=== PATIENT | male | born 1945 | race Caucasian/White ===

== ENCOUNTER 2020-01-28 22:23 | Emergency (ER) | payer OTHER, MEDICARE, SELFPAY ==
[2020-01-28 22:35] VITALS: BP 153/103; PULSE 59; RESP 18; TEMP 36.5; O2SAT 98; BMI 28.2
--- NOTE | 2020-01-28 22:49 | W.ED.GENADLT ---
HPI - General Adult General: Chief complaint: Ear Stated complaint: earache Time Seen by Provider: 01/28/20 22:45 History of Present Illness: HPI narrative: Patient complains about sinus drainage and left ear pressure times last few days. Said he had drainage come down back throat any brought some that up in a prescription ball for me to look at which has a lot of spit in it . Has history of high blood pressure which she is on medications for MD complaint: Ear pain and sinus drainage Onset (ago): day(s) Location: head Radiation: non-radiation Severity: mild Relieving factors: none Exacerbating factors: none Associated symptoms: Reports no associated symptoms; Deny chest pain, dyspnea, headache(s), nausea, rash or vomiting Review of Systems Const: Denies: fever, chills or body aches Eyes: Denies: change in vision or blurry vision ENMT: Reports: throat pain, nasal congestion and facial/sinus pain Card: Denies: chest pain or shortness of breath on exertion Resp: Denies: shortness of breath, productive cough or non-productive cough GI: Denies: abdominal pain, nausea or vomiting : Denies: difficulty urinating Musc: Denies: extremity pain Skin/Breast: Denies: rash Neuro: Denies: headache Psych: Denies: anxiety or depression Phuc/Lymph: Denies: easy bruising PFSH ED PFSH: Social History Smoking and tobacco status: never smoked Physical Exam Const: COMMON NORMALS: no apparent distress, average body habitus and oriented x3 HENMT: COMMON NORMALS: normocephalic and TM's normal bilaterally HEAD & SCALP: normal to inspection and normocephalic FACE & SINUS: sinus tenderness (Left maxillary) NOSE: nasal discharge TYMPANIC MEMBRANE: TM's normal bilaterally Eye: COMMON NORMALS: conjunctivae normal GENERAL EYE: normal appearance of both eyes CONJUNCTIVA: Yes conjunctivae normal Neck/C-Spine: COMMON NORMALS: no JVD Chest: COMMONS NORMALS: inspection of chest normal Resp: COMMON NORMALS: normal respiratory effort and clear to auscultation bilaterally AUSCULTATION: clear to auscultation bilaterally Cardio: COMMON NORMALS: no JVD, regular rate and regular rhythm RATE: regular rate RHYTHM: regular rhythm GI: COMMON NORMALS: normal to inspection, nondistended, normoactive bowel sounds Extremity: COMMON NORMALS: normal to inspection and full ROM Neuro: COMMON NORMALS: oriented x3 Course Vital Signs: Vital signs: Vital Signs Temperature 97.7 F 01/28/20 22:35 Pulse Rate 59 L 01/28/20 22:35 Respiratory Rate 18 01/28/20 22:35 Blood Pressure 153/103 01/28/20 22:35 Pulse Oximetry 98 01/28/20 22:35 Coding 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
[2020-01-28] MEDS: sulfamethoxazole-trimeth DS 160-800 mg Tablet 1 TAB PO (23:02)
== END 2020-01-28 23:05 | disposition home or self-care (01) ==
LOC: ER 23:13
PROVIDERS: Emergency Provider Nurse Practitioner Family; PCP Family Medicine
DX: H92.02 Otalgia, left ear (principal); J02.9 Acute pharyngitis, unspecified; R09.81 Nasal congestion
CPT/HCPCS: 12345; 99281; 99282

== ENCOUNTER 2020-04-12 08:11 | Outpatient (CLI) | payer OTHER, SELFPAY ==
--- NOTE | 2020-04-12 08:23 | CT_ITS ---
WS: [id number] CT NECK TECHNIQUE: Contrast-enhanced CT of the neck with coronal and sagittal reformatted images. CLINICAL INFORMATION: CERVICALGIA, ATYPICAL FACIAL PAIN COMPARISON: None. DLP: 2913.[address] scans at [facility] use at least one of these dose optimization techniques: automat ed exposure control; mA and/or kV adjustment per patient size (includes targeted exams where dose is matched to clinical indication); or iterative reconstruction. FINDINGS: Small amount of subcutaneous edema and skin thickening involving the left frontal and temporal soft t issues. Recommend correlation for cellulitis. Small amount of edema in the underlying scalp. No evide nce of drainable abscess or fluid collection. Mild edema extending along the supraorbital soft tissue s. Parotid glands are normal in appearance. Normal intraparotid lymph nodes. Normal submandibular glands . No salivary gland calculi. Tongue base is normal in appearance. Normal parapharyngeal fat. Posterior nasopharynx is normal. Tongue base is normal in appearance. No evidence of supraglottic or glottic mass. Glottis is normal i n appearance. Normal piriform sinuses. Normal subglottic airway. [place] tonsils appear normal. No c ervical lymphadenopathy. 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 Moderate spondylitic changes cervical spine. Calcification along the nuchal ligament. CT/CT neck w con* [id number] IMPRESSION: 1. No evidence of supraglottic or glottic mass. No cervical lymphadenopathy. 2. Small amount of edema and induration in the left frontal and temporal soft tissues. Recommend correlation for cellulitis. No drainable abscess or fluid co llection. 3. Salivary glands are normal in appearance. 4. Paranasal sinuses and mastoid air cells are well aerated.
[2020-04-12 09:33] LABS: Blood Urea Nitrogen 10 mg/dL (8-23)
[2020-04-12] MEDS: iohexol 300 mg/mL 100 mL Btl IV (09:47)
== END 2020-04-12 08:12 | disposition home or self-care (01) ==
LOC: RADWPI 08:15
PROVIDERS: PCP Family Medicine; Visit Provider Specialist
DX: M54.2 Cervicalgia (principal); G50.1 Atypical facial pain; R60.9 Edema, unspecified
CPT/HCPCS: 70491; 82565; 84520; Q9967

== ENCOUNTER 2020-06-24 15:54 | Emergency (ER) | payer OTHER, MEDICARE, SELFPAY ==
[2020-06-24 15:57] VITALS: BP 150/88; PULSE 65; RESP 20; TEMP 37; O2SAT 97; BMI 30.5
[2020-06-24 16:13] VITALS: BP 141/87; PULSE 76; RESP 20; O2SAT 98
--- NOTE | 2020-06-24 16:20 | XRR_ITS ---
PROCEDURE INFORMATION: Exam: XR Chest, 1 View Exam date and time: 06/24/2020 4:22 PM Age: 75 years old Clinical indication: Cough; Additional info: Cough with sputum TECHNIQUE: Imaging protocol: XR of the chest Views: 1 view. COMPARISON: CR Chest 1 [place] [id number] 05/29/2018 1:15 AM FINDINGS: Lungs: There are pulmonary parenchymal calcifications consistent with remote granulomatous organism exposure. There is nonspecific opacity at the left lung base. Pleural space: Unremarkable. No pleural effusion. No pneumothorax. Heart/Mediastinum: Unremarkable. No cardiomegaly. Bones/joints: Unremarkable. XR/XR chest 1V portable [id number] IMPRESSION: Nonspecific opacity at the left lung base. Differential includes pneumonia. Underlying neoplasm cannot be excluded.
--- NOTE | 2020-06-24 16:20 | W.ED.GENADLT ---
HPI - General Adult General: Chief complaint: Ear Stated complaint: cough/sob Time Seen by Provider: 06/24/20 16:04 History of Present Illness: HPI narrative: Patient is a 75-year-old male who comes to the ED with cough, nasal drainage and sinus pain. Patient has a past medical history of GERD, hypertension. patient says the symptoms have been going on for the past 3 months. Patient says he has a lot of sinus drainage that he coughs up constantly. Patient actually collected some sputum in a bottle for us to test. He is having some left-sided facial tenderness. He describes that he feels like the left sinus area is constantly draining to the back of his throat. Denies any fever, nausea/vomiting, abdominal pain, bladder or bowel symptoms. Associated symptoms: Deny chest pain, dyspnea, headache(s), nausea, rash, palpitations or vomiting Review of Systems Const: Denies: fever(s), chills or fatigue Eyes: Denies: change in vision or eye discomfort ENMT: Reports: nasal discharge and sinus pain (maxillary sinuse pain); Denies: throat pain, odynophagia or nasal congestion Card: Denies: chest pain, palpitations, edema, swelling of feet/ankles, dyspnea on exertion or orthopnea Resp: Reports: productive cough (Productive cough caused by sinus drainage.); Denies: dyspnea or non-productive cough GI: Denies: abdominal pain, nausea, vomiting, diarrhea, constipation or hematochezia : Denies: flank pain, difficulty urinating, dysuria or hematuria Musc: Denies: neck pain, back pain or extremity swelling Skin/Breast: Denies: rash or new lesions Neuro: Denies: headache(s), numbness in extremities or weakness in extremities PFS ED PFSH: Social History Smoking and tobacco status: never smoked Physical Exam Const: COMMON NORMALS: no acute distress, patient oriented x3 and alert GENERAL APPEARANCE: cooperative and comfortable HENMT: COMMON NORMALS: normocephalic and Normal external nose present HEAD & SCALP: normocephalic FACE & SINUS: sinus tenderness maxillary (left side) NOSE: Normal external nose present TYMPANIC MEMBRANE: TM normal on the right and TM abnormal TM laterality: left Details: fluid behind TM MOUTH: Normal oral and palatal mucosa present THROAT: posterior oropharynx normal and uvula midline Eye: COMMON NORMALS: Equal, round and reactive pupils present PUPIL: Yes Equal, round and reactive pupils present Neck/C-Spine: COMMON NORMALS: supple GENERAL: Yes normal visual inspection Resp: COMMON NORMALS: normal respiratory effort, No retractions, No use of accessory muscles and clear to auscultation bilaterally AUSCULTATION: clear to auscultation bilaterally Cardio: COMMON NORMALS: regular rate, regular rhythm, S1 normal heart sound present, S2 normal heart sound present, No gallops present (Cardio), No clicks present (Cardio), No murmurs present (Cardio) and Peripheral pulses 2+ throughout RATE: regular rate RHYTHM: regular rhythm HEART SOUNDS: S1 normal heart sound present and S2 normal heart sound present PERIPHERAL PULSES: Peripheral pulses 2+ throughout GI: COMMON NORMALS: Normal to inspection, nondistended, normoactive bowel sounds present, Soft to palpation, non-tender and no masses PALPATION: Yes Soft to palpation : COMMON NORMALS: Yes no CVA tenderness BLADDER/KIDNEY EXAM: Yes no CVA tenderness Back/Pelvis: COMMON NORMALS: no CVA tenderness Extremity: COMMON NORMALS: normal to inspection Neuro: COMMON NORMALS: patient oriented x3 and moves all extremities SENSORIUM/ORIENTATION: Yes alert Skin: GENERAL SKIN EXAM: dry skin Course Vital Signs: Vital signs: Vital Signs Temperature 98.6 F 06/24/20 17:24 Pulse Rate 71 06/24/20 17:24 Respiratory Rate 18 06/24/20 17:24 Blood Pressure 173/99 06/24/20 17:24 Pulse Oximetry 96 06/24/20 17:24 MDM - General Adult MDM Narrative: Medical decision making narrative: Patient is a 75-year-old male who comes to the ED with left maxillary sinus drainage and tenderness. Exam showed patient in no acute respiratory distress. Lungs are clear to auscultation bilaterally. Temp 98.6, pulse 71, O2 saturation 96% on room air. CBC and CMP were unremarkable. Chest x-ray showed no acute findings. Left lung base has possible infiltrate but when comparing the chest x-ray to previous cxr in May 2018, left lung base is unchanged. Patient was diagnosed with sinusitis and sent home with a prescription for Augmentin and Medrol Dosepak. Follow-up with PCP in 7 to 10 days. Return to ED precautions given. Patient understood and agreed with plan. Lab Data: Attestation: I reviewed the patient's lab results. Labs: Lab Results 06/24/20 06/24/20 Range/Units 16:37 16:37 WBC 5.7 (4.0-10.0) 10^3/ uL RBC 4.82 (4.1-5.3) 10^6/u L Hgb 15.0 (11.7-16.6) g/dL Hct 46.1 (42.0-52.0) % MCV 95.6 H (80-94) fL MCH 31.1 (28.0-34.0) pg MCHC 32.5 (30.0-36.0) g/dL RDW 13.6 (12.1-15.1) % Plt Count 195 (130-400) 10^3/c mm MPV 11.0 H (7.4-10.4) fL Neut % (Auto) 55.6 % Lymph % (Auto) 25.0 % [place] % (Auto) 16.6 % Eos % (Auto) 0.9 % Baso % (Auto) 1.4 % Neut # (Auto) 3.14 (1.8-7.7) 10^3/u L Lymph # (Auto) 1.4 (0.8-4.8) 10^3/u L [place] # (Auto) 0.9 (0.2-0.9) 10^3/u L Eos # (Auto) 0.1 (0.0-0.8) 10^3/u L Baso # (Auto) 0.1 (0.0-0.1) 10^3/u L Nucleated RBC % (a uto) 0 % Nucleated RBCs # 0.0 /100WBC Sodium 134 L (136-145) mmol/L Potassium 4.2 (3.5-5.1) mmol/L Chloride 98 (98-107) mmol/L Carbon Dioxide 28 (22-29) mmol/L Anion Gap 12.2 (5-19) BUN 17 (8-23) mg/dL Creatinine 1.1 (0.7-1.2) mg/dL GFR Calculation Not Reportable Glucose 111 (65-115) mg/dL Calculated Osmolal ity 275 L (285-295) mOsm/k g Calcium 8.9 (8.5-10.5) mg/dL Total Bilirubin 0.2 (0.15-1.2) mg/dL AST 42 H (0-40) U/L ALT 64 H (0-41) U/L Alkaline Phosphata se 71 (40-130) IU/L Total Protein 7.2 (6.6-8.7) g/dL Albumin 4.2 (3.5-5.2) g/dL Globulin 3.0 (1.3-4.6) g/dL Imaging Data^: CXR: Attestation: I personally reviewed and interpreted this imaging study as follows: My impression: No acute findings. Radiologist's impression: [address] [address] XRay Report Signed Patient: William Braun Unit #: [id number] : [id number] Age/Sex: 75 / M ADM Date: 06/24/20 Loc: ER Room/Bed: Attending Dr: Ordering Provider/Ordering MD: Alexandre Franco Date of Service: 06/24/20 Procedure(s): XR chest 1V portable [id number] Accession Number(s): [id number] Report Number: [id number] PROCEDURE INFORMATION: Exam: XR Chest, 1 View Exam date and time: 06/24/2020 4:22 PM Age: 75 years old Clinical indication: Cough; Additional info: Cough with sputum TECHNIQUE: Imaging protocol: XR of the chest Views: 1 view. COMPARISON: CR Chest 1 [place] [id number] 05/29/2018 1:15 AM FINDINGS: Lungs: There are pulmonary parenchymal calcifications consistent with remote granulomatous organism exposure. There is nonspecific opacity at the left lung base. Pleural space: Unremarkable. No pleural effusion. No pneumothorax. Heart/Mediastinum: Unremarkable. No cardiomegaly. Bones/joints: Unremarkable. XR/XR chest 1V portable [id number] IMPRESSION: Nonspecific opacity at the left lung base. Differential includes pneumonia. Underlying neoplasm cannot be excluded. Dictated By: Pearl Pryor MD Signed By: Pearl Pryor MD Signed Date/Time: 06/24/201647 DD/ 1648 Discharge Plan Discharge Patient Disposition: Home Clinical Impression: Sinusitis, maxillary, chronic Condition: Stable Prescriptions: New amoxicillin-pot clavulanate 500-125 mg tablet 1 tab PO TID 10 Days Qty: 30 RF: 0 methylprednisolone 4 mg tablets,dose pack See Rx Instructions .ROUTE .COMPLEX Qty: 21 RF: 0 No Action aspirin 81 mg Tablet,Delayed Release (Dr/Ec) 81 mg PO DAILY RF: 0 tamsulosin 0.4 mg Capsule 0.4 mg PO DAILY RF: 0 hydrochlorothiazide 25 mg Tablet 25 mg PO DAILY RF: 0 ipratropium bromide 42 mcg (0.06 %) [place],Non-Aerosol 2 spray INTRANASAL TID RF: 0 finasteride 5 mg Tablet 5 mg PO DAILY RF: 0 loratadine 10 mg Tablet 10 mg PO DAILY RF: 0 omeprazole 20 mg Tablet,Delayed Release (Dr/Ec) 20 mg PO DAILY RF: 0 fluticasone prp-sod.chl,bicarb 50 mcg- 0.9 % Kit,[place] Suspension And [place] 2 spray INTRANASAL DAILY RF: 0 methylprednisolone 4 mg Tablets,Dose Pack 0 mg PO PER PKG DIR RF: 0 valacyclovir 500 mg Tablet 500 mg PO TID RF: 0 ibuprofen 200 mg Tablet 200 mg PO Q6H PRN (Reason: Pain) RF: 0 [place]-3 Fish Oil 300-1,000 mg Capsule 1 cap PO DAILY RF: 0 Discharge Orders: Discharge Order (Routine); Ordered 06/24/20 Ordered By: Alexandre Franco Referrals: [facility] [Primary Care Provider] - Discharge Diet: Regular Discharge Activity: Resume usual activity Patient Instructions: Sinusitis - Acute, Sinusitis - Chronic Activity Restrictions/Additional Instructions: Follow-up with medical provider as directed in 5-7 days. Take medications as prescribed. Continue taking all home medications. Also continue using nasal spray and other previously prescribed allergy medication. Return to the ER or your medical provider if condition worsens. Please read and understand discharge instructions. If any questions, please ask. 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
[2020-06-24] MEDS: amoxicillin-clav 500-125 mg Tablet 1 TAB PO (16:46)
[2020-06-24] MEDS: predniSONE 20 mg Tablet 60 MG PO (16:46)
[2020-06-24 16:47] LABS: Basophils # 0.1 10^3/uL (0.0-0.1); Basophils % 1.4 %; Eosinophils # 0.1 10^3/uL (0.0-0.8); Eosinophils % 0.9 %; Hematocrit 46.1 % (42.0-52.0); Lymphocytes # 1.4 10^3/uL (0.8-4.8); Mean Corpuscular HGB Conc 32.5 g/dL (30.0-36.0); Mean Corpuscular Hemoglobin 31.1 pg (28.0-34.0); Mean Corpuscular Volume 95.6 fL (80-94); Monocytes # 0.9 10^3/uL (0.2-0.9); Monocytes % 16.6 %; Neutrophils # 3.14 10^3/uL (1.8-7.7); Neutrophils % 55.6 %; Nucleated Red Blood Cells % 0 %; Platelet Count 195 10^3/cmm (130-400); Red Blood Count 4.82 10^6/uL (4.1-5.3); Red Cell Distribution Width 13.6 % (12.1-15.1); White Blood Count 5.7 10^3/uL (4.0-10.0)
[2020-06-24 17:15] LABS: Alanine Aminotransferase 64 U/L (0-41); Albumin Level 4.2 g/dL (3.5-5.2); Alkaline Phosphatase 71 IU/L (40-130); Anion Gap 12.2 (5-19); Aspartate Amino Transferase 42 U/L (0-40); Blood Urea Nitrogen 17 mg/dL (8-23); Calcium 8.9 mg/dL (8.5-10.5); Carbon Dioxide 28 mmol/L (22-29); Chloride 98 mmol/L (98-107); Glucose 111 mg/dL (65-115); Osmolality Calculated 275 mOsm/kg (285-295); Potassium 4.2 mmol/L (3.5-5.1); Sodium 134 mmol/L (136-145); Total Bilirubin 0.2 mg/dL (0.15-1.2); Total Protein 7.2 g/dL (6.6-8.7)
[2020-06-24 17:24] VITALS: BP 173/99; PULSE 71; RESP 18; TEMP 37; O2SAT 96
== END 2020-06-24 17:27 | disposition home or self-care (01) ==
PROVIDERS: Emergency Provider Physician Assistant
DX: J32.0 Chronic maxillary sinusitis (principal); Z79.82 Long term (current) use of aspirin
CPT/HCPCS: 12345; 36415; 71045; 80053; 85025; 87070; 87205; 99281; 99282; 99283; J7512

== ENCOUNTER 2020-06-28 14:46 | Emergency (ER) | payer OTHER, MEDICARE, SELFPAY ==
[2020-06-28 14:52] VITALS: BP 138/72; PULSE 103; RESP 14; TEMP 37.6; O2SAT 97; BMI 30.5
--- NOTE | 2020-06-28 15:09 | XRR_ITS ---
PROCEDURE INFORMATION: Exam: XR Chest, 2 Views Exam date and time: 06/28/2020 3:25 PM Age: 75 years old Clinical indication: Cough; Patient HX: Tight in upper chest, HX of melanoma; Additional info: Cough, difficulty breathing TECHNIQUE: Imaging protocol: XR of the chest Views: Frontal and lateral upright views. COMPARISON: CR (CHEST, ) 06/24/2020 4:23 PM FINDINGS: Lungs: Right mid lung zone calcified pulmonary parenchymal granuloma. The lungs are otherwise clear bilaterally. The pulmonary vasculature is normal. Pleural space: No pleural effusion. No pneumothorax. Heart/Mediastinum: The heart is normal in size and contour. Mediastinum: Stable. Vasculature: Mild tortuosity of the descending thoracic aorta. Bones/joints: Degenerative disk disease is present at mid-thoracic spine disk levels. Organs: The gallbladder is likely surgically absent, with metallic clips overlying the gallbladder fossa. XR/XR chest 2V* [id number] IMPRESSION: 1. No acute cardiopulmonary abnormality identified. 2. Prior cholecystectomy.
--- NOTE | 2020-06-28 15:25 | ED_ITS ---
HPI - General Adult General: Chief complaint: General Medical Stated complaint: COUGH, HEADACHE, BACK PAIN Time Seen by Provider: 06/28/20 14:58 Source: patient Mode of arrival: ambulatory Limitations: no limitations History of Present Illness: HPI narrative: 75-year-old male who presents to the emergency department with complaints of cough for the last 5 to 6 weeks. He has seen his primary care a few times and has been given amoxicillin and prednisone with no improvement in his symptoms he is also been to the urgent care and they have not been able to address it. He says the cough is productive of mucoid sputum. He stopped smoking about 20 years ago. He was sent to the emergency department to get tested for COVID-19. Onset (ago): week(s) (6) Severity: moderate Pain Consistency: intermittent Relieving factors: none Exacerbating factors: none Associated symptoms: Reports cough and headache(s) (from coughing so much); Deny chest pain, confusion, diaphoresis, decreased appetite, dyspnea, fevers/chills, rash, palpitations, seizures, short of breath, syncope, vomiting or weakness Treatments prior to arrival: other (amoxicillin and medrol dospak) Review of Systems General: Reports: 10 or more systems reviewed and unremarkable except in HPI and below Const: Denies: diaphoresis Eyes: Denies: change in vision or blurry vision ENMT: Denies: throat pain, enlarged tonsils, odynophagia, hoarseness, mouth pain or swelling of lips/tongue Card: Denies: chest pain, palpitations or syncope Resp: Denies: dyspnea GI: Denies: vomiting : Denies: flank pain, dysuria, urinary frequency, urinary urgency or urinary hesitancy Musc: Denies: neck pain, back pain or extremity swelling Skin/Breast: Denies: rash, pruritus or erythema Neuro: Reports: headache(s) (from coughing so much); Denies: confusion Endo: Denies: polyuria, polydipsia or tired all the time [facility] ED PFSH: Social History (Reviewed 06/28/20 @ 15:29 by Eulogio Liu [place] [facility] [place] Smoking and tobacco status: never smoked Physical Exam Const: COMMON NORMALS: no acute distress, average body habitus, patient oriented x3, no limitations, healthy appearing, alert and well nourished HENMT: COMMON NORMALS: normocephalic, atraumatic and moist oral mucous membranes HEAD & SCALP: normocephalic and atraumatic Neck/C-Spine: COMMON NORMALS: no meningeal signs and no JVD Resp: COMMON NORMALS: normal respiratory effort, No retractions, No use of accessory muscles, clear to auscultation bilaterally and percussion normal AUSCULTATION: clear to auscultation bilaterally PERCUSSION: percussion normal Cardio: COMMON NORMALS: no JVD, regular rate, regular rhythm, S1 normal heart sound present, S2 normal heart sound present, No gallops present (Cardio), No clicks present (Cardio), No murmurs present (Cardio), No rub (Cardio) and Peripheral pulses 2+ throughout RATE: regular rate RHYTHM: regular rhythm HEART SOUNDS: S1 normal heart sound present and S2 normal heart sound present PERIPHERAL PULSES: Peripheral pulses 2+ throughout GI: COMMON NORMALS: Normal to inspection, nondistended, normoactive bowel sounds present, Soft to palpation, non-tender, No hepatosplenomegaly present, no masses and no bruits PALPATION: Yes Soft to palpation and Yes No hepatosplen omegaly present : COMMON NORMALS: Yes no CVA tenderness BLADDER/KIDNEY EXAM: Yes no CVA tenderness Back/Pelvis: COMMON NORMALS: no CVA tenderness Extremity: COMMON NORMALS: normal to inspection, full ROM, capillary refill normal, no calf tenderness and no pedal edema Neuro: COMMON NORMALS: patient oriented x3 SENSORIUM/ORIENTATION: Yes alert MENINGEAL SIGNS: Yes no meningeal signs Course ED course: 75-year-old gentleman who has had a cough for about 5 weeks. He has been given antibiotics and steroids but not much improvement. He is currently on amoxicillin and prednisone. He has persistent cough and that is what is bothering him the most. Evaluation in the emergency department was unremarkable and he is discharged home with a prescription for Tessalon Perles. He also had an outpatient COVID test done but result is pending. Procalcitonin negative so unlikely to have a pneumonia. Vital Signs: Vital signs: Vital Signs Temperature 99.6 F 06/28/20 14:52 Pulse Rate 78 06/28/20 17:02 Respiratory Rate 17 06/28/20 17:02 Blood Pressure 153/72 06/28/20 17:02 Pulse Oximetry 97 06/28/20 17:02 MDM - General Adult MDM Narrative: Medical decision making narrative: 75-year-old male with features consistent with bronchitis. He has had a persistent cough for about 5 weeks. He has no fever, vital signs were okay, examination unremarkable, labs unremarkable including pro calcitonin. He was discharged home with a prescription for Tessalon Perles. Medical Records: Attestation: I reviewed the patient's medical records. Lab Data: Attestation: I reviewed the patient's lab results. Labs: Lab Results 06/28/20 06/28/20 Range/Units 15:40 15:40 WBC 6.9 (4.0-10.0) 10^3/ uL RBC 4.95 (4.1-5.3) 10^6/u L Hgb 15.4 (11.7-16.6) g/dL Hct 46.7 (42.0-52.0) % MCV 94.3 H (80-94) fL MCH 31.1 (28.0-34.0) pg MCHC 33.0 (30.0-36.0) g/dL RDW 13.2 (12.1-15.1) % Plt Count 173 (130-400) 10^3/c mm MPV 10.7 H (7.4-10.4) fL Neut % (Auto) 67.9 % Lymph % (Auto) 18.3 % [facility] % (Auto) 12.8 % Eos % (Auto) 0.1 % Baso % (Auto) 0.3 % Neut # (Auto) 4.71 (1.8-7.7) 10^3/u L Lymph # (Auto) 1.3 (0.8-4.8) 10^3/u L [facility] # (Auto) 0.9 (0.2-0.9) 10^3/u L Eos # (Auto) 0.0 (0.0-0.8) 10^3/u L Baso # (Auto) 0.0 (0.0-0.1) 10^3/u L Nucleated RBC % (a uto) 0 % Nucleated RBCs # 0.0 /100WBC Sodium 127 L (136-145) mmol/L Potassium 3.8 (3.5-5.1) mmol/L Chloride 90 L (98-107) mmol/L Carbon Dioxide 26 (22-29) mmol/L Anion Gap 14.8 (5-19) BUN 22 (8-23) mg/dL Creatinine 1.1 (0.7-1.2) mg/dL GFR Calculation Not Reportable Glucose 101 (65-115) mg/dL Calculated Osmolal ity 261 L (285-295) mOsm/k g Calcium 8.8 (8.5-10.5) mg/dL Total Bilirubin 0.3 (0.15-1.2) mg/dL AST 59 H (0-40) U/L ALT 57 H (0-41) U/L Alkaline Phosphata se 64 (40-130) IU/L C-Reactive Protein 18.9 H (0.0-4.9) mg/L NT-Pro-B Natriuret Pep 75 (0-125) pg/mL Total Protein 6.8 (6.6-8.7) g/dL Albumin 4.1 (3.5-5.2) g/dL Globulin 2.7 (1.3-4.6) g/dL Procalcitonin 0.07 (0-0.5) ng/mL Imaging Data^: CXR: Radiologist's impression: [place] [id number] XRay Report Signed Patient: William Braun #: [id number] : 7Acct#:[id number] Age/Sex: 75 / MADM Date: 06/28/20 Loc: [facility]/Bed: Attending Dr: Ordering Provider/Ordering MD: Eulogio Liu [place] [facility] [place] Date of Service: 06/28/20 Procedure(s): XR chest 2V* [id number] Accession Number(s): [id number] Report Number: [id number] PROCEDURE INFORMATION: Exam: XR Chest, 2 Views Exam date and time: 06/28/2020 3:25 PM Age: 75 years old Clinical indication: Cough; Patient HX: Tight in upper chest, HX of melanoma; Additional info: Cough, difficulty breathing TECHNIQUE: Imaging protocol: XR of the chest Views: Frontal and lateral upright views. COMPARISON: CR (CHEST, ) 06/24/2020 4:23 PM FINDINGS: Lungs: Right mid lung zone calcified pulmonary parenchymal granuloma. The lungs are otherwise clear bilaterally. The pulmonary vasculature is normal. Pleural space: No pleural effusion. No pneumothorax. Heart/Mediastinum: The heart is normal in size and contour. Mediastinum: Stable. Vasculature: Mild tortuosity of the descending thoracic aorta. Bones/joints: Degenerative disk disease is present at mid-thoracic spine disk levels. Organs: The gallbladder is likely surgically absent, with metallic clips overlying the gallbladder fossa. XR/XR chest 2V* [id number] IMPRESSION: 1. No acute cardiopulmonary abnormality identified. 2. Prior cholecystectomy. Dictated By:Chris Kirk MD Signed By:Chris Kirkigned Date/Time:06/28/201627 DD/ 25 Discharge Plan Discharge Patient Disposition: Home Clinical Impression: Bronchitis Condition: Stable Prescriptions: New Tessalon Perles 100 mg capsule 100 mg PO Q6H PRN (Reason: cough) Qty: 20 RF: 0 Continued aspirin 81 mg Tablet,Delayed Release (Dr/Ec) 81 mg PO DAILY RF: 0 tamsulosin 0.4 mg Capsule 0.4 mg PO DAILY RF: 0 hydrochlorothiazide 25 mg Tablet 25 mg PO DAILY RF: 0 ipratropium bromide 42 mcg (0.06 %) [place],Non-Aerosol 2 spray INTRANASAL TID RF: 0 finasteride 5 mg Tablet 5 mg PO DAILY RF: 0 loratadine 10 mg Tablet 10 mg PO DAILY RF: 0 omeprazole 20 mg Tablet,Delayed Release (Dr/Ec) 20 mg PO DAILY RF: 0 fluticasone prp-sod.chl,bicarb 50 mcg- 0.9 % Kit,[place] Suspension And [place] 2 spray INTRANASAL DAILY RF: 0 valacyclovir 500 mg Tablet 500 mg PO TID RF: 0 ibuprofen 200 mg Tablet 200 mg PO Q6H PRN (Reason: Pain) RF: 0 [place]-3 Fish Oil 300-1,000 mg Capsule 1 cap PO DAILY RF: 0 methylprednisolone 4 mg tablets,dose pack See Rx Instructions .ROUTE .COMPLEX Qty: 21 RF: 0 amoxicillin-pot clavulanate 875-125 mg Tablet 1 tab PO BID RF: 0 Discharge Orders: Discharge Order (Routine); Ordered 06/28/20 Ordered By: Eulogio Liu Referrals: [facility] [Primary Care Provider] - 4-7 days Discharge Diet: Usual diet Discharge Activity: Increase activity as tolerated Patient Instructions: Acute Bronchitis (ED) Activity Restrictions/Additional Instructions: Return for any new or worsening symptoms. Follow-up with your primary care provider within 1 week. Continue your medications prescribed by your primary care provider. Take the medication prescribed here as needed for cough. Discharge Date/Time: 06/28/20 18:17 Coding Level of Care Code ED Quiller Tender for Chg Fwd Exam Comprehensive
[2020-06-28 15:48] LABS: Basophils % 0.3 %; Eosinophils % 0.1 %; Hematocrit 46.7 % (42.0-52.0); Hemoglobin 15.4 g/dL (11.7-16.6); Lymphocytes # 1.3 10^3/uL (0.8-4.8); Lymphocytes % 18.3 %; Mean Corpuscular Hemoglobin 31.1 pg (28.0-34.0); Mean Corpuscular Volume 94.3 fL (80-94); Mean Platelet Volume 10.7 fL (7.4-10.4); Monocytes # 0.9 10^3/uL (0.2-0.9); Monocytes % 12.8 %; Neutrophils # 4.71 10^3/uL (1.8-7.7); Neutrophils % 67.9 %; Nucleated Red Blood Cells % 0 %; Platelet Count 173 10^3/cmm (130-400); Red Blood Count 4.95 10^6/uL (4.1-5.3); Red Cell Distribution Width 13.2 % (12.1-15.1); White Blood Count 6.9 10^3/uL (4.0-10.0)
[2020-06-28 16:19] LABS: Alanine Aminotransferase 57 U/L (0-41); Albumin Level 4.1 g/dL (3.5-5.2); Alkaline Phosphatase 64 IU/L (40-130); Anion Gap 14.8 (5-19); Aspartate Amino Transferase 59 U/L (0-40); Blood Urea Nitrogen 22 mg/dL (8-23); Calcium 8.8 mg/dL (8.5-10.5); Carbon Dioxide 26 mmol/L (22-29); Chloride 90 mmol/L (98-107); Globulin 2.7 g/dL (1.3-4.6); Glucose 101 mg/dL (65-115); NT Pro B Type Natriuretic Pept 75 pg/mL (0-125); Osmolality Calculated 261 mOsm/kg (285-295); Potassium 3.8 mmol/L (3.5-5.1); Sodium 127 mmol/L (136-145); Total Bilirubin 0.3 mg/dL (0.15-1.2); Total Protein 6.8 g/dL (6.6-8.7)
[2020-06-28] MEDS: sodium chloride 0.9% 1,000 ML 999 ML IV (16:56)
[2020-06-28] MEDS: benzonatate 100 mg Capsule 200 MG PO (16:57)
[2020-06-28 17:02] VITALS: BP 153/72; PULSE 78; RESP 17; O2SAT 97
[2020-06-28 18:15] LABS: Procalcitonin 0.07 ng/mL (0-0.5)
[2020-06-28 18:26] LABS: C Reactive Protein 18.9 mg/L (0.0-4.9)
[2020-06-30 19:10] LABS: Quest SARS-CoV-2 RNA DETECTED (NOT DETECTED)
--- NOTE | 2020-07-01 19:27 | PC.NURSE ---
patient called to give positive covid lab result; recommended self quarantine and to come in if worsening symptoms; patient stated at this time he feels ok, no fever or shortness of breath just a persistent cough. advised patient to call PCP in morning for additional follow up care or to come in for any concerns.
== END 2020-06-28 18:17 | disposition home or self-care (01) ==
PROVIDERS: Emergency Provider Family Medicine
DX: J40 Bronchitis, not specified as acute or chronic (principal); Z79.82 Long term (current) use of aspirin; U07.1 COVID-19
CPT/HCPCS: 12345; 36415; 71046; 80053; 83880; 84145; 85025; 86140; 87635; 96360; 99282; 99283; J7030

== ENCOUNTER → 2020-11-06 14:05 | Outpatient (BNVA) | payer OTHER, MEDICARE, SELFPAY | PROVIDERS: Visit Provider Emergency Medicine | DX: M70.20 Olecranon bursitis, unspecified elbow (principal) | CPT/HCPCS: 87070; 87205 ==

== ENCOUNTER 2021-01-18 14:54 | Emergency (ER) | payer OTHER, MEDICARE, SELFPAY ==
[2021-01-18 15:57] VITALS: BP 119/72; PULSE 80; RESP 15; TEMP 36.7; O2SAT 97; BMI 23.4
[2021-01-18 16:49] VITALS: BP 119/72; PULSE 80; RESP 16; O2SAT 97
--- NOTE | 2021-01-18 17:19 | ED_ITS ---
HPI - General Adult General: Chief complaint: General Medical Stated complaint: chills, arm pain, post COVID vaccine Time Seen by Provider: 01/18/21 17:18 Source: patient Mode of arrival: ambulatory Limitations: no limitations History of Present Illness: HPI narrative: 75-year-old male patient comes in today for concerns of a reaction to his Moderna vaccine. Patient reports some mild redness to the injection site on the left arm, and chills. Patient reports feeling better today. Patient reports most of his discomfort was last night. Review of Systems General: Reports: 10 or more systems reviewed and unremarkable except in HPI and below Const: Reports: chills Skin/Breast: Reports: other (Redness at injection site) PFSH ED PFSH: Social History (Updated 11/06/20 @ 13:30 by Delvis Carroll LPN) Smoking and tobacco status: former smoker Alcohol intake: current Alcohol intake frequency: holidays/special occasions only Physical Exam Const: COMMON NORMALS: no acute distress and patient oriented x3 GENERAL APPEARANCE: cooperative HENMT: COMMON NORMALS: normocephalic, TM's normal bilaterally and Normal external nose present HEAD & SCALP: normal to inspection and normocephalic NOSE: Normal external nose present TYMPANIC MEMBRANE: TM's normal bilaterally MOUTH: Normal oral and palatal mucosa present THROAT: posterior oropharynx normal Eye: GENERAL EYE: appearance normal, both eyes and all related structures Neck/C-Spine: COMMON NORMALS: full ROM Lymph: LYMPHATIC: no lymphadenopathy noted Chest: COMMONS NORMALS: normal inspection of the chest Resp: COMMON NORMALS: normal respiratory effort EFFORT & INSPECTION: Yes able to speak in complete sentences Cardio: COMMON NORMALS: regular rate and regular rhythm RATE: regular rate RHYTHM: regular rhythm GI: COMMON NORMALS: non-tender : COMMON NORMALS: Yes no CVA tenderness BLADDER/KIDNEY EXAM: Yes no CVA tenderness Back/Pelvis: COMMON NORMALS: no CVA tenderness and thoracic and lumbar spine normal to inspection Extremity: COMMON NORMALS: normal to inspection Neuro: COMMON NORMALS: patient oriented x3 and moves all extremities Psych: COMMON NORMALS: mental status grossly normal and cooperative Skin: COMMON NORMALS: no rashes or lesions noted GENERAL SKIN EXAM: no rashes or lesions noted Course Vital Signs: Vital signs: Vital Signs Temperature 98.0 F 01/18/21 15:57 Pulse Rate 80 01/18/21 16:49 Respiratory Rate 16 01/18/21 16:49 Blood Pressure 119/72 01/18/21 16:49 Pulse Oximetry 97 01/18/21 16:49 MDM - General Adult MDM Narrative: Medical decision making narrative: Patient presents for concerns of reaction to COVID-19 vaccine. On exam patient appears well. Lungs are clear to auscultation. Skin is warm and dry. Vital signs are normal. Patient does have a small 3 cm area of redness to the injection site. Differential diagnosis includes vaccine reaction, immune response to vaccine, worried well. I discussed with patient that this is a normal reaction to a vaccine administration. I encourage patient to continue with the vaccine regimen. Patient was hesitant about taking the second shot but I think he will consider it although I do not know if he will complete it. I recommended acetaminophen or ibuprofen for discomfort. Patient reported understanding and agreed to plan. Discharge Plan Discharge Patient Disposition: Home Clinical Impression: Vaccine counseling, Myalgia Condition: Stable Prescriptions: No Action doxycycline hyclate 100 mg tablet 100 mg PO BID 10 Days Qty: 20 RF: 0 aspirin 81 mg Tablet,Delayed Release (Dr/Ec) 81 mg PO DAILY RF: 0 tamsulosin 0.4 mg Capsule 0.4 mg PO DAILY RF: 0 hydrochlorothiazide 25 mg Tablet 25 mg PO DAILY RF: 0 ipratropium bromide 42 mcg (0.06 %) [place],Non-Aerosol 2 spray INTRANASAL TID RF: 0 finasteride 5 mg Tablet 5 mg PO DAILY RF: 0 loratadine 10 mg Tablet 10 mg PO DAILY RF: 0 omeprazole 20 mg Tablet,Delayed Release (Dr/Ec) 20 mg PO DAILY RF: 0 fluticasone prp-sod.chl,bicarb 50 mcg- 0.9 % Kit,[place] Suspension And [place] 2 spray INTRANASAL DAILY RF: 0 valacyclovir 500 mg Tablet 500 mg PO TID RF: 0 ibuprofen 200 mg Tablet 200 mg PO Q6H PRN (Reason: Pain) RF: 0 [place]-3 Fish Oil 300-1,000 mg Capsule 1 cap PO DAILY RF: 0 methylprednisolone 4 mg tablets,dose pack See Rx Instructions .ROUTE .COMPLEX Qty: 21 RF: 0 amoxicillin-pot clavulanate 875-125 mg Tablet 1 tab PO BID RF: 0 Tessalon Perles 100 mg capsule 100 mg PO Q6H PRN (Reason: cough) Qty: 20 RF: 0 Discharge Orders: Discharge ED (Routine); Ordered 01/18/21 Ordered By: Chris Villaseñor Referrals: [facility] [Primary Care Provider] - Discharge Diet: Usual diet Discharge Activity: Increase activity as tolerated Patient Instructions: Opioid Safety Activity Restrictions/Additional Instructions: Activity as tolerated. Use acetaminophen or ibuprofen as needed for pain and discomfort. Drink plenty of water with medication. Follow-up with primary care for further treatment. The reaction you had is very common with many vaccines. The Covid vaccine has a good immune response. The immune response causes some myalgia, fever, and chills. It is often recommended to use acetaminophen to combat the symptoms. X-ray drinking plenty of water. Follow-up with primary care for further instruction. Coding Level of Care Code ED System Consultant for [facility] Fwvolodymyr Exam Comprehensive
== END 2021-01-18 17:41 | disposition home or self-care (01) ==
PROVIDERS: Emergency Provider Nurse Practitioner Family
DX: M79.10 Myalgia, unspecified site (principal); Z79.82 Long term (current) use of aspirin; Z87.891 Personal history of nicotine dependence
CPT/HCPCS: 99281

== ENCOUNTER 2021-03-24 04:23 | Emergency (ER) | payer OTHER, MEDICARE, SELFPAY ==
[2021-03-24 04:25] VITALS: BP 151/81; PULSE 57; RESP 15; TEMP 36.7; O2SAT 99; BMI 28.8
[2021-03-24] MEDS: silver nitrate applicator 1 EACH TOPICAL (04:43)
--- NOTE | 2021-03-24 04:47 | ED_ITS ---
HPI - Wound/Laceration General: Chief Complaint: Wound/Laceration Stated Complaint: right leg lac Time Seen by Provider: 03/24/21 04:30 History of Present Illness: HPI narrative: 75-year-old male who scratched over a varicosity on his lateral right lower leg, and opened it up. He experienced significant oozing of the varicosity from at least 45 minutes before deciding to come in. He wrapped it with paper towels and tape to get here. He says that he got a bit dizzy, but that is resolved. Onset (ago): hour(s) (1-2) Extremity Location: Right: lower leg Place: home Context: accidental Associated symptoms: Reports no associated symptoms; Denies chills or fever(s) Review of Systems Const: Denies: fever(s) or chills Card: Denies: chest pain Resp: Denies: dyspnea Neuro: Reports: dizziness (Resolved) [facility] ED PFSH: Social History (Updated 11/06/20 @ 13:30 by Delvis Carroll LPN) Smoking and tobacco status: former smoker Alcohol intake: current Alcohol intake frequency: holidays/special occasions only Physical Exam Const: COMMON NORMALS: no acute distress, patient oriented x3 and alert Chest: COMMONS NORMALS: normal inspection of the chest Resp: COMMON NORMALS: normal respiratory effort and No use of accessory muscles Cardio: COMMON NORMALS: regular rhythm and Peripheral pulses 2+ throughout RATE: bradycardic RHYTHM: regular rhythm PERIPHERAL PULSES: Peripheral pulses 2+ throughout Extremity: NARRATIVE EXTREMITY EXAM: Puncture wound to the right lateral lower leg with oozing venous blood. Widespread varicosities otherwise with some chronic stasis dermatitis skin changes bilaterally. GENERAL: Yes normal exam except as noted Neuro: COMMON NORMALS: patient oriented x3 SENSORIUM/ORIENTATION: Yes alert Skin: NARRATIVE SKIN EXAM: See extremity exam Procedures Laceration Laceration 1: Site: lower extremity Side (If applicable): right Size (cm): 0.5 Description: other (Puncture wound) Depth: simple, single layer Skin layer closed with: other (Dermabond) Course 2 Vital Signs: Vital signs: Vital Signs Temperature 98.1 F 03/24/21 04:25 Pulse Rate 57 L 03/24/21 04:25 Respiratory Rate 15 03/24/21 04:25 Blood Pressure 151/81 03/24/21 04:25 Pulse Oximetry 99 03/24/21 04:25 MDM - Wound/Laceration MDM Narrative: Medical decision making narrative: 75-year-old male with a scratched varicosity with continued oozing. The leg was elevated significantly on a pillow, at which point the bleeding abated. Silver nitrate placed on the wound followed by Dermabond. Discharge Plan Discharge Patient Disposition: Home Clinical Impression: Ruptured varicose vein Condition: Stable Prescriptions: No Action doxycycline hyclate 100 mg tablet 100 mg PO BID 10 Days Qty: 20 RF: 0 aspirin 81 mg Tablet,Delayed Release (Dr/Ec) 81 mg PO DAILY RF: 0 tamsulosin 0.4 mg Capsule 0.4 mg PO DAILY RF: 0 hydrochlorothiazide 25 mg Tablet 25 mg PO DAILY RF: 0 ipratropium bromide 42 mcg (0.06 %) [place],Non-Aerosol 2 spray INTRANASAL TID RF: 0 finasteride 5 mg Tablet 5 mg PO DAILY RF: 0 loratadine 10 mg Tablet 10 mg PO DAILY RF: 0 omeprazole 20 mg Tablet,Delayed Release (Dr/Ec) 20 mg PO DAILY RF: 0 fluticasone prp-sod.chl,bicarb 50 mcg- 0.9 % Kit,[place] Suspension And [place] 2 spray INTRANASAL DAILY RF: 0 valacyclovir 500 mg Tablet 500 mg PO TID RF: 0 ibuprofen 200 mg Tablet 200 mg PO Q6H PRN (Reason: Pain) RF: 0 [place]-3 Fish Oil 300-1,000 mg Capsule 1 cap PO DAILY RF: 0 methylprednisolone 4 mg tablets,dose pack See Rx Instructions .ROUTE .COMPLEX Qty: 21 RF: 0 amoxicillin-pot clavulanate 875-125 mg Tablet 1 tab PO BID RF: 0 Tessalon Perles 100 mg capsule 100 mg PO Q6H PRN (Reason: cough) Qty: 20 RF: 0 Discharge Orders: Discharge ED (Routine); Ordered 03/24/21 Ordered By: Dick Briseno Referrals: [facility] [Primary Care Provider] - 4-7 days (for wound check) Discharge Diet: Usual diet Discharge Activity: Limit activity as instructed Patient Instructions: Varicose Veins (ED) Activity Restrictions/Additional Instructions: Keep wound clean and dry for 24 hours, then may wash with soap and running water. Do not soak. Return for spreading redness, worsening pain, streaking, continued bleeding, any other concerning symptoms. Coding Level of Care Code ED Silk Trimmer for Chg Fwd Exam Detailed
[2021-03-24 05:28] VITALS: BP 128/74; PULSE 59; RESP 15; TEMP 36.7; O2SAT 97
--- NOTE | 2021-03-24 05:28 | PC.NURSE ---
Telfa non-stick dressing applied to wound and wrapped in coban.
== END 2021-03-24 05:28 | disposition home or self-care (01) ==
PROVIDERS: Emergency Provider Emergency Medicine
DX: I83.891 Varicose veins of right lower extremity with other complications (principal); Z79.82 Long term (current) use of aspirin; Z87.891 Personal history of nicotine dependence
CPT/HCPCS: 99282

== ENCOUNTER 2021-04-11 20:29 | Emergency (ER) | payer OTHER, MEDICARE, SELFPAY ==
[2021-04-11 20:44] VITALS: BP 147/75; PULSE 55; RESP 18; TEMP 37.3; O2SAT 97; BMI 23.4
[2021-04-11 20:52] VITALS: BP 147/75; PULSE 61; RESP 18; O2SAT 97
--- NOTE | 2021-04-11 21:08 | ED_ITS ---
HPI - Skin/Abscess/Foreign Bdy General: Chief complaint: Skin/Abscess/Foreign Body Stated complaint: rash on legs Time Seen by Provider: 04/11/21 20:50 History of Present Illness: HPI narrative: Itching rash to lower extremities x3 days. Patient says he is out working on his camper and that something like a bite or come in contact some on his left leg and now the rash is spread and is keeping him up at night he would like some medication for. complaint: other (Rash lower extremities) Onset (ago): day(s) Tetanus up to date: yes Location: LLE and RLE Severity: mild Severity scale (1-10): 1 Quality: pruritic Relieving factors: rest (Using alcohol, hemorrhoid cream, and peroxide) Associated symptoms: Reports itching; Deny chills, fever(s), nausea or vomiting Review of Systems Const: Denies: fever(s), chills or body aches Eyes: Denies: change in vision or blurry vision ENMT: Denies: throat pain or nasal congestion Card: Denies: chest pain or dyspnea on exertion Resp: Denies: dyspnea, productive cough or non-productive cough GI: Denies: abdominal pain, nausea or vomiting : Denies: difficulty urinating Musc: Denies: extremity pain Skin/Breast: Reports: rash and pruritus (Bilateral lower extremities x3 days) Neuro: Denies: headache(s) Psych: Denies: anxiety or depression Phuc/Lymph: Denies: easy bruising PFSH ED PFSH: Social History (Updated 11/06/20 @ 13:30 by Delvis Carroll LPN) Smoking and tobacco status: former smoker Alcohol intake: current Alcohol intake frequency: holidays/special occasions only Physical Exam Const: COMMON NORMALS: no acute distress Psych: COMMON NORMALS: mental status grossly normal Skin: OTHER: Has fine, red, papular type rash scattered below the sock line on both extremities. Pattern seem to be the same on each lower extremity where when he lays in bed they touch. Course Vital Signs: Vital signs: Vital Signs Temperature 99.2 F 04/11/21 20:44 Pulse Rate 61 04/11/21 20:52 Respiratory Rate 18 04/11/21 20:52 Blood Pressure 147/75 04/11/21 20:52 Pulse Oximetry 97 04/11/21 20:52 Discharge Plan Discharge Patient Disposition: Home Clinical Impression: Contact dermatitis Qualifiers: Contact dermatitis type: irritant Contact dermatitis trigger: unspecified trigger Qualified Code(s): L24.9 - Irritant contact dermatitis, unspecified ca use Condition: Stable Prescriptions: New hydroxyzine HCl 25 mg tablet 25 mg PO TID PRN (Reason: itching) Qty: 14 RF: 0 Anti-Itch (HC) 1 % cream 1 applic topical TID PRN (Reason: itching) Qty: 28.35 RF: 0 No Action doxycycline hyclate 100 mg tablet 100 mg PO BID 10 Days Qty: 20 RF: 0 aspirin 81 mg Tablet,Delayed Release (Dr/Ec) 81 mg PO DAILY RF: 0 tamsulosin 0.4 mg Capsule 0.4 mg PO DAILY RF: 0 hydrochlorothiazide 25 mg Tablet 25 mg PO DAILY RF: 0 ipratropium bromide 42 mcg (0.06 %) [place],Non-Aerosol 2 spray INTRANASAL TID RF: 0 finasteride 5 mg Tablet 5 mg PO DAILY RF: 0 loratadine 10 mg Tablet 10 mg PO DAILY RF: 0 omeprazole 20 mg Tablet,Delayed Release (Dr/Ec) 20 mg PO DAILY RF: 0 fluticasone prp-sod.chl,bicarb 50 mcg- 0.9 % Kit,[place] Suspension And [place] 2 spray INTRANASAL DAILY RF: 0 valacyclovir 500 mg Tablet 500 mg PO TID RF: 0 ibuprofen 200 mg Tablet 200 mg PO Q6H PRN (Reason: Pain) RF: 0 [place]-3 Fish Oil 300-1,000 mg Capsule 1 cap PO DAILY RF: 0 methylprednisolone 4 mg tablets,dose pack See Rx Instructions .ROUTE .COMPLEX Qty: 21 RF: 0 amoxicillin-pot clavulanate 875-125 mg Tablet 1 tab PO BID RF: 0 Tessalon Perles 100 mg capsule 100 mg PO Q6H PRN (Reason: cough) Qty: 20 RF: 0 Discharge Orders: Discharge ED (Routine); Ordered 04/11/21 Ordered By: Vincenzo Burns Referrals: Alice Rangel MD [Primary Care Provider] - Discharge Diet: Usual diet Discharge Activity: Resume usual activity Patient Instructions: Contact Dermatitis (ED) Activity Restrictions/Additional Instructions: Follow-up with medical provider as directed. Take medications as prescribed. Return to the ER or your medical provider if condition worsens. Please read and understand discharge instructions. If any questions ask please. Coding Level of Care Code ED Head Of Stock for [place] Lerma
[2021-04-11] MEDS: hydrocortisone 1% cream 28 gm 1 APPLIC TOPICAL (21:24)
[2021-04-11] MEDS: hyDROXYzine 25 mg Capsule PO (21:24)
== END 2021-04-11 21:25 | disposition home or self-care (01) ==
PROVIDERS: Emergency Provider Nurse Practitioner Family; PCP Family Medicine
DX: L24.9 Irritant contact dermatitis, unspecified cause (principal); Z79.82 Long term (current) use of aspirin; Z79.1 Long term (current) use of non-steroidal anti-inflammatories (NSAID); Z79.891 Long term (current) use of opiate analgesic
CPT/HCPCS: 99283

== ENCOUNTER 2021-09-22 23:48 | Emergency (ER) | payer OTHER, MEDICARE, SELFPAY ==
[2021-09-23 00:01] VITALS: BP 136/79; PULSE 80; RESP 18; TEMP 36.6; O2SAT 98; BMI 28.8
[2021-09-23 00:17] VITALS: PULSE 59; RESP 18; O2SAT 99
--- NOTE | 2021-09-23 00:28 | W.ED.SKABFB ---
HPI - Skin/Abscess/Foreign Bdy General: Chief complaint: Wound/Laceration Stated complaint: sore on left side Time Seen by Provider: 09/22/21 23:50 Source: patient Mode of arrival: ambulatory Limitations: no limitations History of Present Illness: HPI narrative: Patient is a 76-year-old male who presents to ED today with complaint of a lesion to the left side of his abdomen that he noticed approximately 24 hours ago. Patient tells me he initially felt something scratchy under his shirt and states he scratched it with his nail and picked off something black that crumbled. He states since that time he has noticed burning to the area. He has not had any known injury or trauma. No drainage. No visualized insect/spider bite. No systemic symptoms. No tick bite. MD complaint: lesion Onset (ago): day(s) Tetanus up to date: yes Severity: mild Quality: burning Pain Consistency: constant Relieving factors: none Exacerbating factors: none Associated symptoms: Reports no associated symptoms; Deny chills, fever(s), nausea or vomiting Review of Systems Const: Denies: fever(s), chills, body aches or fatigue Card: Denies: chest pain Resp: Denies: dyspnea GI: Denies: abdominal pain, nausea, vomiting or diarrhea : Denies: flank pain or dysuria Musc: Denies: neck pain, back pain, extremity pain or joint pain Skin/Breast: Reports: new lesions Neuro: Denies: headache(s), numbness in extremities or sensory changes PFS ED PFSH: Social History (Updated 11/06/20 @ 13:30 by Delvis Carroll LPN) Smoking and tobacco status: former smoker Alcohol intake: current Alcohol intake frequency: holidays/special occasions only Physical Exam Const: COMMON NORMALS: no acute distress, patient oriented x3, no limitations and alert GENERAL APPEARANCE: cooperative Resp: COMMON NORMALS: normal respiratory effort and clear to auscultation bilaterally AUSCULTATION: clear to auscultation bilaterally Cardio: COMMON NORMALS: regular rate and regular rhythm RATE: regular rate RHYTHM: regular rhythm Neuro: COMMON NORMALS: patient oriented x3 SENSORIUM/ORIENTATION: Yes alert Skin: SKIN IMAGES (MALE): 1. pt has an erythematous oval shaped lesion to L lateral abdomen that is flat in appearance with a small 5mm area of central hemorrhage w/o skin breakdown; there is no underlying fluctuance or induration; no active necrosis Course Vital Signs: Vital signs: Vital Signs Temperature 97.9 F 09/23/21 00:01 Pulse Rate 59 L 09/23/21 00:17 Respiratory Rate 18 09/23/21 00:17 Blood Pressure 136/79 09/23/21 00:01 Pulse Oximetry 99 09/23/21 00:17 MDM - Skin/Abscess/Foreign Bdy MDM Narrative: Medical decision making narrative: Lesion suspicious for spider bite. Reassured patient that most spider bites do not require intervention. Recommend continuing to treat area conservatively with antibiotic ointment and hydrocortisone cream. Continue to monitor lesion closely for worsening symptoms. Discussed with patient how sometimes lesions can become secondarily infected. He has no risk factors for MRSA. Will write patient a prescription for Keflex that he can start only if lesion continues to worsen. Otherwise [facility]. Return to ED precautions given. Discharge Plan Discharge Patient Disposition: Home Clinical Impression: Spider bite Qualifiers: Encounter type: initial encounter Injury intent: accidental or unintentional Qualified Code(s): T63.301A - Toxic effect of unspecified spider venom, accidental (unintentional), initial encounter Condition: Stable Prescriptions: New cephalexin 500 mg capsule 500 mg PO Q6H 7 Days Qty: 28 RF: 0 No Action doxycycline hyclate 100 mg tablet 100 mg PO BID 10 Days Qty: 20 RF: 0 prednisone 20 mg tablet 20 mg PO BID 5 Days Qty: 10 RF: 0 hydroxyzine HCl 25 mg tablet 25 mg PO TID PRN (Reason: itching) Qty: 14 RF: 0 Anti-Itch (HC) 1 % cream 1 applic topical TID PRN (Reason: itching) Qty: 28.35 RF: 0 tamsulosin 0.4 mg Capsule 0.4 mg PO DAILY RF: 0 hydrochlorothiazide 25 mg Tablet 25 mg PO DAILY RF: 0 ipratropium bromide 42 mcg (0.06 %) [place],Non-Aerosol 2 spray INTRANASAL TID RF: 0 finasteride 5 mg Tablet 5 mg PO DAILY RF: 0 loratadine 10 mg Tablet 10 mg PO DAILY RF: 0 omeprazole 20 mg Tablet,Delayed Release (Dr/Ec) 20 mg PO DAILY RF: 0 fluticasone prp-sod.chl,bicarb 50 mcg- 0.9 % Kit,[place] Suspension And [place] 2 spray INTRANASAL DAILY RF: 0 valacyclovir 500 mg Tablet 500 mg PO TID RF: 0 ibuprofen 200 mg Tablet 200 mg PO Q6H PRN (Reason: Pain) RF: 0 [place]-3 Fish Oil 300-1,000 mg Capsule 1 cap PO DAILY RF: 0 Discharge Orders: Discharge ED (Routine); Ordered 09/23/21 Ordered By: Ching Wong Referrals: Alice Rangel MD [Primary Care Provider] - Patient Instructions: Insect Bite or Sting (ED), [place] Spider Bite (ED) Activity Restrictions/Additional Instructions: As we discussed I would treat lesion conservatively by continuing the antibiotic ointment and hydrocortisone cream twice daily. Monitor lesion closely for worsening/spreading redness or drainage. If lesion continues to worsen you may fill/start antibiotics. Please follow up with primary care if lesion does not begin to improve. Coding Level of Care Code ED Wrapper Hand for Margog Fwd Exam Expanded Problem Focused
== END 2021-09-23 00:44 | disposition home or self-care (01) ==
PROVIDERS: Emergency Provider Physician Assistant; PCP Family Medicine
DX: T63.301A Toxic effect of unspecified spider venom, accidental (unintentional), initial encounter (principal); Z87.891 Personal history of nicotine dependence
CPT/HCPCS: 99281

== ENCOUNTER 2021-12-06 16:04 | Emergency (ER) | payer OTHER, MEDICARE, SELFPAY ==
--- NOTE | 2021-12-06 16:15 | XRR_ITS ---
PROCEDURE INFORMATION: Exam: XR Chest Exam date and time: 12/06/2021 4:15 PM Age: 76 years old Clinical indication: Cough and shortness of breath; Additional info: Congestion, covid symptoms TECHNIQUE: Imaging protocol: XR of the chest. Views: 1 view. 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 No acute infiltrate. Incidental calcified granuloma in the right lower lobe. Pleural spaces: Unremarkable. No pleural effusion. No pneumothorax. Heart/Mediastinum: Unremarkable. No cardiomegaly. Bones/joints: Unremarkable. XR/XR chest 1V portable [id number] IMPRESSION: No acute findings In
[2021-12-06 16:19] VITALS: BP 131/79; PULSE 71; RESP 16; TEMP 36.8; O2SAT 97; BMI 28.8
[2021-12-06 20:02] VITALS: O2SAT 97
[2021-12-06 20:09] LABS: Add Urine Microscopic? NO; Charge for UA Resulting for Rev
--- NOTE | 2021-12-06 20:09 | PC.NURSE ---
pt threatening to hit staff in waiting room during covid swab
[2021-12-06 20:31] LABS: Bilirubin Urine 1+ (Negative); Blood Urine Neg (Negative); Glucose Urine UA Norm (Normal); Ketones Urine Negative (Negative); Leukocyte Esterase Urine Negative (Negative); Nitrate Urine Negative (Negative); Protein Urine Neg (Negative); Specific Gravity, Urine 1.025 (1.005-1.030); Urine Appearance Clear (CLEAR); Urine Color Yellow (Yellow); Urobilinogen Urine Norm (Negative); pH Urine 5 (5-7)
--- NOTE | 2021-12-06 21:54 | ED_ITS ---
HPI - COVID General: Chief Complaint: COVID symptoms Stated Complaint: Has alot of mucus drainage Time Seen by Provider: 12/06/21 19:58 Triage information: Has fever, cough or shortness of breath . No known COVID + exposure last 14 days History of Present Illness: HPI Narrative: 76-year-old male patient comes in today with complaints of sinus pain, congestion and drainage, and occasional cough. Patient reports that he had COVID-19 in June 2020, and has had his vaccinations. Patient reports being ill for about 4 to 5 days. Patient appears mildly unwell but not toxic. Patient appears in no pain. COVID 19 common symptoms: positive nasal congestion COVID Results: SARS-CoV-2 RNA (RT-PCR) Detected (NOT DETECTED) A 06/28/20 17:16 06/28/20 Review of Systems ENMT: Reports: nasal congestion and sinus pain [facility] ED PFSH: Social History (Updated 11/06/20 @ 13:30 by Delvis Carroll LPN) Smoking and tobacco status: former smoker Alcohol intake: current Alcohol intake frequency: holidays/special occasions only Physical Exam Const: COMMON NORMALS: no acute distress HENMT: COMMON NORMALS: atraumatic HEAD & SCALP: atraumatic Eye: COMMON NORMALS: Equal, round and reactive pupils present and EOMs intact bilaterally PUPIL: Yes Equal, round and reactive pupils present Resp: COMMON NORMALS: normal respiratory effort and clear to auscultation bilaterally AUSCULTATION: clear to auscultation bilaterally Cardio: COMMON NORMALS: regular rate and regular rhythm RATE: regular rate RHYTHM: regular rhythm Extremity: COMMON NORMALS: normal to inspection Skin: COMMON NORMALS: no rashes or lesions noted GENERAL SKIN EXAM: no rashes or lesions noted Course Vital Signs: Vital signs: Vital Signs Temperature 98.2 F 12/06/21 16:19 Pulse Rate 71 12/06/21 16:19 Respiratory Rate 16 12/06/21 16:19 Blood Pressure 131/79 12/06/21 16:19 Pulse Oximetry 97 12/06/21 20:02 MDM - COVID MDM Narrative: Medical decision making narrative: 76-year-old male comes in today for complaints of sinus symptoms. Patient has been ill for about 3 to 4 days. On exam patient has some nasal congestion and sinus maxillary pain on palpation. Lungs are clear to auscultation. Skin is warm and dry. Vital signs are normal. Differential diagnosis includes bacterial rhinosinusitis, COVID-19, other viral syndrome. COVID-19 test was sent to [facility] for further evaluation, chest x-ray was normal, urinalysis was clear. Patient will be treated with 1 g of ceftriaxone and 10 mg of dexamethasone IM. Prescription for Augmentin 1 tablet twice a day for 7 days was written. Patient reports understanding of care plan and need for follow-up or return. No signs of serious illness was noted. Lab Data: Labs: Lab Results 12/06/21 19:54 Urine Color Yellow (Yellow) Urine Appearance Clear (CLEAR) Urine pH 5 (5-7) Ur Specific Gravit y 1.025 (1.005-1.030) Urine Protein Neg (Negative) Urine Glucose (UA) Norm (Normal) Urine Ketones Negative (Negative) Urine Blood Neg (Negative) Urine Nitrate Negative (Negative) Urine Bilirubin 1+ H (Negative) Urine Urobilinogen Norm mg/dL mg/dL (Negative) Ur Leukocyte Makayla ase Negative (Negative) COVID Results: SARS-CoV-2 RNA (RT-PCR) Detected (NOT DETECTED) A 06/28/20 17:16 06/28/20 Discharge Plan Discharge Patient Disposition: Home Clinical Impression: Acute rhinosinusitis Condition: Stable Prescriptions: New Augmentin 875-125 mg tablet 1 tab PO BID Qty: 14 RF: 0 No Action doxycycline hyclate 100 mg tablet 100 mg PO BID 10 Days Qty: 20 RF: 0 prednisone 20 mg tablet 20 mg PO BID 5 Days Qty: 10 RF: 0 hydroxyzine HCl 25 mg tablet 25 mg PO TID PRN (Reason: itching) Qty: 14 RF: 0 Anti-Itch (HC) 1 % cream 1 applic topical TID PRN (Reason: itching) Qty: 28.35 RF: 0 tamsulosin 0.4 mg Capsule 0.4 mg PO DAILY RF: 0 hydrochlorothiazide 25 mg Tablet 25 mg PO DAILY RF: 0 ipratropium bromide 42 mcg (0.06 %) [place],Non-Aerosol 2 spray INTRANASAL TID RF: 0 finasteride 5 mg Tablet 5 mg PO DAILY RF: 0 loratadine 10 mg Tablet 10 mg PO DAILY RF: 0 omeprazole 20 mg Tablet,Delayed Release (Dr/Ec) 20 mg PO DAILY RF: 0 fluticasone prp-sod.chl,bicarb 50 mcg- 0.9 % Kit,[place] Suspension And [place] 2 spray INTRANASAL DAILY RF: 0 valacyclovir 500 mg Tablet 500 mg PO TID RF: 0 ibuprofen 200 mg Tablet 200 mg PO Q6H PRN (Reason: Pain) RF: 0 [place]-3 Fish Oil 300-1,000 mg Capsule 1 cap PO DAILY RF: 0 Discharge Orders: Discharge ED (Routine); Ordered 12/06/21 Ordered By: Chris Villaseñor Referrals: Alice Rangel MD [Primary Care Provider] - Discharge Diet: Usual diet Discharge Activity: Increase activity as tolerated Patient Instructions: Rhinosinusitis (ED), Opioid Safety Activity Restrictions/Additional Instructions: Home and rest. Drink plenty of fluids. Medications as directed. Follow-up with primary care for further instruction. Coding Level of Care Code ED Certified Histologic Technician for [facility] Lerma
[2021-12-06] MEDS: cefTRIAXone 1,000 MG in lidocaine 1% 2.1 ML 999 MG IM (22:31)
[2021-12-06] MEDS: dexamethasone 10 mg/mL INJ IM (22:32)
[2021-12-06 22:33] VITALS: PULSE 90; RESP 20; O2SAT 97
[2021-12-08 23:28] LABS: Quest SARS-CoV-2 RNA NOT DETECTED (NOT DETECTED)
--- NOTE | 2021-12-09 09:13 | PC.NURSE ---
Does not have Voice mail set up
== END 2021-12-06 22:34 | disposition home or self-care (01) ==
PROVIDERS: Physician Assistant; Emergency Provider Nurse Practitioner Family; PCP Family Medicine
DX: J01.90 Acute sinusitis, unspecified (principal); Z87.891 Personal history of nicotine dependence; Z20.822 Contact with and (suspected) exposure to COVID-19
CPT/HCPCS: 71045; 81003; 87635; 96372; 99283; J0696; J1100

== ENCOUNTER 2021-12-23 13:26 | Emergency (ER) | payer OTHER, MEDICARE, SELFPAY ==
[2021-12-23 13:31] VITALS: BP 119/84; PULSE 71; RESP 18; TEMP 36.7; O2SAT 97; BMI 29.2
[2021-12-23 13:51] VITALS: BP 118/91; PULSE 67; RESP 18; O2SAT 98
--- NOTE | 2021-12-23 13:53 | W.ED.GENADLT ---
HPI - General Adult General: Chief complaint: General Medical Stated complaint: rectal issues Time Seen by Provider: 12/23/21 13:53 History of Present Illness: Mr Braun is a 76-year-old gentleman with significant past medical history of hemorrhoids who presents emergency department due to anal pain and blood in stool. He reports onset of symptoms approximately 7 to 10 days ago were first noticed black jellylike consistency stool for a few days. He subsequently has developed red blood on the paper with a burning sensation when wiping. He has tried [id number] medications without significant relief. Intensity of symptoms is moderate. Course has persisted. He has not had symptoms this refractory to treatment before. He denies associated lightheadedness, dizziness, chest pain, shortness of breath. He does not have significant abdominal discomfort. He had a colonoscopy many years ago but nothing recently. No other significant changes in health, exacerbating, relieving factors identified. The patient does note a temporal relation between antibiotics for respiratory infection and the symptoms though does not have diarrhea or markedly foul-smelling stools. Onset (ago): week(s) Location: buttocks Severity: moderate Quality: burning Pain Consistency: intermittent Relieving factors: other Exacerbating factors: none Associated symptoms: Reports no associated symptoms Treatments prior to arrival: other Review of Systems General: Reports: 10 or more systems reviewed and unremarkable except in HPI and below PFSH ED PFSH: Medical History Hypertension Surgical History History of cholecystectomy Social History Smoking and tobacco status: former smoker Alcohol intake: current Alcohol intake frequency: holidays/special occasions only Physical Exam Const: COMMON NORMALS: alert GENERAL APPEARANCE: cooperative and well developed HENMT: COMMON NORMALS: normocephalic and atraumatic HEAD & SCALP: normocephalic and atraumatic Eye: COMMON NORMALS: conjunctivae normal CONJUNCTIVA: Yes conjunctivae normal SCLERA: sclerae normal Neck/C-Spine: COMMON NORMALS: supple GENERAL: Yes trachea midline Resp: COMMON NORMALS: normal respiratory effort and clear to auscultation bilaterally EFFORT & INSPECTION: Yes able to speak in complete sentences AUSCULTATION: clear to auscultation bilaterally Cardio: COMMON NORMALS: regular rate and regular rhythm RATE: regular rate RHYTHM: regular rhythm GI: COMMON NORMALS: Soft to palpation PALPATION: Yes Soft to palpation and No Tenderness to palpation present (GI) PERCUSSION: normal to percussion OTHER: Rectal exam performed with manager of internal audit present. No external hemorrhoids, other lesions, or abnormalities identified. Stool is guaiac negative. Extremity: GENERAL: Yes normal exam except as noted and No edema Neuro: COMMON NORMALS: moves all extremities SENSORIUM/ORIENTATION: Yes alert and No Orientation impaired Psych: COMMON NORMALS: mental status grossly normal and Normal thought process present THOUGHT PROCESS: Normal thought process present Course ED course: - Patient was seen and evaluated by me at bedside - Patient placed on cardiac monitors, IV access obtained - Initial evaluation notable for exam as above - Labs notable for normal hemoglobin. No significant electrolyte derangement. Negative urinalysis. - Imaging notable for no acute finding on CT scan to explain blood in stool/rectal symptoms - Upon serial reexamination after treatment the patient was similar to mildly improved - Based on patient history, evaluation, labs, and imaging as interpreted the most likely cause of the patient's condition is blood in stool and anal pain of unclear etiology not requiring inpatient evaluation at this time - The results of ED evaluation were discussed with the patient including prescriptions and/or symptomatic cares (if applicable) including appropriate and responsible use, followup plan, and return precautions. The patient verbalized understanding and felt safe for discharge. - Patient discharged in satisfactory condition. Note: Click bubbles or prepopulated silverio in note writing are used for assistance with data collection and billing and are inherently more limited than narrative and other text portions of this note. Please use narrative for additional clinical history and defer to narrative/free test for any case of contradictory information. If information appears in only free text or click bubble it should be considered present or absent as reported. Please contact note telegraphic typewriter operator for clarifications of clinical information or contradictory information. MDM is a brief summary, contradictory or erroneous seeming information should be clarified and full note should be reviewed. Vital Signs: Vital signs: Vital Signs Temperature 98.1 F 12/23/21 13:31 Pulse Rate 57 L 12/23/21 17:30 Respiratory Rate 20 H 12/23/21 17:30 Blood Pressure 144/80 12/23/21 17:30 Pulse Oximetry 96 12/23/21 17:30 MDM - General Adult Medical Decision Making 76-year-old gentleman presenting with greater than 1 week of anal pain and some blood in stool. Vital signs satisfactory. Hemoglobin normal. Guaiac negative. No obvious cause of patient's symptoms on exam or imaging. Satisfactory for outpatient follow-up and continued [id number] treatment which he has been trying with some relief. Medical Records I reviewed the patient's medical records. Lab Data I reviewed the patient's lab results. : 12/23/21 14:30 12/23/21 14:30 Radiology Impressions Abdomen/Pelvis CT 12/23/21 14:11 IMPRESSION: 1. No acute findings. 2. 1.5 cm left adrenal nodule. While this is incompletely characterized on current study, it is unchanged in size and appearance of 2016, and therefore likely relates to a benign etiology such as an adenoma. Laboratory Results WBC 7.3 10^3/uL (4.0-10.0) 12/23/21 14:30 RBC 4.98 10^6/uL (4.1-5.3) 12/23/21 14:30 Hgb 15.2 g/dL (11.7-16.6) 12/23/21 14:30 Hct 45.8 % (42.0-52.0) 12/23/21 14:30 MCV 92.0 fl (80-94) 12/23/21 14:30 MCH 30.5 pg (28.0-34.0) 12/23/21 14:30 MCHC 33.2 g/dL (30.0-36.0) 12/23/21 14:30 RDW 13.7 % (12.1-15.1) 12/23/21 14:30 Plt Count 226 10^3/cmm (130-400) 12/23/21 14:30 MPV 11.5 fL (7.4-10.4) H 12/23/21 14:30 Neut % (Auto) 54.9 % 12/23/21 14:30 Lymph % (Auto) 31.9 % 12/23/21 14:30 Bradley % (Auto) 8.8 % 12/23/21 14:30 Eos % (Auto) 2.5 % 12/23/21 14:30 Baso % (Auto) 1.4 % 12/23/21 14:30 Neut # (Auto) 4.02 10^3/uL (1.8-7.7) 12/23/21 14:30 Lymph # (Auto) 2.3 10^3/uL (0.8-4.8) 12/23/21 14:30 Bradley # (Auto) 0.6 10^3/uL (0.2-0.9) 12/23/21 14:30 Eos # (Auto) 0.2 10^3/uL (0.0-0.8) 12/23/21 14:30 Baso # (Auto) 0.1 10^3/uL (0.0-0.1) 12/23/21 14:30 Nucleated RBC % (auto) 0 % 12/23/21 14:30 Nucleated RBCs # 0.0 /100WBC 12/23/21 14:30 Sodium 137 mmol/L (136-145) 12/23/21 14:30 Potassium 4.2 mmol/L (3.5-5.1) 12/23/21 14:30 Chloride 100 mmol/L (98-107) 12/23/21 14:30 Carbon Dioxide 25 mmol/L (22-29) 12/23/21 14:30 Anion Gap 16.2 (5-19) 12/23/21 14:30 BUN 15 mg/dL (8-23) 12/23/21 14:30 Creatinine 0.9 mg/dL (0.7-1.2) 12/23/21 14:30 GFR Calculation Not Reportable 12/23/21 14:30 Glucose 103 mg/dL (65-115) 12/23/21 14:30 Calculated Osmolality 285 mOsm/kg (285-295) 12/23/21 14:30 Calcium 9.0 mg/dL (8.5-10.5) 12/23/21 14:30 Total Bilirubin 0.6 mg/dL (0.15-1.2) 12/23/21 14:30 AST 29 U/L (0-40) 12/23/21 14:30 ALT 31 U/L (0-41) 12/23/21 14:30 Alkaline Phosphatase 69 IU/L (40-130) 12/23/21 14:30 Total Protein 6.8 g/dL (6.6-8.7) 12/23/21 14:30 Albumin 4.5 g/dL (3.5-5.2) 12/23/21 14:30 Globulin 2.3 g/dL (1.3-4.6) 12/23/21 14:30 Urine Color Yellow (Yellow) 12/23/21 12:46 Urine Appearance Clear (CLEAR) 12/23/21 12:46 Urine pH 7 (5-7) 12/23/21 12:46 Ur Specific [place] 1.010 (1.005-1.030) 12/23/21 12:46 Urine Protein Neg (Negative) 12/23/21 12:46 Urine Glucose (UA) Norm (Normal) 12/23/21 12:46 Urine Ketones Negative (Negative) 12/23/21 12:46 Urine Blood Neg (Negative) 12/23/21 12:46 Urine Nitrate Negative (Negative) 12/23/21 12:46 Urine Bilirubin Neg (Negative) 12/23/21 12:46 Urine Urobilinogen Norm mg/dL (Negative) 12/23/21 12:46 Ur Leukocyte Esterase Negative (Negative) 12/23/21 12:46 Discharge Plan Discharge Patient Disposition: Home Clinical Impression: Anal pain, BRBPR (bright red blood per rectum) Condition: Stable Prescriptions: No Action doxycycline hyclate 100 mg tablet 100 mg PO BID 10 Days Qty: 20 0RF prednisone 20 mg tablet 20 mg PO BID 5 Days Qty: 10 0RF hydroxyzine HCl 25 mg tablet 25 mg PO TID PRN (Reason: itching) Qty: 14 0RF Anti-Itch (HC) 1 % cream 1 applic topical TID PRN (Reason: itching) Qty: 28.35 0RF tamsulosin 0.4 mg Capsule 0.4 mg PO DAILY 0RF Rx Instructions: take after same meal each day. hydrochlorothiazide 25 mg Tablet 25 mg PO DAILY 0RF ipratropium bromide 42 mcg (0.06 %) [place],Non-Aerosol 2 spray INTRANASAL TID 0RF finasteride 5 mg Tablet 5 mg PO DAILY 0RF loratadine 10 mg Tablet 10 mg PO DAILY 0RF omeprazole 20 mg Tablet,Delayed Release (Dr/Ec) 20 mg PO DAILY 0RF Rx Instructions: take daily in the am before the same meal. fluticasone prp-sod.chl,bicarb 50 mcg- 0.9 % Kit,[place] Suspension And [place] 2 spray INTRANASAL DAILY 0RF Rx Instructions: 2 sprays each nostril daily valacyclovir 500 mg Tablet 500 mg PO TID 0RF ibuprofen 200 mg Tablet 200 mg PO Q6H PRN (Reason: Pain) 0RF [place]-3 Fish Oil 300-1,000 mg Capsule 1 cap PO DAILY 0RF Augmentin 875-125 mg tablet 1 tab PO BID Qty: 14 0RF Discharge Orders: Discharge ED (Routine); Ordered 12/23/21 Ordered By: Hayden Nelson Referrals: Alice Rangel MD [Primary Care Provider] - Discharge Diet: Usual diet Discharge Activity: Resume usual activity Patient Instructions: Rectal Bleeding (ED) Activity Restrictions/Additional Instructions: Thank you for visiting the emergency department. You were seen and evaluated for anal pain and blood per rectum. The exact cause of your symptoms is unclear though likely secondary to local irritation. I recommend following up with your primary care provider and gastroenterology. Return to the emergency department for worsening symptoms, significant blood per rectum, lightheadedness, dizziness, chest pain, or anything else that you're concerned about and feel needs emergency department evaluation. Coding Level of Care Code ED Test Fixture Assembler for [facility] Fwd Exam Comprehensive
--- NOTE | 2021-12-23 14:11 | CTR_ITS ---
PROCEDURE INFORMATION: Exam: CT Abdomen And Pelvis With Contrast Exam date and time: 12/23/2021 2:11 PM Age: 76 years old Clinical indication: Prior surgery; Surgery date: 6+ months; Surgery type: Gb; Patient HX: C/O intermittent rectal bleeding x 1 week; Additional info: Gi bleed TECHNIQUE: Imaging protocol: Computed tomography of the abdomen and pelvis with contrast. Radiation optimization: All CT scans at this facility use at least one of these dose optimization techniques: automated exposure control; mA and/or kV adjustment per patient size (includes targeted exams where dose is matched to clinical indication); or iterative reconstruction. Contrast material: OMNI 300; Contrast volume: 95 ml; Contrast route: INTRAVENOUS (IV); COMPARISON: CT abdomen pelvis w con* [id number] 01/12/2016 12:22 AM RADIATION DOSE METRICS: Total DLP (mGy-cm): 1609.21 FINDINGS: Liver: Focal fat deposition adjacent to the falciform ligament. No mass. Gallbladder and bile ducts: Cholecystectomy. No ductal dilation. Pancreas: Normal. No ductal dilation. Spleen: Normal. No splenomegaly. Adrenal glands: 1.5 cm left adrenal nodule noted, similar in size and appearance from prior study series 602, image 31. Kidneys and ureters: No hydronephrosis. Prominent fluid-filled left ureter, with no wall thickening or obstructing stone, most likely incidental. Stomach and bowel: No obstruction. No mucosal thickening. Appendix: No evidence of appendicitis. Intraperitoneal space: No free air. No significant fluid collection. Vasculature: No abdominal aortic aneurysm. Lymph nodes: Unremarkable. No enlarged lymph nodes. Urinary bladder: Unremarkable as visualized. Reproductive: Unremarkable as visualized. Bones/joints: No acute fracture. Soft tissues: Moderate-sized bilateral inguinal hernias. CT/CT abdomen pelvis w con* [id number] IMPRESSION: 1. No acute findings. 2. 1.5 cm left adrenal nodule. While this is incompletely characterized on current study, it is unchanged in size and appearance of 2015, and therefore likely relates to a benign etiology such as an adenoma.
[2021-12-23 15:00] LABS: Add Urine Microscopic? NO; Charge for UA Resulting for Rev
[2021-12-23 15:01] LABS: Basophils # 0.1 10^3/uL (0.0-0.1); Basophils % 1.4 %; Eosinophils # 0.2 10^3/uL (0.0-0.8); Eosinophils % 2.5 %; Hematocrit 45.8 % (42.0-52.0); Hemoglobin 15.2 g/dL (11.7-16.6); Lymphocytes # 2.3 10^3/uL (0.8-4.8); Lymphocytes % 31.9 %; Mean Corpuscular HGB Conc 33.2 g/dL (30.0-36.0); Mean Corpuscular Hemoglobin 30.5 pg (28.0-34.0); Mean Platelet Volume 11.5 fL (7.4-10.4); Monocytes # 0.6 10^3/uL (0.2-0.9); Monocytes % 8.8 %; Neutrophils # 4.02 10^3/uL (1.8-7.7); Neutrophils % 54.9 %; Nucleated Red Blood Cells % 0 %; Platelet Count 226 10^3/cmm (130-400); Red Blood Count 4.98 10^6/uL (4.1-5.3); Red Cell Distribution Width 13.7 % (12.1-15.1); White Blood Count 7.3 10^3/uL (4.0-10.0)
[2021-12-23 15:08] LABS: Bilirubin Urine Neg (Negative); Blood Urine Neg (Negative); Glucose Urine UA Norm (Normal); Ketones Urine Negative (Negative); Leukocyte Esterase Urine Negative (Negative); Nitrate Urine Negative (Negative); Protein Urine Neg (Negative); Urine Appearance Clear (CLEAR); Urine Color Yellow (Yellow); Urobilinogen Urine Norm (Negative); pH Urine 7 (5-7)
[2021-12-23 15:10] LABS: Alanine Aminotransferase 31 U/L (0-41); Albumin Level 4.5 g/dL (3.5-5.2); Alkaline Phosphatase 69 IU/L (40-130); Anion Gap 16.2 (5-19); Aspartate Amino Transferase 29 U/L (0-40); Blood Urea Nitrogen 15 mg/dL (8-23); Carbon Dioxide 25 mmol/L (22-29); Chloride 100 mmol/L (98-107); Globulin 2.3 g/dL (1.3-4.6); Glucose 103 mg/dL (65-115); Osmolality Calculated 285 mOsm/kg (285-295); Potassium 4.2 mmol/L (3.5-5.1); Sodium 137 mmol/L (136-145); Total Bilirubin 0.6 mg/dL (0.15-1.2); Total Protein 6.8 g/dL (6.6-8.7)
[2021-12-23] MEDS: iohexol 300 mg/mL 100 mL Btl IV (16:01)
[2021-12-23 16:13] VITALS: BP 126/78; PULSE 52; RESP 16; O2SAT 96
[2021-12-23 17:30] VITALS: BP 144/80; PULSE 57; RESP 20; O2SAT 96
== END 2021-12-23 17:56 | disposition home or self-care (01) ==
PROVIDERS: Emergency Provider Emergency Medicine; PCP Family Medicine
DX: K62.89 Other specified diseases of anus and rectum (principal); K62.5 Hemorrhage of anus and rectum; I10 Essential (primary) hypertension; Z87.891 Personal history of nicotine dependence
CPT/HCPCS: 74177; 80053; 81003; 85025; 99283; Q9967

== ENCOUNTER 2022-02-26 12:04 | Outpatient (CLI) | payer OTHER, SELFPAY ==
--- NOTE | 2022-02-26 12:22 | CT_ITS ---
WS: [id number] CT ABDOMEN WITH CONTRAST HISTORY: Abdominal pain with rectal bleeding. Contiguous single phase 5 mm axial imaging performed to the abdomen. Oral contrast has been provided. Coronal and sagittal reformats are submitted. All CT scans at [facility] use at least one of these dose optimization techniques: automated exposure control; mA and/or kV adjustment per patient size (includes targeted exams where dose is matched to clinical indication); or iterative reconstruct ion. CONTRAST: Omnipaque 300; 95 mL IV. DLP: 809.22 mGy.cm COMPARISON: 12/23/2021 and 12/23/2015 Lower thorax: Unremarkable. Liver: The very superior aspect of the liver is not included on this examination. The superior liver was normal in 12/23/2021. Portal vein is patent. No thrombus. Focal fatty sparing adjacent to falciform ligament. Gallbladder: Prior cholecystectomy. No bile duct dilatation. Pancreas: Normal. Spleen: Normal. Adrenals: Normal RIGHT adrenal gland. Long-term stability of a 15 mm nodule in the LEFT adrenal gland . Right kidney: Normal. Left kidney: There is a very mildly dilated LEFT renal pelvis and early dilatation of the calyces. Si milar to 12/23/2021 but new since 01/12/2016. The ureter is also mildly prominent and dilated to 11 mm n ear the aortic bifurcation. Aorta: Scattered plaque. No aneurysm. Origin of celiac axis and SMA are normal. GI tract: Good fluid distention of the stomach. No small bowel obstruction. The appendix is normal. No adenopathy or free fluid. Abdominal wall: No hernia. Visualized osseous structures: Unremarkable. CT/CT abdomen w con* [id number] IMPRESSION: 1. The study was ordered as an abdomen CT only. The pelvis and portions of the colon and distal ureters are not included on this examination. 2. Mild LEFT hydronephrosis and hydroureter. The ureter is dilated to 11 mm ne ar the aortic bifurcation. Highly suspicious for distal obstructing ureteral pr ocess. The ureter was also dilated on the study from 12/23/2021. No stone was dorothy ntified in the distal ureter at that time. There may be a stricture or neoplasm causing the obstruction. This needs further evaluation. Recommend follow-up [facility]. Cystoscopy may be necessary. 3. Normal appendix. 4. Prior cholecystectomy. 5. Long-term stability LEFT adrenal nodule which is probably an adenoma.
[2022-02-26] MEDS: iohexol 300 mg/mL 50 mL Btl PO (13:13)
[2022-02-26] MEDS: iohexol 300 mg/mL 100 mL Btl IV (13:13)
== END 2022-02-26 12:05 | disposition home or self-care (01) ==
LOC: RAD 12:07
PROVIDERS: PCP Family Medicine; Visit Provider Family Medicine
DX: Z01.89 Encounter for other specified special examinations (principal); R10.9 Unspecified abdominal pain; N13.30 Unspecified hydronephrosis; N13.4 Hydroureter; Z90.49 Acquired absence of other specified parts of digestive tract; D49.7 Neoplasm of unspecified behavior of endocrine glands and other parts of nervous system
CPT/HCPCS: 74160

== ENCOUNTER 2022-04-08 05:27 | Day surgery (SDC) | payer OTHER, SELFPAY ==
[2022-04-04 15:10] VITALS: BMI 32.5
[2022-04-08 06:11] VITALS: BP 139/85; PULSE 64; RESP 18; TEMP 36.4; O2SAT 98
[2022-04-08] MEDS: sodium chloride 0.9% 1,000 ML 30 ML IV (06:16)
--- NOTE | 2022-04-08 06:40 | ANES.PREANE2 ---
Documented by User: Dary Morales CRNA 04/08/22 07:08 Pre-Anesthetic Assessment Height/Weight: Height 1.83 m Weight 108.862 kg Temp Pulse Resp BP Pulse Ox 97.5 F L 64 18 139/85 98 04/08/22 06:11 04/08/22 06:11 04/08/22 06:11 04/08/22 06:11 04/08/22 06:11 Preop Diagnosis: GERD, history of polyps. Operation Date: 04/08/22 07:00 Proposed Procedures p EGD [id number]/g0105/k62.89/r12/z86.010(Not Applicable) - Maximo Ly MD s Colonoscopy(Not Applicable) - Maximo Ly MD Familial anesthetic complications: none Was Beta Vesta taken within 24 hours: N/A Was Clonidine taken within 24 hours: N/A Last intake: Intake Last Liquid Date 04/07/22 Last Liquid Time 23:15 Last Solid Date 04/06/22 Last Solid Time 20:00 Social Alcohol and No tobacco Exam alert and oriented x 3 Airway Submandibular: within normal limits Cervical ROM: within normal limits Mallampati: Class II Dentition: false History/ROS No significant history except as noted Pulmonary Chronic Obstructive Pulmonary Disease CV/HEM Hypertension None reported GI Gastroesophageal Reflux Disease Metabolic Hyperlipidemia Musc/skel Lower Back Pain and Osteoarthritis/DJD Anesthetic Plan ASA status: 3 Anesthesia: Anesthesia Evaluation and MAC Risk of > 500 ml blood loss (7ml/kg in children): No Medications/Allergies Home Medications Medication Instructions Recorded Confirmed Last Taken Type finasteride 5 mg tablet 5 mg PO DAILY 06/24/20 04/08/22 04/07/22 History hydrochlorothiazide 25 mg tablet 25 mg PO DAILY 06/24/20 04/08/22 04/07/22 History ipratropium bromide 42 mcg (0.06 2 spray INTRANASAL TID 06/24/20 04/08/22 04/07/22 History %) nasal spray loratadine 10 mg tablet 10 mg PO DAILY 06/24/20 04/08/22 04/07/22 History omega-3s 300 nv-tpb-fse-other 1 cap PO DAILY 06/24/20 04/08/22 04/07/22 History [id number] oil 1,000 mg capsule ([place]-3 Fish Oil) tamsulosin 0.4 mg capsule 0.4 mg PO DAILY 06/24/20 04/08/22 04/07/22 History valacyclovir 500 mg tablet 500 mg PO TID 06/24/20 04/08/22 04/07/22 History cyclobenzaprine 10 mg tablet 10 mg PO TID 03/27/22 04/08/22 Unknown History pantoprazole 40 mg tablet,delayed 40 mg PO DAILY #90 tab 04/08/22 Unknown Rx release Allergies Allergy/AdvReac Type Severity Reaction Status Date / Time codeine Allergy Unknown Unknown Verified 04/08/22 06:05 pravastatin Allergy Unknown Unknown Verified 04/08/22 06:05 tiotropium Allergy Unknown Unknown Unverified 04/08/22 06:05 [From Spiriva with HandiHaler] Current Medications Generic Name Dose Route Start Last Admin Trade Name Freq PRN Reason Stop Dose Admin Sodium Chloride 1,000 mls @ 30 mls/hr 04/08/22 06:00 04/08/22 06:16 Sodium Chloride 0.9% IV 04/09/22 05:59 30 mls/hr .Q24H DONNIE Administration PFSH Anesthesia Medical History Hypertension Surgical History History of cholecystectomy Social History Smoking and tobacco status: former smoker Alcohol intake: current Alcohol intake frequency: holidays/special occasions only Data Anesthesia Cardiac Studies: No Data to Display
--- NOTE | 2022-04-08 07:12 | W.PM.OPSFHP ---
Same Day Surgery H&P Indication for Procedure/HPI DATE OF PROCEDURE: April 08, 2022 CHIEF COMPLAINT/INDICATIONFOR SURGICAL PROCEDURE: Proctodynia, hematochezia, heartburn PREOP DIAGNOSIS: GERD, history of polyps. PLANNED PROCEDURE: Operation Date: 04/08/22 07:00 Proposed Procedures p EGD [id number]/g0105/k62.89/r12/z86.010(Not Applicable) - Maximo Ly MD s Colonoscopy(Not Applicable) - Maximo Ly MD Medications/Allergies* Home Medications Medication Instructions Recorded Confirmed Type finasteride 5 mg tablet 5 mg PO DAILY 06/24/20 04/08/22 History hydrochlorothiazide 25 mg tablet 25 mg PO DAILY 06/24/20 04/08/22 History ibuprofen 200 mg tablet 200 mg PO Q6H PRN 06/24/20 04/08/22 History ipratropium bromide 42 mcg (0.06 2 spray INTRANASAL TID 06/24/20 04/08/22 History %) nasal spray loratadine 10 mg tablet 10 mg PO DAILY 06/24/20 04/08/22 History omega-3s 300 fp-wym-wsz-other 1 cap PO DAILY 06/24/20 04/08/22 History ghqms9c-yucx oil 1,000 mg capsule ([place]-3 Fish Oil) omeprazole 20 mg tablet,delayed 20 mg PO DAILY 06/24/20 04/08/22 History release tamsulosin 0.4 mg capsule 0.4 mg PO DAILY 06/24/20 04/08/22 History valacyclovir 500 mg tablet 500 mg PO TID 06/24/20 04/08/22 History cyclobenzaprine 10 mg tablet 10 mg PO TID 03/27/22 04/08/22 History Allergies/Adverse Reactions Allergy/AdvReac Type Severity Reaction Status Date / Time codeine Allergy Unknown Unknown Verified 04/08/22 06:05 pravastatin Allergy Unknown Unknown Verified 04/08/22 06:05 tiotropium Allergy Unknown Unknown Unverified 04/08/22 06:05 [From Spiriva with HandiHaler] Current Medications: Generic Name Dose Route Start Last Admin Trade Name Freq PRN Reason Stop Dose Admin Sodium Chloride 1,000 mls @ 30 mls/hr 04/08/22 06:00 04/08/22 06:16 Sodium Chloride 0.9% IV 04/09/22 05:59 30 mls/hr .Q24H DONNIE Administration Pertinent History/Comorbid Conditions* Medical History (Updated 03/27/22 @ 10:23 by Maximo Ly MD) Hypertension Surgical History (Updated 12/23/21 @ 14:22 by Hayden Nelson MD) History of cholecystectomy Social History Smoking and tobacco status: former smoker Alcohol intake: current Alcohol intake frequency: holidays/special occasions only Pertinent Exam Findings alert, oriented x 3, clear to auscultation bilaterally, regular rate & rhythm, operative site marked and procedure specific exam findings Recommendations Surgery/Procedure today Coding Level of Care Code Acute Banking Services Advisor for [facility] Lerma
[2022-04-08 07:30] VITALS: BP 108/69; PULSE 54; RESP 18; TEMP 36.1; O2SAT 95
--- NOTE | 2022-04-08 07:34 | ANE.PACU2 ---
Documented by User: Dary Morales CRNA 04/08/22 07:35 Inpatient post-anesthesia follow up: Airway intact: Yes Vital signs: Temperature 97.5 F Pulse Rate 64 Respiratory Rate 18 Blood Pressure 139/85 Pulse Oximetry 98 Oxygen Delivery Me thod Room Air Oxygen Flow Rate Fraction of Inspir ed Oxygen Hydration adequate: Yes Nausea and vomiting: No Pain level: 1 Mental status: Baseline
[2022-04-08 07:40] VITALS: BP 118/80; PULSE 65; RESP 18; TEMP 35.9; O2SAT 95
[2022-04-09 05:41] LABS: H. Pylori / CLO Test Negative
== END 2022-04-08 08:03 | disposition home or self-care (01) ==
PROVIDERS: Visit Provider Internal Medicine
PROC: 0DJ08ZZ Inspection of Upper Intestinal Tract, Via Natural or Artificial Opening Endoscopic (ICD-10-PCS; CPT 43235; principal; 2022-04-08 07:00)
PROC: 0DJD8ZZ Inspection of Lower Intestinal Tract, Via Natural or Artificial Opening Endoscopic (ICD-10-PCS; CPT 45378; 2022-04-08 07:00)
DX: K62.89 Other specified diseases of anus and rectum (principal); R12 Heartburn; Z86.010 Personal history of colon polyps; K29.70 Gastritis, unspecified, without bleeding; J44.9 Chronic obstructive pulmonary disease, unspecified; I10 Essential (primary) hypertension; K21.9 Gastro-esophageal reflux disease without esophagitis; E78.5 Hyperlipidemia, unspecified; Z87.891 Personal history of nicotine dependence
CPT/HCPCS: 43235; 45378; 87077; J2704; J7030

== ENCOUNTER 2022-04-26 17:11 | Emergency (ER) | payer OTHER, MEDICARE, SELFPAY ==
[2022-04-26 18:04] VITALS: BP 142/65; PULSE 83; RESP 18; TEMP 36.8; O2SAT 97; BMI 29.8
--- NOTE | 2022-04-26 18:14 | W.ED.GENADLT ---
HPI - General Adult General: Chief complaint: General Medical Stated complaint: Chest congestion Time Seen by Provider: 04/26/22 18:13 History of Present Illness: 77-year-old male patient comes in with sinus pressure and congestion. Patient has posterior pharynx drainage with persistent cough and congestion. Patient reports symptoms for about 1 week now. Patient appears mildly unwell but not toxic. Patient appears no acute distress. Patient very verbose and seems in very pleasant mood. Associated symptoms: Deny chest pain or rash Review of Systems General: Reports: 10 or more systems reviewed and unremarkable except in HPI and below ENMT: Reports: nasal congestion and sinus pain Card: Denies: chest pain Resp: Reports: non-productive cough Musc: Denies: neck pain Skin/Breast: Denies: rash PFSH ED PFSH: Medical History Hypertension Surgical History History of cholecystectomy Social History Smoking and tobacco status: former smoker Alcohol intake: current Alcohol intake frequency: holidays/special occasions only Physical Exam Const: COMMON NORMALS: alert HENMT: COMMON NORMALS: normocephalic HEAD & SCALP: normocephalic NOSE: Nasal discharge present Resp: COMMON NORMALS: normal respiratory effort and clear to auscultation bilaterally AUSCULTATION: clear to auscultation bilaterally Cardio: COMMON NORMALS: regular rate RATE: regular rate Extremity: COMMON NORMALS: normal to inspection Neuro: SENSORIUM/ORIENTATION: Yes alert Skin: COMMON NORMALS: no rashes or lesions noted GENERAL SKIN EXAM: no rashes or lesions noted Course Vital Signs: Vital signs: Vital Signs Temperature 98.2 F 04/26/22 18:04 Pulse Rate 83 04/26/22 18:04 Respiratory Rate 18 04/26/22 18:04 Blood Pressure 142/65 04/26/22 18:04 Pulse Oximetry 97 04/26/22 18:04 [facility] - General Adult Medical Decision Making 77-year-old male patient comes in today with complaints of sinus pressure and nasal congestion. Patient reports symptoms for about 1 week now. Patient has tried some kpos-ktk-haqhqnf Mucinex and Vicks VapoRub with some mild relief. Patient reports sinus pain with a headache at times. On exam lungs were decreased in the bases. Patient had nasal drainage. Posterior pharyngeal drainage was also noted. Differential diagnosis includes pneumonia, bronchitis, rhinosinusitis. Exam does not note any signs of pneumonia or significant bronchitis. Believe the patient probably has rhinosinusitis. Will give 1 dose of steroid and 1 dose of Rocephin for symptoms and treatment of the infection. Patient be continued on amoxicillin with recommendations for follow-up or return to the ER for worsening symptoms. Discharge Plan Discharge Patient Disposition: Home Clinical Impression: Acute rhinosinusitis Condition: Stable Prescriptions: New amoxicillin 500 mg capsule 1,000 mg PO BID 7 Days Qty: 28 0RF No Action cyclobenzaprine 10 mg tablet 10 mg PO TID 0RF tamsulosin 0.4 mg Capsule 0.4 mg PO DAILY 0RF Rx Instructions: take after same meal each day. hydrochlorothiazide 25 mg Tablet 25 mg PO DAILY 0RF ipratropium bromide 42 mcg (0.06 %) [place],Non-Aerosol 2 spray INTRANASAL TID 0RF finasteride 5 mg Tablet 5 mg PO DAILY 0RF loratadine 10 mg Tablet 10 mg PO DAILY 0RF valacyclovir 500 mg Tablet 500 mg PO TID 0RF [place]-3 Fish Oil 300-1,000 mg Capsule 1 cap PO DAILY 0RF pantoprazole 40 mg tablet,delayed release (DR/EC) 40 mg PO DAILY Qty: 90 8RF Discharge Orders: Discharge ED (Routine); Ordered 04/26/22 Ordered By: Chris Villaseñor Referrals: Criselda Ott [Primary Care Provider] - Discharge Diet: Usual diet Discharge Activity: Increase activity as tolerated Patient Instructions: Rhinosinusitis (ED) Activity Restrictions/Additional Instructions: Continue with Mucinex, steroid nasal spray, and antibiotic as directed. Drink plenty of water. Use acetaminophen or ibuprofen as needed for pain or fever. Follow-up with primary care in 3 days for recheck. Return to ER for worsening symptoms or new concerns. Coding Level of Care Code ED Nonprofit Fundraiser for [facility] Lerma
[2022-04-26] MEDS: cefTRIAXone 1,000 MG in lidocaine 1% 2.1 ML 1000 MG IM (18:42)
[2022-04-26] MEDS: dexamethasone 10 mg/mL INJ IM (18:42)
== END 2022-04-26 18:44 | disposition home or self-care (01) ==
PROVIDERS: Emergency Provider Nurse Practitioner Family
DX: J01.90 Acute sinusitis, unspecified (principal); I10 Essential (primary) hypertension
CPT/HCPCS: 96372; 99283; J0696; J1100

== ENCOUNTER 2022-05-11 14:04 | Emergency (ER) | payer OTHER, MEDICARE, SELFPAY ==
[2022-05-11 14:44] VITALS: BP 110/73; PULSE 59; RESP 18; TEMP 36.6; O2SAT 97; BMI 29.8
--- NOTE | 2022-05-11 15:06 | W.ED.WOUNDLC ---
HPI - Wound/Laceration General: Chief Complaint: Wound/Laceration Stated Complaint: rash Time Seen by Provider: 05/11/22 15:06 History of Present Illness: 77-year-old gentleman who is not diabetic presenting to the emergency room due to concern over skin infection. He reports noticing this approximately 4 days ago initially as a mild scratch. He has pain with palpation however no deeper pain in the abdomen. No reported signs of systemic illness. He has tried local wound care without significant improvement. Pain is mild to moderate in intensity. Course has persisted. No other specific changes in health, exacerbating, or alleviating factors identified. Onset (ago): day(s) Location: abdomen Associated symptoms: Reports pain Treatments prior to arrival: bandage and other (topical otc) Review of Systems General: Reports: 10 or more systems reviewed and unremarkable except in HPI and below PFSH ED PFSH: Medical History Hypertension Surgical History History of cholecystectomy Social History Smoking and tobacco status: former smoker Alcohol intake: current Alcohol intake frequency: holidays/special occasions only Physical Exam Const: COMMON NORMALS: alert GENERAL APPEARANCE: cooperative and well developed HENMT: COMMON NORMALS: normocephalic and atraumatic HEAD & SCALP: normocephalic and atraumatic Eye: COMMON NORMALS: conjunctivae normal CONJUNCTIVA: Yes conjunctivae normal SCLERA: sclerae normal Neck/C-Spine: COMMON NORMALS: supple GENERAL: Yes trachea midline Resp: COMMON NORMALS: normal respiratory effort EFFORT & INSPECTION: Yes able to speak in complete sentences Cardio: COMMON NORMALS: regular rate and regular rhythm RATE: regular rate RHYTHM: regular rhythm GI: COMMON NORMALS: Soft to palpation PALPATION: Yes Soft to palpation, Yes Tenderness to palpation present (GI) (localized to area of cellulitis, no other abd ttp ), No Guarding due to palpation present (GI) and No Rigid due to palpation PERCUSSION: normal to percussion Extremity: GENERAL: Yes normal exam except as noted and No edema Neuro: COMMON NORMALS: moves all extremities SENSORIUM/ORIENTATION: Yes alert and No Orientation impaired Psych: COMMON NORMALS: mental status grossly normal and Normal thought process present THOUGHT PROCESS: Normal thought process present Skin: NARRATIVE SKIN EXAM: Erythematous region superior to umbilicus which is approximately 4 cm in diameter with scattered areas around the region which patient reports are secondary to reaction to tape. There is a 1 cm area of induration that is mildly raised towards the center of the erythematous region. Hujwi-ty-rzon ultrasound performed without drainable fluid collection. No vesicular lesions or other rash type lesions. Course Vital Signs: Vital signs: Vital Signs Temperature 97.9 F 05/11/22 14:44 Pulse Rate 59 L 05/11/22 16:35 Respiratory Rate 18 05/11/22 16:35 Blood Pressure 135/78 05/11/22 16:35 Pulse Oximetry 95 05/11/22 16:35 MDM - Wound/Laceration Medical Decision Making 77-year-old gentleman with abdominal wall cellulitis. No vesicles or rash component. Started as a simple scratch. No abscess identified on [id number] ultrasound. No deeper abdominal pain or other evidence of systemic infection requiring additional work-up. Patient is nontoxic. He expressed concerns regarding ability to pay for prescription and I referred him to our pharmacy for possible payment plan. Satisfactory for outpatient management with antibiotic. First dose of antibiotic given here. Medical Records I reviewed the patient's medical records. Lab Data I reviewed the patient's lab results. Discharge Plan Discharge Patient Disposition: Home Clinical Impression: Cellulitis Condition: Stable Prescriptions: No Action cyclobenzaprine 10 mg tablet 10 mg PO TID 0RF tamsulosin 0.4 mg Capsule 0.4 mg PO DAILY 0RF Rx Instructions: take after same meal each day. hydrochlorothiazide 25 mg Tablet 25 mg PO DAILY 0RF ipratropium bromide 42 mcg (0.06 %) [place],Non-Aerosol 2 spray INTRANASAL TID 0RF finasteride 5 mg Tablet 5 mg PO DAILY 0RF loratadine 10 mg Tablet 10 mg PO DAILY 0RF valacyclovir 500 mg Tablet 500 mg PO TID 0RF [place]-3 Fish Oil 300-1,000 mg Capsule 1 cap PO DAILY 0RF pantoprazole 40 mg tablet,delayed release (DR/EC) 40 mg PO DAILY Qty: 90 8RF Discharge Orders: Discharge ED (Routine); Ordered 05/11/22 Ordered By: Hayden Nelson Referrals: Criselda Ott [Primary Care Provider] - Discharge Diet: Usual diet Discharge Activity: Increase activity as tolerated Patient Instructions: Cellulitis (ED) Activity Restrictions/Additional Instructions: Thank you for visiting the emergency department. You were seen and evaluated for concern over skin lesion. This appears to be localized skin infection. This will be treated with antibiotics. Please follow-up with your primary care provider. Please return to the emergency department for worsening symptoms despite treatment, any new skin lesions that involve mucous membranes such as inside the mouth or on the genitals, significant spread, significant blistering or peeling, or anything else that you are concerned about and feel needs emergency department evaluation. If you are unable to fill the prescription you can bring it to the [facility] at [id number] ([facility]) [place], [place] and ask about charging this to your hospital account or setting up a payment plan. Coding Level of Care Code ED Litigation Specialist for [facility] Fwd Exam Comprehensive
[2022-05-11] MEDS: cefTRIAXone 1,000 MG in lidocaine 1% 2.1 ML 1 MG IM (16:16)
[2022-05-11 16:35] VITALS: BP 135/78; PULSE 59; RESP 18; O2SAT 95
== END 2022-05-11 16:33 | disposition home or self-care (01) ==
PROVIDERS: Emergency Provider Emergency Medicine
DX: L03.311 Cellulitis of abdominal wall (principal)
CPT/HCPCS: 96372; 99284; J0696

== ENCOUNTER 2022-05-31 12:17 | Emergency (ER) | payer OTHER, MEDICARE, SELFPAY ==
[2022-05-31 12:42] VITALS: BP 123/84; PULSE 79; RESP 16; TEMP 36.6; O2SAT 98
--- NOTE | 2022-05-31 14:45 | CT_ITS ---
WS: [id number] CT HEAD NONCONTRAST HISTORY: vision loss of left eye for the last 11 days TECHNIQUE: Contiguous axial imaging performed through the brain in 2.5 mm imaging. Bone and soft tiss ue windows. Sagittal and coronal reformats reviewed. All CT scans at [facility] use at least one of these dose optimization techniques: automated exposure control; mA and/or kV adjustment per pa tient size (includes targeted exams where dose is matched to clinical indication); or iterative recon struction. DLP: 1016.48 mGy.cm COMPARISON: 05/29/2018 Mild symmetric atrophy. No acute hemorrhage or mass effect or midline shift. No prior infarct. Ventricles: Normal size with no hydrocephalus. No inferior displacement of the cerebellar tonsils. No hemorrhage within the globes or mass effect. Paranasal sinuses: As visualized are clear. Mastoid air cells: Well pneumatized. Calvarium and scalp: Skull is intact with no soft tissue edema or swelling. CT/CT head wo con* [id number] IMPRESSION: 1. No acute intracranial hemorrhage or mass effect. 2. No orbital or globe abnormality is identified on this CT. 3. Mild atrophy and mild small vessel ischemic disease.
--- NOTE | 2022-05-31 14:47 | ED_ITS ---
HPI - Eye Problem General: Chief complaint: Eye Problems Stated complaint: wants referral to eye doctor, left eye issue Time Seen by Provider: 05/31/22 14:45 History of Present Illness: Patient is a 77-year-old male who comes to the ED with left eye vision loss. Patient says he has been having decreased vision loss in the left eye since May 20. Patient says back on May 20 he got something in his left eye that caused irritation. He still feels like there is something in his eye if it is causing little bit of irritation and redness. He describes his vision has been a little blurry and he sees some black spots as well. Says his right eye is completely normal and vision is normal. [facility] and told him he needs to get a referral to the eye doctor Dr. Blanton. Patient is up-to-date on his tetanus. Associated symptoms: Denies fever(s), headache(s), nausea, neck pain or vomiting Review of Systems Const: Denies: fever(s), chills or fatigue Eyes: Reports: change in vision (Left eye-blurry vision with some black spots), blurry vision (Left eye), eye discomfort (Left eye) and eye redness (Left eye) ENMT: Denies: throat pain, odynophagia, nasal discharge or nasal congestion Card: Denies: chest pain, palpitations, edema, swelling of feet/ankles, dyspnea on exertion or orthopnea Resp: Denies: dyspnea, productive cough or non-productive cough GI: Denies: abdominal pain, nausea, vomiting, diarrhea, constipation or hematochezia : Denies: flank pain, difficulty urinating, dysuria or hematuria Musc: Denies: neck pain, back pain or extremity swelling Skin/Breast: Denies: rash or new lesions Neuro: Denies: headache(s), numbness in extremities or weakness in extremities PFSH ED PFSH: Medical History Hypertension Surgical History History of cholecystectomy Social History Smoking and tobacco status: former smoker Alcohol intake: current Alcohol intake frequency: holidays/special occasions only Physical Exam Const: COMMON NORMALS: no acute distress, patient oriented x3 and alert GENERAL APPEARANCE: cooperative HENMT: COMMON NORMALS: normocephalic HEAD & SCALP: normocephalic MOUTH: Normal oral and palatal mucosa present THROAT: posterior oropharynx normal and uvula midline Eye: COMMON NORMALS: Equal, round and reactive pupils present and EOMs intact bilaterally VISUAL ACUITY: Yes visual acuity right eye Visual acuity (R) = 20/: 30 and Yes visual acuity left eye Visual acuity (L) = 20/: 70 PERIORBITAL: periorbital findings normal CONJUNCTIVA: Yes conjunctival abnormal positive left conjunctival injection diffuse PUPIL: Yes Equal, round and reactive pupils present SLIT LAMP EXAM: Yes slit lamp exam performed with fluorescein OTHER: Fluorescein dye and lamp exam performed and showed a small corneal abrasion. Neck/C-Spine: COMMON NORMALS: supple GENERAL: Yes normal visual inspection Resp: COMMON NORMALS: normal respiratory effort, No retractions, No use of accessory muscles and clear to auscultation bilaterally AUSCULTATION: clear to auscultation bilaterally Cardio: COMMON NORMALS: regular rate, regular rhythm, S1 normal heart sound present, S2 normal heart sound present, No gallops present (Cardio), No clicks present (Cardio), No murmurs present (Cardio) and Peripheral pulses 2+ throughout RATE: regular rate RHYTHM: regular rhythm HEART SOUNDS: S1 normal heart sound present and S2 normal heart sound present PERIPHERAL PULSES: Peripheral pulses 2+ throughout GI: COMMON NORMALS: Normal to inspection, nondistended, normoactive bowel sounds present, Soft to palpation, non-tender and no masses PALPATION: Yes Soft to palpation : COMMON NORMALS: Yes no CVA tenderness BLADDER/KIDNEY EXAM: Yes no CVA tenderness Back/Pelvis: COMMON NORMALS: no CVA tenderness Extremity: COMMON NORMALS: normal to inspection Neuro: COMMON NORMALS: patient oriented x3 and moves all extremities SENSORIUM/ORIENTATION: Yes alert Skin: GENERAL SKIN EXAM: dry skin Course Vital Signs: Vital signs: Vital Signs Temperature 97.8 F 05/31/22 12:42 Pulse Rate 79 05/31/22 12:42 Respiratory Rate 16 05/31/22 12:42 Blood Pressure 123/84 05/31/22 12:42 Pulse Oximetry 98 05/31/22 12:42 MDM - Eye Problem Medical Decision Making Patient is a 77-year-old male comes to the ED with left eye complaint. He sta micheal that back on May 20 he was outside and something blew into his left eye which started symptoms. Endorses having left eye blurry vision and discomfort. Vital stable. Exam of patient shows diffuse conjunctival injection left eye and fluorescein dye exam with lamp showed a corneal abrasion. Patient was given a dose of Maxitrol eye ointment here in the ED. I placed order with case management for patient be referred to Dr. Blanton. Patient is a past patient of Dr. Blanton, but says that for his [facility] insurance to pay for I doctor he needs a referral to Dr. Blanton. Patient was stable for discharge home and sent with a prescription for Maxitrol optic ointment. He was told to contact Dr. Blanton [facility] on Friday morning to set up an appoint with them. He was given strict return to ED precautions. Patient understood and agreed with plan. Lab Data Radiology Impressions Head CT 05/31/22 14:45 IMPRESSION: 1. No acute intracranial hemorrhage or mass effect. 2. No orbital or globe abnormality is identified on this CT. 3. Mild atrophy and mild small vessel ischemic disease. Discharge Plan Discharge Patient Disposition: Home Clinical Impression: Corneal abrasion Qualifiers: Encounter type: initial encounter Laterality: left Qualified Code(s): S05.02XA - Injury of conjunctiva and corneal abrasion without foreign body, left eye, initial encounter Condition: Stable Prescriptions: New Maxitrol 3.5 mg/g-10,000 unit/g-0.1 % ointment 1 applic ophthalmic (eye) TID 5 Days Qty: 3.5 0RF Rx Instructions: space evenly during waking hours No Action cyclobenzaprine 10 mg tablet 10 mg PO TID 0RF tamsulosin 0.4 mg Capsule 0.4 mg PO DAILY 0RF Rx Instructions: take after same meal each day. hydrochlorothiazide 25 mg Tablet 25 mg PO DAILY 0RF ipratropium bromide 42 mcg (0.06 %) [place],Non-Aerosol 2 spray INTRANASAL TID 0RF finasteride 5 mg Tablet 5 mg PO DAILY 0RF loratadine 10 mg Tablet 10 mg PO DAILY 0RF valacyclovir 500 mg Tablet 500 mg PO TID 0RF [place]-3 Fish Oil 300-1,000 mg Capsule 1 cap PO DAILY 0RF pantoprazole 40 mg tablet,delayed release (DR/EC) 40 mg PO DAILY Qty: 90 8RF Discharge Orders: Discharge ED (Routine); Ordered 05/31/22 Ordered By: Alexandre Franco Referrals: Criselda Ott [Primary Care Provider] - Discharge Diet: Regular Discharge Activity: Increase activity as tolerated Patient Instructions: Corneal Abrasion (ED) Activity Restrictions/Additional Instructions: Follow-up with medical provider as directed. Case management should be contacting here in the next several days to set up an appointment with Dr. Blanton or you can call Dr. Blanton eye clinic on Friday morning phone number is [phone]. Address is [facility] [address] Aleksander Plunkett. take medications as prescribed. Return to the ER or your medical provider if condition worsens. Please read and understand discharge instructions. If any questions, please ask. Coding Level of Care Code ED Nutrient Management Specialist for Chg Fwd Exam Comprehensive
[2022-05-31] MEDS: eye irrigation 30 mL Btl EYE-LEFT (16:00)
[2022-05-31] MEDS: fluorescein 1 mg Strip EYE-LEFT (16:00)
[2022-05-31] MEDS: neomycin-poly-dex Op oint 3.5 gm 1 APPLIC EYE-LEFT (17:15)
--- NOTE | 2022-06-03 09:20 | DCPLANNER ---
Addendum entered by Alexandrea Gleason 06/11/22 15:15: Patient was seen at Dr. Blanton. Original Note: manager marketing had message to schedule a follow up appointment for patient with Dr. Blanton. manager marketing faxed patients information to the office of Dr. Blanton. Clinic will call patient with appointment information. Patient has [facility] insurance, director of casework sent patients information to Jillian with [facility] for the authorization process to be started.
== END 2022-05-31 17:19 | disposition home or self-care (01) ==
PROVIDERS: Emergency Provider Physician Assistant
DX: S05.02XA Injury of conjunctiva and corneal abrasion without foreign body, left eye, initial encounter (principal); I10 Essential (primary) hypertension; Z87.891 Personal history of nicotine dependence; X58.XXXA Exposure to other specified factors, initial encounter
CPT/HCPCS: 70450; 99285

== ENCOUNTER 2022-07-16 13:47 | Emergency (ER) | payer OTHER, MEDICARE, SELFPAY ==
[2022-07-16 13:49] VITALS: BP 144/88; PULSE 77; RESP 18; TEMP 36.7; O2SAT 96; BMI 29.1
[2022-07-16 15:20] LABS: Basophils # 0.1 10^3/uL (0.0-0.1); Basophils % 1.2 %; Eosinophils # 0.3 10^3/uL (0.0-0.8); Eosinophils % 3.2 %; Hematocrit 45.5 % (42.0-52.0); Hemoglobin 14.7 g/dL (11.7-16.6); Lymphocytes # 2.7 10^3/uL (0.8-4.8); Lymphocytes % 32.7 %; Mean Corpuscular HGB Conc 32.3 g/dL (30.0-36.0); Mean Corpuscular Hemoglobin 30.6 pg (28.0-34.0); Mean Corpuscular Volume 94.6 fl (80-94); Mean Platelet Volume 11.1 fL (7.4-10.4); Monocytes # 0.7 10^3/uL (0.2-0.9); Monocytes % 8.8 %; Neutrophils # 4.37 10^3/uL (1.8-7.7); Neutrophils % 53.9 %; Nucleated Red Blood Cells % 0 %; Platelet Count 215 10^3/cmm (130-400); Red Blood Count 4.81 10^6/uL (4.1-5.3); Red Cell Distribution Width 13.6 % (12.1-15.1); White Blood Count 8.1 10^3/uL (4.0-10.0)
[2022-07-16 15:39] LABS: Lactic Sepsis W/Reflex 0.9 mmol/L (0.5-2.2)
[2022-07-16 15:40] LABS: Alanine Aminotransferase 23 U/L (0-41); Albumin Level 4.2 g/dL (3.5-5.2); Alkaline Phosphatase 80 U/L (40-130); Anion Gap 14.6 (5-19); Aspartate Amino Transferase 20 U/L (0-40); Blood Urea Nitrogen 19 mg/dL (8-23); Calcium 9.6 mg/dL (8.5-10.5); Carbon Dioxide 26 mmol/L (22-29); Chloride 100 mmol/L (98-107); Globulin 2.8 g/dL (1.3-4.6); Glucose 105 mg/dL (65-115); Lipase 49 U/L (13-60); Osmolality Calculated 287 mOsm/kg (285-295); Potassium 3.6 mmol/L (3.5-5.1); Sodium 137 mmol/L (136-145); Total Bilirubin 0.3 mg/dL (0.15-1.2)
[2022-07-16 15:43] LABS: Add Urine Microscopic? NO; Charge for UA Resulting for Rev
[2022-07-16 15:52] LABS: Bilirubin Urine Neg (Negative); Blood Urine Neg (Negative); Glucose Urine UA Norm (Normal); Ketones Urine Negative (Negative); Leukocyte Esterase Urine Negative (Negative); Nitrate Urine Negative (Negative); Protein Urine Neg (Negative); Specific Gravity, Urine 1.015 (1.005-1.030); Urine Appearance Clear (CLEAR); Urine Color Yellow (Yellow); Urobilinogen Urine Norm (Negative); pH Urine 5 (5-7)
--- NOTE | 2022-07-16 16:07 | ED_ITS ---
HPI - General Adult General: Chief complaint: Abdominal Pain Stated complaint: Sent by [facility] Stomach pain Time Seen by Provider: 07/16/22 16:07 History of Present Illness: Patient is a 77-year-old male w/ hx of cholecystectomy and prior umbilical hernia repair who presents to the emergency room for concerns of hernia complication. Patient tells me that he was seen earlier today at the [facility]. There, patient was noted to have a periumbilical bulge and was told to come to the emergency room for evaluation of possible incarceration. Patient tells me that he has been pooping okay. Most recently 2 days ago, patient has noted dark stool. Patient uses aspirin but denies any anticoagulation. Patient reports passing stool without any issues. In addition, patient also reports 2 spots of erythema around the umbilical bulge. Patient also reports a site of erythema around the left thigh on the lateral aspect. She denies any other rash, any recent tick bites returning to the [facility]. Patient denies any any gross hematochezia, or urinary complaints. Patient denies any fever/chill, cough, runny nose, sore throat or chest pain. Onset: 1 day ago Duration:1day ago Location:home Severity:moderate Associated symptoms: Deny chest pain, dyspnea, nausea, palpitations or vomiting Review of Systems Const: Denies: fever(s) or chills Eyes: Denies: change in vision ENMT: Denies: mouth pain Card: Denies: chest pain or palpitations Resp: Denies: dyspnea or non-productive cough GI: Reports: abdominal pain; Denies: nausea, vomiting or diarrhea : Denies: dysuria Musc: Denies: extremity pain Skin/Breast: Reports: new lesions (+periumbilical lesions x 2) Neuro: Denies: weakness in extremities Psych: Reports: other (Normal mood) Phuc/Lymph: Denies: easy bruising PFSH ED PFSH: Medical History Hypertension Surgical History H/O umbilical hernia repair History of cholecystectomy Social History Smoking and tobacco status: former smoker Alcohol intake: current Alcohol intake frequency: holidays/special occasions only Substance/Drug Use: never Physical Exam Const: COMMON NORMALS: alert HENMT: COMMON NORMALS: atraumatic HEAD & SCALP: atraumatic MOUTH: moist mucous membranes not abnormal Eye: COMMON NORMALS: EOMs intact bilaterally and conjunctivae normal CONJUNCTIVA: Yes conjunctivae normal Neck/C-Spine: COMMON NORMALS: full ROM and supple Resp: COMMON NORMALS: normal respiratory effort and clear to auscultation bilaterally AUSCULTATION: clear to auscultation bilaterally Cardio: COMMON NORMALS: regular rate RATE: regular rate GI: COMMON NORMALS: Soft to palpation PALPATION: Yes Soft to palpation OTHER: +mild periumbilical TTP. NO guarding rebound, guarding, rigidity. No CVA tenderness to percussion. Neg Chung/Neg McBurney's point tenderness, no suprabupic tenderness to palpation. Extremity: COMMON NORMALS: full ROM Neuro: SENSORIUM/ORIENTATION: Yes alert MOTOR EXAM: No Abnormal motor strength present and Other motor observations present (no focal motor deficits) Psych: COMMON NORMALS: speech normal SPEECH: Yes normal speech MOOD & AFFECT: Yes euthymic mood Course Vital Signs: Vital signs: Vital Signs Temperature 98.1 F 07/16/22 13:49 Pulse Rate 77 07/16/22 13:49 Respiratory Rate 18 07/16/22 13:49 Blood Pressure 144/88 07/16/22 13:49 Pulse Oximetry 96 07/16/22 13:49 Oxygen Delivery Me thod 07/16/22 13:49 MDM - General Adult Medical Decision Making Patient is a 77-year-old male w/ hx of cholecystectomy and prior umbilical hernia repair who presents to the emergency room for concerns of hernia complication. On physical exam, patient is hemodynamically stable. Patient has 2 spots of erythema around the umbilical area. Patient has mild periumbilical tenderness palpation. No guarding or rebound tenderness. Patient is afebrile without any guarding or rebound tenderness. Patient has white count 8.1 today. Rest of lab within normal limit. CT ab pelvis showed enteritis with periumbilical edema consistent with possible cellulitis. In ER, patient has been to tolerate p.o. without any difficulty. No suspicion for other acute intra-abdominal pathology including SBO, biliary pathology, appendicitis, diverticulitis, or other emergent condition requiring surgery. Rx Maalox/pepcid PRN dyspepsia, and zofran PRN nausea/vomiting, cephalexin for cellulitis Disposition: Discharge. Patient counseled regarding diagnostic impression, treatment plan. Patient given ED strict return precautions to return for continuation, worsening, or development of new symptoms. Instructed to f/u w/ PCP regarding symptoms today. Patient verbalized understanding. Lab Data : 07/16/22 15:10 07/16/22 15:10 Radiology Impressions Abdomen/Pelvis CT 07/16/22 16:07 IMPRESSION: 1. Negative for acute inflammatory process in the abdomen or pelvis. 2. Bibasilar atelectasis versus minimal infiltrate. 3. Cholecystectomy. 4. Constipation. 5. Prominent fluid throughout the small bowel without dilation suggestive of an enteritis. 6. Small to moderate bilateral inguinal hernias containing bowel without inflammation. 7. Minimal periumbilical subcutaneous edema perhaps reflecting a mild cellulitis without focal fluid collection. Laboratory Results WBC 8.1 10^3/uL (4.0-10.0) 07/16/22 15:10 RBC 4.81 10^6/uL (4.1-5.3) 07/16/22 15:10 Hgb 14.7 g/dL (11.7-16.6) 07/16/22 15:10 Hct 45.5 % (42.0-52.0) 07/16/22 15:10 MCV 94.6 fl (80-94) H 07/16/22 15:10 MCH 30.6 pg (28.0-34.0) 07/16/22 15:10 MCHC 32.3 g/dL (30.0-36.0) 07/16/22 15:10 RDW 13.6 % (12.1-15.1) 07/16/22 15:10 Plt Count 215 10^3/cmm (130-400) 07/16/22 15:10 MPV 11.1 fL (7.4-10.4) H 07/16/22 15:10 Neut % (Auto) 53.9 % 07/16/22 15:10 Lymph % (Auto) 32.7 % 07/16/22 15:10 [place] % (Auto) 8.8 % 07/16/22 15:10 Eos % (Auto) 3.2 % 07/16/22 15:10 Baso % (Auto) 1.2 % 07/16/22 15:10 Neut # (Auto) 4.37 10^3/uL (1.8-7.7) 07/16/22 15:10 Lymph # (Auto) 2.7 10^3/uL (0.8-4.8) 07/16/22 15:10 [place] # (Auto) 0.7 10^3/uL (0.2-0.9) 07/16/22 15:10 Eos # (Auto) 0.3 10^3/uL (0.0-0.8) 07/16/22 15:10 Baso # (Auto) 0.1 10^3/uL (0.0-0.1) 07/16/22 15:10 Nucleated RBC % (auto) 0 % 07/16/22 15:10 Nucleated RBCs # 0.0 /100WBC 07/16/22 15:10 Sodium 137 mmol/L (136-145) 07/16/22 15:10 Potassium 3.6 mmol/L (3.5-5.1) 07/16/22 15:10 Chloride 100 mmol/L (98-107) 07/16/22 15:10 Carbon Dioxide 26 mmol/L (22-29) 07/16/22 15:10 Anion Gap 14.6 (5-19) 07/16/22 15:10 BUN 19 mg/dL (8-23) 07/16/22 15:10 Creatinine 1.1 mg/dL (0.7-1.2) 07/16/22 15:10 GFR Calculation Not Reportable 07/16/22 15:10 Glucose 105 mg/dL (65-115) 07/16/22 15:10 Calculated Osmolality 287 mOsm/kg (285-295) 07/16/22 15:10 Lactic Acid 0.9 mmol/L (0.5-2.2) 07/16/22 15:10 Calcium 9.6 mg/dL (8.5-10.5) 07/16/22 15:10 Total Bilirubin 0.3 mg/dL (0.15-1.2) 07/16/22 15:10 AST 20 U/L (0-40) 07/16/22 15:10 ALT 23 U/L (0-41) 07/16/22 15:10 Alkaline Phosphatase 80 U/L (40-130) 07/16/22 15:10 Total Protein 7.0 g/dL (6.6-8.7) 07/16/22 15:10 Albumin 4.2 g/dL (3.5-5.2) 07/16/22 15:10 Globulin 2.8 g/dL (1.3-4.6) 07/16/22 15:10 Lipase 49 U/L (13-60) 07/16/22 15:10 Urine Color Yellow (Yellow) 07/16/22 15:30 Urine Appearance Clear (CLEAR) 07/16/22 15:30 Urine pH 5 (5-7) 07/16/22 15:30 Ur Specific [place] 1.015 (1.005-1.030) 07/16/22 15:30 Urine Protein Neg (Negative) 07/16/22 15:30 Urine Glucose (UA) Norm (Normal) 07/16/22 15:30 Urine Ketones Negative (Negative) 07/16/22 15:30 Urine Blood Neg (Negative) 07/16/22 15:30 Urine Nitrate Negative (Negative) 07/16/22 15:30 Urine Bilirubin Neg (Negative) 07/16/22 15:30 Urine Urobilinogen Norm mg/dL (Negative) 07/16/22 15:30 Ur Leukocyte Esterase Negative (Negative) 07/16/22 15:30 Imaging Data Other Imaging: Radiologist's impression: [address] [address] [address] Scan Report Signed Patient: William Braun Unit #: [id number] : 1945 Age/Sex: 77 / M ADM Date: 07/16/22 Loc: ER Room/Bed: Attending Dr: Ordering Provider/Ordering MD: Chaz Cruz MD Date of Service: 07/16/22 Procedure(s): CT abdomen pelvis w con* [id number] Accession Number(s): [id number] Report Number: [id number] PROCEDURE INFORMATION: Exam: CT Abdomen And Pelvis With Contrast Exam date and time: 07/16/2022 5:15 PM Age: 77 years old Clinical indication: Abdominal pain; Periumbilical; Prior surgery; Surgery type: Chlolecystectomy, ; additional info: Abd pain around navel with small skin sore on the surface TECHNIQUE: Imaging protocol: Computed tomography of the abdomen and pelvis with contrast. Radiation optimization: All CT scans at this facility use at least one of these dose optimization techniques: automated exposure control; mA and/or kV adjustment per patient size (includes targeted exams where dose is matched to clinical indication); or iterative reconstruction. Contrast material: OMNIPAQUE 350; Contrast volume: 80 ml; Contrast route: INTRAVENOUS (IV);? COMPARISON: CT abdomen w con* [id number] 02/26/2022 12:58 PM RADIATION DOSE METRICS: Total DLP (mGy-cm): 889.27 FINDINGS: Lungs: Bibasilar atelectasis versus minimal infiltrate. Liver: Normal. No mass. Gallbladder and bile ducts: Cholecystectomy. Pancreas: Normal. No ductal dilation. Spleen: Normal. No splenomegaly. Adrenal glands: Normal. No mass. Kidneys and ureters: Normal. No hydronephrosis. Stomach and bowel: Constipation. Prominent fluid throughout the small bowel without dilation suggestive of an enteritis. Appendix: No evidence of appendicitis. Intraperitoneal space: Unremarkable. No free air. No significant fluid collection. Vasculature: Unremarkable. No abdominal aortic aneurysm. Lymph nodes: Unremarkable. No enlarged lymph nodes. Urinary bladder: Unremarkable as visualized. Reproductive: Unremarkable as visualized. Bones/joints: Unremarkable. No acute fracture. Soft tissues: Small to moderate bilateral inguinal hernias containing bowel without inflammation. Minimal periumbilical subcutaneous edema perhaps reflecting a mild cellulitis without focal fluid collection. CT/CT abdomen pelvis w con* [id number] IMPRESSION: 1. Negative for acute inflammatory process in the abdomen or pelvis. 2. Bibasilar atelectasis versus minimal infiltrate. 3. Cholecystectomy. 4. Constipation. 5. Prominent fluid throughout the small bowel without dilation suggestive of an enteritis. 6. Small to moderate bilateral inguinal hernias containing bowel without inflammation. 7. Minimal periumbilical subcutaneous edema perhaps reflecting a mild cellulitis without focal fluid collection. ? Dictated By: Parminder Bagley MD Signed By: Parminder Bagley MD Signed Date/Time: 07/16/221741 DD/ 14 Discharge Plan Discharge Patient Disposition: Home Clinical Impression: Cellulitis, Enteritis Condition: Stable Prescriptions: New cephalexin 500 mg capsule 500 mg PO BID 10 Days Qty: 20 0RF Pepcid 20 mg tablet 20 mg PO BID PRN (Reason: abdominal pain) 10 Days Qty: 20 0RF ondansetron 4 mg tablet,disintegrating 4 mg PO TID PRN (Reason: nausea and vomiting) 4 Days Qty: 12 0RF Maalox Advanced 1,000-60 mg tablet,chewable 1 tab PO TID PRN (Reason: abdominal pain) 7 Days Qty: 21 0RF No Action tamsulosin 0.4 mg Capsule 0.4 mg PO QAM Rx Instructions: take after same meal each day. hydrochlorothiazide 25 mg Tablet 25 mg PO DAILY finasteride 5 mg Tablet 5 mg PO QAM loratadine 10 mg Tablet 10 mg PO QAM valacyclovir 500 mg Tablet 500 mg PO QAM Fish Oil Concentrate 1,000 mg Capsule 2,000 mg PO QAM miconazole nitrate 2 % Aerosol Powder 1 ea TOPICAL TID PRN (Reason: Rash) sildenafil 100 mg Tablet 50 - 100 mg PO DAILY PRN (Reason: Erectile Dysfunction) Lee's Extra Strength 580 (467) mg Tablet 580 mg PO DAILY PRN (Reason: Pain) Robaxin 750 mg Tablet 750 mg PO QID PRN (Reason: Muscle Spasm) mupirocin 2 % Ointment 1 applic TOPICAL BID ProAir HFA 90 mcg/actuation Hfa Aerosol Inhaler 2 puff INHALATION Q4H PRN (Reason: Shortness Of Breath) pantoprazole 40 mg tablet,delayed release (DR/EC) 40 mg PO QAM Discharge Orders: Discharge ED (Routine); Ordered 07/16/22 Ordered By: Chaz Cruz Referrals: Criselda Ott [Primary Care Provider] - Discharge Diet: Advance as tolerated Discharge Activity: Increase activity as tolerated Patient Instructions: Cellulitis (ED), Enteritis (ED) Activity Restrictions/Additional Instructions: Please come back if you have any worsening abdominal pain, fever or chills, na usea or vomiting, diarrhea, blood in the stool, inability hold down liquid or solids, or any new concerning complaints. Please take your antibiotics as instructed. Watch out for signs of skin changes /redness, mouth redeness or swelling, nausea/vomiting, diarrhea, blood in the urine or any new or concering complaints. Coding Level of Care Code ED Dispatcher Maintenance Service for [facility] Fwd Exam Comprehensive
[2022-07-16] MEDS: sodium chloride 0.9% 1,000 ML 999 ML IV (17:27)
[2022-07-16] MEDS: acetaminophen 500 mg Tablet PO (17:28)
[2022-07-16] MEDS: iohexol 350 mg/mL 100 mL Btl IV (17:33)
--- NOTE | 2022-07-16 17:52 | PC.NURSE ---
Pt passes PO challenge
[2022-07-16] MEDS: alum-mag-hydroxide-sime 30 mL UDC PO (18:09)
[2022-07-16] MEDS: famotidine 20 mg Tablet PO (18:09)
[2022-07-16 18:16] VITALS: BP 121/66; PULSE 55; O2SAT 96
== END 2022-07-16 18:21 | disposition home or self-care (01) ==
PROVIDERS: Physician Assistant; Emergency Provider Emergency Medicine
DX: K52.9 Noninfective gastroenteritis and colitis, unspecified (principal); L03.316 Cellulitis of umbilicus; I10 Essential (primary) hypertension; Z87.891 Personal history of nicotine dependence
CPT/HCPCS: 36415; 74177; 80053; 81003; 83605; 83690; 85025; 96360; 99285; J7030; Q9967

== ENCOUNTER 2022-11-21 12:19 | Emergency (ER) | payer OTHER, SELFPAY ==
[2022-11-21 12:44] VITALS: BP 140/82; PULSE 61; RESP 16; TEMP 36.8; O2SAT 98
--- NOTE | 2022-11-21 13:22 | ED_ITS ---
HPI - GI Bleed General: Chief complaint: GI Bleed Stated complaint: RECTAL BLEEDING Time Seen by Provider: 11/21/22 13:13 Source: patient Mode of arrival: EMS History of Present Illness: 77-year-old male presents to the ER from home with complaint of occasional rectal bleeding. States he gets small streaks of blood occasionally usually associated states it was a burning sensation when he takes atorvastatin or potassium orally. No large bloody stools. He has a rectus diastasis which he tells me he is scheduled to see his surgeon to have it cleared painless. MD complaint: blood streaked stool Onset (ago): month(s) Pain Consistency: intermittent Severity: mild Relieving factors: none Exacerbating factors: medication (Potassium, atorvastatin) Associated symptoms: Denies abdominal pain, chills, easy bruising, epistaxis, fe leydi(s), headache(s), malaise, nausea, other bleeding, poor appetite, rash, syncope, vomiting or weakness Review of Systems Const: Denies: fever(s), chills or malaise ENMT: Denies: epistaxis Card: Denies: chest pain, palpitations or syncope Resp: Denies: dyspnea, productive cough or non-productive cough GI: Denies: abdominal pain, nausea or vomiting : Denies: flank pain, dysuria, urinary frequency or urinary urgency Skin/Breast: Denies: rash Neuro: Denies: headache(s) Phuc/Lymph: Denies: easy bruising PFS ED PFSH: Medical History Hypertension Surgical History H/O umbilical hernia repair History of cholecystectomy Social History Smoking and tobacco status: former smoker Alcohol intake: current Alcohol intake frequency: holidays/special occasions only Physical Exam Const: GENERAL APPEARANCE: cooperative and comfortable ORIENTATION/CONSCI OUSNESS: Yes awake, Yes oriented to person, Yes oriented to place and Yes oriented to time HENMT: COMMON NORMALS: normocephalic, atraumatic and hearing grossly normal bilaterally HEAD & SCALP: normocephalic and atraumatic Resp: COMMON NORMALS: normal respiratory effort, No retractions, No use of accessory muscles and clear to auscultation bilaterally AUSCULTATION: clear to auscultation bilaterally Cardio: COMMON NORMALS: regular rate, regular rhythm and No murmurs present (Cardio) RATE: regular rate RHYTHM: regular rhythm GI: COMMON NORMALS: Soft to palpation and No hepatosplenomegaly present AUSCULTATION: Yes normoactive bowel sounds PALPATION: Yes Soft to palpation, No Tenderness to palpation present (GI), No Guarding due to palpation present (GI) and Yes No hepatosplenomegaly present RECTAL EXAM: Yes visual inspection normal (No active bleeding) Extremity: COMMON NORMALS: normal to inspection, capillary refill normal, no clubbing, cyanosis or edema, no calf tenderness and no pedal edema Neuro: SENSORIUM/ORIENTATION: Yes oriented to person, Yes oriented to place and Yes oriented to time Skin: COMMON NORMALS: no rashes or lesions noted GENERAL SKIN EXAM: no rashes or lesions noted Course Vital Signs: Vital signs: Vital Signs Temperature 98.3 F 11/21/22 12:44 Pulse Rate 61 11/21/22 12:44 Respiratory Rate 16 11/21/22 12:44 Blood Pressure 140/82 11/21/22 12:44 Pulse Oximetry 98 11/21/22 12:44 Oxygen Delivery Me thod 11/21/22 12:44 MDM - GI Bleed Medical Decision Making Visual exam of the rectum is no active bleeding. Bleeding he describes a small specks of bleeding no active bleeding his hemoglobin is stable. Patient declined rectal exam due to anticipated discomfort. Anusol HC suppositories given follow-up with his primary care doctor. He reports recently having a colonoscopy. He has other multiple minor complaints many of which she has addressed before with PCP return to follow-up with those with PCP as well no acute or emergent conditions at this time. Medical Records I reviewed the patient's medical records. Lab Data I reviewed the patient's lab results. 11/21/22 14:07 11/21/22 14:07 Laboratory Results WBC 7.5 10^3/uL (4.0-10.0) 11/21/22 14:07 RBC 4.64 10^6/uL (4.1-5.3) 11/21/22 14:07 Hgb 14.3 g/dL (11.7-16.6) 11/21/22 14:07 Hct 43.2 % (42.0-52.0) 11/21/22 14:07 MCV 93.1 fl (80-94) 11/21/22 14:07 MCH 30.8 pg (28.0-34.0) 11/21/22 14:07 MCHC 33.1 g/dL (30.0-36.0) 11/21/22 14:07 RDW 13.7 % (12.1-15.1) 11/21/22 14:07 Plt Count 207 10^3/cmm (130-400) 11/21/22 14:07 MPV 10.7 fL (7.4-10.4) H 11/21/22 14:07 Neut % (Auto) 59.5 % 11/21/22 14:07 Lymph % (Auto) 30.0 % 11/21/22 14:07 [place] % (Auto) 6.9 % 11/21/22 14:07 Eos % (Auto) 2.1 % 11/21/22 14:07 Baso % (Auto) 1.1 % 11/21/22 14:07 Neut # (Auto) 4.46 10^3/uL (1.8-7.7) 11/21/22 14:07 Lymph # (Auto) 2.3 10^3/uL (0.8-4.8) 11/21/22 14:07 [place] # (Auto) 0.5 10^3/uL (0.2-0.9) 11/21/22 14:07 Eos # (Auto) 0.2 10^3/uL (0.0-0.8) 11/21/22 14:07 Baso # (Auto) 0.1 10^3/uL (0.0-0.1) 11/21/22 14:07 Nucleated RBC % (auto) 0 % 11/21/22 14:07 Nucleated RBCs # 0.0 /100WBC 11/21/22 14:07 Sodium 133 mmol/L (136-145) L 11/21/22 14:07 Potassium 3.8 mmol/L (3.5-5.1) 11/21/22 14:07 Chloride 96 mmol/L (98-107) L 11/21/22 14:07 Carbon Dioxide 25 mmol/L (22-29) 11/21/22 14:07 Anion Gap 15.8 (5-19) 11/21/22 14:07 BUN 15 mg/dL (8-23) 11/21/22 14:07 Creatinine 0.8 mg/dL (0.7-1.2) 11/21/22 14:07 GFR Calculation Not Reportable 11/21/22 14:07 Glucose 90 mg/dL (65-115) 11/21/22 14:07 Calculated Osmolality 276 mOsm/kg (285-295) L 11/21/22 14:07 Calcium 9.2 mg/dL (8.5-10.5) 11/21/22 14:07 Total Bilirubin 0.4 mg/dL (0.15-1.2) 11/21/22 14:07 AST 22 U/L (0-40) 11/21/22 14:07 ALT 20 U/L (0-41) 11/21/22 14:07 Alkaline Phosphatase 59 U/L (40-130) 11/21/22 14:07 Total Protein 7.2 g/dL (6.6-8.7) 11/21/22 14:07 Albumin 4.5 g/dL (3.5-5.2) 11/21/22 14:07 Globulin 2.7 g/dL (1.3-4.6) 11/21/22 14:07 Discharge Plan Discharge Patient Disposition: Home Clinical Impression: Chronic abdominal pain, Lower GI bleed, Rectus diastasis Condition: Stable Prescriptions: New Anusol-HC 25 mg suppository 25 mg SD TID 14 Days Qty: 100 0RF No Action tamsulosin 0.4 mg Capsule 0.4 mg PO QAM Rx Instructions: take after same meal each day. hydrochlorothiazide 25 mg Tablet 25 mg PO DAILY finasteride 5 mg Tablet 5 mg PO QAM loratadine 10 mg Tablet 10 mg PO QAM valacyclovir 500 mg Tablet 500 mg PO QAM omega-3 fatty acids [Fish Oil Concentrate] 1,000 mg Capsule 2,000 mg PO QAM miconazole nitrate 2 % Aerosol Powder 1 ea TOPICAL TID PRN (Reason: Rash) sildenafil 100 mg Tablet 50 - 100 mg PO DAILY PRN (Reason: Erectile Dysfunction) Lee's Extra Strength 580 (467) mg Tablet 580 mg PO DAILY PRN (Reason: Pain) methocarbamol [Robaxin] 750 mg Tablet 750 mg PO QID PRN (Reason: Muscle Spasm) mupirocin 2 % Ointment 1 applic TOPICAL BID albuterol sulfate [ProAir HFA] 90 mcg/actuation Hfa Aerosol Inhaler 2 puff INHALATION Q4H PRN (Reason: Shortness Of Breath) omeprazole 40 mg Capsule,Delayed Release(Dr/Ec) 40 mg PO DAILY gabapentin 100 mg Capsule 100 mg PO TID Crestor 5 mg Tablet 5 mg PO BEDTIME potassium chloride 20 mEq Tablet Extended Release 10 meq PO DAILY Discharge Orders: Discharge ED (Routine); Ordered 11/21/22 Ordered By: Javier Miguel Referrals: Criselda Ott [Primary Care Provider] - Discharge Diet: Usual diet Discharge Activity: Resume usual activity Patient Instructions: Abdominal Pain (ED), Opioid Safety, Pain Management Activity Restrictions/Additional Instructions: You were seen for occasional rectal bleeding. Your hemoglobin is stable. You reported you previously had a colonoscopy recommend you follow-up with surgery. You can use the Anusol HC suppositories as needed. Coding Level of Care Code ED Extracorporeal Technician for Chg Fwd Exam Detailed
[2022-11-21 14:15] LABS: Basophils # 0.1 10^3/uL (0.0-0.1); Basophils % 1.1 %; Eosinophils # 0.2 10^3/uL (0.0-0.8); Eosinophils % 2.1 %; Hematocrit 43.2 % (42.0-52.0); Hemoglobin 14.3 g/dL (11.7-16.6); Lymphocytes # 2.3 10^3/uL (0.8-4.8); Mean Corpuscular HGB Conc 33.1 g/dL (30.0-36.0); Mean Corpuscular Hemoglobin 30.8 pg (28.0-34.0); Mean Corpuscular Volume 93.1 fl (80-94); Mean Platelet Volume 10.7 fL (7.4-10.4); Monocytes # 0.5 10^3/uL (0.2-0.9); Monocytes % 6.9 %; Neutrophils # 4.46 10^3/uL (1.8-7.7); Neutrophils % 59.5 %; Nucleated Red Blood Cells % 0 %; Platelet Count 207 10^3/cmm (130-400); Red Blood Count 4.64 10^6/uL (4.1-5.3); Red Cell Distribution Width 13.7 % (12.1-15.1); White Blood Count 7.5 10^3/uL (4.0-10.0)
[2022-11-21 14:35] LABS: Alanine Aminotransferase 20 U/L (0-41); Albumin Level 4.5 g/dL (3.5-5.2); Alkaline Phosphatase 59 U/L (40-130); Anion Gap 15.8 (5-19); Aspartate Amino Transferase 22 U/L (0-40); Blood Urea Nitrogen 15 mg/dL (8-23); Calcium 9.2 mg/dL (8.5-10.5); Carbon Dioxide 25 mmol/L (22-29); Chloride 96 mmol/L (98-107); Creatinine Clr Calc Pharmacy 96.9719; Globulin 2.7 g/dL (1.3-4.6); Glucose 90 mg/dL (65-115); Osmolality Calculated 276 mOsm/kg (285-295); Potassium 3.8 mmol/L (3.5-5.1); Sodium 133 mmol/L (136-145); Total Bilirubin 0.4 mg/dL (0.15-1.2); Total Protein 7.2 g/dL (6.6-8.7)
== END 2022-11-21 15:10 | disposition home or self-care (01) ==
PROVIDERS: Emergency Provider Family Medicine
DX: G89.29 Other chronic pain (principal); R10.9 Unspecified abdominal pain; K92.2 Gastrointestinal hemorrhage, unspecified; M62.08 Separation of muscle (nontraumatic), other site; I10 Essential (primary) hypertension; Z87.891 Personal history of nicotine dependence
CPT/HCPCS: 36415; 80053; 85025; 99283

== ENCOUNTER 2022-12-05 12:37 | Outpatient (CLI) | payer OTHER, SELFPAY ==
--- NOTE | 2022-12-05 12:46 | US_ITS ---
WS: [id number] RIGHT UPPER QUADRANT ULTRASOUND HISTORY: ELEVATED LIVER ENZYMES COMPARISON: 12/23/2015, CT 07/16/2022 Liver: 13.0 cm in length. Normal size liver. Coarse echotexture throughout the liver from hepatic todd atosis. No mass or bile duct dilatation. Portal Vein: Normal hepatopetal flow with monophasic waveform. Gallbladder: Prior cholecystectomy. CBD: 0.5 cm Pancreas: Completely obscured by bowel gas. Right kidney: 9.9 cm in length. Normal size and echogenicity. No hydronephrosis or mass. Aorta and IVC: Unremarkable abdominal aorta and IVC. No ascites. US/US abdomen limited [id number] IMPRESSION: 1. Prior cholecystectomy. 2. Normal size liver with mild hepatic steatosis. No mass or bile duct dilatat ion.
== END 2022-12-05 12:38 | disposition home or self-care (01) ==
LOC: RAD 12:40
PROVIDERS: PCP Family Medicine; Visit Provider Family Medicine
DX: R74.8 Abnormal levels of other serum enzymes (principal); K76.0 Fatty (change of) liver, not elsewhere classified; Z90.49 Acquired absence of other specified parts of digestive tract
CPT/HCPCS: 76705

== ENCOUNTER 2023-01-20 09:42 | Emergency (ER) | payer OTHER, SELFPAY ==
[2023-01-20 09:50] VITALS: BP 142/82; PULSE 59; RESP 16; TEMP 36.5; O2SAT 96
--- NOTE | 2023-01-20 10:17 | W.ED.GIBLEED ---
HPI - GI Bleed General: Chief complaint: General Medical Stated complaint: abd pains Time Seen by Provider: 01/20/23 09:48 Source: patient Mode of arrival: ambulatory Limitations: no limitations History of Present Illness: Patient is a 77-year-old male who states he is here secondary to hemorrhoids. Patient states he has a history of hemorrhoids although I cannot see where this is ever been documented. He states he has been having anal/rectal pain over the past several months. He was seen by care in November and prescribed suppositories which she has been using. He has also been using a topical hydrocortisone cream. Patient states he has pain with bowel movements and especially with wiping stating that the area mclean. He states occasionally he will notice bright red blood on his toilet paper. He has never noticed blood in his stool or blood in the toilet. No dark/black/tarry stools. Patient states he had an appointment with Dr. Mares last week scheduled but could not make it due to transportation. Patient seems rather fixed on these hemorrhoids-he states he is constantly touching his rectum and poking it before and after bowel movements trying to find where pain is coming from, he takes rags and constantly wipes the area, he inserts suppositories/creams and his fingers to the rectum. He is passing stool/gas normally. No abdominal pain. No fevers. MD complaint: other (rectal pain; bright red blood with wiping ) Onset (ago): month(s) Pain Consistency: constant Severity: moderate Relieving factors: none Exacerbating factors: bowel movement Context: hemorrhoids Associated symptoms: Reports no associated symptoms; Denies abdominal pain, chills, fever(s), malaise, nausea or vomiting Treatments Prior to Arrival: suppositories Review of Systems Const: Denies: fever(s), chills, body aches, fatigue or malaise GI: Reports: pain on defecation and rectal pain; Denies: abdominal pain, nausea, vomiting, change in bowel habits, rectal swelling, rectal itching, change in stool character, hematochezia, melena, mucus in stool, white/light colored stool or steatorrhea PFSH ED PFSH: Medical History Hypertension Surgical History H/O umbilical hernia repair History of cholecystectomy Social History Smoking and tobacco status: former smoker Alcohol intake: current Alcohol intake frequency: holidays/special occasions only Physical Exam Const: COMMON NORMALS: no acute distress, patient oriented x3, no limitations, alert and well nourished GI: COMMON NORMALS: Normal to inspection, nondistended, normoactive bowel sounds present, Soft to palpation, non-tender, No hepatosplenomegaly present and no masses PALPATION: Yes Soft to palpation and Yes No hepatosplenomegaly present RECTAL EXAM: Yes visual inspection normal, Yes normal sphincter tone, No hemorrhoids, No Rectal prolapse and No Anal fissure(s) present OTHER: pt has clearly demarcated erythematous moist appearing rash to gluteal folds that appears significantly raw/irritated-I believe a lot of patient's pain/burning is stemming from this; no external hemorrhoids noted, I cannot palpate any internal hemorrhoids; no reducible hemorrhoids noted when patient bears down/strains Neuro: COMMON NORMALS: patient oriented x3 SENSORIUM/ORIENTATION: Yes alert Course Vital Signs: Vital signs: Vital Signs Temperature 97.7 F 01/20/23 09:50 Pulse Rate 59 L 01/20/23 09:50 Respiratory Rate 16 01/20/23 09:50 Blood Pressure 142/82 01/20/23 09:50 Pulse Oximetry 96 01/20/23 09:50 MDM - GI Bleed Medical Decision Making Will have him follow up with general surgery-either here with Dr. Barrientos or try and reschedule with Dr. Mares for other evaluation of his anal/rectal pain. I think treating the rash at this time is appropriate and should help some of the burning discomfort that patient is experiencing. We spoke about barrier creams and drying powders. Return to ED precautions given. Discharge Plan Discharge Patient Disposition: Home Clinical Impression: Anal or rectal pain, Irritation of skin of perianal region Condition: Stable Prescriptions: New nystatin 100,000 unit/gram powder 1 applic topical BID Qty: 30 0RF No Action tamsulosin 0.4 mg Capsule 0.4 mg PO QAM Rx Instructions: take after same meal each day. hydrochlorothiazide 25 mg Tablet 25 mg PO DAILY finasteride 5 mg Tablet 5 mg PO QAM loratadine 10 mg Tablet 10 mg PO QAM valacyclovir 500 mg Tablet 500 mg PO QAM omega-3 fatty acids [Fish Oil Concentrate] 1,000 mg Capsule 2,000 mg PO QAM miconazole nitrate 2 % Aerosol Powder 1 ea TOPICAL TID PRN (Reason: Rash) sildenafil 100 mg Tablet 50 - 100 mg PO DAILY PRN (Reason: Erectile Dysfunction) Lee's Extra Strength 580 (467) mg Tablet 580 mg PO DAILY PRN (Reason: Pain) methocarbamol [Robaxin] 750 mg Tablet 750 mg PO QID PRN (Reason: Muscle Spasm) mupirocin 2 % Ointment 1 applic TOPICAL BID albuterol sulfate [ProAir HFA] 90 mcg/actuation Hfa Aerosol Inhaler 2 puff INHALATION Q4H PRN (Reason: Shortness Of Breath) omeprazole 40 mg Capsule,Delayed Release(Dr/Ec) 40 mg PO DAILY gabapentin 100 mg Capsule 100 mg PO TID Crestor 5 mg Tablet 5 mg PO BEDTIME potassium chloride 20 mEq Tablet Extended Release 10 meq PO DAILY Discharge Orders: Discharge ED (Routine); Ordered 01/20/23 Ordered By: Ching Wong Referrals: Alice Rangel MD [Primary Care Provider] - Activity Restrictions/Additional Instructions: As we discussed you need to keep skin around your rectum/anus as dry as possible to help with burning and further irritation. You may use the powder prescribed to you twice daily in addition to a barrier cream such as zinc oxide (this is available over the counter). As we discussed we will place referral to general surgery for further evaluation of your rectal/anal pain. Coding Level of Care Code ED Technical Training Coordinator for Lourdes Lerma
[2023-01-20 10:53] VITALS: BP 142/82; PULSE 59; RESP 16; TEMP 36.5; O2SAT 96
--- NOTE | 2023-01-20 11:13 | DCPLANNER ---
Addendum entered by Alexandrea Gleason 01/22/23 08:42: Patient called back and stated that he was going to follow up with Dr. Mares. Addendum entered by Alexandrea Gleason 01/21/23 13:24: Patient called social work case manager back stating that he would like to be referred to [facility]. operations manager/coordinator sent patients information to [facility], patients information will be reviewed, clinic will call patient with appointment information. Addendum entered by Alexandrea Gleason 01/21/23 11:35: operations manager/coordinator received the following message from general surgery regarding follow up appointment: [facility]rient[facility] is still currently not [facility]. patient will need to be referred elsewhere operations manager/coordinator called phone number [phone] to inform patient of this and to confirm who patient wanted to be referred to. operations manager/coordinator unable to speak with patient at this time, a voicemail was left for patient to return lining caser phone call. operations manager/coordinator called phone number [phone] - this number is not accepting calls at this time. Original Note: operations manager/coordinator had message to schedule a follow up appointment for patient with general surgery. operations manager/coordinator sent patients information to the front office staff at general surgery. Patients information will be printed and reviewed. Clinic will call patient with appointment information.
== END 2023-01-20 10:54 | disposition home or self-care (01) ==
PROVIDERS: Emergency Provider Physician Assistant; PCP Family Medicine
DX: K62.89 Other specified diseases of anus and rectum (principal); L98.8 Other specified disorders of the skin and subcutaneous tissue; I10 Essential (primary) hypertension; Z87.891 Personal history of nicotine dependence
CPT/HCPCS: 99283

== ENCOUNTER 2023-01-26 16:08 | Emergency (ER) | payer OTHER, SELFPAY ==
--- NOTE | 2023-01-26 16:11 | XRR_ITS ---
PROCEDURE INFORMATION: Exam: XR Chest Exam date and time: 01/26/2023 4:31 PM Age: 77 years old Clinical indication: Other: Congestion; Additional info: Cough, congestion TECHNIQUE: Imaging protocol: Radiologic exam of the chest. Views: 2 views. COMPARISON: CR XR chest 1V portable [id number] 12/06/2021 4:28 PM FINDINGS: Lungs: Stable calcified granuloma in the the right upper lobe. No focal consolidation. No pulmonary edema. Pleural spaces: No pleural effusion. No pneumothorax. Heart/Mediastinum: Stable mild enlargement of the cardiac silhouette. Mediastinal contours are unremarkable. Vasculature: Stable vascular calcifications in the aorta. Bones/joints: Unremarkable for age. XR/XR chest 2V* [id number] IMPRESSION: 1. No acute cardiopulmonary process. 2. Incidental/nonacute findings are listed in the report.
[2023-01-26 16:15] VITALS: BP 150/71; PULSE 64; RESP 16; TEMP 36.6; O2SAT 99
[2023-01-26 16:20] VITALS: PULSE 43; O2SAT 98
[2023-01-26 17:12] LABS: Basophils # 0.1 10^3/uL (0.0-0.1); Basophils % 1.3 %; Eosinophils # 0.2 10^3/uL (0.0-0.8); Eosinophils % 2.5 %; Hematocrit 42.8 % (42.0-52.0); Hemoglobin 14.5 g/dL (11.7-16.6); Lymphocytes # 2.6 10^3/uL (0.8-4.8); Mean Corpuscular HGB Conc 33.9 g/dL (30.0-36.0); Mean Corpuscular Hemoglobin 31.9 pg (28.0-34.0); Mean Corpuscular Volume 94.3 fl (80-94); Mean Platelet Volume 10.3 fL (7.4-10.4); Monocytes # 0.7 10^3/uL (0.2-0.9); Monocytes % 8.1 %; Neutrophils # 4.86 10^3/uL (1.8-7.7); Neutrophils % 56.9 %; Nucleated Red Blood Cells % 0 %; Platelet Count 226 10^3/cmm (130-400); Red Blood Count 4.54 10^6/uL (4.1-5.3); Red Cell Distribution Width 13.5 % (12.1-15.1); White Blood Count 8.5 10^3/uL (4.0-10.0)
--- NOTE | 2023-01-26 17:24 | PC.NURSE ---
pt refused covid swab
[2023-01-26 17:35] LABS: Albumin Level 3.7 g/dL (3.5-5.2); Alkaline Phosphatase 81 U/L (40-130); Blood Urea Nitrogen 14 mg/dL (8-23); Carbon Dioxide 25 mmol/L (22-29); Chloride 95 mmol/L (98-107); Globulin 2.8 g/dL (1.3-4.6); Glucose 113 mg/dL (65-115); Osmolality Calculated 273 mOsm/kg (285-295); Sodium 131 mmol/L (136-145); Total Bilirubin 0.2 mg/dL (0.15-1.2)
[2023-01-26 18:09] LABS: Anion Gap 14.6 (5-19); Potassium 3.6 mmol/L (3.5-5.1)
[2023-01-26 18:10] LABS: Alanine Aminotransferase 23 U/L (0-41); Aspartate Amino Transferase 22 U/L (0-40)
[2023-01-26 18:11] LABS: Total Protein 6.5 g/dL (6.6-8.7)
[2023-01-26 18:20] VITALS: BP 138/71; PULSE 46; O2SAT 96
--- NOTE | 2023-01-26 18:59 | ED_ITS ---
HPI - URI/Sore Throat General: Chief Complaint: Upper Respiratory Infection Stated Complaint: cough,congestion Time Seen by Provider: 01/26/23 16:35 Source: patient Mode of arrival: ambulatory Limitations: no limitations History of Present Illness: This 77-year-old male presents to the ER with cough that started about 2 weeks ago. On 01/20/2023, he was seen by his primary care physician who started him on amoxicillin and Tessalon Perles. Patient has been taking the medications and notes that his symptoms are not getting better. Cough was initially productive of yellowish sputum but that has turned to whitish sputum. There is no documented fever, nausea or vomiting. Patient has no acute respiratory distress. Oxygen saturation is normal on room air. Associated symptoms: Reports nasal congestion and sinus pain Review of Systems General: Reports: 10 or more systems reviewed and unremarkable except in HPI and below ENMT: Reports: nasal congestion and sinus pain Resp: Reports: productive cough (Whitish sputum) [facility] ED PFSH: Medical History Hypertension Surgical History H/O umbilical hernia repair History of cholecystectomy Social History Smoking and tobacco status: former smoker Alcohol intake: current Alcohol intake frequency: holidays/special occasions only Physical Exam Const: COMMON NORMALS: no acute distress and no limitations HENMT: COMMON NORMALS: normocephalic HEAD & SCALP: normocephalic Chest: COMMONS NORMALS: normal inspection of the chest Resp: COMMON NORMALS: normal respiratory effort, No retractions, No use of accessory muscles and clear to auscultation bilaterally AUSCULTATION: clear to auscultation bilaterally Cardio: COMMON NORMALS: regular rate, regular rhythm and No murmurs present (Cardio) RATE: regular rate RHYTHM: regular rhythm GI: COMMON NORMALS: Normal to inspection, nondistended, normoactive bowel sounds present and non-tender Back/Pelvis: COMMON NORMALS: no thoracic nor lumbar tenderness Extremity: GENERAL: Yes normal exam except as noted Psych: COMMON NORMALS: mental status grossly normal and cooperative Course Vital Signs: Vital signs: Vital Signs Temperature 97.8 F 01/26/23 16:15 Pulse Rate 46 L 01/26/23 18:20 Respiratory Rate 16 01/26/23 16:15 Blood Pressure 138/71 01/26/23 18:20 Pulse Oximetry 96 01/26/23 18:20 Oxygen Delivery Me thod 01/26/23 16:20 MDM - URI/Sore Throat Medical Decision Making Medical decision making: History as above. Patient refused COVID-19 screening test, noting that he had one few weeks ago and it was negative. Chest x-ray is negative for any acute intrathoracic findings. Completed blood tests are unremarkable. Patient's presentation is most consistent with acute bronchitis. He will be treated with azithromycin and mometasone nasal spray for his congested sinuses. He was advised to follow-up with his primary care physician. Reasons to return were discussed. Lab Data 01/26/23 16:51 01/26/23 16:51 Radiology Impressions Chest X-Ray 01/26/23 16:11 IMPRESSION: 1. No acute cardiopulmonary process. 2. Incidental/nonacute findings are listed in the report. Laboratory Results WBC 8.5 10^3/uL (4.0-10.0) 01/26/23 16:51 RBC 4.54 10^6/uL (4.1-5.3) 01/26/23 16:51 Hgb 14.5 g/dL (11.7-16.6) 01/26/23 16:51 Hct 42.8 % (42.0-52.0) 01/26/23 16:51 MCV 94.3 fl (80-94) H 01/26/23 16:51 MCH 31.9 pg (28.0-34.0) 01/26/23 16:51 MCHC 33.9 g/dL (30.0-36.0) 01/26/23 16:51 RDW 13.5 % (12.1-15.1) 01/26/23 16:51 Plt Count 226 10^3/cmm (130-400) 01/26/23 16:51 MPV 10.3 fL (7.4-10.4) 01/26/23 16:51 Neut % (Auto) 56.9 % 01/26/23 16:51 Lymph % (Auto) 30.0 % 01/26/23 16:51 [place] % (Auto) 8.1 % 01/26/23 16:51 Eos % (Auto) 2.5 % 01/26/23 16:51 Baso % (Auto) 1.3 % 01/26/23 16:51 Neut # (Auto) 4.86 10^3/uL (1.8-7.7) 01/26/23 16:51 Lymph # (Auto) 2.6 10^3/uL (0.8-4.8) 01/26/23 16:51 [place] # (Auto) 0.7 10^3/uL (0.2-0.9) 01/26/23 16:51 Eos # (Auto) 0.2 10^3/uL (0.0-0.8) 01/26/23 16:51 Baso # (Auto) 0.1 10^3/uL (0.0-0.1) 01/26/23 16:51 Nucleated RBC % (auto) 0 % 01/26/23 16:51 Nucleated RBCs # 0.0 /100WBC 01/26/23 16:51 Sodium 131 mmol/L (136-145) L 01/26/23 16:51 Potassium 3.6 mmol/L (3.5-5.1) 01/26/23 16:51 Chloride 95 mmol/L (98-107) L 01/26/23 16:51 Carbon Dioxide 25 mmol/L (22-29) 01/26/23 16:51 Anion Gap 14.6 (5-19) 01/26/23 16:51 BUN 14 mg/dL (8-23) 01/26/23 16:51 Creatinine 0.9 mg/dL (0.7-1.2) 01/26/23 16:51 GFR Calculation Not Reportable 01/26/23 16:51 Glucose 113 mg/dL (65-115) 01/26/23 16:51 Calculated Osmolality 273 mOsm/kg (285-295) L 01/26/23 16:51 Calcium 9.0 mg/dL (8.5-10.5) 01/26/23 16:51 Total Bilirubin 0.2 mg/dL (0.15-1.2) 01/26/23 16:51 AST 22 U/L (0-40) 01/26/23 16:51 ALT 23 U/L (0-41) 01/26/23 16:51 Alkaline Phosphatase 81 U/L (40-130) 01/26/23 16:51 Total Protein 6.5 g/dL (6.6-8.7) L 01/26/23 16:51 Albumin 3.7 g/dL (3.5-5.2) 01/26/23 16:51 Globulin 2.8 g/dL (1.3-4.6) 01/26/23 16:51 Discharge Plan Discharge Patient Disposition: Home Clinical Impression: Acute bronchitis Condition: Stable Prescriptions: New mometasone 50 mcg/actuation spray,non-aerosol 2 spray intranasal DAILY Qty: 17 0RF Rx Instructions: administer into each nostril azithromycin 250 mg tablet See Rx Instructions .ROUTE .COMPLEX Qty: 6 0RF Rx Instructions: For 250 mg dose pack: take 500 mg today (day 1), then 250 mg for 4 days (days 2-5) No Action tamsulosin 0.4 mg Capsule 0.4 mg PO QAM Rx Instructions: take after same meal each day. hydrochlorothiazide 25 mg Tablet 25 mg PO DAILY finasteride 5 mg Tablet 5 mg PO QAM loratadine 10 mg Tablet 10 mg PO QAM valacyclovir 500 mg Tablet 500 mg PO QAM omega-3 fatty acids [Fish Oil Concentrate] 1,000 mg Capsule 2,000 mg PO QAM miconazole nitrate 2 % Aerosol Powder 1 ea TOPICAL TID PRN (Reason: Rash) sildenafil 100 mg Tablet 50 - 100 mg PO DAILY PRN (Reason: Erectile Dysfunction) Lee's Extra Strength 580 (467) mg Tablet 580 mg PO DAILY PRN (Reason: Pain) methocarbamol [Robaxin] 750 mg Tablet 750 mg PO QID PRN (Reason: Muscle Spasm) mupirocin 2 % Ointment 1 applic TOPICAL BID albuterol sulfate [ProAir HFA] 90 mcg/actuation Hfa Aerosol Inhaler 2 puff INHALATION Q4H PRN (Reason: Shortness Of Breath) omeprazole 40 mg Capsule,Delayed Release(Dr/Ec) 40 mg PO DAILY gabapentin 100 mg Capsule 100 mg PO TID Crestor 5 mg Tablet 5 mg PO BEDTIME potassium chloride 20 mEq Tablet Extended Release 10 meq PO DAILY nystatin 100,000 unit/gram powder 1 applic topical BID Qty: 30 0RF Discharge Orders: Discharge ED (Routine); Ordered 01/26/23 Ordered By: Edgar Roman Referrals: Rena Boucher, BUILDING RENTAL SUPERINTENDENT [Primary Care Provider] - Discharge Diet: Usual diet Discharge Activity: Resume usual activity Patient Instructions: Opioid Safety, Pain Management Activity Restrictions/Additional Instructions: Take azithromycin as prescribed. Use mometasone nasal spray as directed. Follow-up with your primary care physician in 5 to 7 days for reevaluation. Return with new or worsening symptoms. Coding Level of Care Code ED Negative Turner for Lourdes Lerma
[2023-01-26 19:03] VITALS: PULSE 56; O2SAT 98
[2023-01-26] MEDS: azithromycin 250 mg Tablet 500 MG PO (19:03)
== END 2023-01-26 19:04 | disposition home or self-care (01) ==
PROVIDERS: Physician Assistant; Emergency Provider Family Medicine; PCP Nurse Practitioner
DX: J20.9 Acute bronchitis, unspecified (principal); I10 Essential (primary) hypertension; Z87.891 Personal history of nicotine dependence
CPT/HCPCS: 36415; 71046; 80053; 85025; 99284; Q0144

== ENCOUNTER 2023-05-09 08:40 | Emergency (ER) | payer OTHER, SELFPAY ==
[2023-05-09 08:44] VITALS: BP 151/86; PULSE 59; RESP 14; TEMP 36.3; O2SAT 96; BMI 29.4
--- NOTE | 2023-05-09 08:49 | ED_ITS ---
HPI - Back Pain/Injury General: Chief Complaint: Back Pain/Injury Stated Complaint: back pain Time Seen by Provider: 05/09/23 08:42 Source: patient Mode of arrival: ambulatory History of Present Illness: 78-year-old male presents to the emergency room with complaints of back pain. Last evening he got up from a chair had sharp back pain and then he fell. Has had problems with his back in the past he states several decades ago he had an injury. He has not had any previous back surgeries. Is complaining of pain in his legs but states he has chronic pain in his legs due to a previous frostbite injury related to service. No urinary retention no fecal incontinence. No chest pain no shortness of breath. He states his symptoms began after he done some heavy lifting at home and twisting he was pushing a lawnmower and then lifted a trap with a large animal and it which seemed to set off the back pain. MD elicited complaint: back pain Pertinent past history: prior back pain Severity: mild Quality: aching Location: lumbar spine Associated symptoms: Deny abdominal pain, chills, dysuria, fatigue, fever(s), nausea, urinary urgency or vomiting Review of Systems Const: Denies: fever(s), chills, body aches, change in appetite, fatigue or malaise ENMT: Denies: throat pain, ear or mastoid pain, nasal discharge or nasal congestion Card: Denies: chest pain, edema, dyspnea on exertion or orthopnea Resp: Denies: dyspnea, productive cough or non-productive cough GI: Denies: abdominal pain, nausea, vomiting, hematemesis, coffee ground emesis, diarrhea, constipation, bloating, hematochezia or melena : Denies: flank pain, dysuria, urinary frequency or urinary urgency Skin/Breast: Denies: rash or pruritus PFSH ED PFSH: Medical History Hypertension Surgical History H/O umbilical hernia repair History of cholecystectomy Social History Smoking and tobacco status: former smoker Alcohol intake: current Alcohol intake frequency: holidays/special occasions only Substance/Drug Use: never Physical Exam Const: COMMON NORMALS: no acute distress GENERAL APPEARANCE: cooperative and comfortable ORIENTATION/CONSCIOUSNESS: Yes awake, Yes oriented to person, Yes oriented to place and Yes oriented to time HENMT: COMMON NORMALS: normocephalic, atraumatic and hearing grossly normal bilaterally HEAD & SCALP: normocephalic and atraumatic Resp: COMMON NORMALS: normal respiratory effort, No retractions, No use of accessory muscles and clear to auscultation bilaterally AUSCULTATION: clear to auscultation bilaterally Cardio: COMMON NORMALS: regular rate, regular rhythm and No murmurs present (Cardio) RATE: regular rate RHYTHM: regular rhythm GI: COMMON NORMALS: Soft to palpation and No hepatosplenomegaly present AUSCULTATION: Yes normoactive bowel sounds PALPATION: Yes Soft to palpation, No Tenderness to palpation present (GI), No Guarding due to palpation present (GI) and Yes No hepatosplenomegaly present Back/Pelvis: OTHER: Dorsum plantarflexion strength 5 of 5 EHL normal bilaterally sensation lower EXTR equal neurovascularly intact equivocal straight leg raising Extremity: COMMON NORMALS: normal to inspection, capillary refill normal, no clubbing, cyanosis or edema, no calf tenderness and no pedal edema Neuro: SENSORIUM/ORIENTATION: Yes oriented to person, Yes oriented to place and Yes oriented to time Skin: COMMON NORMALS: no rashes or lesions noted GENERAL SKIN EXAM: no rashes or lesions noted Course Vital Signs: Vital signs: Vital Signs Temperature 97.3 F L 05/09/23 08:44 Pulse Rate 59 L 05/09/23 10:38 Respiratory Rate 16 05/09/23 10:38 Blood Pressure 151/86 05/09/23 10:38 Pulse Oximetry 98 05/09/23 10:38 Oxygen Delivery Me thod Room Air 05/09/23 09:44 MDM - Back Pain/Injury Medical Decision Making Initial EKG there was a lot of artifact the computer and read it is acute ST elevation and appears to be more related to the artifact. Repeat EKG did not show any abnormality also discussed with Dr. Ruiz and had him review he recommended serial enzymes serial enzymes are negative repeat EKG with less artifact did not show any acute changes. Patient's pain is all in the low back particularly on the right side across the SI joint and the right paraspinal muscles will discharge home with muscle relaxers steroid taper anti-inflammator ies and follow-up with primary care if not improving. Medical Records I reviewed the patient's medical records. Labs I reviewed the patient's lab results. 05/09/23 08:53 05/09/23 08:53 Radiology Impressions Lumbar Spine X-Ray 05/09/23 08:56 IMPRESSION: No acute findings. Laboratory Results WBC 6.1 10^3/uL (4.0-10.0) 05/09/23 08:53 RBC 5.06 10^6/uL (4.1-5.3) 05/09/23 08:53 Hgb 15.5 g/dL (11.7-16.6) 05/09/23 08:53 Hct 46.8 % (42.0-52.0) 05/09/23 08:53 MCV 92.5 fl (80-94) 05/09/23 08:53 MCH 30.6 pg (28.0-34.0) 05/09/23 08:53 MCHC 33.1 g/dL (30.0-36.0) 05/09/23 08:53 RDW 13.4 % (12.1-15.1) 05/09/23 08:53 Plt Count 206 10^3/cmm (130-400) 05/09/23 08:53 MPV 10.2 fL (7.4-10.4) 05/09/23 08:53 Neut % (Auto) 51.7 % 05/09/23 08:53 Lymph % (Auto) 34.0 % 05/09/23 08:53 [place] % (Auto) 10.2 % 05/09/23 08:53 Eos % (Auto) 2.5 % 05/09/23 08:53 Baso % (Auto) 1.3 % 05/09/23 08:53 Neut # (Auto) 3.12 10^3/uL (1.8-7.7) 05/09/23 08:53 Lymph # (Auto) 2.1 10^3/uL (0.8-4.8) 05/09/23 08:53 [place] # (Auto) 0.6 10^3/uL (0.2-0.9) 05/09/23 08:53 Eos # (Auto) 0.2 10^3/uL (0.0-0.8) 05/09/23 08:53 Baso # (Auto) 0.1 10^3/uL (0.0-0.1) 05/09/23 08:53 Nucleated RBC % (auto) 0 % 05/09/23 08:53 Nucleated RBCs # 0.0 /100WBC 05/09/23 08:53 Sodium 133 mmol/L (136-145) L 05/09/23 08:53 Potassium 3.6 mmol/L (3.5-5.1) 05/09/23 08:53 Chloride 95 mmol/L (98-107) L 05/09/23 08:53 Carbon Dioxide 28 mmol/L (22-29) 05/09/23 08:53 Anion Gap 13.6 (5-19) 05/09/23 08:53 BUN 13 mg/dL (8-23) 05/09/23 08:53 Creatinine 1.1 mg/dL (0.7-1.2) 05/09/23 08:53 GFR Calculation Not Reportable 05/09/23 08:53 Glucose 100 mg/dL (65-115) 05/09/23 08:53 Calculated Osmolality 276 mOsm/kg (285-295) L 05/09/23 08:53 Calcium 9.0 mg/dL (8.5-10.5) 05/09/23 08:53 Discharge Plan Discharge Patient Disposition: Home Clinical Impression: Strain of lumbar region Condition: Stable Prescriptions: New tizanidine 4 mg tablet 4 mg PO Q6H PRN (Reason: muscle spasticity) Qty: 20 0RF Rx Instructions: do not exceed 3 doses per 24 hrs prednisone 20 mg tablet 20 mg PO TID Qty: 15 0RF Rx Instructions: 1 p.o. 3 times daily x3 days, 1 p.o. twice daily x2 days, 1 p.o. daily x2 days diclofenac sodium 75 mg tablet,delayed release (DR/EC) 75 mg PO Q12H PRN (Reason: pain) Qty: 20 0RF No Action tamsulosin 0.4 mg Capsule 0.4 mg PO QAM Rx Instructions: take after same meal each day. hydrochlorothiazide 25 mg Tablet 25 mg PO DAILY finasteride 5 mg Tablet 5 mg PO QAM loratadine 10 mg Tablet 10 mg PO QAM valacyclovir 500 mg Tablet 500 mg PO QAM omega-3 fatty acids [Fish Oil Concentrate] 1,000 mg Capsule 2,000 mg PO QAM miconazole nitrate 2 % Aerosol Powder 1 ea TOPICAL TID PRN (Reason: Rash) sildenafil 100 mg Tablet 50 - 100 mg PO DAILY PRN (Reason: Erectile Dysfunction) Lee's Extra Strength 580 (467) mg Tablet 580 mg PO DAILY PRN (Reason: Pain) methocarbamol [Robaxin] 750 mg Tablet 750 mg PO QID PRN (Reason: Muscle Spasm) mupirocin 2 % Ointment 1 applic TOPICAL BID albuterol sulfate [ProAir HFA] 90 mcg/actuation Hfa Aerosol Inhaler 2 puff INHALATION Q4H PRN (Reason: Shortness Of Breath) mometasone 50 mcg/actuation spray,non-aerosol 2 spray intranasal DAILY Qty: 17 0RF Rx Instructions: administer into each nostril azithromycin 250 mg tablet See Rx Instructions .ROUTE .COMPLEX Qty: 6 0RF Rx Instructions: For 250 mg dose pack: take 500 mg today (day 1), then 250 mg for 4 days (days 2-5) omeprazole 40 mg Capsule,Delayed Release(Dr/Ec) 40 mg PO DAILY gabapentin 100 mg Capsule 100 mg PO TID Crestor 5 mg Tablet 5 mg PO BEDTIME potassium chloride 20 mEq Tablet Extended Release 10 meq PO DAILY nystatin 100,000 unit/gram powder 1 applic topical BID Qty: 30 0RF Discharge Orders: Discharge ED (Routine); Ordered 05/09/23 Ordered By: Javier Miguel Referrals: Rena Boucher FNP [Primary Care Provider] - Discharge Activity: Increase activity as tolerated Patient Instructions: Opioid Safety, Pain Management Activity Restrictions/Additional Instructions: Case management will help make arrangement for you to follow-up with orthopedic spine surgery in the orthopedic clinic. Start oral steroid taper tomorrow. Coding Level of Care Code ED Assistant Manager Airside Operations for [facility] Lerma
--- NOTE | 2023-05-09 08:56 | XRR_ITS ---
PROCEDURE INFORMATION: Exam: XR Lumbosacral Spine Exam date and time: 05/09/2023 9:22 AM Age: 78 years old Clinical indication: Low back pain; Patient HX: Lower back pain l-5 region TECHNIQUE: Imaging protocol: Radiologic exam of the lumbosacral spine. Views: 2 or 3 views. COMPARISON: MR lumbar spine wo con* [id number] 12/12/2016 10:31 AM FINDINGS: Bones/joints: There is evidence of osteoarthritis. No acute fracture. Normal alignment. Soft tissues: Unremarkable. XR/XR lumbar spine 2-3V* [id number] IMPRESSION: No acute findings.
[2023-05-09 09:00] LABS: Basophils # 0.1 10^3/uL (0.0-0.1); Basophils % 1.3 %; Eosinophils # 0.2 10^3/uL (0.0-0.8); Eosinophils % 2.5 %; Hematocrit 46.8 % (42.0-52.0); Hemoglobin 15.5 g/dL (11.7-16.6); Lymphocytes # 2.1 10^3/uL (0.8-4.8); Mean Corpuscular HGB Conc 33.1 g/dL (30.0-36.0); Mean Corpuscular Hemoglobin 30.6 pg (28.0-34.0); Mean Corpuscular Volume 92.5 fl (80-94); Mean Platelet Volume 10.2 fL (7.4-10.4); Monocytes # 0.6 10^3/uL (0.2-0.9); Monocytes % 10.2 %; Neutrophils # 3.12 10^3/uL (1.8-7.7); Neutrophils % 51.7 %; Nucleated Red Blood Cells % 0 %; Platelet Count 206 10^3/cmm (130-400); Red Blood Count 5.06 10^6/uL (4.1-5.3); Red Cell Distribution Width 13.4 % (12.1-15.1); White Blood Count 6.1 10^3/uL (4.0-10.0)
[2023-05-09 09:16] LABS: Anion Gap 13.6 (5-19); Blood Urea Nitrogen 13 mg/dL (8-23); Carbon Dioxide 28 mmol/L (22-29); Chloride 95 mmol/L (98-107); Glucose 100 mg/dL (65-115); Osmolality Calculated 276 mOsm/kg (285-295); Potassium 3.6 mmol/L (3.5-5.1); Sodium 133 mmol/L (136-145)
[2023-05-09] MEDS: ketorolac 30 mg/mL INJ IVP (09:37)
[2023-05-09] MEDS: morphine 4 mg/mL SDV 1 mL IVP (09:37)
[2023-05-09] MEDS: tizanidine 4 mg Tablet PO (09:37)
[2023-05-09] MEDS: dexamethasone 10 mg/mL INJ IVP (09:37)
[2023-05-09 09:44] VITALS: BP 151/86; PULSE 59; RESP 16; O2SAT 98
[2023-05-09 10:38] VITALS: BP 151/86; PULSE 59; RESP 16; O2SAT 98
== END 2023-05-09 10:41 | disposition home or self-care (01) ==
PROVIDERS: Emergency Provider Family Medicine; PCP Nurse Practitioner
DX: S39.012A Strain of muscle, fascia and tendon of lower back, initial encounter (principal); X58.XXXA Exposure to other specified factors, initial encounter
CPT/HCPCS: 36415; 72100; 80048; 85025; 96374; 96375; 99285; J1100; J1885; J2270

== ENCOUNTER 2023-11-22 20:22 | Emergency (ER) | payer OTHER, SELFPAY ==
[2023-11-22 20:25] VITALS: BP 162/63; PULSE 54; RESP 18; TEMP 36.6; O2SAT 96
--- NOTE | 2023-11-22 20:54 | XRR_ITS ---
PROCEDURE INFORMATION: Exam: XR Chest Exam date and time: 11/22/2023 8:57 PM Age: 78 years old Clinical indication: Patient HX: Cough; SOB; Chest pain; Small ulcerative area to anterior chest; Additional info: Cough, sputum TECHNIQUE: Imaging protocol: Radiologic exam of the chest. Views: 1 view. COMPARISON: CR XR chest 2V* [id number] 01/26/2023 4:31 PM FINDINGS: Lungs: Unremarkable. No consolidation. Pleural spaces: Unremarkable. No pleural effusion. No pneumothorax. Heart/Mediastinum: Unremarkable. No cardiomegaly. Bones/joints: Unremarkable. XR/XR chest 1V portable [id number] IMPRESSION: No acute findings.
[2023-11-22 20:56] LABS: Basophils # 0.1 10^3/uL (0.0-0.1); Basophils % 1.2 %; Eosinophils # 0.2 10^3/uL (0.0-0.8); Eosinophils % 3.5 %; Hematocrit 40.8 % (37-53); Lymphocytes # 2.8 10^3/uL (0.8-4.8); Mean Corpuscular HGB Conc 34.1 g/dL (30-55); Mean Corpuscular Hemoglobin 30.5 pg (27-33); Mean Corpuscular Volume 89.7 fl (82-101); Mean Platelet Volume 10.6 fL (7.4-10.4); Monocytes # 0.6 10^3/uL (0.2-0.9); Monocytes % 8.9 %; Neutrophils # 3.11 10^3/uL (1.8-7.7); Neutrophils % 45.3 %; Nucleated Red Blood Cells % 0 %; Platelet Count 199 10^3/cmm (157-399); Red Blood Count 4.55 10^6/uL (3.85-5.65); Red Cell Distribution Width 13.3 % (12.1-15.1); White Blood Count 6.87 10^3/uL (3.29-11.43)
[2023-11-22 21:11] LABS: Potassium 3.9 mmol/L (3.5-5.1)
--- NOTE | 2023-11-22 21:12 | W.ED.URI ---
HPI - URI/Sore Throat General: Chief Complaint: Shortness of Breath/Dyspnea Stated Complaint: upper abd pain. gummy mucus Time Seen by Provider: 11/22/23 20:32 Source: patient Mode of arrival: ambulatory Limitations: no limitations History of Present Illness: Patient is a 78-year-old male presents to ED today with a complaint of postnasal drainage COVID productive cough, and difficulty clearing phlegm from his throat. Symptoms have been present over the past few days. He feels like drainage is worse when he lies flat. He states mucus has been clear and yellow in color. He does not overly feel short of breath. He reports chronic sinusitis. He is not having any chest pain. Triage report initially had mentions some upper abdominal pain however patient completely denies this to me. He states his main complaint is the drainage and phlegm in the back of his throat. MD elicited complaint: cough, nasal congestion and other (phlegm/mucus) Pertinent past history: COPD Onset (ago): day(s) Severity: mild Description of mucous: clear and yellow Able to tolerate fluids by mouth: Yes Exacerbating factors: supine positioning Relieving factors: nothing Associated symptoms: Deny abdominal pain, chills, chest pain, diarrhea, fever(s), headache(s), nausea or vomiting Treatments prior to arrival: none Review of Systems Const: Denies: fever(s), chills, body aches, fatigue or malaise Card: Denies: chest pain, palpitations, irregular heart rhythm, edema, swelling of feet/ankles, lightheadedness, syncope, pre-syncope, dyspnea on exertion, orthopnea, leg pain with exertion or acrocyanosis Resp: Reports: productive cough, change in phlegm color and chest congestion; Denies: dyspnea, wheezing, stridor, pain on inspiration or hemoptysis GI: Denies: abdominal pain, nausea, vomiting or diarrhea Musc: Denies: neck pain, back pain, extremity pain or joint pain Skin/Breast: Denies: rash Neuro: Denies: headache(s) or dizziness PFS ED PFSH: Medical History Hypertension Surgical History H/O umbilical hernia repair History of cholecystectomy Social History Smoking and tobacco/nicotine status: former use of tobacco/nicotine Alcohol intake: current Alcohol intake frequency: holidays/special occasions only Substance/Drug Use: never Physical Exam Const: COMMON NORMALS: no acute distress, average body habitus, patient oriented x3, no limitations, healthy appearing, alert and well nourished HENMT: MOUTH: Normal oral and palatal mucosa present, lip normal, tongue normal and Normal salivary glands and ducts present THROAT: posterior oropharynx normal and tonsils normal Neck/C-Spine: COMMON NORMALS: full ROM, no lymphadenopathy and no meningeal signs Chest: COMMONS NORMALS: normal inspection of the chest and normal palpation of entire chest wall Resp: COMMON NORMALS: normal respiratory effort and clear to auscultation bilaterally AUSCULTATION: clear to auscultation bilaterally Cardio: COMMON NORMALS: regular rate and regular rhythm RATE: regular rate RHYTHM: regular rhythm Extremity: COMMON NORMALS: no clubbing, cyanosis or edema and no calf tenderness Neuro: COMMON NORMALS: patient oriented x3 SENSORIUM/ORIENTATION: Yes alert MENINGEAL SIGNS: Yes no meningeal signs Course Vital Signs: Vital signs: Vital Signs Temperature 97.9 F 11/22/23 20:25 Pulse Rate 54 L 11/22/23 20:25 Respiratory Rate 18 11/22/23 20:25 Blood Pressure 162/63 11/22/23 20:25 Pulse Oximetry 96 11/22/23 20:25 Oxygen Delivery Me thod Room Air 11/22/23 20:25 MDM - URI/Sore Throat Medical Decision Making Patient appears in no acute distress. His vital signs are stable. Blood work ordered in triage is unremarkable. His CXR showing no acute findings.'s consistent with probable viral bronchitis. There is no indication for antibiotic therapy at this time. Patient will be placed on prednisone. He has albuterol inhaler he can continue at home. Discussed [id number] cough and cold medications and expectorants to help with mucus and phlegm. [facility] if symptoms do not seem to be improving. Return ED precautions given. Lab Data 11/22/23 20:45 11/22/23 20:45 Radiology Impressions Chest X-Ray 11/22/23 20:54 IMPRESSION: No acute findings. Laboratory Results WBC 6.87 10^3/uL (3.29-11.43) 11/22/23 20:45 RBC 4.55 10^6/uL (3.85-5.65) 11/22/23 20:45 Hgb 13.90 g/dL (11.27-16.99) 11/22/23 20:45 Hct 40.8 % (37-53) 11/22/23 20:45 MCV 89.7 fl (82-101) 11/22/23 20:45 MCH 30.5 pg (27-33) 11/22/23 20:45 MCHC 34.1 g/dL (30-55) 11/22/23 20:45 RDW 13.3 % (12.1-15.1) 11/22/23 20:45 Plt Count 199 10^3/cmm (157-399) 11/22/23 20:45 MPV 10.6 fL (7.4-10.4) H 11/22/23 20:45 Neut % (Auto) 45.3 % 11/22/23 20:45 Lymph % (Auto) 41.0 % 11/22/23 20:45 [place] % (Auto) 8.9 % 11/22/23 20:45 Eos % (Auto) 3.5 % 11/22/23 20:45 Baso % (Auto) 1.2 % 11/22/23 20:45 Neut # (Auto) 3.11 10^3/uL (1.8-7.7) 11/22/23 20:45 Lymph # (Auto) 2.8 10^3/uL (0.8-4.8) 11/22/23 20:45 [facility] # (Auto) 0.6 10^3/uL (0.2-0.9) 11/22/23 20:45 Eos # (Auto) 0.2 10^3/uL (0.0-0.8) 11/22/23 20:45 Baso # (Auto) 0.1 10^3/uL (0.0-0.1) 11/22/23 20:45 Nucleated RBC % (auto) 0 % 11/22/23 20:45 Nucleated RBCs # 0.0 /100WBC 11/22/23 20:45 Sodium 138 mmol/L (136-145) 11/22/23 20:45 Potassium 3.9 mmol/L (3.5-5.1) 11/22/23 20:45 Chloride 101 mmol/L (98-107) 11/22/23 20:45 Carbon Dioxide 25 mmol/L (22-29) 11/22/23 20:45 Anion Gap 15.9 (5-19) 11/22/23 20:45 BUN 21 mg/dL (8-23) 11/22/23 20:45 Creatinine 1.1 mg/dL (0.7-1.2) 11/22/23 20:45 GFR Calculation Not Reportable 11/22/23 20:45 Glucose 106 mg/dL (65-115) 11/22/23 20:45 Calculated Osmolality 289 mOsm/kg (285-295) 11/22/23 20:45 Calcium 9.6 mg/dL (8.5-10.5) 11/22/23 20:45 Total Bilirubin 0.2 mg/dL (0.15-1.2) 11/22/23 20:45 AST 27 U/L (0-40) 11/22/23 20:45 ALT 29 U/L (0-41) 11/22/23 20:45 Alkaline Phosphatase 70 U/L (40-130) 11/22/23 20:45 Total Protein 6.5 g/dL (6.6-8.7) L 11/22/23 20:45 Albumin 3.6 g/dL (3.5-5.2) 11/22/23 20:45 Globulin 2.9 g/dL (1.3-4.6) 11/22/23 20:45 Lipase 60 U/L (13-60) 11/22/23 20:45 All radiology interpretation(s) finalized by discharge Discharge Plan Discharge Patient Disposition: Home Clinical Impression: Bronchitis Condition: Stable Prescriptions: Continued albuterol sulfate [ProAir HFA] 90 mcg/actuation Hfa Aerosol Inhaler 2 puff INHALATION Q4H PRN (Reason: Shortness Of Breath) mometasone 50 mcg/actuation spray,non-aerosol 2 spray intranasal DAILY Qty: 17 0RF Rx Instructions: administer into each nostril prednisone 20 mg tablet 20 mg PO TID Qty: 15 0RF Rx Instructions: 1 p.o. 3 times daily x3 days, 1 p.o. twice daily x2 days, 1 p.o. daily x2 days No Action tamsulosin 0.4 mg Capsule 0.4 mg PO QAM Rx Instructions: take after same meal each day. hydrochlorothiazide 25 mg Tablet 25 mg PO DAILY finasteride 5 mg Tablet 5 mg PO QAM loratadine 10 mg Tablet 10 mg PO QAM valacyclovir 500 mg Tablet 500 mg PO QAM omega-3 fatty acids [Fish Oil Concentrate] 1,000 mg Capsule 2,000 mg PO QAM miconazole nitrate 2 % Aerosol Powder 1 ea TOPICAL TID PRN (Reason: Rash) sildenafil 100 mg Tablet 50 - 100 mg PO DAILY PRN (Reason: Erectile Dysfunction) Lee's Extra Strength 580 (467) mg Tablet 580 mg PO DAILY PRN (Reason: Pain) methocarbamol [Robaxin] 750 mg Tablet 750 mg PO QID PRN (Reason: Muscle Spasm) mupirocin 2 % Ointment 1 applic TOPICAL BID azithromycin 250 mg tablet See Rx Instructions .ROUTE .COMPLEX Qty: 6 0RF Rx Instructions: For 250 mg dose pack: take 500 mg today (day 1), then 250 mg for 4 days (days 2-5) tizanidine 4 mg tablet 4 mg PO Q6H PRN (Reason: muscle spasticity) Qty: 20 0RF Rx Instructions: do not exceed 3 doses per 24 hrs diclofenac sodium 75 mg tablet,delayed release (DR/EC) 75 mg PO Q12H PRN (Reason: pain) Qty: 20 0RF omeprazole 40 mg Capsule,Delayed Release(Dr/Ec) 40 mg PO DAILY gabapentin 100 mg Capsule 100 mg PO TID Crestor 5 mg Tablet 5 mg PO BEDTIME potassium chloride 20 mEq Tablet Extended Release 10 meq PO DAILY nystatin 100,000 unit/gram powder 1 applic topical BID Qty: 30 0RF Discharge Orders: Discharge ED (Routine); Ordered 11/22/23 Ordered By: Ching Wong Referrals: Rena Boucher FNP [Primary Care Provider] - Patient Instructions: Acute Bronchitis (ED) Activity Restrictions/Additional Instructions: As we discussed symptoms most likely are secondary to bronchitis. These most likely are viral infections and do not require antibiotics. Will place you on steroids over the next few days. You may continue your albuterol inhaler as prescribed. You may also use [id number] cough and cold medications such as Mucinex to help with drainage. [facility] if you do not feel like symptoms are improving. Coding Level of Care Code ED Director Critical Care for [facility] Lerma
[2023-11-22 21:47] LABS: Alanine Aminotransferase 29 U/L (0-41); Albumin Level 3.6 g/dL (3.5-5.2); Alkaline Phosphatase 70 U/L (40-130); Anion Gap 15.9 (5-19); Aspartate Amino Transferase 27 U/L (0-40); Blood Urea Nitrogen 21 mg/dL (8-23); Calcium 9.6 mg/dL (8.5-10.5); Carbon Dioxide 25 mmol/L (22-29); Chloride 101 mmol/L (98-107); Globulin 2.9 g/dL (1.3-4.6); Glucose 106 mg/dL (65-115); Lipase 60 U/L (13-60); Osmolality Calculated 289 mOsm/kg (285-295); Sodium 138 mmol/L (136-145); Total Bilirubin 0.2 mg/dL (0.15-1.2); Total Protein 6.5 g/dL (6.6-8.7)
[2023-11-22 22:37] VITALS: BP 142/76; PULSE 58; RESP 18; O2SAT 94
== END 2023-11-22 22:10 | disposition home or self-care (01) ==
PROVIDERS: Emergency Medicine; Emergency Provider Physician Assistant; PCP Nurse Practitioner
DX: J40 Bronchitis, not specified as acute or chronic (principal); I10 Essential (primary) hypertension; Z87.891 Personal history of nicotine dependence
CPT/HCPCS: 36415; 71045; 80053; 83690; 85025; 99283

== ENCOUNTER 2023-11-26 10:51 | Outpatient (CLI) | payer OTHER, SELFPAY ==
--- NOTE | 2023-11-26 10:57 | MR_ITS ---
WS: [id number] MRI LUMBAR SPINE NONCONTRAST HISTORY: LOW BACK PAIN COMPARISON: 12/12/2016 TECHNIQUE: Sagittal and axial multisequence imaging is submitted. Straightening of the normal cervical lordosis. Thoracic curvature and increased kyphosis. Posterior lumbar alignment is normal. Disc spaces and vertebral body heights are well-preserved. Conus terminates normally at L1. L1-L2: Normal. L2-L3: Mild annular disc bulging, ligamentum flavum and facet arthritis. No high-grade stenosis. L3-L4: Mild annular disc bulging, mild ligamentum flavum and facet arthritis. Mild bilateral foramina l stenosis, LEFT greater than RIGHT. L4-L5: Mild annular disc bulging with osteophytic ridging, ligamentum flavum and facet arthritis. The re is disc and osteophyte encroachment upon the subarticular recesses and traversing L5 nerve roots. Slightly greater contact on the RIGHT L5 nerve root. Mild central, bilateral subarticular recess and LEFT foraminal stenosis. L5-S1: Mild annular disc bulging. Very shallow RIGHT foraminal disc protrusion. Very minimal disc enc roachment upon the exiting RIGHT L5 nerve root. No high-grade stenosis. Paravertebral soft tissues are normal. IMPRESSION: 1. 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 2. L3-4: Mild bilateral foraminal stenosis, LEFT greater than RIGHT. 3. L4-5: Disc and osteophyte encroachment upon the subarticular recesses and traversing L5 nerve root s. Slightly greater contact on the RIGHT L5 nerve root. Mild central, bilateral subarticular recess a nd LEFT foraminal stenosis. 4. L5-S1: Minimal disc encroachment upon the exiting RIGHT L5 nerve root.
== END 2023-11-26 10:52 | disposition home or self-care (01) ==
LOC: RAD 10:51
PROVIDERS: PCP Nurse Practitioner; Visit Provider Nurse Practitioner
DX: M51.36 Other intervertebral disc degeneration, lumbar region (principal); M47.816 Spondylosis without myelopathy or radiculopathy, lumbar region; M48.061 Spinal stenosis, lumbar region without neurogenic claudication; M25.78 Osteophyte, vertebrae
CPT/HCPCS: 72148

== ENCOUNTER 2023-12-14 00:54 | Emergency (ER) | payer OTHER, SELFPAY ==
[2023-12-14] VITALS (8 sets, daily range): BP systolic 107–142; BP diastolic 67–97; PULSE 50–120; RESP 15–20; TEMP 36.7; O2SAT 91–96
--- NOTE | 2023-12-14 06:01 | XRR_ITS ---
PROCEDURE INFORMATION: Exam: XR Chest Exam date and time: 12/14/2023 6:14 AM Age: 78 years old Clinical indication: Pain; Cough and shortness of breath; Chest pressure; Prior surgery; Surgery date: 6+ months; Surgery type: Gb; Patient HX: C/O chest discomfort with SOB; Additional info: Cough/rib pain TECHNIQUE: Imaging protocol: Radiologic exam of the chest. Views: 2 views. COMPARISON: CR (CHEST, ) 11/22/2023 8:57 PM FINDINGS: Lungs: Calcified granuloma in the right lower lobe. Mild chronic interstitial prominence. Pleural spaces: Unremarkable. No pleural effusion. No pneumothorax. Heart/Mediastinum: Unremarkable. No cardiomegaly. Bones/joints: Unremarkable. XR/XR chest 2V* [id number] IMPRESSION: No cardiopulmonary disease.
--- NOTE | 2023-12-14 06:24 | ECG_ITS ---
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 Measurements Intervals [place] Rate: 56 P: 0 WA: 0 QRS: 79 QRSD: 97 T: 74 QT: 428 QTc: 413 Interpretive Statements Sinus bradycardia with frequent PVCs in the form of bigeminy NONSPECIFIC T-WAVE ABNORMALITY ABNORMAL RHYTHM ECG Compared to ECG 12/23/2015 05:57:30 T-wave abnormality now present Sinus bradycardia no longer present Electronically Signed On 12-14-2023 21:30:22 CLINICAL PROGRAM COORDINATOR by Cabrera Knight M.D. [id number]
[2023-12-14 06:31] LABS: Basophils # 0.1 10^3/uL (0.0-0.1); Basophils % 1.4 %; Eosinophils # 0.2 10^3/uL (0.0-0.8); Eosinophils % 2.2 %; Lymphocytes # 2.4 10^3/uL (0.8-4.8); Lymphocytes % 32.2 %; Mean Corpuscular HGB Conc 33.1 g/dL (30-55); Mean Corpuscular Volume 90.5 fl (82-101); Mean Platelet Volume 10.2 fL (7.4-10.4); Monocytes # 0.9 10^3/uL (0.2-0.9); Monocytes % 11.8 %; Neutrophils # 3.83 10^3/uL (1.8-7.7); Neutrophils % 52.1 %; Nucleated Red Blood Cells % 0 %; Platelet Count 206 10^3/cmm (157-399); Red Blood Count 4.97 10^6/uL (3.85-5.65); Red Cell Distribution Width 13.6 % (12.1-15.1); White Blood Count 7.35 10^3/uL (3.29-11.43)
[2023-12-14 07:03] LABS: Troponin(5th) Baseline 12 ng/L (0-15)
[2023-12-14 07:10] LABS: Alanine Aminotransferase 28 U/L (0-41); Albumin Level 4.2 g/dL (3.5-5.2); Alkaline Phosphatase 103 U/L (40-130); Anion Gap 12.9 (5-19); Aspartate Amino Transferase 29 U/L (0-40); Blood Urea Nitrogen 17 mg/dL (8-23); Calcium 9.6 mg/dL (8.5-10.5); Carbon Dioxide 26 mmol/L (22-29); Chloride 96 mmol/L (98-107); Globulin 2.6 g/dL (1.3-4.6); Glucose 101 mg/dL (65-115); NT Pro B Type Natriuretic Pept 50 pg/mL (0-450); Osmolality Calculated 274 mOsm/kg (285-295); Potassium 3.9 mmol/L (3.5-5.1); Sodium 131 mmol/L (136-145); Total Bilirubin 0.4 mg/dL (0.15-1.2); Total Protein 6.8 g/dL (6.6-8.7)
--- NOTE | 2023-12-14 07:52 | ECG_ITS ---
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 Measurements Intervals [place] Rate: 49 P: -8 NV: 182 QRS: 79 QRSD: 104 T: 71 QT: 453 QTc: 411 Interpretive Statements SINUS BRADYCARDIA Compared to ECG 12/14/2023 06:24:04 T-wave abnormality no longer present Electronically Signed On 12-14-2023 21:39:40 HUMAN RESOURCES RECEPTIONIST by Cabrera Knight M.D. [email or web address] [id number]
--- NOTE | 2023-12-14 08:07 | W.ED.SOB ---
HPI - SOB/Dyspnea General: Chief Complaint: Shortness of Breath/Dyspnea Stated Complaint: congestion Time Seen by Provider: 12/14/23 06:00 History of Present Illness: HPI Narrative: 78-year-old male presents to the emergency department with complaints of feeling like he has pressure and a bruise underneath his left armpit area. He states he has seen several physicians for his concerns of nonproductive cough and is here today because he feels like he is coughing more. He states he does intermittently cough up some white mucus which prompted him to come to the emergency department. He states he has had a history of pneumonia and bronchitis and is a former smoker. He denies chest pain at present. He denies fevers chills or night sweats. He states he has become nauseated after having a coughing episode and then coughing up the thickened white mucus. Review of Systems General: Reports: 10 or more systems reviewed and unremarkable except in HPI and below Resp: Reports: dyspnea and productive cough [facility] ED PFSH: Medical History Hypertension Surgical History H/O umbilical hernia repair History of cholecystectomy Social History Smoking and tobacco/nicotine status: former use of tobacco/nicotine Alcohol intake: current Alcohol intake frequency: holidays/special occasions only Substance/Drug Use: never Physical Exam Narrative: EXAM NARRATIVE: Constitutional: the patient appears well nourished and of normal development. Vital signs as documented. No acute distress at present. Alert and oriented-to person, place, time and situation. Head, eyes, ears, nose, mouth, throat: Normocephalic, atraumatic. Pupils-equal, round, reactive to light. No scleral icterus. Normal-appearing external ears. Normal appearing nasal turbinates, no drainage. No obvious oral lesions, posterior oropharynx without erythema or exudates. Neck: Supple, trachea is midline, no lymphadenopathy, no jugular venous distension, thyromegaly, or carotid bruits. Carotid upstrokes are brisk bilaterally. Lungs: clear to auscultation to all lung silverio. Symmetrical rise and fall of chest, no obvious signs of increased work of breathing at present. Cardiac: Regular rate and rhythm, positive S1, S2. No murmurs, rubs or gallops that I can appreciate Abdomen: Soft, non-tender to palpation, normal active bowel sounds to all quadrants. No palpable masses, no organomegaly and abdominal bruits. Extremities: 2+ pulses in the upper extremities that are equal bilaterally, 2+ pulses in the lower extremities that are equal bilaterally. Non-edematous. Moves all extremities well, sensation to all extremities are noted. Skin: Warm, dry, intact. In Course Vital Signs: Vital signs: Vital Signs Temperature 98.0 F 12/14/23 01:11 Pulse Rate 56 L 12/14/23 07:00 Respiratory Rate 16 12/14/23 07:00 Blood Pressure 134/79 12/14/23 07:00 Pulse Oximetry 96 12/14/23 07:00 Oxygen Delivery Me thod Room Air 12/14/23 06:38 Oxygen Flow Rate 2 12/14/23 06:28 MDM - SOB/Dyspnea Medical Decision Making Physical exam completed document I will obtain CBC CMP chest x-ray EKG. Medical Records I reviewed the patient's medical records. Lab Data I reviewed the patient's lab results. 12/14/23 06:23 12/14/23 06:23 Labs/Radiology: Radiology Impressions Chest X-Ray 12/14/23 06:01 IMPRESSION: No cardiopulmonary disease. Laboratory Results WBC 7.35 10^3/uL (3.29-11.43) 12/14/23 06:23 RBC 4.97 10^6/uL (3.85-5.65) 12/14/23 06:23 Hgb 14.90 g/dL (11.27-16.99) 12/14/23 06:23 Hct 45.0 % (37-53) 12/14/23 06:23 MCV 90.5 fl (82-101) 12/14/23 06:23 MCH 30.0 pg (27-33) 12/14/23 06:23 MCHC 33.1 g/dL (30-55) 12/14/23 06:23 RDW 13.6 % (12.1-15.1) 12/14/23 06:23 Plt Count 206 10^3/cmm (157-399) 12/14/23 06:23 MPV 10.2 fL (7.4-10.4) 12/14/23 06:23 Neut % (Auto) 52.1 % 12/14/23 06:23 Lymph % (Auto) 32.2 % 12/14/23 06:23 [place] % (Auto) 11.8 % 12/14/23 06:23 Eos % (Auto) 2.2 % 12/14/23 06:23 Baso % (Auto) 1.4 % 12/14/23 06:23 Neut # (Auto) 3.83 10^3/uL (1.8-7.7) 12/14/23 06:23 Lymph # (Auto) 2.4 10^3/uL (0.8-4.8) 12/14/23 06:23 [place] # (Auto) 0.9 10^3/uL (0.2-0.9) 12/14/23 06:23 Eos # (Auto) 0.2 10^3/uL (0.0-0.8) 12/14/23 06:23 Baso # (Auto) 0.1 10^3/uL (0.0-0.1) 12/14/23 06:23 Nucleated RBC % (auto) 0 % 12/14/23 06:23 Nucleated RBCs # 0.0 /100WBC 12/14/23 06:23 Sodium 131 mmol/L (136-145) L 12/14/23 06:23 Potassium 3.9 mmol/L (3.5-5.1) 12/14/23 06:23 Chloride 96 mmol/L (98-107) L 12/14/23 06:23 Carbon Dioxide 26 mmol/L (22-29) 12/14/23 06:23 Anion Gap 12.9 (5-19) 12/14/23 06:23 BUN 17 mg/dL (8-23) 12/14/23 06:23 Creatinine 0.9 mg/dL (0.7-1.2) 12/14/23 06:23 GFR Calculation Not Reportable 12/14/23 06:23 Glucose 101 mg/dL (65-115) 12/14/23 06:23 Calculated Osmolality 274 mOsm/kg (285-295) L 12/14/23 06:23 Calcium 9.6 mg/dL (8.5-10.5) 12/14/23 06:23 Total Bilirubin 0.4 mg/dL (0.15-1.2) 12/14/23 06:23 AST 29 U/L (0-40) 12/14/23 06:23 ALT 28 U/L (0-41) 12/14/23 06:23 Alkaline Phosphatase 103 U/L (40-130) 12/14/23 06:23 Troponin T Baseline 12 ng/L (0-15) 12/14/23 06:23 Troponin T 120 Minute 11.91 ng/L (0-15) 12/14/23 07:50 Delta Troponin T -0.09 ABS# (0-10) L 12/14/23 07:50 NT-Pro-B Natriuret Pep 50 pg/mL (0-450) 12/14/23 06:23 Total Protein 6.8 g/dL (6.6-8.7) 12/14/23 06:23 Albumin 4.2 g/dL (3.5-5.2) 12/14/23 06:23 Globulin 2.6 g/dL (1.3-4.6) 12/14/23 06:23 All radiology interpretation(s) finalized by discharge Discharge Plan Discharge Patient Disposition: Home Clinical Impression: Viral upper respiratory illness, Congestion of respiratory tract, Cough Condition: Stable Prescriptions: New benzonatate 200 mg capsule 200 mg PO TID Qty: 30 0RF guaifenesin 1,200 mg tablet extended release 12hr 1,200 mg PO BID Qty: 14 0RF No Action tamsulosin 0.4 mg Capsule 0.4 mg PO QAM Rx Instructions: take after same meal each day. hydrochlorothiazide 25 mg Tablet 25 mg PO DAILY finasteride 5 mg Tablet 5 mg PO QAM loratadine 10 mg Tablet 10 mg PO QAM valacyclovir 500 mg Tablet 500 mg PO QAM omega-3 fatty acids [Fish Oil Concentrate] 1,000 mg Capsule 2,000 mg PO QAM miconazole nitrate 2 % Aerosol Powder 1 ea TOPICAL TID PRN (Reason: Rash) sildenafil 100 mg Tablet 50 - 100 mg PO DAILY PRN (Reason: Erectile Dysfunction) Lee's Extra Strength 580 (467) mg Tablet 580 mg PO DAILY PRN (Reason: Pain) methocarbamol [Robaxin] 750 mg Tablet 750 mg PO QID PRN (Reason: Muscle Spasm) mupirocin 2 % Ointment 1 applic TOPICAL BID albuterol sulfate [ProAir HFA] 90 mcg/actuation Hfa Aerosol Inhaler 2 puff INHALATION Q4H PRN (Reason: Shortness Of Breath) mometasone 50 mcg/actuation spray,non-aerosol 2 spray intranasal DAILY Qty: 17 0RF Rx Instructions: administer into each nostril azithromycin 250 mg tablet See Rx Instructions .ROUTE .COMPLEX Qty: 6 0RF Rx Instructions: For 250 mg dose pack: take 500 mg today (day 1), then 250 mg for 4 days (days 2-5) tizanidine 4 mg tablet 4 mg PO Q6H PRN (Reason: muscle spasticity) Qty: 20 0RF Rx Instructions: do not exceed 3 doses per 24 hrs diclofenac sodium 75 mg tablet,delayed release (DR/EC) 75 mg PO Q12H PRN (Reason: pain) Qty: 20 0RF prednisone 20 mg tablet 20 mg PO TID Qty: 15 0RF Rx Instructions: 1 p.o. 3 times daily x3 days, 1 p.o. twice daily x2 days, 1 p.o. daily x2 days omeprazole 40 mg Capsule,Delayed Release(Dr/Ec) 40 mg PO DAILY gabapentin 100 mg Capsule 100 mg PO TID Crestor 5 mg Tablet 5 mg PO BEDTIME potassium chloride 20 mEq Tablet Extended Release 10 meq PO DAILY nystatin 100,000 unit/gram powder 1 applic topical BID Qty: 30 0RF Discharge Orders: Discharge ED (Routine); Ordered 12/14/23 Ordered By: Taran Da Silva Referrals: Rena Boucher FNP [Primary Care Provider] - Discharge Diet: Advance as tolerated Discharge Activity: Resume usual activity Patient Instructions: Opioid Safety, Pain Management Activity Restrictions/Additional Instructions: Follow-up with your primary care provider Coding Level of Care Code ED Carton Machine Operator for Lourdes Lerma
[2023-12-14 08:27] LABS: Troponin 5 2HR 11.91 ng/L (0-15)
[2023-12-14 08:28] LABS: Troponin 5 2HR Delta -0.09 ABS# (0-10)
== END 2023-12-14 08:27 | disposition home or self-care (01) ==
PROVIDERS: Emergency Provider Internal Medicine; PCP Nurse Practitioner
DX: J06.9 Acute upper respiratory infection, unspecified (principal); I10 Essential (primary) hypertension; Z87.891 Personal history of nicotine dependence
CPT/HCPCS: 36415; 71046; 80053; 83880; 84484; 85025; 93005; 99285

== ENCOUNTER 2023-12-31 01:45 | Emergency (ER) | payer OTHER, SELFPAY ==
[2023-12-31 01:52] VITALS: BP 156/63; PULSE 59; RESP 18; TEMP 36.4; O2SAT 96; BMI 29.4
--- NOTE | 2023-12-31 02:05 | XRR_ITS ---
PROCEDURE INFORMATION: Exam: XR Chest Exam date and time: 12/31/2023 2:13 AM Age: 78 years old Clinical indication: Dyspnea; Additional info: Dyspnea/wheezing TECHNIQUE: Imaging protocol: Radiologic exam of the chest. Views: 2 views. COMPARISON: CR (CHEST, ) 12/14/2023 6:14 AM FINDINGS: Lungs: Unchanged bilateral apical scarring and emphysematous change. Unchanged right lower lobe calcified granuloma. Suggestion of possible wedge like infiltrate of the right middle lobe. There is flattening of the right hemidiaphragm and blunting of the right costophrenic angle. Pleural spaces: See Lungs finding. Heart/Mediastinum: Unremarkable. No cardiomegaly. Bones/joints: Unremarkable. XR/XR chest 2V* [id number] IMPRESSION: 1. Findings suggestive of possible partial right middle lobe atelectasis/collapse, superimposed infection is not ruled out. 2. Small right pleural effusion is noted. 3. Unchanged parenchymal scarring and granulomatous disease detailed above.
--- NOTE | 2023-12-31 02:08 | ECG_ITS ---
[facility] Test Date: 2023-12-31 Pat Name: William Braun Department: Room: Gender: Male Choker Setter: : 1945 Requested By: Taran Da Silva Order Number: [id number] Angelina MD: Mikal Ruiz M.D. Measurements Intervals [place] Rate: 52 P: -4 [place]: 199 QRS: 69 QRSD: 94 T: 70 QT: 437 QTc: 409 Interpretive Statements SINUS BRADYCARDIA WITH SINUS ARRHYTHMIA Compared to ECG 12/14/2023 07:52:33 No significant changes Electronically Signed On 12-31-2023 15:45:51 SUPERVISOR [employer] by Mikal Ruiz M.D. [id number] f
[2023-12-31 02:13] LABS: Basophils # 0.1 10^3/uL (0.0-0.1); Eosinophils # 0.2 10^3/uL (0.0-0.8); Eosinophils % 2.8 %; Hematocrit 40.1 % (37-53); Lymphocytes # 1.9 10^3/uL (0.8-4.8); Lymphocytes % 26.3 %; Mean Corpuscular HGB Conc 33.9 g/dL (30-55); Mean Corpuscular Hemoglobin 30.2 pg (27-33); Mean Corpuscular Volume 88.9 fl (82-101); Mean Platelet Volume 10.1 fL (7.4-10.4); Monocytes # 0.8 10^3/uL (0.2-0.9); Monocytes % 10.9 %; Neutrophils # 4.26 10^3/uL (1.8-7.7); Neutrophils % 58.7 %; Nucleated Red Blood Cells % 0 %; Platelet Count 215 10^3/cmm (157-399); Red Blood Count 4.51 10^6/uL (3.85-5.65); Red Cell Distribution Width 13.4 % (12.1-15.1); White Blood Count 7.25 10^3/uL (3.29-11.43)
[2023-12-31 02:25] LABS: D Dimer 0.62 ug/mLFEU (0-0.59)
[2023-12-31 02:34] VITALS: BP 147/64; PULSE 55; RESP 18; O2SAT 97
[2023-12-31 02:34] LABS: Alanine Aminotransferase 18 U/L (0-41); Albumin Level 3.8 g/dL (3.5-5.2); Alkaline Phosphatase 72 U/L (40-130); Anion Gap 12.7 (5-19); Aspartate Amino Transferase 22 U/L (0-40); Blood Urea Nitrogen 10 mg/dL (8-23); Calcium 8.8 mg/dL (8.5-10.5); Carbon Dioxide 29 mmol/L (22-29); Chloride 94 mmol/L (98-107); Glucose 100 mg/dL (65-115); NT Pro B Type Natriuretic Pept 214 pg/mL (0-450); Osmolality Calculated 273 mOsm/kg (285-295); Potassium 3.7 mmol/L (3.5-5.1); Sodium 132 mmol/L (136-145); Total Bilirubin 0.4 mg/dL (0.15-1.2); Total Protein 6.8 g/dL (6.6-8.7)
[2023-12-31 02:50] LABS: Troponin(5th) Baseline 15 ng/L (0-15)
--- NOTE | 2023-12-31 03:25 | CTR_ITS ---
PROCEDURE INFORMATION: Exam: CTA Chest With Contrast Exam date and time: 12/31/2023 3:40 AM Age: 78 years old Clinical indication: Abnormal findings; Other: Becca dimer; Dyspnea TECHNIQUE: Imaging protocol: Computed tomographic angiography of the chest with contrast. Exam focused on the arteries. 3D rendering (Not supervised by radiologist): MIP and/or 3D reconstructed images were created by the technologist. Radiation optimization: All CT scans at this facility use at least one of these dose optimization techniques: automated exposure control; mA and/or kV adjustment per patient size (includes targeted exams where dose is matched to clinical indication); or iterative reconstruction. Contrast material: OMNI 350; Contrast volume: 80 ml; Contrast route: INTRAVENOUS (IV); COMPARISON: CR (CHEST, ) 12/31/2023 2:13 AM RADIATION DOSE METRICS: Total DLP (mGy-cm): 587 FINDINGS: Pulmonary arteries: Contrast bolus timing is appropriate for characterization of the pulmonary arterial tree. No luminal filling defect to suggest saddle pulmonary embolus, segmental pulmonary embolus, subsegmental pulmonary embolus. Aorta: Mild calcified atherosclerotic disease of the visualized aorta . Lungs: Apically predominant centrilobular and paraseptal emphysematous change. Large right middle lobe granuloma is appreciated superiorly (series 6, image 269). There are scattered basilar predominant bronchial wall thickening and mild bronchiectasis, [id number]-[id number]-right. Pleural spaces: Unremarkable. No pneumothorax. No pleural effusion. Heart: Unremarkable. No cardiomegaly. No pericardial effusion. Lymph nodes: There is an anterior right minor fissure lymph node, (series 6, image 290). There is slight distal patulous appearance of the esophagus with circumferential wall thickening, and a large paraesophageal lymph node which reaches up to 1.0 cm in short axis dimension (series 6, image 345). Gallbladder and bile ducts: Status post cholecystectomy. Bones/joints: [id number] degenerative changes of the visualized osseous structures. Soft tissues: Unremarkable. CT/CT angio chest [id number] IMPRESSION: 1. No luminal filling defect to suggest pulmonary embolus. 2. Moderate centrilobular and paraseptal emphysematous change, architectural distortion, bronchial wall thickening and bronchiectasis. No focal consolidation. 3. Somewhat patulous distal esophagus with circumferential wall thickening and a large paraesophageal lymph node, nonspecific, however underlying neoplasm is not ruled out, recommend gastrointestinal consultation. COMMENTS: The presence of pulmonary emphysema on CT is an independent risk factor for lung cancer. In the absence of a history or active diagnosis of lung cancer, it is recommended that this patient with emphysema be evaluated for enrollment in a low dose CT lung cancer screening program.
[2023-12-31] MEDS: iohexol 350 mg/mL 500 mL Btl (per mL) IV (03:52)
--- NOTE | 2023-12-31 04:08 | ECG_ITS ---
[facility] Test Date: 2023-12-31 Pat Name: William Braun Department: Room: Gender: Male Creative Specialist: : 1945 Requested By: Taran Da Silva Order Number: [id number] Angelina MD: Mikal Ruiz M.D. Measurements Intervals [place] Rate: 50 P: -19 [place]: 185 QRS: 72 QRSD: 109 T: 60 QT: 443 QTc: 406 Interpretive Statements SINUS BRADYCARDIA Compared to ECG 12/31/2023 01:56:04 Sinus arrhythmia no longer present Electronically Signed On 12-31-2023 15:47:38 APARTMENT LEASING CONSULTANT by Mikal Ruiz M.D. [id number]
[2023-12-31] MEDS: acetaminophen 500 mg Tablet 1000 MG PO (04:10)
[2023-12-31 04:15] LABS: Troponin 5 2HR 13.31 ng/L (0-15)
[2023-12-31 04:17] LABS: Troponin 5 2HR Delta -1.69 ABS# (0-10)
[2023-12-31 04:51] VITALS: BP 121/64; PULSE 48; RESP 17; O2SAT 93
--- NOTE | 2023-12-31 04:55 | ED_ITS ---
HPI - URI/Sore Throat 2 General: Chief Complaint: Upper Respiratory Infection Stated Complaint: cough, wheezing, cant lay down Time Seen by Provider: 12/31/23 02:03 History of Present Illness: 78-year-old male presents to the emergen cy department with complaints of a productive cough and intermittent shortness of breath for several weeks. He has been seen here in this emergency department previously on December 14, 2023 and diagnosed with upper respiratory tract infection. He states he initially started feeling a little better after being seen here in the emergency department but then had worsening cough and shortness of breath and states that he is now coughing up a greenish sputum. He states that he contacted his primary care provider yesterday and was told that he most likely had pneumonia and made an appointment with his PCP to be seen today. He states he continued to have several coughing episodes which made him feel more short of breath and prompted him to come to the emergency department. He does complain of a headache that is a generalized headache that he describes as a 4 out of 10 throbbing type pain. He states he does have a history of COPD. Review of Systems 2 General: Reports: 10 or more systems reviewed and unremarkable except in HPI and below Resp: Reports: dyspnea and productive cough PFSH ED 2 PFSH: Medical History Hypertension Surgical History H/O umbilical hernia repair History of cholecystectomy Social History Smoking and tobacco/nicotine status: former use of tobacco/nicotine Alcohol intake: current Alcohol intake frequency: holidays/special occasions only Substance/Drug Use: never Physical Exam 2 Narrative: EXAM NARRATIVE: Constitutional: the patient appears well nourished and of normal development. Vital signs as documented. No acute distress at present. Alert and oriented-to person, place, time and situation. Head, eyes, ears, nose, mouth, throat: Normocephalic, atraumatic. Pupils-equal, round, reactive to light. No scleral icterus. Normal-appearing external ears. Normal appearing nasal turbinates, no drainage. No obvious oral lesions, posterior oropharynx without erythema or exudates. Neck: Supple, trachea is midline, no lymphadenopathy, no jugular venous distension, thyromegaly, or carotid bruits. Carotid upstrokes are brisk bilaterally. Lungs: clear to auscultation to all lung silverio. Symmetrical rise and fall of chest, no obvious signs of increased work of breathing at present. Cardiac: Regular rate and rhythm, positive S1, S2. No murmurs, rubs or gallops that I can appreciate Abdomen: Soft, non-tender to palpation, normal active bowel sounds to all quadrants. No palpable masses, no organomegaly and abdominal bruits. Extremities: 2+ pulses in the upper extremities that are equal bilaterally, 2+ pulses in the lower extremities that are equal bilaterally. Non-edematous. Moves all extremities well, sensation to all extremities are noted. Skin: Warm, dry, intact. Course 2 Vital Signs: Vital signs: Vital Signs Temperature 97.5 F L 12/31/23 01:52 Pulse Rate 48 L 12/31/23 04:51 Respiratory Rate 17 12/31/23 04:51 Blood Pressure 121/64 12/31/23 04:51 Pulse Oximetry 93 12/31/23 04:51 Oxygen Delivery Me thod Room Air 12/31/23 04:51 MDM - URI/Sore Throat Medical Decision Making Physical exam completed and documented, I will obtain a CBC, CMP, twelve-lead EKG cardiac enzymes and D-dimer as well as a chest x-ray. After reviewing the chest x-ray and the elevated D-dimer I will obtain a CTA chest to evaluate a right middle lobe abnormality. Medical Records I reviewed the patient's medical records. Lab Data I reviewed the patient's lab results. 12/31/23 02:08 12/31/23 02:08 Radiology Impressions Chest X-Ray 12/31/23 02:05 IMPRESSION: 1. Findings suggestive of possible partial right middle lobe atelectasis/collapse, superimposed infection is not ruled out. 2. Small right pleural effusion is noted. 3. Unchanged parenchymal scarring and granulomatous disease detailed above. Chest CTA 12/31/23 03:25 IMPRESSION: 1. No luminal filling defect to suggest pulmonary embolus. 2. Moderate centrilobular and paraseptal emphysematous change, architectural distortion, bronchial wall thickening and bronchiectasis. No focal consolidation. 3. Somewhat patulous distal esophagus with circumferential wall thickening and a large paraesophageal lymph node, nonspecific, however underlying neoplasm is not ruled out, recommend gastrointestinal consultation. COMMENTS: The presence of pulmonary emphysema on CT is an independent risk factor for lung cancer. In the absence of a history or active diagnosis of lung cancer, it is recommended that this patient with emphysema be evaluated for enrollment in a low dose CT lung cancer screening program. Laboratory Results WBC 7.25 10^3/uL (3.29-11.43) 12/31/23 02:08 RBC 4.51 10^6/uL (3.85-5.65) 12/31/23 02:08 Hgb 13.60 g/dL (11.27-16.99) 12/31/23 02:08 Hct 40.1 % (37-53) 12/31/23 02:08 MCV 88.9 fl (82-101) 12/31/23 02:08 MCH 30.2 pg (27-33) 12/31/23 02:08 MCHC 33.9 g/dL (30-55) 12/31/23 02:08 RDW 13.4 % (12.1-15.1) 12/31/23 02:08 Plt Count 215 10^3/cmm (157-399) 12/31/23 02:08 MPV 10.1 fL (7.4-10.4) 12/31/23 02:08 Neut % (Auto) 58.7 % 12/31/23 02:08 Lymph % (Auto) 26.3 % 12/31/23 02:08 [place] % (Auto) 10.9 % 12/31/23 02:08 Eos % (Auto) 2.8 % 12/31/23 02:08 Baso % (Auto) 1.0 % 12/31/23 02:08 Neut # (Auto) 4.26 10^3/uL (1.8-7.7) 12/31/23 02:08 Lymph # (Auto) 1.9 10^3/uL (0.8-4.8) 12/31/23 02:08 [place] # (Auto) 0.8 10^3/uL (0.2-0.9) 12/31/23 02:08 Eos # (Auto) 0.2 10^3/uL (0.0-0.8) 12/31/23 02:08 Baso # (Auto) 0.1 10^3/uL (0.0-0.1) 12/31/23 02:08 Nucleated RBC % (auto) 0 % 12/31/23 02:08 Nucleated RBCs # 0.0 /100WBC 12/31/23 02:08 D-Dimer 0.62 ug/mLFEU (0-0.59) H 12/31/23 02:08 Sodium 132 mmol/L (136-145) L 12/31/23 02:08 Potassium 3.7 mmol/L (3.5-5.1) 12/31/23 02:08 Chloride 94 mmol/L (98-107) L 12/31/23 02:08 Carbon Dioxide 29 mmol/L (22-29) 12/31/23 02:08 Anion Gap 12.7 (5-19) 12/31/23 02:08 BUN 10 mg/dL (8-23) 12/31/23 02:08 Creatinine 1.0 mg/dL (0.7-1.2) 12/31/23 02:08 GFR Calculation Not Reportable 12/31/23 02:08 Glucose 100 mg/dL (65-115) 12/31/23 02:08 Calculated Osmolality 273 mOsm/kg (285-295) L 12/31/23 02:08 Calcium 8.8 mg/dL (8.5-10.5) 12/31/23 02:08 Total Bilirubin 0.4 mg/dL (0.15-1.2) 12/31/23 02:08 AST 22 U/L (0-40) 12/31/23 02:08 ALT 18 U/L (0-41) 12/31/23 02:08 Alkaline Phosphatase 72 U/L (40-130) 12/31/23 02:08 Troponin T Baseline 15 ng/L (0-15) 12/31/23 02:08 Troponin T 120 Minute 13.31 ng/L (0-15) 12/31/23 03:52 Delta Troponin T -1.69 ABS# (0-10) L 12/31/23 03:52 NT-Pro-B Natriuret Pep 214 pg/mL (0-450) 12/31/23 02:08 Total Protein 6.8 g/dL (6.6-8.7) 12/31/23 02:08 Albumin 3.8 g/dL (3.5-5.2) 12/31/23 02:08 Globulin 3.0 g/dL (1.3-4.6) 12/31/23 02:08 All radiology interpretation(s) finalized by discharge EKG Data EKG 1: Interpretation: Twelve-lead EKG obtained at 156 and reviewed at 157 demonstrates sinus bradycardia with a ventricular rate of 52 bpm, [place] interval 199, QRS duration 94, QT 437, QTc 418. At present there is no ST elevation or depression to demonstrate acute ischemia or infarction. Discharge Plan Discharge Patient Disposition: Home Clinical Impression: Upper respiratory infection, COPD (chronic obstructive pulmonary disease), Cough Condition: Stable Prescriptions: New doxycycline hyclate 100 mg capsule 100 mg PO BID 7 Days Qty: 14 0RF prednisone 20 mg tablet 40 mg PO DAILY 5 Days Qty: 10 0RF No Action tamsulosin 0.4 mg Capsule 0.4 mg PO QAM Rx Instructions: take after same meal each day. hydrochlorothiazide 25 mg Tablet 25 mg PO DAILY finasteride 5 mg Tablet 5 mg PO QAM loratadine 10 mg Tablet 10 mg PO QAM valacyclovir 500 mg Tablet 500 mg PO QAM omega-3 fatty acids [Fish Oil Concentrate] 1,000 mg Capsule 2,000 mg PO QAM miconazole nitrate 2 % Aerosol Powder 1 ea TOPICAL TID PRN (Reason: Rash) sildenafil 100 mg Tablet 50 - 100 mg PO DAILY PRN (Reason: Erectile Dysfunction) Lee's Extra Strength 580 (467) mg Tablet 580 mg PO DAILY PRN (Reason: Pain) methocarbamol [Robaxin] 750 mg Tablet 750 mg PO QID PRN (Reason: Muscle Spasm) mupirocin 2 % Ointment 1 applic TOPICAL BID albuterol sulfate [ProAir HFA] 90 mcg/actuation Hfa Aerosol Inhaler 2 puff INHALATION Q4H PRN (Reason: Shortness Of Breath) mometasone 50 mcg/actuation spray,non-aerosol 2 spray intranasal DAILY Qty: 17 0RF Rx Instructions: administer into each nostril azithromycin 250 mg tablet See Rx Instructions .ROUTE .COMPLEX Qty: 6 0RF Rx Instructions: For 250 mg dose pack: take 500 mg today (day 1), then 250 mg for 4 days (days 2-5) tizanidine 4 mg tablet 4 mg PO Q6H PRN (Reason: muscle spasticity) Qty: 20 0RF Rx Instructions: do not exceed 3 doses per 24 hrs diclofenac sodium 75 mg tablet,delayed release (DR/EC) 75 mg PO Q12H PRN (Reason: pain) Qty: 20 0RF prednisone 20 mg tablet 20 mg PO TID Qty: 15 0RF Rx Instructions: 1 p.o. 3 times daily x3 days, 1 p.o. twice daily x2 days, 1 p.o. daily x2 days benzonatate 200 mg capsule 200 mg PO TID Qty: 30 0RF guaifenesin 1,200 mg tablet extended release 12hr 1,200 mg PO BID Qty: 14 0RF omeprazole 40 mg Capsule,Delayed Release(Dr/Ec) 40 mg PO DAILY gabapentin 100 mg Capsule 100 mg PO TID Crestor 5 mg Tablet 5 mg PO BEDTIME potassium chloride 20 mEq Tablet Extended Release 10 meq PO DAILY nystatin 100,000 unit/gram powder 1 applic topical BID Qty: 30 0RF Discharge Orders: Discharge ED (Routine); Ordered 12/31/23 Ordered By: Taran Da Silva Referrals: Rena Boucher FNP [Primary Care Provider] - Discharge Diet: Usual diet Discharge Activity: Resume usual activity Patient Instructions: Opioid Safety, Pain Management Activity Restrictions/Additional Instructions: Activity Restrictions/Additional Instructions: Thank you for choosing [facility] for your healthcare needs today. Please realize that you were seen in the Emergency Department and that we are providing you with an emergency medical screening exam and this may not be a complete and all inclusive of all the testing and or medical work-up that you may need to determine your ailment or severity of your illness. It is very important that you follow-up as instructed with your Primary care provider or Specialist for additional evaluation and to discuss your medical treatment plan. You may return to the Emergency Department should you have concerns or if your condition changes or worsens in any way. Coding Level of Care Code ED Technology Education Instructor for Lourdes Lerma
[2023-12-31] MEDS: methylPREDNISolone sod succ 125 mg/2 mL INJ IVP (05:29)
[2023-12-31 05:34] VITALS: PULSE 58; RESP 18; O2SAT 94
== END 2023-12-31 05:35 | disposition home or self-care (01) ==
PROVIDERS: Emergency Provider Internal Medicine; PCP Nurse Practitioner
DX: J44.9 Chronic obstructive pulmonary disease, unspecified (principal); J06.9 Acute upper respiratory infection, unspecified; I10 Essential (primary) hypertension; Z87.891 Personal history of nicotine dependence
CPT/HCPCS: 71046; 71275; 80053; 83880; 84484; 85025; 85378; 93005; 96374; 99285; J2930; Q9967

== ENCOUNTER 2024-01-05 14:08 | Emergency (ER) | payer OTHER, SELFPAY ==
[2024-01-05 14:20] VITALS: BP 127/78; PULSE 61; RESP 14; TEMP 36.4; O2SAT 94; BMI 29.4
[2024-01-05 15:13] VITALS: BP 134/69; PULSE 55; RESP 16; O2SAT 97
--- NOTE | 2024-01-05 15:57 | ED_ITS ---
HPI - URI/Sore Throat General: Chief Complaint: Upper Respiratory Infection Stated Complaint: cough, vomiting Time Seen by Provider: 01/05/24 15:03 Source: patient Mode of arrival: ambulatory Limitations: no limitations History of Present Illness: Patient is a 78-year-old male who presents to the ED today with a main complaint of chronic cough/chest drainage. Patient has been seen here in our emergency department many many times for almost identical complaints. Patient states he has been on countless rounds of antibiotics, steroids, medications for his breathing/bronchitis diagnoses, cough suppressants, guaifenesin, mucinex, etc all without relief of his sympotms. He seems very much bothered by the symptoms. Patient states he does a lot of throat clearing. Patient states the other day he was eating roast and cornbread and after taking a few bites he immediately noticed burning in his chest and acid reflux and had to stop eating. He reported similar symptoms recently when he tried to drink orange juice. Patient was recently seen here in our emergency department less than a week ago. He had CT imaging of his chest performed which showed: CT/CT angio chest 53467 IMPRESSION: 1. No luminal filling defect to sugges t pulmonary embolus. 2. Moderate centrilobular and parasept al emphysematous change, architectural distortion, bronchial wall thickening and bronchiectasis. No focal consolidation. 3. Somewhat patulous distal esophagus with circumferential wall thickening and a large paraesophageal lymph node, nonspecific, however underlying neoplasm is not ruled out, recommend gastrointestinal consultation. MD elicited complaint: cough, nasal congestion and other (throat phlegm) Onset (ago): month(s) Consistency: constant Severity: moderate Description of mucous: clear Able to tolerate fluids by mouth: Yes Exacerbating factors: other (sometimes eating) Relieving factors: nothing Associated symptoms: Reports chest pain (sometimes has some burning after eating); Deny abdominal pain, chills, diarrhea, ear or mastoid pain, fever(s), headache(s), nausea, sinus pain or vomiting Review of Systems Const: Denies: fever(s), chills, body aches, fatigue or malaise Eyes: Denies: change in vision, blurry vision, photophobia, floaters or seeing flashes ENMT: Denies: throat pain, uvular edema, enlarged tonsils, odynophagia, hoarseness, dental pain, dry mouth, halitosis, ear or mastoid pain or sinus pain Card: Reports: chest pain (sometimes has some burning after eating); Denies: palpitations, irregular heart rhythm, edema, swelling of feet/ankles, lightheadedness, syncope, pre-syncope, dyspnea on exertion, orthopnea, leg pain with exertion or acrocyanosis Resp: Reports: productive cough (chronic throat clearing); Denies: dyspnea, wheezing, stridor, pain on inspiration or hemoptysis GI: Denies: abdominal pain, nausea, vomiting or diarrhea Neuro: Denies: headache(s) PFSH ED PFSH: Medical History Hypertension Surgical History H/O umbilical hernia repair History of cholecystectomy Social History Smoking and tobacco/nicotine status: former use of tobacco/nicotine Alcohol intake: current Alcohol intake frequency: holidays/special occasions only Substance/Drug Use: never Physical Exam Const: COMMON NORMALS: no acute distress, patient oriented x3, no limitations, alert and well nourished GENERAL APPEARANCE: cooperative ORIENTATION/CONSCIOUSNESS: Yes awake, Yes oriented to person, Yes oriented to place and Yes oriented to time HENMT: COMMON NORMALS: Normal external nose present, Normal nasal mucous membranes and turbinates present, moist oral mucous membranes and oropharynx normal HEAD & SCALP: normal to inspection FACE & SINUS: normal facial exam and sinuses nontender NOSE: Normal external nose present and Normal nasal mucous membranes and turbinates present MOUTH: Normal oral and palatal mucosa present and lip normal THROAT: posterior oropharynx normal and tonsils normal; no uvular edema OTHER: clears throat many times during my initial history/examination Eye: GENERAL EYE: appearance normal, both eyes and all related structures Neck/C-Spine: COMMON NORMALS: full ROM, no lymphadenopathy and no meningeal signs Chest: COMMONS NORMALS: normal inspection of the chest Resp: COMMON NORMALS: normal respiratory effort and clear to auscultation bilaterally AUSCULTATION: clear to auscultation bilaterally Cardio: COMMON NORMALS: regular rate and regular rhythm RATE: regular rate RHYTHM: regular rhythm Extremity: GENERAL: Yes normal exam except as noted Neuro: EDWARD COMA SCALE: document GCS findings Philippi coma scale eye opening: Spontaneous Philippi coma scale verbal response: Orientated Edward coma scale motor response: Obey commands Philippi coma scale total score: 15 COMMON NORMALS: patient oriented x3 SENSORIUM/ORIENTATION: Yes alert, Yes oriented to person, Yes oriented to place and Yes oriented to time MENINGEAL SIGNS: Yes no meningeal signs Course Vital Signs: Vital signs: Vital Signs Temperature 97.5 F L 01/05/24 14:20 Pulse Rate 52 L 01/05/24 16:18 Respiratory Rate 16 01/05/24 15:13 Blood Pressure 115/52 01/05/24 16:18 Pulse Oximetry 94 01/05/24 16:18 Oxygen Delivery Me thod Room Air 01/05/24 15:13 MDM - URI/Sore Throat Medical Decision Making Previous documentation patient has had multiple diagnoses of allergic sinusitis, rhinosinusitis, bronchitis, upper viral infections, etc. As discussed in the HPI he has been on multiple rounds of antibiotics, expectorants, decongestants, cough suppressants, steroids and he does not feel like these medications are working. Based on his history today I suspect that some of his chronic cough and throat clearing are secondary to GERD. He did have a CT scan less than a week ago which showed: CT/CT angio chest [id number] IMPRESSION: 1. No luminal filling defect to suggest pulmonary embolus. 2. Moderate centrilobular and paraseptal emphysematous change, architectural distortion, bronchial wall thickening and bronchiectasis. No focal consolidation. 3. Somewhat patulous distal esophagus with circumferential wall thickening and a large paraesophageal lymph node, nonspecific, however underlying neoplasm is not ruled out, recommend gastrointestinal consultation. Certainly there could be an emphysematous component to his symptoms. With the abnormal findings related to his distal esophagus I will recommend he undergo GI consultation. We will trial him on Protonix and Pepcid to see if this helps with any of his symptoms. Recommend [facility] No radiology studies performed this visit Discharge Plan Discharge Patient Disposition: Home Clinical Impression: Chronic cough GERD with esophagitis Qualifiers: Esophagitis bleeding: without hemorrhage Qualified Code(s): K21.00 - Gastro- esophageal reflux disease with esophagitis, without bleeding Condition: Stable Prescriptions: New Protonix 40 mg tablet,delayed release (DR/EC) 40 mg PO DAILY 28 Days Qty: 28 0RF Pepcid 40 mg tablet 40 mg PO DAILY Qty: 30 0RF No Action tamsulosin 0.4 mg Capsule 0.4 mg PO QAM Rx Instructions: take after same meal each day. hydrochlorothiazide 25 mg Tablet 25 mg PO DAILY finasteride 5 mg Tablet 5 mg PO QAM loratadine 10 mg Tablet 10 mg PO QAM valacyclovir 500 mg Tablet 500 mg PO QAM omega-3 fatty acids [Fish Oil Concentrate] 1,000 mg Capsule 2,000 mg PO QAM miconazole nitrate 2 % Aerosol Powder 1 ea TOPICAL TID PRN (Reason: Rash) sildenafil 100 mg Tablet 50 - 100 mg PO DAILY PRN (Reason: Erectile Dysfunction) Lee's Extra Strength 580 (467) mg Tablet 580 mg PO DAILY PRN (Reason: Pain) methocarbamol [Robaxin] 750 mg Tablet 750 mg PO QID PRN (Reason: Muscle Spasm) mupirocin 2 % Ointment 1 applic TOPICAL BID albuterol sulfate [ProAir HFA] 90 mcg/actuation Hfa Aerosol Inhaler 2 puff INHALATION Q4H PRN (Reason: Shortness Of Breath) mometasone 50 mcg/actuation spray,non-aerosol 2 spray intranasal DAILY Qty: 17 0RF Rx Instructions: administer into each nostril azithromycin 250 mg tablet See Rx Instructions .ROUTE .COMPLEX Qty: 6 0RF Rx Instructions: For 250 mg dose pack: take 500 mg today (day 1), then 250 mg for 4 days (days 2-5) tizanidine 4 mg tablet 4 mg PO Q6H PRN (Reason: muscle spasticity) Qty: 20 0RF Rx Instructions: do not exceed 3 doses per 24 hrs diclofenac sodium 75 mg tablet,delayed release (DR/EC) 75 mg PO Q12H PRN (Reason: pain) Qty: 20 0RF prednisone 20 mg tablet 20 mg PO TID Qty: 15 0RF Rx Instructions: 1 p.o. 3 times daily x3 days, 1 p.o. twice daily x2 days, 1 p.o. daily x2 days benzonatate 200 mg capsule 200 mg PO TID Qty: 30 0RF guaifenesin 1,200 mg tablet extended release 12hr 1,200 mg PO BID Qty: 14 0RF doxycycline hyclate 100 mg capsule 100 mg PO BID 7 Days Qty: 14 0RF omeprazole 40 mg Capsule,Delayed Release(Dr/Ec) 40 mg PO DAILY gabapentin 100 mg Capsule 100 mg PO TID Crestor 5 mg Tablet 5 mg PO BEDTIME potassium chloride 20 mEq Tablet Extended Release 10 meq PO DAILY nystatin 100,000 unit/gram powder 1 applic topical BID Qty: 30 0RF Discharge Orders: Discharge ED (Routine); Ordered 01/05/24 Ordered By: Ching Wong Referrals: Rena Boucher FNP [Primary Care Provider] - Activity Restrictions/Additional Instructions: As we discussed I feel like some of your symptoms could be related more so from acid reflux/GERD/esophagitis. There was some abnormalities noted to your distal esophagus on recent CT imaging with GI follow-up recommended. I will place a case management referral to get you set up for this. You may possibly need endoscopy imaging for further evaluation. In the meantime we will trial you on two medications to see if this helps with your cough. Coding Level of Care Code ED Admission Nurse Coordinator for Lourdes Lerma
[2024-01-05 16:18] VITALS: BP 115/52; PULSE 52; O2SAT 94
--- NOTE | 2024-01-05 17:04 | DCPLANNER ---
Message was sent to GI on 01/05/24 at 1704 for follow up with GI for abnormal CT scan; chronic cough/GERD.Clinic to contact patient
== END 2024-01-05 16:20 | disposition home or self-care (01) ==
PROVIDERS: Emergency Provider Physician Assistant; PCP Nurse Practitioner
DX: R05.3 Chronic cough (principal); K21.00 Gastro-esophageal reflux disease with esophagitis, without bleeding; I10 Essential (primary) hypertension; Z87.891 Personal history of nicotine dependence
CPT/HCPCS: 99283

== ENCOUNTER → 2024-01-21 10:57 | Outpatient (BNVA) | payer OTHER, SELFPAY | PROVIDERS: PCP Nurse Practitioner; Referring Provider Nurse Practitioner; Visit Provider Surgery | DX: K21.9 Gastro-esophageal reflux disease without esophagitis (principal); K22.89 Other specified disease of esophagus | CPT/HCPCS: 99204 ==

== ENCOUNTER 2024-02-02 23:13 | Emergency (ER) | payer OTHER, SELFPAY ==
[2024-02-02 23:14] VITALS: BP 120/79; PULSE 100; RESP 24; TEMP 36.6; O2SAT 91; BMI 30.1
--- NOTE | 2024-02-02 23:16 | ECG_ITS ---
[facility] Test Date: 2024-02-02 Pat Name: William Braun Department: Room: Gender: Male Bufferer: : 1945 Requested By: Taran Da Silva Order Number: [id number] Angelina MD: Mikal Ruiz M.D. Measurements Intervals [place] Rate: 95 P: 51 ME: 193 QRS: 85 QRSD: 106 T: 54 QT: 329 QTc: 414 Interpretive Statements SINUS RHYTHM NONSPECIFIC T-WAVE ABNORMALITY Compared to ECG 12/31/2023 03:50:02 T-wave abnormality now present Sinus bradycardia no longer present Electronically Signed On 02-03-2024 21:36:45 CDT by Mikal Ruiz M.D. [id number]
--- NOTE | 2024-02-02 23:16 | XRR_ITS ---
PROCEDURE INFORMATION: Exam: XR Chest Exam date and time: 02/02/2024 11:24 PM Age: 78 years old Clinical indication: Dyspnea TECHNIQUE: Imaging protocol: Radiologic exam of the chest. Views: 1 view. COMPARISON: CT angio chest [id number] 12/31/2023 3:40 AM FINDINGS: Lungs: Right mid lung calcified granuloma. No consolidation. Pleural spaces: Unremarkable. No pleural effusion. No pneumothorax. Heart/Mediastinum: Unremarkable. No cardiomegaly. Bones/joints: Unremarkable. XR/XR chest 1V portable [id number] IMPRESSION: No acute findings.
--- NOTE | 2024-02-02 23:19 | W.ED.SOB ---
HPI - SOB/Dyspnea General: Chief Complaint: Shortness of Breath/Dyspnea Stated Complaint: respiratory distress Time Seen by Provider: 02/02/24 23:15 History of Present Illness: HPI Narrative: 78-year-old male presents to the emergency department complaints of intermittent shortness of breath. He states that he has had an intermittently productive cough and worsening shortness of breath since November of this year. He states that he has had a more productive cough worsening over the previous 3 days. He states he was seen by the [facility] clinic today and received some shots for his cough and his excessively thick sputum. He states he started having a coughing episode and felt like he became more short of breath he did call EMS and they provided him a breathing treatment as well as 125 mg of Solu-Medrol. He denies fevers chills or night sweats. Review of Systems General: Reports: 10 or more systems reviewed and unremarkable except in HPI and below Resp: Reports: dyspnea, productive cough and wheezing [facility] ED PFSH: Medical History (Updated 02/03/24 @ 00:42 by Taran Da Silva MD) Hypertension Surgical History (Updated 01/21/24 @ 11:36 by CIRILO Fry) H/O umbilical hernia repair History of cholecystectomy Social History Smoking and tobacco/nicotine status: former use of tobacco/nicotine Alcohol intake: current Alcohol intake frequency: holidays/special occasions only Substance/Drug Use: never Physical Exam Narrative: EXAM NARRATIVE: Constitutional: the patient appears well nourished and of normal development. Vital signs as documented. No acute distress at present. Alert and oriented-to person, place, time and situation. Head, eyes, ears, nose, mouth, throat: Normocephalic, atraumatic. Pupils-equal, round, reactive to light. No scleral icterus. Normal-appearing external ears. Normal appearing nasal turbinates, no drainage. No obvious oral lesions, posterior oropharynx without erythema or exudates. Neck: Supple, trachea is midline, no lymphadenopathy, no jugular venous distension, thyromegaly, or carotid bruits. Carotid upstrokes are brisk bilaterally. Lungs: Intermittent expiratory wheezes noted. Symmetrical rise and fall of chest, no obvious signs of increased work of breathing at present. Patient is not having any difficulty with conversation. Cardiac: Regular rate and rhythm, positive S1, S2. No murmurs, rubs or gallops that I can appreciate Abdomen: Soft, non-tender to palpation, normal active bowel sounds to all quadrants. No abdominal bruits. Extremities: 2+ pulses in the upper extremities that are equal bilaterally, 2+ pulses in the lower extremities that are equal bilaterally. Non-edematous. Moves all extremities well, sensation to all extremities are noted. Skin: Warm, dry, intact. Course Vital Signs: Vital signs: Vital Signs Temperature 97.8 F 02/02/24 23:14 Pulse Rate 65 02/03/24 01:03 Respiratory Rate 18 02/03/24 01:03 Blood Pressure 117/56 02/03/24 01:03 Pulse Oximetry 92 02/03/24 01:03 Oxygen Delivery Me thod Nasal Cannula 02/03/24 00:47 Oxygen Flow Rate 2 02/03/24 00:47 MDM - SOB/Dyspnea Medical Decision Making Physical exam completed document I will obtain a CBC and a CMP to evaluate for infection and electrolyte status. I will obtain chest x-ray as well as a procalcitonin and lactic acid as well as twelve-lead EKG and cardiac enzymes. Differential diagnosis includes pneumonia, COPD exacerbation, Medical Records I reviewed the patient's medical records. Lab Data I reviewed the patient's lab results. 02/02/24 23:10 02/02/24 23:10 Labs/Radiology: Radiology Impressions Chest X-Ray 02/02/24 23:16 IMPRESSION: No acute findings. Laboratory Results WBC 12.55 10^3/uL (3.29-11.43) H 02/02/24 23:10 RBC 4.65 10^6/uL (3.85-5.65) 02/02/24 23:10 Hgb 14.20 g/dL (11.27-16.99) 02/02/24 23:10 Hct 43.6 % (37-53) 02/02/24 23:10 MCV 93.8 fl (82-101) 02/02/24 23:10 MCH 30.5 pg (27-33) 02/02/24 23:10 MCHC 32.6 g/dL (30-55) 02/02/24 23:10 RDW 15.1 % (12.1-15.1) 02/02/24 23:10 Plt Count 278 10^3/cmm (157-399) 02/02/24 23:10 MPV 10.2 fL (7.4-10.4) 02/02/24 23:10 Neut % (Auto) 70.7 % 02/02/24 23:10 Lymph % (Auto) 17.2 % 02/02/24 23:10 Frontier % (Auto) 7.9 % 02/02/24 23:10 Eos % (Auto) 3.4 % 02/02/24 23:10 Baso % (Auto) 0.5 % 02/02/24 23:10 Neut # (Auto) 8.87 10^3/uL (1.8-7.7) H 02/02/24 23:10 Lymph # (Auto) 2.2 10^3/uL (0.8-4.8) 02/02/24 23:10 Frontier # (Auto) 1.0 10^3/uL (0.2-0.9) H 02/02/24 23:10 Eos # (Auto) 0.4 10^3/uL (0.0-0.8) 02/02/24 23:10 Baso # (Auto) 0.1 10^3/uL (0.0-0.1) 02/02/24 23:10 Nucleated RBC % (auto) 0 % 02/02/24 23:10 Nucleated RBCs # 0.0 /100WBC 02/02/24 23:10 PT 12.20 SECONDS (12.1-14.9) 02/02/24 23:10 INR 0.88 (0.8-1.2) 02/02/24 23:10 Sodium 139 mmol/L (136-145) 02/02/24 23:10 Potassium 4.0 mmol/L (3.5-5.1) 02/02/24 23:10 Chloride 99 mmol/L (98-107) 02/02/24 23:10 Carbon Dioxide 29 mmol/L (22-29) 02/02/24 23:10 Anion Gap 15.0 (5-19) 02/02/24 23:10 BUN 23 mg/dL (8-23) 02/02/24 23:10 Creatinine 1.1 mg/dL (0.7-1.2) 02/02/24 23:10 GFR Calculation Not Reportable 02/02/24 23:10 Glucose 108 mg/dL (65-115) 02/02/24 23:10 Calculated Osmolality 292 mOsm/kg (285-295) 02/02/24 23:10 Lactic Acid 1.4 mmol/L (0.5-2.2) 02/02/24 23:10 Calcium 9.8 mg/dL (8.5-10.5) 02/02/24 23:10 Total Bilirubin 0.2 mg/dL (0.15-1.2) 02/02/24 23:10 AST 25 U/L (0-40) 02/02/24 23:10 ALT 34 U/L (0-41) 02/02/24 23:10 Alkaline Phosphatase 84 U/L (40-130) 02/02/24 23:10 Troponin T Baseline 17 ng/L (0-15) H 02/02/24 23:10 NT-Pro-B Natriuret Pep 166 pg/mL (0-450) 02/02/24 23:10 Total Protein 6.7 g/dL (6.6-8.7) 02/02/24 23:10 Albumin 4.4 g/dL (3.5-5.2) 02/02/24 23:10 Globulin 2.3 g/dL (1.3-4.6) 02/02/24 23:10 Procalcitonin 0.08 ng/mL (0-0.5) 02/02/24 23:10 Influenza Type A Ag negative (Negative) 02/02/24 23:43 Influenza Type B Ag negative (Negative) 02/02/24 23:43 SARS-CoV-2 Ag (Rapid) negative (Negative) 02/02/24 23:43 All radiology interpretation(s) finalized by discharge EKG Data EKG 1: Interpretation: Twelve-lead EKG obtained at 2319 reviewed at 2323 demonstrates sinus rhythm ventricular rate 95 bpm, NM interval 193 QRS duration 106 QT 329 QTc [address] elevation or depression to demonstrate acute ischemia or infarction at present Discharge Plan Discharge Patient Disposition: Home Clinical Impression: COPD exacerbation, Acute dyspnea Cough Qualifiers: Cough type: acute Qualified Code(s): R05.1 - Acute cough Condition: Stable Prescriptions: New Zithromax TRI-ALEXANDRE 500 mg tablet See Rx Instructions .ROUTE .COMPLEX Qty: 3 0RF Rx Instructions: For 250 mg dose pack: take 500 mg today (day 1), then 250 mg for 4 days (days 2-5) guaifenesin 1,200 mg tablet extended release 12hr 1,200 mg PO BID Qty: 14 0RF benzonatate 200 mg capsule 200 mg PO TID Qty: 30 0RF No Action tamsulosin 0.4 mg Capsule 0.4 mg PO QAM Rx Instructions: take after same meal each day. hydrochlorothiazide 25 mg Tablet 25 mg PO DAILY finasteride 5 mg Tablet 5 mg PO QAM loratadine 10 mg Tablet 10 mg PO QAM valacyclovir 500 mg Tablet 500 mg PO QAM omega-3 fatty acids [Fish Oil Concentrate] 1,000 mg Capsule 2,000 mg PO QAM miconazole nitrate 2 % Aerosol Powder 1 ea TOPICAL TID PRN (Reason: Rash) sildenafil 100 mg Tablet 50 - 100 mg PO DAILY PRN (Reason: Erectile Dysfunction) Lee's Extra Strength 580 (467) mg Tablet 580 mg PO DAILY PRN (Reason: Pain) methocarbamol [Robaxin] 750 mg Tablet 750 mg PO QID PRN (Reason: Muscle Spasm) mupirocin 2 % Ointment 1 applic TOPICAL BID albuterol sulfate [ProAir HFA] 90 mcg/actuation Hfa Aerosol Inhaler 2 puff INHALATION Q4H PRN (Reason: Shortness Of Breath) mometasone 50 mcg/actuation spray,non-aerosol 2 spray intranasal DAILY Qty: 17 0RF Rx Instructions: administer into each nostril tizanidine 4 mg tablet 4 mg PO Q6H PRN (Reason: muscle spasticity) Qty: 20 0RF Rx Instructions: do not exceed 3 doses per 24 hrs diclofenac sodium 75 mg tablet,delayed release (DR/EC) 75 mg PO Q12H PRN (Reason: pain) Qty: 20 0RF prednisone 20 mg tablet 20 mg PO TID Qty: 15 0RF Rx Instructions: 1 p.o. 3 times daily x3 days, 1 p.o. twice daily x2 days, 1 p.o. daily x2 days guaifenesin 1,200 mg tablet extended release 12hr 1,200 mg PO BID Qty: 14 0RF Pepcid 40 mg tablet 40 mg PO DAILY Qty: 30 0RF omeprazole 40 mg Capsule,Delayed Release(Dr/Ec) 40 mg PO DAILY gabapentin 100 mg Capsule 100 mg PO TID Crestor 5 mg Tablet 5 mg PO BEDTIME potassium chloride 20 mEq Tablet Extended Release 10 meq PO DAILY nystatin 100,000 unit/gram powder 1 applic topical BID Qty: 30 0RF Discharge Orders: Discharge ED (Routine); Ordered 02/03/24 Ordered By: Taran Da Silva Referrals: Rena Boucher, CANCELING AND CUTTING CONTROL CLERK [Primary Care Provider] - Discharge Diet: Usual diet Discharge Activity: Resume usual activity Patient Instructions: Opioid Safety, Pain Management Activity Restrictions/Additional Instructions: Activity Restrictions/Additional Instructions: Thank you for choosing [facility] for your healthcare needs today. Please realize that you were seen in the Emergency Department and that we are providing you with an emergency medical screening exam and this may not be a complete and all inclusive of all the testing and or medical work-up that you may need to determine your ailment or severity of your illness. It is very important that you follow-up as instructed with your Primary care provider or Specialist for additional evaluation and to discuss your medical treatment plan. Coding Level of Care Code ED Movie Producer for Lourdes Lerma
[2024-02-02 23:30] LABS: Basophils # 0.1 10^3/uL (0.0-0.1); Basophils % 0.5 %; Eosinophils # 0.4 10^3/uL (0.0-0.8); Eosinophils % 3.4 %; Hematocrit 43.6 % (37-53); Lymphocytes # 2.2 10^3/uL (0.8-4.8); Lymphocytes % 17.2 %; Mean Corpuscular HGB Conc 32.6 g/dL (30-55); Mean Corpuscular Hemoglobin 30.5 pg (27-33); Mean Corpuscular Volume 93.8 fl (82-101); Mean Platelet Volume 10.2 fL (7.4-10.4); Monocytes % 7.9 %; Neutrophils # 8.87 10^3/uL (1.8-7.7); Neutrophils % 70.7 %; Nucleated Red Blood Cells % 0 %; Platelet Count 278 10^3/cmm (157-399); Red Blood Count 4.65 10^6/uL (3.85-5.65); Red Cell Distribution Width 15.1 % (12.1-15.1); White Blood Count 12.55 10^3/uL (3.29-11.43)
[2024-02-02 23:42] LABS: Lactic Sepsis W/Reflex 1.4 mmol/L (0.5-2.2)
[2024-02-02 23:47] VITALS: BP 120/75; PULSE 109; RESP 22; O2SAT 91
[2024-02-02 23:49] LABS: Troponin(5th) Baseline 17 ng/L (0-15)
[2024-02-02] MEDS: ipratropium-albuterol 3 mL Neb 9 ML INHALATION (23:50)
[2024-02-02 23:51] VITALS: PULSE 91; RESP 20; O2SAT 94
[2024-02-02 23:56] VITALS: PULSE 92; RESP 20; O2SAT 95
[2024-02-02 23:59] LABS: INR 0.88 (0.8-1.2); NT Pro B Type Natriuretic Pept 166 pg/mL (0-450); Procalcitonin 0.08 ng/mL (0-0.5)
[2024-02-03 00:03] LABS: Influenza A by IFA negative (Negative); Influenza B by IFA negative (Negative); SARS Covid-2 Antigen negative (Negative)
[2024-02-03 00:10] LABS: Alanine Aminotransferase 34 U/L (0-41); Albumin Level 4.4 g/dL (3.5-5.2); Alkaline Phosphatase 84 U/L (40-130); Aspartate Amino Transferase 25 U/L (0-40); Blood Urea Nitrogen 23 mg/dL (8-23); Calcium 9.8 mg/dL (8.5-10.5); Carbon Dioxide 29 mmol/L (22-29); Chloride 99 mmol/L (98-107); Creatinine Clr Calc Pharmacy 70.1731; Globulin 2.3 g/dL (1.3-4.6); Glucose 108 mg/dL (65-115); Osmolality Calculated 292 mOsm/kg (285-295); Sodium 139 mmol/L (136-145); Total Bilirubin 0.2 mg/dL (0.15-1.2); Total Protein 6.7 g/dL (6.6-8.7)
[2024-02-03 00:47] VITALS: BP 108/57; PULSE 75; RESP 18; O2SAT 93
--- NOTE | 2024-02-03 00:47 | PC.NURSE ---
placed pt on 2L NC due to consistent oxygen saturation 88 on room air while sleeping
[2024-02-03 01:03] VITALS: BP 117/56; PULSE 65; RESP 18; O2SAT 92
== END 2024-02-03 01:20 | disposition home or self-care (01) ==
PROVIDERS: Emergency Provider Internal Medicine; PCP Nurse Practitioner
DX: J44.1 Chronic obstructive pulmonary disease with (acute) exacerbation (principal); R05.1 Acute cough; Z11.52 Encounter for screening for COVID-19; I10 Essential (primary) hypertension; Z87.891 Personal history of nicotine dependence
CPT/HCPCS: 71045; 80053; 83605; 83880; 84145; 84484; 85025; 85610; 87426; 87804; 93005; 94640; 99285

== ENCOUNTER 2024-02-13 09:13 | Outpatient (CLI) | payer OTHER, SELFPAY ==
--- NOTE | 2024-02-13 09:21 | CT_ITS ---
WS: [id number] CT chest wo con [id number] HISTORY: COUGH CONGESTION TECHNIQUE: Axial imaging performed through the thorax. Coronal and sagittal reformats are submitted. All CT scans at [facility] use at least one of these dose optimization techniques: automated exposure control; mA and/or kV adjustment per patient size (includes targeted exams where dose is mat ched to clinical indication); or iterative reconstruction. CONTRAST: Omnipaque 350; 100 mL IV. DLP: 591.27 mGy.cm COMPARISON: 12/31/2023 Lungs and central airway: Advanced centrilobular and paraseptal emphysema. Biapical pleural thickenin g and scarring. Improved aeration throughout both lungs since 12/31/2013. Probably representing improv ed pulmonary edema. 4 mm nodule in the LEFT upper lobe was also noted on CT from 04/12/2020. Benign ca lcified nodule in the RIGHT middle lobe. Pleura: Normal. No pleural effusion. Heart and pericardium: Normal size heart with no pericardial effusion. Mediastinum and gil: No mediastinum or hilar adenopathy. No paraesophageal lymph nodes identified on today's exam. Vessels: Mild atherosclerosis aorta. No aneurysm. Normal size pulmonary artery. Chest wall and lower neck: No soft tissue masses. Upper abdomen: 10 mm LEFT adrenal adenoma. Osseous structures: No destructive process. IMPRESSION: 1. Paraseptal and centrilobular emphysema. No suspicious mass or nodule. 2. Previously described paraesophageal lymph nodes and the esophageal wall thickening is improved. N o residual adenopathy. 3. Stable LEFT adrenal adenoma. 4. Prior cholecystectomy.
== END 2024-02-13 09:14 | disposition home or self-care (01) ==
LOC: RAD 09:13
PROVIDERS: PCP Nurse Practitioner; Visit Provider Nurse Practitioner Family
DX: J43.2 Centrilobular emphysema (principal); D35.02 Benign neoplasm of left adrenal gland; R05.9 Cough, unspecified
CPT/HCPCS: 71250

== ENCOUNTER 2024-04-08 07:08 | Day surgery (SDC) | payer OTHER, SELFPAY ==
--- NOTE | 2024-04-08 05:58 | W.PM.OPSFHP ---
Same Day Surgery H&P Indication for Procedure/HPI DATE OF PROCEDURE: April 08, 2024 CHIEF COMPLAINT/INDICATIONFOR SURGICAL PROCEDURE: thickening of esophagus PREOP DIAGNOSIS: thickening of esophagus PLANNED PROCEDURE: Operation Date: 04/08/24 08:35 Proposed Procedures p [id number] egd K22.89(Not Applicable) - Chandler Winters MD Medications/Allergies* Home Medications Medication Instructions Recorded Confirmed Type finasteride 5 mg tablet 5 mg PO QAM 06/24/20 04/06/24 History hydrochlorothiazide 25 mg tablet 25 mg PO DAILY 06/24/20 04/06/24 History tamsulosin 0.4 mg capsule 0.4 mg PO QAM 06/24/20 04/06/24 History valacyclovir 500 mg tablet 500 mg PO QAM 06/24/20 04/06/24 History albuterol sulfate 90 mcg/actuation 2 puff inhalation Q4H PRN 07/16/22 04/06/24 History aerosol inhaler (ProAir HFA) Shortness Of Breath omega-3 fatty acids 1,000 mg 2,000 mg PO QAM 07/16/22 04/06/24 History capsule omeprazole 40 mg capsule,delayed 40 mg PO DAILY 11/21/22 04/06/24 History release cetirizine 10 mg tablet 10 mg PO DAILY 04/06/24 04/06/24 History montelukast 10 mg tablet 10 mg PO DAILY 04/06/24 04/06/24 History Allergies/Adverse Reactions Allergy/AdvReac Type Severity Reaction Status Date / Time codeine Allergy Unknown Unknown Verified 01/21/24 11:03 pravastatin Allergy Unknown Unknown Verified 01/21/24 11:03 tiotropium Allergy Unknown Unknown Verified 01/21/24 11:03 [From Spiriva with HandiHaler] Pertinent History/Comorbid Conditions* Medical History (Updated 02/11/24 @ 00:01 by SUHAS Aguiar) Hypertension Surgical History (Updated 07/16/22 @ 16:54 by Chaz Cruz MD) H/O umbilical hernia repair History of cholecystectomy Social History Smoking and tobacco/nicotine status: former use of tobacco/nicotine Alcohol intake: current Alcohol intake frequency: holidays/special occasions only Substance/Drug Use: never Pertinent Exam Findings alert, oriented x 3, clear to auscultation bilaterally and regular rate & rhythm Recommendations Surgery/Procedure today Coding Level of Care Code Acute Code for Chg Fwd
[2024-04-08 07:32] VITALS: PULSE 48; RESP 18; TEMP 36.2; O2SAT 98; BMI 29.4
[2024-04-08] MEDS: sodium chloride 0.9% 1,000 ML 30 ML IV (07:45)
--- NOTE | 2024-04-08 07:56 | P.ANESASSM_ITS ---
Pre-Anesthetic Assessment Height/Weight: Height 1.83 m Weight 98.43 kg Temp Pulse Resp Pulse Ox O2 Del Method 97.1 F L 48 L 18 98 Room Air 04/08/24 07:32 04/08/24 07:32 04/08/24 07:32 04/08/24 07:32 04/08/24 07:32 Preop Diagnosis: thickening of esophagus Operation Date: 04/08/24 08:35 Proposed Procedures p [id number] egd K22.89(Not Applicable) - Chandler Winters MD Familial anesthetic complications: None Was Beta Vesta taken within 24 hours: N/A Was Clonidine taken within 24 hours: N/A Last intake: Intake Last Liquid Date 04/07/24 Last Liquid Time 23:30 Last Solid Date 04/07/24 Last Solid Time 23:30 Social No alcohol and No tobacco (Quit at age 54, smoked for 40 years) Exam alert, oriented x 3, clear to auscultation bilaterally and regular rate & rhythm Airway Submandibular: within normal limits (Large tongue) Cervical ROM: Other (Decreased ROM) Mallampati: Class IV Dentition: false History/ROS No significant history except as noted and No significant complaints Pulmonary Chronic Obstructive Pulmonary Disease, Cough (Chronic cough since November), Exertional Dyspnea and Sleep Apnea CV/HEM Coronary Artery Disease, Hypertension, Myocardial Infarction (No intervention), Palpitations and Peripheral Vascular Disease None reported Hepatic None reported GI Gastroesophageal Reflux Disease (Controlled with meds) Thickening of esophagus Metabolic Diabetes Mellitus and Morbid Obesity Musc/skel Osteoarthritis/DJD Neuropsych Neuropathy Anesthetic Plan ASA status: 3 Anesthesia: Anesthesia Evaluation, General and MAC Risk of > 500 ml blood loss (7ml/kg in children): No Medications/Allergies Home Medications Medication Instructions Recorded Confirmed Last Taken Type finasteride 5 mg tablet 5 mg PO QAM 06/24/20 04/08/24 04/06/24 History hydrochlorothiazide 25 mg tablet 25 mg PO DAILY 06/24/20 04/08/24 04/06/24 Histo ry tamsulosin 0.4 mg capsule 0.4 mg PO QAM 06/24/20 04/08/24 04/06/24 History valacyclovir 500 mg tablet 500 mg PO QAM 06/24/20 04/08/24 04/06/24 History albuterol sulfate 90 mcg/actuation 2 puff inhalation Q4H PRN 07/16/22 04/08/24 04/06/24 History aerosol inhaler (ProAir HFA) Shortness Of Breath omega-3 fatty acids 1,000 mg 2,000 mg PO QAM 07/16/22 04/08/24 04/06/24 History capsule omeprazole 40 mg capsule,delayed 40 mg PO DAILY 11/21/22 04/08/24 11/21/22 History release tizanidine 4 mg tablet 4 mg PO Q6H PRN muscle spasticity 05/09/23 04/08/24 04/06/24 Rx #20 tabs benzonatate 200 mg capsule 200 mg PO TID Cough #30 caps 02/03/24 04/08/24 1 Month Ago Rx ~03/07/24 cetirizine 10 mg tablet 10 mg PO DAILY 04/06/24 04/08/24 04/06/24 History montelukast 10 mg tablet 10 mg PO DAILY 04/06/24 04/08/24 04/06/24 History gabapentin 100 mg tablet 100 mg PO TID 04/08/24 04/08/24 04/07/24 History pantoprazole 40 mg tablet,delayed 40 mg PO DAILY 04/08/24 04/08/24 04/07/24 History release tadalafil 10 mg tablet 10 mg PO DAILY PRN Erectile 04/08/24 04/08/24 Unknown History Dysfunction Allergies Allergy/AdvReac Type Severity Reaction Status Date / Time codeine Allergy Unknown Unknown Verified 01/21/24 11:03 pravastatin Allergy Unknown Unknown Verified 01/21/24 11:03 tiotropium Allergy Unknown Unknown Verified 01/21/24 11:03 [From Spiriva with HandiHaler] Current Medications Generic Name Dose Route Start Last Admin Trade Name Freq PRN Reason Stop Dose Admin Sodium Chloride 1,000 mls @ 30 mls/hr 04/08/24 07:15 04/08/24 07:45 Sodium Chloride 0.9% IV 30 mls/hr .Q24H DONNIE Administration PFSH Anesthesia Medical History (Updated 02/11/24 @ 00:01 by SUHAS Aguiar) Hypertension Surgical History (Updated 01/21/24 @ 11:36 by CIRILO Fry) H/O umbilical hernia repair History of cholecystectomy Social History Smoking and tobacco/nicotine status: former use of tobacco/nicotine Alcohol intake: current Alcohol intake frequency: holidays/special occasions only Substance/Drug Use: never Data Anesthesia Cardiac Studies: No Data to Display
[2024-04-08 09:15] VITALS: BP 96/64; PULSE 49; RESP 18; TEMP 36.3; O2SAT 93
[2024-04-08 09:30] VITALS: BP 108/67; PULSE 47; RESP 18; O2SAT 95
[2024-04-08 09:40] VITALS: BP 107/67; PULSE 44; RESP 18; O2SAT 96
--- NOTE | 2024-04-08 10:00 | ANE.PACU2 ---
Inpatient post-anesthesia follow up: Airway intact: Yes Vital signs: Temperature 97.4 F Pulse Rate 44 Respiratory Rate 18 Blood Pressure 107/67 Pulse Oximetry 96 Oxygen Delivery Me thod Room Air Oxygen Flow Rate Fraction of Inspir ed Oxygen Hydration adequate: Yes Nausea and vomiting: No Pain level: 1 Mental status: Baseline
== END 2024-04-08 10:00 | disposition home or self-care (01) ==
PROVIDERS: PCP Nurse Practitioner; Visit Provider Surgery
PROC: 0DJ08ZZ Inspection of Upper Intestinal Tract, Via Natural or Artificial Opening Endoscopic (ICD-10-PCS; CPT 43235; principal; 2024-04-08 08:35)
DX: K22.89 Other specified disease of esophagus (principal); Z87.891 Personal history of nicotine dependence; K44.9 Diaphragmatic hernia without obstruction or gangrene; K25.9 Gastric ulcer, unspecified as acute or chronic, without hemorrhage or perforation; K29.70 Gastritis, unspecified, without bleeding; D13.2 Benign neoplasm of duodenum; J44.9 Chronic obstructive pulmonary disease, unspecified; G47.30 Sleep apnea, unspecified; I25.10 Atherosclerotic heart disease of native coronary artery without angina pectoris; I10 Essential (primary) hypertension; I25.2 Old myocardial infarction; E66.01 Morbid (severe) obesity due to excess calories; Z68.29 Body mass index [BMI] 29.0-29.9, adult; E11.40 Type 2 diabetes mellitus with diabetic neuropathy, unspecified
CPT/HCPCS: 43239; 88305; 88342; J2704; J7030

== ENCOUNTER → 2024-04-21 09:16 | Outpatient (BNVA) | payer OTHER, SELFPAY | PROVIDERS: PCP Nurse Practitioner; Visit Provider Surgery | DX: Z09 Encounter for follow-up examination after completed treatment for conditions other than malignant neoplasm (principal) | CPT/HCPCS: 99213 ==

== ENCOUNTER → 2024-09-02 10:34 | Outpatient (BNVA) | payer OTHER, SELFPAY | PROVIDERS: PCP Nurse Practitioner; Visit Provider Internal Medicine Cardiovascular Disease | DX: I49.8 Other specified cardiac arrhythmias (principal); R94.31 Abnormal electrocardiogram [ECG] [EKG]; I10 Essential (primary) hypertension; R07.9 Chest pain, unspecified | CPT/HCPCS: 93005; 99204 ==

== ENCOUNTER 2024-09-28 11:05 | Outpatient (CLI) | payer OTHER, SELFPAY ==
--- NOTE | 2024-09-28 12:00 | USCV_ITS ---
William Calloway Age: 79 Gender: M : 1945 Exam Date: 09/28/2024 11:41 Ordering Phys: Cabrera Knight MD ([email or web address]) Technologist: CT Exam Location: [facility] Indication: SOB BP: / HR: Rhythm: Sinus Technical Quality: Adequate MEASUREMENTS (Male / Female) Normal Values FINDINGS Left Ventricle Normal LV size ejection fraction of 60%. (visual).No regional wall motion abnormalities. Grade I/IV diastolic dysfunction (abnormal relaxation filling pattern), normal to mildly elevated filling pressures. Right Ventricle The right ventricle is normal in size and function. Right Atrium The right atrium is normal in size. Left Atrium Mildly increased left atrial size. Mitral Valve No gross abnormalities noted Aortic Valve Thickened aortic valve. Trace aortic valve regurgitation. Tricuspid Valve No gross abnormalities noted.trace tricuspid valve regurgitation. Estimated pulmonary artery peak systolic pressure within normal limits Pulmonic Valve Pulmonic valve not well visualized. Pericardium Normal pericardium without effusion. Aorta Normal ascending aorta dimension. IVC The inferior vena cava appears normal. CONCLUSIONS Normal LV size ejection fraction of 60%. (visual).No regional wall motion abnormalities. Grade I/IV diastolic dysfunction (abnormal relaxation filling pattern), normal to mildly elevated filling pressures. Mildly increased left atrial size. Thickened aortic valve. Trace aortic valve regurgitation. Trace tricuspid valve regurgitation. Estimated pulmonary artery peak systolic pressure within normal limits. There is no pericardial effusion. There are no intracardiac masses. No similar previous studies are available for comparison Dr Cabrera Knight MD [facility] (Electronically Signed) Final Date: 08 October 2024 00:38 S
== END 2024-09-28 11:06 | disposition home or self-care (01) ==
LOC: RAD 11:06
PROVIDERS: PCP Nurse Practitioner; Visit Provider Internal Medicine Cardiovascular Disease
DX: I50.30 Unspecified diastolic (congestive) heart failure (principal); I35.0 Nonrheumatic aortic (valve) stenosis; R06.09 Other forms of dyspnea
CPT/HCPCS: 93306

== ENCOUNTER → 2024-10-13 10:30 | Outpatient (BNVA) | payer OTHER, SELFPAY | PROVIDERS: PCP Nurse Practitioner; Visit Provider Nurse Practitioner Family | DX: I10 Essential (primary) hypertension (principal); I73.9 Peripheral vascular disease, unspecified; J44.9 Chronic obstructive pulmonary disease, unspecified; L60.3 Nail dystrophy; L84 Corns and callosities; Z87.891 Personal history of nicotine dependence; K44.9 Diaphragmatic hernia without obstruction or gangrene; R60.9 Edema, unspecified; B35.3 Tinea pedis | CPT/HCPCS: 11056; 11721; 99203; 99214 ==

== ENCOUNTER 2024-12-03 07:15 | Outpatient (CLI) | payer OTHER, SELFPAY ==
--- NOTE | 2024-12-03 | FL_ITS ---
[place] barium swallow [id number] REASON FOR EXAM: R13.19 - Other dysphagia FLUOROSCOPY TIME: 2min [id number] # OF SPOT FILMS: Multiple TECHNIQUE: Patient was examined in the standing upright and lateral position, prone CAMARENA, and supine LPO positions. The swallowing of barium was monitored fluoroscopically and multiple rapid sequence spot films obtained. FINDINGS: The cervical esophagus demonstrated normal motility and anatomy. No diverticulum, cricopharyngeus hypertrophy, or aspiration identified. The thoracic esophagus demonstrated intermittent periods of persistent lower esophageal spasm with prolonged retention of the barium in the esophagus and development of tertiary contractions. Intermittent reflux from the midesophagus to the thoracic inlet. Small sliding hiatal hernia without significant Schatzki ring or reflux. No fixed narrowing of the distal esophagus. IMPRESSION: Esophageal dysmotility as above. (Type II achalasia) Small hiatal hernia without reflux. MTDD
== END 2024-12-03 07:16 | disposition home or self-care (01) ==
LOC: RAD 07:18
PROVIDERS: PCP Nurse Practitioner; Visit Provider Specialist
DX: R13.19 Other dysphagia (principal); K22.4 Dyskinesia of esophagus; K44.9 Diaphragmatic hernia without obstruction or gangrene; K21.9 Gastro-esophageal reflux disease without esophagitis; I10 Essential (primary) hypertension
CPT/HCPCS: 74220; 99213

== ENCOUNTER → 2024-12-15 12:58 | Outpatient (BNVA) | payer OTHER, SELFPAY | PROVIDERS: PCP Nurse Practitioner; Visit Provider Podiatrist Foot & Ankle Surgery | DX: L60.3 Nail dystrophy (principal); I73.9 Peripheral vascular disease, unspecified; R60.9 Edema, unspecified; B35.3 Tinea pedis; L84 Corns and callosities | CPT/HCPCS: 11056; 11721 ==

== ENCOUNTER 2024-12-26 12:36 | Emergency (ER) | payer OTHER, MEDICARE, SELFPAY ==
[2024-12-26 12:39] VITALS: BP 128/79; PULSE 67; RESP 17; TEMP 36.6; O2SAT 96; BMI 29.0
--- NOTE | 2024-12-26 14:51 | XRR_ITS ---
PROCEDURE INFORMATION: Exam: XR Chest Exam date and time: 12/26/2024 3:19 PM Age: 79 years old Clinical indication: Cough and dyspnea; Additional info: Dyspnea/cough TECHNIQUE: Imaging protocol: Radiologic exam of the chest. Views: 1 view. COMPARISON: CT chest con [id number] 02/13/2024 9:34 AM FINDINGS: Lungs: Calcified right lung granuloma. Nonspecific prominence of the pulmonary interstitium. No lobar consolidation. Pleural spaces: Unremarkable. No pleural effusion. No pneumothorax. Heart/Mediastinum: Unremarkable. No cardiomegaly. Bones/joints: Unremarkable. XR/XR chest 1V portable [id number] IMPRESSION: As above.
[2024-12-26 15:55] LABS: Basophils # 0.1 10^3/uL (0.0-0.1); Basophils % 0.8 %; Eosinophils # 0.3 10^3/uL (0.0-0.8); Eosinophils % 3.9 %; Hematocrit 44.2 % (37-53); Lymphocytes # 1.8 10^3/uL (0.8-4.8); Lymphocytes % 28.6 %; Mean Corpuscular HGB Conc 32.8 g/dL (30-55); Mean Corpuscular Hemoglobin 29.7 pg (27-33); Mean Corpuscular Volume 90.4 fl (82-101); Mean Platelet Volume 11.1 fL (7.4-10.4); Monocytes # 0.7 10^3/uL (0.2-0.9); Monocytes % 10.6 %; Neutrophils % 55.8 %; Nucleated Red Blood Cells % 0 %; Platelet Count 180 10^3/cmm (157-399); Red Blood Count 4.89 10^6/uL (3.85-5.65); Red Cell Distribution Width 13.3 % (12.1-15.1); White Blood Count 6.44 10^3/uL (3.29-11.43)
[2024-12-26 16:14] LABS: Alanine Aminotransferase 39 U/L (0-41); Alkaline Phosphatase 153 U/L (40-130); Anion Gap 15.9 (5-19); Aspartate Amino Transferase 36 U/L (0-40); Blood Urea Nitrogen 13 mg/dL (8-23); Calcium 9.1 mg/dL (8.5-10.5); Carbon Dioxide 28 mmol/L (22-29); Chloride 93 mmol/L (98-107); Creatinine Clr Calc Pharmacy 74.7142; Glucose 100 mg/dL (65-115); Osmolality Calculated 276 mOsm/kg (285-295); Potassium 3.9 mmol/L (3.5-5.1); Sodium 133 mmol/L (136-145); Total Bilirubin 0.3 mg/dL (0.15-1.2)
[2024-12-26 17:09] VITALS: BP 109/69; PULSE 66; RESP 16; TEMP 37.2; O2SAT 92
== END 2024-12-26 17:50 | disposition left against medical advice (07) ==
PROVIDERS: Emergency Provider Family Medicine; PCP Nurse Practitioner
DX: Z53.21 Procedure and treatment not carried out due to patient leaving prior to being seen by health care provider (principal)
CPT/HCPCS: 36415; 71045; 80053; 85025

== ENCOUNTER → 2025-02-16 13:20 | Outpatient (BNVA) | payer OTHER, SELFPAY | PROVIDERS: PCP Nurse Practitioner; Visit Provider Podiatrist Foot & Ankle Surgery | DX: I73.9 Peripheral vascular disease, unspecified (principal); L60.3 Nail dystrophy; L84 Corns and callosities; R60.9 Edema, unspecified; M77.41 Metatarsalgia, right foot; M77.42 Metatarsalgia, left foot | CPT/HCPCS: 11056; 11721; 99213 ==

== ENCOUNTER 2025-04-02 22:41 | Emergency (ER) | payer OTHER, SELFPAY ==
[2025-04-02 22:51] VITALS: BP 134/75; PULSE 65; RESP 16; TEMP 36.6; O2SAT 96; BMI 4178.9
--- NOTE | 2025-04-02 23:34 | W.ED.EXTPRO ---
HPI - Extremity Problem General: Chief complaint: Extremity Injury, Upper Stated complaint: R top of hand some kind of bite Time Seen by Provider: 04/02/25 23:14 Source: patient Mode of arrival: ambulatory Limitations: no limitations History of Present Illness: Patient is 80-year-old male that presents to the emergency department with some redness and swelling to the back of the right hand. He thinks he may have gotten bit by an insect of some sort. He reports it is very itchy. He also reports an itchy rash on both of his arms. He denies any fever or chills. He denies any nausea or vomiting. He presents to the emergency department for further evaluation and treatment. Associated symptoms: Reports rash (Bilateral arms); Deny chest pain or fever(s) Related Data Home Medications ?Medication ?Instructions ?Recorded ?Confirmed finasteride 5 mg tablet 5 mg PO QAM 06/24/20 02/16/25 hydrochlorothiazide 25 mg tablet 25 mg PO DAILY 06/24/20 02/16/25 tamsulosin 0.4 mg capsule 0.4 mg PO QAM 06/24/20 02/16/25 valacyclovir 500 mg tablet 500 mg PO QAM 06/24/20 02/16/25 albuterol sulfate 90 mcg/actuation 2 puff inhalation Q4H PRN 07/16/22 02/16/25 aerosol inhaler (ProAir HFA) Shortness Of Breath omega-3 fatty acids 1,000 mg 2,000 mg PO QAM 07/16/22 02/16/25 capsule cetirizine 10 mg tablet 10 mg PO DAILY 04/06/24 02/16/25 montelukast 10 mg tablet 10 mg PO DAILY 04/06/24 02/16/25 tadalafil 10 mg tablet 10 mg PO DAILY PRN Erectile 04/08/24 02/16/25 Dysfunction mometasone 220 mcg/actuation(120 1 inh inhalation DAILY 09/02/24 02/16/25 doses)breath activated powder inhaler tiotropium 2.5 mcg-olodaterol 2.5 2 puff inhalation DAILY 09/02/24 02/16/25 mcg/actuation mist for inhalation (Stiolto Respimat) fluticasone propionate 50 1 spray intranasal DAILY 10/13/24 02/16/25 mcg/actuation nasal spray,suspension (Allergy Relief (fluticasone)) omeprazole 40 mg capsule,delayed 40 mg PO DAILY 10/13/24 02/16/25 release rosuvastatin 10 mg tablet 5 mg PO DAILY 10/13/24 02/16/25 Previous Rx's ?Medication ?Instructions ?Recorded tizanidine 4 mg tablet 4 mg PO Q6H PRN muscle spasticity 05/09/23 #20 tabs orthopedic shoes #1 ea 02/22/25 doxycycline hyclate 100 mg capsule 100 mg PO BID 10 days #20 caps 04/02/25 triamcinolone acetonide 0.5 % 1 applic topical BID #15 grams 04/02/25 topical cream Allergies Allergy/AdvReac Type Severity Reaction Status Date / Time codeine Allergy Unknown Unknown Verified 02/16/25 13:23 pravastatin Allergy Unknown Unknown Verified 02/16/25 13:23 tiotropium (From Spiriva Allergy Unknown Unknown Verified 02/16/25 13:23 with HandiHaler) Review of Systems General: Reports: 10 or more systems reviewed and unremarkable except in HPI and below Const: Denies: fever(s) or chills Eyes: Denies: change in vision ENMT: Denies: throat pain or swelling of lips/tongue Card: Denies: chest pain Resp: Denies: dyspnea, productive cough, non-productive cough or wheezing GI: Denies: abdominal pain, nausea or vomiting : Denies: flank pain, difficulty urinating or dysuria Musc: Reports: extremity swelling (Back of right hand); Denies: neck pain, back pain or extremity pain Skin/Breast: Reports: rash (Bilateral arms) and pruritus (Bilateral arms) Neuro: Denies: headache(s) or numbness in extremities Psych: Denies: anxiety Endo: Denies: polyuria or polydipsia Phuc/Lymph: Denies: easy bruising, easy bleeding or petechiae All/Imm: Denies: urticaria, throat swelling or tongue swelling PFSH ED PFSH: Medical History Hypertension Surgical History H/O umbilical hernia repair History of cholecystectomy Social History Smoking and tobacco/nicotine status: former use of tobacco/nicotine Alcohol intake: current Alcohol intake frequency: holidays/special occasions only Substance/Drug Use: never Physical Exam Const: COMMON NORMALS: no acute distress and alert GENERAL APPEARANCE: cooperative HENMT: COMMON NORMALS: normocephalic, atraumatic, external ears normal and Normal external nose present HEAD & SCALP: normocephalic and atraumatic FACE & SINUS: normal facial exam NOSE: Normal external nose present EXTERNAL EAR: Yes external ears normal Eye: COMMON NORMALS: conjunctivae normal CONJUNCTIVA: Yes conjunctivae normal Neck/C-Spine: COMMON NORMALS: full ROM and supple Resp: COMMON NORMALS: normal respiratory effort and clear to auscultation bilaterally EFFORT & INSPECTION: Yes able to speak in complete sentences AUSCULTATION: clear to auscultation bilaterally, no crackles, no rales, no rhonchi and no wheezes Cardio: COMMON NORMALS: regular rate and regular rhythm RATE: regular rate RHYTHM: regular rhythm Back/Pelvis: COMMON NORMALS: no thoracic nor lumbar tenderness Extremity: COMMON NORMALS: full ROM, no calf tenderness and no pedal edema RIGHT UPPER EXTREMITY: Yes lower arm (Patient has a red itchy rash of bilateral forearms) and Yes hand & digits Right hand and digits: Yes other (Patient has some erythema and swelling to the back of the right hand) LEFT UPPER EXTREMITY: Yes lower arm (Patient has an itchy rash on bilateral forearms) and No hand & digits Neuro: SENSORIUM/ORIENTATION: Yes alert Psych: COMMON NORMALS: mental status grossly normal, cooperative and speech normal ATTITUDE: Yes calm SPEECH: Yes normal speech Skin: COMMON NORMALS: no petechiae GENERAL SKIN EXAM: dry skin and erythema (Bilateral forearms and dorsal right hand) RASHES: rashes noted (Bilateral forearms and dorsal right hand) Course Vital Signs: Vital signs: Vital Signs Temperature 97.9 F 04/02/25 22:51 Pulse Rate 65 04/02/25 22:51 Respiratory Rate 16 04/02/25 22:51 Blood Pressure 134/75 04/02/25 22:51 Pulse Oximetry 96 04/02/25 22:51 Oxygen Delivery Me thod Room Air 04/02/25 22:51 MDM - Extremity (Nontraumatic) Medical Decision Making Patient was advised of the exam findings. He has some sort of dermatitis on the bilateral forearms. On the back of the right hand he has some redness and swelling that appears consistent with acute cellulitis. Patient will be started on doxycycline to use as directed. For the rash on the forearms I did recommend some triamcinolone cream that he can use. I also recommended that he follow-up with his primary care provider in 1 week for recheck and return to the emergency department with any worsening symptoms. The patient expressed understanding. Differential Diagnosis Likely cellulitis (And dermatitis of the forearms) No radiology studies performed this visit Critical Care Time Critical Care Time: Critical Care Time: No Discharge Plan Discharge Patient Disposition: Home Clinical Impression: Cellulitis of hand, right, Dermatitis Condition: Stable Prescriptions: New doxycycline hyclate 100 mg capsule 100 mg PO BID 10 Days Qty: 20 0RF triamcinolone acetonide 0.5 % cream 1 applic topical BID Qty: 15 0RF Discontinued clotrimazole-betamethasone 1-0.05 % cream 1 applic topical BID 28 Days Qty: 45 0RF No Action Stiolto Respimat 2.5-2.5 mcg/actuation mist 2 puff inhalation DAILY mometasone 220 mcg/ actuation (120) aerosol powdr breath activated 1 inh inhalation DAILY rosuvastatin 10 mg tablet 5 mg PO DAILY omeprazole 40 mg capsule,delayed release(DR/EC) 40 mg PO DAILY fluticasone propionate [Allergy Relief (fluticasone)] 50 mcg/actuation spray,suspension 1 spray intranasal DAILY Rx Instructions: administer into each nostril (DME) orthopedic shoes See Rx Instructions .Route .MEDSUPPLY Qty: 1 0RF Rx Instructions: As directed by [employer] tamsulosin 0.4 mg Capsule 0.4 mg PO QAM Rx Instructions: take after same meal each day. hydrochlorothiazide 25 mg Tablet 25 mg PO DAILY finasteride 5 mg Tablet 5 mg PO QAM valacyclovir 500 mg Tablet 500 mg PO QAM omega-3 fatty acids 1,000 mg Capsule 2,000 mg PO QAM albuterol sulfate [ProAir HFA] 90 mcg/actuation Hfa Aerosol Inhaler 2 puff INHALATION Q4H PRN (Reason: Shortness Of Breath) tizanidine 4 mg tablet 4 mg PO Q6H PRN (Reason: muscle spasticity) Qty: 20 0RF Rx Instructions: do not exceed 3 doses per 24 hrs cetirizine 10 mg Tablet 10 mg PO DAILY montelukast 10 mg Tablet 10 mg PO DAILY tadalafil 10 mg Tablet 10 mg PO DAILY PRN (Reason: Erectile Dysfunction) Rx Instructions: administer approximately 30min before sexual activity; do not use more than 1 dose per 24hrs Discharge Orders: Discharge ED (Routine); Ordered 04/02/25 Ordered By: Agustín Obando Referrals: Rena Boucher FNP [Primary Care Provider, Nurse Practitioner] Discharge Diet: Usual diet Discharge Activity: Resume usual activity Patient Instructions: Cellulitis (ED), Dermatitis (ED), Opioid Safety, Pain Management Activity Restrictions/Additional Instructions: Use the medications as directed. Your prescriptions were sent electronically to the [facility] pharmacy. Cool compresses 15 minutes at a time, 5 times throughout the day as needed for itching or swelling. You may use the steroid cream on your arms for itching and swelling. Follow-up with your doctor in 1 week for recheck. Be careful when taking the doxycycline as your skin will be more sensitive to the sun. If you have to be outside make sure you are covering up. Return to the emergency department with any worsening symptoms such as fever, chills, vomiting or any other worsening symptoms. Print Language: Mauritanian Coding Level of Care Code ED Invoice Classification Clerk for [facility] Lerma
[2025-04-02] MEDS: doxycycline 100 mg Tablet PO (23:52)
[2025-04-03] MEDS: doxycycline 100 mg Tablet 200 MG PO (00:04)
== END 2025-04-03 00:05 | disposition home or self-care (01) ==
PROVIDERS: Emergency Provider Physician Assistant; PCP Nurse Practitioner
DX: L03.113 Cellulitis of right upper limb (principal); L30.9 Dermatitis, unspecified; Z87.891 Personal history of nicotine dependence; I10 Essential (primary) hypertension
CPT/HCPCS: 12345; 99283; J9999

== ENCOUNTER 2025-05-17 21:59 | Observation (INO) | payer OTHER, SELFPAY ==
--- OUTSIDE RECORDS SUMMARY | 2024-06-24 05:30 | XMS_ITS | Encounter Summary ---
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 This section includes the names of all active insurance providers for the patient. Insurance Provider Type of Coverage Plan Name Start of Policy Coverage End of Policy Coverage Group Number Member ID Insurance Provider's Telephone Number Policy Reardon's Name Patient's Relationship to Policy Reardon MEDICARE (WNR) MEDICARE (M) PART B May 17, 2003 PART B [id number] Latoya MCDANIELS ONALD PATIENT MEDICARE (WNR) MEDICARE (M) PART B May 17, 2003 PART B [id number] Latoya MCDANIELS ONALD PATIENT MEDICARE (WNR) MEDICARE (M) PART A Nov 17, 1997 PART A [id number] Latoya MCDANIELS ONALD PATIENT MEDICARE (WNR) MEDICARE (M) PART A Nov 17, 1997 PART A [id number] Latoya MCDANIELS ONERICKSON PATIENT Selected Encounter This section includes the information on record at [place] for the Encounter. Date/Time Encounter Type Encounter Description Reason Provider Source Jun 24, 2024 10:30 AM OFFICE O/P EST LOW 20 MIN PRIMARY CARE/MEDICINE ICD-10-CM J06.9 Acute upper respiratory infection, unspecified MAK REID [place] Encounter Template Text not used by VA Assessments - Encounter Diagnoses This section includes the primary and secondary diagnoses documented for the Encounter. Date/Time Primary/Secondary Diagnosis Diagnosis Name Provider Source Jun 24, 2024 11:09 AM PRIMARY Acute upper respiratory infection, unspecified JOE REID [facility] Jun 24, 2024 11:09 AM SECONDARY Allergic rhinitis, unspecified JOE REID [facility] Plan of Treatment: Future Appointments (+ 6 months) and Future Tests (+/- 45 days) The Plan of Treatment section includes future care activities for the patient from all [place] treatmentfacritical access hospitalities. This section includes future appointments and future orders which are active, pending or scheduled. Future Appointments This section includes appointments that were scheduled to occur 6 months from the date of the Encounter, up to a maximum of 20 appointments. The data comes from all [place] treatment facilities. Appointment Date/Time Appointment Type Appointme nt Facility Name Jul 05, 2024 09:15 AM AMBULATORY - MEDICINE [facility] Jul 05, 2024 11:30 AM AMBULATORY - MEDICINE [facility] Jul 30, 2024 10:30 AM AMBULATORY - MEDICINE [facility] Aug 20, 2024 10:30 AM AMBULATORY - MEDICINE [facility] Sep 02, 2024 11:00 AM AMBULATORY - MEDICINE [facility] Sep 17, 2024 10:00 AM AMBULATORY - MEDICINE [facility] Oct 13, 2024 01:00 PM AMBULATORY - MEDICINE [facility] Lab Results: +/- 30 days of the encounter This section includes the Chemistry and Hematology Lab Results on record with [place] for the patient. Radiology Reports and Pathology Reports are provided separately, in subsequent sections. Lab Results This section contains the Chemistry/Hematology Results that were resulted 30 days before or 30 daysafter the date of the Encounter. Date/Time Source Result Type Result - Unit Interpretation Reference Range Specimen Type Comment Jun 24, 2024 10:49 AM [facility] TESTOSTERONE, TOTAL (PB-MA) SERUM Specimen Ty pe: SERUM No comment entered. Ordering Provider: BERNIE REID Report Released Date/Time: Jun 24, 2024 10:46 AM Reporting Lab: [place] [facility] [address] [place] [address] Performing Lab: [place] [facility] [address] [place] [address] TESTOSTERONE, TOTAL (PB-MA) 335 ng/dL 22 1.0-871.0 Jun 24, 2024 09:17 AM [facility] VITAMIN D, 25-HYDROXY SERUM Specimen Type: SE RUM No comment entered. Ordering Provider: BERNIE REID Report Released Date/Time: Jun 24, 2024 09:17 AM Reporting Lab: [place] [facility] [address] [place] [address] Performing Lab: [place] [facility] [address] [place] [address] VITAMIN D, 25-HYDROXY 45.1 ng/mL 30-96 Jun 24, 2024 09:17 AM [facility] HGA1C BLOOD Specimen Type: BLOOD No comment entered. Ordering Provider: BERNIE REID Report Released Date/Time: Jun 24, 2024 09:17 AM Reporting Lab: [place] [facility] [address] [place] [address] Performing Lab: [place] [facility] [address] [place] [address] HGA1C 5.7 4.0-6.0 Jun 24, 2024 09:17 AM [facility] CHOLESTEROL PANEL (PB) PLASMA Specimen Type: P LASMA No comment entered. Ordering Provider: BERNIE REID Report Released Date/Time: Jun 24, 2024 09:17 AM Reporting Lab: [place] [facility] [address] [place] [address] Performing Lab: [place] [facility] [address] [place] [address] CHOLESTEROL 245 mg/dL H 0-200 TRIGLYCERIDE 126 mg/dL 0-150 CALCULATED LDL 154.1 mg/dL HDL(New) 65.7 mg/dL H >40 HDL % OF TOTAL CHOLESTEROL (PB) 26.8 >25 Jun 24, 2024 09:17 AM [facility] TSH (MA-PB) SERUM Specimen Typ e: SERUM No comment entered. Ordering Provider: BERNIE REID Report Released Date/Time: Jun 24, 2024 09:17 AM Reporting Lab: [place] [facility] [address] [place] [address] Performing Lab: [place] [facility] [address] [place] [address] TSH 2.455 u[IU]/mL 0.47-5 Jun 24, 2024 09:17 AM [facility] CBC BLOOD Specimen Type: BLOOD No comment entered. Ordering Provider: BERNIE REID Report Released Date/Time: Jun 24, 2024 09:17 AM Reporting Lab: [place] [facility] [address] [place] [address] Performing Lab: [place] [facility] [address] [place] [address] WBC 7.9 10*3/uL 3.6-11.2 RBC 5.11 10*6/uL 4.10-5.70 HGB 15.9 g/dL 13.1-16.8 HCT 48.2 38.2-48.4 MCV 94.3 fL 80.0-100.0 MCH 31.1 pg 27.0-34.0 MCHC 33.0 g/dL 33.0-36.0 PLT 234 10*3/uL 150-400 MPV 11.1 fL 7.5-11.2 RDW 13.8 11.8-15.1 LYMPHOCYTES, AUTO % 32.5 MONOCYTES, AUTO % 11.1 NEUTROPHILS, AUTO % 47.3 EOSINOPHILS, AUTO % 7.1 BASOPHILS, AUTO % 1.5 LYMPHOCYTES, ABSOLUTE 2.56 10*3/uL 0.77- 4.50 MONOCYTES, ABSOLUTE 0.87 10*3/uL H 0.19-0. 8 NEUTROPHILS, ABSOLUTE 3.72 10*3/uL 2.10- 8.00 EOSINOPHILS, ABSOLUTE 0.56 10*3/uL 0.00- 0.60 BASOPHILS, ABSOLUTE 0.12 10*3/uL 0.00-0. 20 IMMATURE GRANS, AUTO % 0.5 IMMATURE GRANS, AUTO ABS 0.04 10*3/uL 0. 00-0.05 Jun 24, 2024 09:17 AM [facility] COMPREHENSIVE METABOLIC PANEL PLASMA Specimen Type: PLASMA No comment entered. Ordering Provider: BERNIE REID Report Released Date/Time: Jun 24, 2024 09:17 AM Reporting Lab: [place] [facility] [address] [place] [address] Performing Lab: [place] [facility] [address] [facility] [place] [address] CREATININE 1.16 mg/dL 0.7-1.3 UREA NITROGEN 14 mg/dL 9-25 GLUCOSE 91 mg/dL 72-99 SODIUM 139 meq/L 136-145 POTASSIUM 4.0 meq/L 3.5-5 CHLORIDE 103 meq/L 98-107 CARBON DIOXIDE 27 meq/L 22-31 CALCIUM 9.5 mg/dL 8.4-10.4 PROTEIN 7.6 g/dL 6-8.6 ALBUMIN 4.4 g/dL 3.4-5 TOTAL BILIRUBIN 0.7 mg/dL 0.2-1.2 ALKALINE PHOSPHATASE 71 U/L 40-150 AST/SGOT 28 U/L 5-34 ALT/SGPT 31 U/L 8-40 EGFR (CKD-EPI 2020) 65 Jun 24, 2024 09:17 AM [facility] URINALYSIS (STL-PB) URINE Specimen Type: URIN E No comment entered. Ordering Provider: BERNIE REID Report Released Date/Time: Jun 24, 2024 09:17 AM Reporting Lab: [place] [facility] [address] [facility] [place] [facility] Performing Lab: [place] [address] [address] [facility] [place] [facility] URINE COLOR Light Yellow Yellow U.BILIRUBIN NEGATIVE mg/dL Negative U.PH 7.0 5.0-8.0 APPEARANCE CLEAR Clear U.NITRITE NEGATIVE mg/dL Negative URN.GLUCOSE NORMAL mg/dL Negative URN.PROTEIN NEGATIVE mg/dL Negative-20 URN.UROBILINOGEN NORMAL mg/dL Normal URN.BLOOD NEGATIVE mg/dL Negative-Trace URN.KETONES NEGATIVE mg/dL Negative-Trac e URN.LEUK.EST. NEGATIVE Negative-Trace URN.SPECIFIC GRAVITY 1.016 1.005-1.029 Vital Signs: All taken on the encounter date This section contains inpatient and outpatient Vital Signs collected on the date of the Encounter. Date/Time Temperature Pulse Blood Pressure Respiratory Rate SP02 Pain Height Weight Body Mass Index Source Jun 24, 2024 09:58 AM 98.2 57 124/81 20 98 3 72.0 214.0 29 [facility] Social History: Smoking Status (Most current) and Tobacco Use (All prior to encounter date) This section includes the most current, and the historical, smoking and tobacco- related health factors from the [place] facility where the Encounter took place. Current Smoking Status This section includes the most current smoking, or tobacco-related health factor, from the [place] facility where the Encounter took place. Date/Time Current Smoking Status Comment Facil ity Sep 30, 2023 01:30 PM VA-TOBACCO USER EVERY DAY [facility] Tobacco Use History This section includes a history of the smoking, or tobacco-related health factors, that were collected on or before the date of the Encounter. The data comes from the [place] facility where the Encounter took place. 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 [facility] Sep 30, 2023 01:30 PM VA-TOBACCO USE MED NO [facility] Sep 30, 2023 01:30 PM VA-TOBACCO USER EVERY DAY [facility] Oct 15, 2022 01:00 PM VA-TOBACCO FORMER USER [facility] Oct 15, 2022 01:00 PM VA-TOBACCO QUIT 15 YRS OR MORE [facility] Oct 04, 2021 10:30 AM VA-TOBACCO FORMER USER [facility] Oct 04, 2021 10:30 AM VA-TOBACCO QUIT 15 YRS OR MORE [place] Oct 11, 2019 03:08 PM VA-TOBACCO DOESNT USE WI 30 MIN WAKEUP [place] [facility] Oct 11, 2019 03:08 PM VA-TOBACCO USE 30 YEARS OR MORE [place] Oct 11, 2019 03:08 PM VA-TOBACCO USE ADVICE [facility] Oct 11, 2019 03:08 PM 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 [place] Oct 11, 2019 03:08 PM VA-TOBACCO USE MED NO [place] Oct 11, 2019 03:08 PM VA-TOBACCO USER EVERY DAY [facility] Jan 19, 2018 09:40 AM CURRENT TOBACCO USER [facility] Jan 19, 2018 09:40 AM CURRENT TOBACCO US ER (NOT READY TO QUIT) [facility] Jan 19, 2018 09:40 AM SMOKELESS TOBACCO AMOUNT/LENGTH V15 1 pk Q week, 18 yrs [facility] Jan 19, 2018 09:40 AM TOBACCO CESSATION REFERRAL DECLINED [facility] Jan 19, 2018 09:40 AM TOBACCO MEDS OFFER ED BUT DECLINED [facility] Jan 19, 2018 09:40 AM TOBACCO USER OFFERED MEDS [facility] March 21, 2016 01:58 PM TOBACCO MEDS OFFER ED BUT DECLINED [facility] March 21, 2016 01:58 PM TOBACCO OFFERED PT MEDS (PROVIDER) [facility] March 21, 2016 01:[address] OP SMOKING CLINIC [facility] Nov 08, 2015 08:24 AM TOBACCO MEDS OFFER ED BUT DECLINED [facility] Nov 08, 2015 08:24 AM TOBACCO OFFERED PT MEDS (PROVIDER) [facility] Nov 08, 2015 08:[address] OP SMOKING CLINIC [facility] Dec 10, 2013 08:29 AM TOBACCO MEDS OFFER ED BUT DECLINED [facility] Dec 10, 2013 08:29 AM TOBACCO OFFERED PT MEDS (PROVIDER) [facility] Dec 10, 2013 08:[address] OP SMOKING CLINIC [facility] Dec 29, 2012 10:15 AM QUIT TOBACCO >7 YEARS AGO [facility] Aug 20, 2012 09:31 AM TOBACCO MEDS OFFER ED BUT DECLINED [facility] Aug 20, 2012 09:31 AM TOBACCO OFFERED PT MEDS (PROVIDER) [facility] Aug 20, 2012 09:[address] OP SMOKING CLINIC [facility] Mar 13, 2012 08:19 AM TOBACCO MEDS OFFER ED BUT DECLINED [facility] Mar 13, 2012 08:19 AM TOBACCO OFFERED PT MEDS (PROVIDER) [facility] Mar 13, 2012 08:[address] OP SMOKING CLINIC [facility] Jan 16, 2012 02:44 PM CURRENT TOBACCO USER [facility] Jan 16, 2012 02:44 PM TOBACCO MEDS OFFER ED BUT DECLINED [facility] Jan 16, 2012 02:44 PM TOBACCO OFFERED PT MEDS (PROVIDER) [facility] Jan 16, 2012 02:[address] OP SMOKING CLINIC [facility] Aug 28, 2011 08:52 AM TOBACCO MEDS OFFER ED BUT DECLINED [facility] Aug 28, 2011 08:52 AM TOBACCO OFFERED PT MEDS (PROVIDER) declined [facility] Aug 28, 2011 08:[address] OP SMOKING CLINIC declined [facility] Feb 05, 2011 09:46 AM CURRENT TOBACCO USER [place] [facility] Dec 21, 2009 01:59 PM CURRENT TOBACCO USER [place] [facility] Dec 21, 2009 01:[address] OP SMOKING CLINIC [facility] Aug 10, 2009 08:31 AM TOBACCO MEDS OFFER ED BUT DECLINED [facility] Aug 10, 2009 08:31 AM TOBACCO OFFERED PT MEDS (PROVIDER) [facility] Aug 10, 2009 08:[address] OP SMOKING CLINIC [facility] Jan 12, 2008 08:33 AM QUIT TOBACCO IN TH E LAST 12 MONTHS [facility] Sep 07, 2007 01:43 PM CURRENT TOBACCO USER [facility] Jun 19, 2006 11:25 AM CURRENT TOBACCO USER [facility] Mar 12, 2006 10:53 AM CURRENT TOBACCO USER [facility] Nov 21, 2005 11:12 AM CURRENT TOBACCO USER [facility] May 27, 2005 08:56 AM CURRENT TOBACCO USER [facility] Mar 15, 2004 02:03 PM CURRENT TOBACCO USER [facility] Feb 26, 2002 09:17 AM CURRENT NON-TOBACC O USER-HX OF USE Quit 3 years ago. [facility] [facility] Oct 05, 2001 02:50 PM CURRENT TOBACCO USER [facility] Sep 11, 2001 08:38 AM CURRENT TOBACCO USER [facility] Aug 03, 2001 02:03 PM CURRENT TOBACCO USER [facility] May 19, 2001 04:16 PM CURRENT TOBACCO USER [facility] Advance Directives: All historical and current Section Date Range: From patient's date of to the date document was created. This section includes ALL of a patient's completed or amended VA Advance and Rescinded Directives. The entries below indicate that a directive exists for the patient, but an actual copy is not included with this document. The data comes from all [place] facilities. Date Advance Directives Provider Source Apr 30, 2019 ADVANCE DIRECTIVE NOLAN NGUYEN ON [facility] Radiology Reports: +/- 30 days of the encounter Radiology Reports For cases when an order for radiology services may have been completed prior to the date of the Encounter, the report list includes the Radiology Reports that were completed up to 30 days before dateof the Encounter. For cases when an order for radiology services may have been completed after the date of the Encounter, the report list also includes the Radiology Reports that were completed up to30 days after date of the Encounter. The data comes from all [place] treatment facilities. Date/Time Radiology Report Provider Source Jun 24, 2024 09:20 AM CHEST X-RAY, 2 VIE WS: SHELDON MCDANIELS [id number] M Exm Date: JUN 24, 2024@09:20 Req Phys: BERNIE REID Pat Loc: PB-COLT PACT EZIO RELIEF MAN WH (Req Img Loc: PB-XRAY [place] Service: Unknown [facility] , (Case [id number] COMPLETE) CHEST X-RAY, 2 VIEWS (RAD Detailed) CPT:02910 Reason for Study: Continued Cough Clinical History: Continued Cough Report Status: Verified Date Reported: JUN 24, 2024 Date Verified: JUN 24, 2024 Head Kiln Operator E-Sig: Report: PA and lateral views of the chest reveal degenerative skeletal change with mild scoliosis. There is mild biapical pleural thickening. There is moderate bilateral pulmonary hyperaeration. There are at least one calcified granuloma in the parahilar right lung. There is no appreciable active infiltrate or effusion. Heart size is normal. Impression: 1. Chronic findings as noted 2. No acute process Primary Interpreting Staff: SERVANDO MAZARIEGOS RADIOLOGIST (Head Kiln Operator, no e-sig) /SERVANDO Holly [facility] Encounter Notes: All associated encounter notes This section contains the clinical notes associated to the Encounter. Date/Time Encounter Note(s) Provider Source Jun 29, 2024 03:33 PM PRIMARY CARE MEDICATION MGT NOTE: LOCAL TITLE: MEDICATION RENEWAL/REFILL PB STANDARD TITLE: PRIMARY CARE MEDICATION MGT NOTE DATE OF NOTE: JUN 29, 2024@15:33 ENTRY DATE: JUN 29, 2024@15:34:01 AUTHOR: TAM JUAREZ EXP COSIGNER: URGENCY: STATUS: COMPLETED SHELDON MCDANIELS has contacted the and is requesting that the following prescription(s) be renewed. The patient reports that he/she is currently LOW on his/her supply of medication. He/she is requesting a new supply be mailed by MEDICATION REQUESTED: Drug Name VALACYCLOVIR HCL 500MG TAB Issue Date 04/07/2023 SIG TAKE ONE TABLET BY MOUTH ONCE A DAY FOR VIRAL INFECTION PREVENTION Facility: [facility] Recall visit scheduled? Future visits: No future appointments scheduled for this patient ====== The following is informational only for those patients that are on long-term opiate therapy: Opioid Consent: No data available for: CONSENT FOR LONG-TERM OPIOIDS FOR PAIN No drugs in class: CN101 (OPIOID ANALGESICS) Last UDS: Collection DT Specimen Test Name Result Units Ref Range 11/08/2015 09:16 URINE CREATuF canc mg/dL 63 - 166 Comment: Unable to calculate ratio due to microalbumin being below Comment: detectable limits. Benzodiazipines: No drugs in class: CN302 (BENZODIAZEPINE DERIVATIVE SEDATIVES/HYPNOTICS) /clinton/ Tam Juarez RN [place] [facility], [facility] Signed: 06/29/2024 15:34 Receipt Acknowledged By: 06/29/2024 21:19 /clinton/ Bernie Reid [facility], TAM YU [facility] Jun 29, 2024 03:31 PM PRIMARY CARE MEDICATION MGT NOTE: LOCAL TITLE: MEDICATION RENEWAL/REFILL PB STANDARD TITLE: PRIMARY CARE MEDICATION MGT NOTE DATE OF NOTE: JUN 29, 2024@15:31 ENTRY DATE: JUN 29, 2024@15:31:53 AUTHOR: TAM JUAREZ EXP COSIGNER: URGENCY: STATUS: COMPLETED SHELDON MCDANIELS has contacted the and is requesting that the following prescription(s) be renewed. The patient reports that he/she is currently LOW on his/her supply of medication. He/she is requesting a new supply be mailed by MEDICATION REQUESTED: Drug Name TAMSULOSIN HCL 0.4MG CAP Issue Date 04/30/2022 SIG TAKE ONE CAPSULE BY MOUTH ONCE A DAY APPROXIMATELY 30 MINUTES AFTER THE SAME MEAL EACH DAY (FOR PROSTATE) Facility: [facility] Recall visit scheduled? Future visits: No future appointments scheduled for this patient ====== The following is informational only for those patients that are on long-term opiate therapy: Opioid Consent: No data available for: CONSENT FOR LONG-TERM OPIOIDS FOR PAIN No drugs in class: CN101 (OPIOID ANALGESICS) Last UDS: Collection DT Specimen Test Name Result Units Ref Range 11/08/2015 09:16 URINE CREATuF canc mg/dL 63 - 166 Comment: Unable to calculate ratio due to microalbumin being below Comment: detectable limits. Benzodiazipines: No drugs in class: CN302 (BENZODIAZEPINE DERIVATIVE SEDATIVES/HYPNOTICS) /clinton/ Tam Juarez RN [place] NAY, [facility] Signed: 06/29/2024 15:32 Receipt Acknowledged By: 06/29/2024 21:13 /clinton/ LUIS ANTONIO [place] [place] JEANNIE RENEE [facility] Jun 29, 2024 03:29 PM PRIMARY CARE MEDICATION MGT NOTE: LOCAL TITLE: MEDICATION RENEWAL/REFILL PB STANDARD TITLE: PRIMARY CARE MEDICATION MGT NOTE DATE OF NOTE: JUN 29, 2024@15:29 ENTRY DATE: JUN 29, 2024@15:29:51 AUTHOR: TAM JUAREZ EXP COSIGNER: URGENCY: STATUS: COMPLETED SHELDON MCDANIELS has contacted the and is requesting that the following prescription(s) be renewed. The patient reports that he/she is currently LOW on his/her supply of medication. He/she is requesting a new supply be mailed by MEDICATION REQUESTED: Drug Name FLUTICASONE PROP 50MCG 120D NASAL INHL Issue Date 02/10/2024 SIG INSTILL 1 SPRAY IN NOSTRIL(S) ONCE A DAY FOR RHINITIS (MUST BE USED DIRECTED FOR MINIMUM OF 21 DAYS TO PROVIDE ADEQUATE BENEFITS) Facility: [facility] Recall visit scheduled? Future visits: No future appointments scheduled for this patient ====== The following is informational only for those patients that are on long-term opiate therapy: Opioid Consent: No data available for: CONSENT FOR LONG-TERM OPIOIDS FOR PAIN No drugs in class: CN101 (OPIOID ANALGESICS) Last UDS: Collection DT Specimen Test Name Result Units Ref Range 11/08/2015 09:16 URINE CREATuF canc mg/dL 63 - 166 Comment: Unable to calculate ratio due to microalbumin being below Comment: detectable limits. Benzodiazipines: No drugs in class: CN302 (BENZODIAZEPINE DERIVATIVE SEDATIVES/HYPNOTICS) /clinton/ Tam Juarez RN [facility], P [facility] Signed: 06/29/2024 15:31 Receipt Acknowledged By: 06/29/2024 21:11 /clinton/ DREA [facility], [facility] TAM JUAREZ [facility] Jun 24, 2024 06:07 PM PHYSICIAN LETTERS: LOCAL TITLE: TEST RESULT GENERAL LETTER STL STANDARD TITLE: PHYSICIAN LETTERS DATE OF NOTE: JUN 24, 2024@18:07 ENTRY DATE: JUN 24, 2024@18:07:41 AUTHOR: BERNIE REID: URGENCY: STATUS: COMPLETED [facility] [address] [place] [address] JUN 24, 2024 SHELDON MCDANIELS [address] [place], [place] [address] Dear Sheldon Mcdaniels, I would like to update you on your recent test results. LIPID PROFILE - High cholesterol and triglycerides (lipids) are risk factors for heart disease. Your cholesterol should fall between 140 and 200, and your triglycerides levels should be less than or equal to 150. HDL is the good cholesterol and should ideally be greater than 40. LDL is the bad cholesterol and optimal levels should be less than 100 (near optimal is between 100 and 129). TRIGLYCERIDE 126 mg/dL 06/24/2024 09:17 CHOLESTEROL 245 H mg/dL 06/24/2024 09:17 HDL(New) 65.7 H mg/dL 06/24/2024 09:17 CALCULATED LDL 154.1 mg/dL 06/24/2024 09:17 HDL % OF TOTAL CHOLESTEROL (PB) 26.8 % 06/24/2024 09:17 No DIRECT LDL EO data found These results are abnormal. Your cholesterol is elevated. I recommend you decrease your fried foods and increase lean meats and fresh fruits and vegetables. GLUCOSE - Your blood sugar or glucose level result GLUCOSE GLUCOSE 91 mg/dL 06/24/2024 09:17 These readings are within normal limits. HEMOGLOBIN A1C - Gives us information about your diabetes (sugar or glucose) control over the past 3 months. Your target is to keep your A1C below 6 %. HGA1C 5.7 % 06/24/2024 09:17 These readings are within normal limits. CBC - A complete blood count (CBC) gives important information about the kinds and numbers of cells in the blood, especially red blood cells, white blood cells, and platelets. HGB 15.9 g/dL 06/24/2024 09:17 HEMATOCRIT 48.2 % (06/24/24 09:17) PLT 234 10*3/uL 06/24/2024 09:17 WHITE BLOOD COUNT 7.9 10*3/uL (06/24/24 09:17) These readings are within normal limits. CHEM 7 - This is important information about the current status of your kidneys, liver, and electrolyte and acid/base balance as well as of your blood sugar and blood proteins. SODIUM 139 mEq/L 06/24/2024 09:17 POTASSIUM 4.0 mEq/L 06/24/2024 09:17 CHLORIDE 103 mEq/L 06/24/2024 09:17 UREA NITROGEN 14 mg/dL 06/24/2024 09:17 CREATININE 1.16 mg/dL 06/24/2024 09:17 CALCIUM 9.5 mg/dL 06/24/2024 09:17 CARBON DIOXIDE 27 mEq/L 06/24/2024 09:17 GLUCOSE 91 mg/dL 06/24/2024 09:17 EGFR (CKD-EPI 2020) 65 06/24/2024 09:17 These readings are within normal limits. LIVER FUNCTION PANEL - These are tests for liver function: PROTEIN 7.6 g/dL 06/24/2024 09:17 ALBUMIN 4.4 g/dL 06/24/2024 09:17 TOTAL BILIRUBIN 0.7 mg/dL 06/24/2024 09:17 ALKALINE PHOSPHATASE 71 U/L 06/24/2024 09:17 AST/SGOT 28 U/L 06/24/2024 09:17 ALT/SGPT 31 U/L 06/24/2024 09:17 These readings are within normal limits. TSH - Thyroid-stimulating hormone (also known as TSH or thyrotropin) is a peptide hormone synthesized and secreted by thyrotrope cells in the anterior pituitary gland, which regulates the endocrine function of the thyroid gland. TSH TSH 2.455 uIU/mL 06/24/2024 09:17 These readings are within normal limits. VITAMIN D - Helps promote the proper utilization of calcium and phosphorus, thereby producing proper bone maintenance. VITAMIN D, 25-HYDROXY 45.1 ng/mL 06/24/2024 09:17 These readings are within normal limits. URINALYSIS - A urinalysis (or UA ) is an array of tests performed on urine and one of the most common methods of medical diagnosis. URINALYSIS URINE COLOR Light Yellow 06/24/2024 09:17 APPEARANCE CLEAR 06/24/2024 09:17 U.PH 7.0 06/24/2024 09:17 U.BILIRUBIN NEGATIVE mg/dL 06/24/2024 09:17 U.NITRITE NEGATIVE mg/dL 06/24/2024 09:17 These readings are within normal limits. FUTURE APPOINTMENTS: No future appointments Sincerely, Bernie Reid [facility] SHELDON MCDANIELS CATHERINE R [facility] Jun 24, 2024 11:11 AM PHYSICIAN LETTERS: LOCAL TITLE: TEST RESULT GENERAL LETTER ST STANDARD TITLE: PHYSICIAN LETTERS DATE OF NOTE: JUN 24, 2024@11:11 ENTRY DATE: JUN 24, 2024@11:11:50 AUTHOR: BERNIE REIDIGNYUE: URGENCY: STATUS: COMPLETED [facility] [address] [place] [address] JUN 24, 2024 SHELDON MCDANIELS [address], [place] [address] Dear Sheldon Mcdaniels, I would like to update you on your recent test results. OTHER TEST RESULTS RADIOLOGY (NON-INVASIVE TEST RESULTS): Chest Xray: Impression: 1. Chronic findings as noted 2. No acute process FUTURE APPOINTMENTS: No future appointments Sincerely, Bernie Reid [facility] SHELDON MCDANIELS CATHERINE R [facility] Jun 24, 2024 10:34 AM PRIMARY CARE PROGRESS NOTE: LOCAL TITLE: PRIMARY CARE CLINIC PROGRESS NOTE PB STANDARD TITLE: PRIMARY CARE PROGRESS NOTE DATE OF NOTE: JUN 24, 2024@10:34 ENTRY DATE: JUN 24, 2024@10:34:17 AUTHOR: BERNIE REID EXP COSIGNER: URGENCY: STATUS: COMPLETED PROVIDER ASSESSMENT DATE & TIME:Jun@10:34 CHIEF COMPLAINT: Ongoing cough. ENT for allergies. HISTORY OF PRESENT ILLNESS: is being seen today for complaints of ongoing cough and request for ENT eval for ongoing sinus and allergies. Posey has an inspiratory wheeze and states it hurts in his back. He has taken mucinex but states it causes him to cough more and keeps him up all night. He wants an antibiotic. He wioll continue to use his inhalers as directed. denies any home needs. 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 RINSE MOUTHPIECE FREQUENTLY TO PREVENT CLOGGING. 2) CETIRIZINE HCL 10MG TAB TAKE ONE TABLET BY MOUTH ONCE ACTIVE A DAY FOR ALLERGY SYMPTOMS 3) CHOLESTYRAMINE 4GM/5GM (LIGHT) PWD PKT MIX AND DRINK ACTIVE 1 PACKET BY MOUTH ONCE A DAY FOR HIGH CHOLESTEROL MIX WITH WATER DIRECTED. TAKE OTHER MEDICATIONS 1 HOUR BEFORE OR 6 HOURS AFTER ADMINISTRATION. 4) FINASTERIDE 5MG TAB TAKE ONE TABLET BY MOUTH ONCE A ACTIVE DAY FOR BENIGN PROSTATIC HYPERPLASIA SWALLOW WHOLE, DO NOT CRUSH, SPLIT, OR CHEW. 5) FLUTICAS 250/SALMETEROL 50 INHL DISK 60 INHALE 1 ACTIVE INHALATION ORAL INHALATION TWICE A DAY FOR COPD (OPEN DISKUS; CLICK ONLY ONCE; MAY INHALE TWICE TO COMPLETE DOSE; CLOSE WHEN FINISHED) RINSE MOUTH AND SPIT AFTER EACH USE. 6) FLUTICASONE PROP 50MCG 120D NASAL INHL INSTILL 1 ACTIVE SPRAY IN NOSTRIL(S) ONCE A DAY FOR RHINITIS (MUST BE USED DIRECTED FOR MINIMUM OF 21 DAYS TO PROVIDE ADEQUATE BENEFITS) 7) GABAPENTIN 100MG CAP TAKE ONE CAPSULE BY MOUTH THREE ACTIVE TIMES A DAY FOR PAIN 8) GUAIFENESIN 400MG TAB TAKE ONE TABLET BY MOUTH FOUR ACTIVE TIMES A DAY NEEDED FOR MUCUS THINNING TAKE WITH 8 OUNCE GLASS OF WATER. 9) HYDROCHLOROTHIAZIDE 25MG TAB TAKE ONE TABLET BY MOUTH ACTIVE ONCE A DAY FOR HIGH BLOOD PRESSURE 10) HYDROCORTISONE 2.5% OINT APPLY SPARINGLY TO AFFECTED ACTIVE AREA(S) TWICE DAILY NEEDED FOR EXTERNAL USE ONLY. FOR SKIN CONDITION. APPLY SPARINGLY. NEEED FOR ITCHING 11) HYDROCORTISONE ACETATE 25MG RTL SUPP UNWRAP AND ACTIVE INSERT 1 SUPPOSITORY RECTALLY TWICE DAILY NEEDED FOR HEMORRHOIDS 12) METHOCARBAMOL 750MG TAB TAKE 1 TABLET BY MOUTH THREE ACTIVE TIMES A DAY NEEDED FOR MUSCLE SPASM 13) MICONAZOLE NITRATE 2% TOP PWDR APPLY LIBERALLY TO ACTIVE AFFECTED AREA(S) THREE TIMES A DAY NEEDED FOR FUNGAL INFECTION FOR TOPICAL USE ONLY. 14) MONTELUKAST NA 10MG TAB TAKE ONE TABLET BY MOUTH ACTIVE EVERY EVENING FOR ASTHMA 15) NYSTATIN 400378 UNT/GM CREAM APPLY SPARINGLY TO ACTIVE AFFECTED AREA(S) THREE TIMES A DAY FOR FUNGAL SKIN INFECTION - TOPICAL USE ONLY. 16) PANTOPRAZOLE NA 40MG EC TAB TAKE ONE TABLET BY MOUTH ACTIVE EVERY MORNING BEFORE A MEAL FOR GASTROESOPHAGEAL REFLUX DISEASE TAKE 30 MINUTES BEFORE MEAL(S) 17) TADALAFIL 10MG TAB TAKE ONE TABLET BY MOUTH EVERY ACTIVE WEEK NEEDED FOR ERECTILE DYSFUNCTION (TAKE 30 MINUTES PRIOR TO SEXUAL ACTIVITY) - LIMIT 6 DOSES PER 30 DAYS Active Non-VA Medications Status 1) Non-VA SILDENAFIL CITRATE 100MG TAB 100MG BY MOUTH ACTIVE TWO TIMES PER WEEK NEEDED 18 Total Medications REVIEW OF SYSTEMS: HEENT: No Headache. No blurry vision, vision loss, eye pain, red eyes, or foreign body. No runnynose, congestion, or nose bleed. No ringing in the ears, or vertigo. No sore throat or dental pain. positive hearing loss. RESPIRATORY: cough and sputum production. CARDIOVASCULAR: No chest pain, palpitations, tachycardia, PND, or orthopnea. GI: No abdominal pain, nausea, vomiting, diarrhea, constipation, melena, or hematochezia. : No dysuria, hematuria, urinary frequency, weak stream, or post-void dribbling. MUSCULOSKELETAL:No muscle or joint pain. SKIN: No rash, lesions, or infection PSYCH: No Depression or Anxiety. Not suicidal. PHYSICAL ASSESSMENT: VITAL SIGNS Pulse: 57 (06/24/2024 09:58) Blood Pressure: 124/81 (06/24/2024 09:58) Respiratory Rate: 20 (06/24/2024 09:58) Temperature: 98.2 F [36.8 C] (06/24/2024 09:58) Weight: 214.0 lb [97.07 kg] (06/24/2024 09:58) Height: 72.0 in [182.9 cm] (06/24/2024 09:58) Pain: 3 (06/24/2024 09:58) HEENT:PERRL, EOMI, Fundi benign, TM's dull, Pharynx erythremic and without exudate, tonsils normal size. NECK: Supple, no lymhadenopathy, thyroid normal. CARDIAC: Regular rate and rhythm without murmur. No edema. RESPIRATORY: CTA upper lobes, inspiratory wheeze right middle lobe with diminished lower lobes bilaterally. GI: Abdomen soft,with ABS, no HSM, no guarding or rebound. MUSCULOSKELETAL:Chronic joint pain with no acute change. FROM. SKIN: [place] without rash or lesions. NEUROLOGICAL: The Posey is alert and oriented without distress. Affect appropriate. IMPRESSION: Upper Respiratory Infection-current Allergic Rhinitis-current PLAN: Doxycycline 100mg bid for 5 days with Augmentin 875/125mg bid for 5 days given to fill on the immediate need benefit plan. Medrol dose pack 4mg as directed given to fill on the immediate need benefit plan. Increase water intake. Will refer to ENT for allergy control. RTC as previously scheduled or if symptoms continue or worsen. Patient is advised this primary care clinic has open access and he can make a same day appointment anytime a problem/concern arises. Patient further advised he can be seen on a walk-in basis as needed. Patient is provided clinic contact information. Medications reviewed and reconciled. Discussed diet and exercise as relevant to patient conditions. Treatment plan as noted above and the After Visit Summary was reviewed with Posey; opportunity provided to report concerns and ask question regarding aspects of care or treatment or services; concurrence reached and verbalized understanding. Please refer to addendum or follow up lab letter for plan of care/changes related to lab/test results not available at conclusion of appointment, if any. Discussed with patient that in the event of community imaging / testing being ordered in the future, once the imaging / testing has been completed, please notify PACT of within 1 week by a [facility] PACT member; this is due to intermittent lapses in notification of imaging completion within [facility]. All questions answered; agrees to plan of care. Follow up as listed above, annually, and as needed. Keep all completion at outside facility if not called with results appointments. Medications Reconciled. Time spent 30 minutes. /clinton/ [facility] Signed: 06/24/2024 11:08 BERNIE REID Jun 24, 2024 09:50 AM PRIMARY CARE NURSING NOTE: LOCAL TITLE: PRIMARY CARE NURSING PROGRESS NOTE (TEXT) NURSING P STANDARD TITLE: PRIMARY CARE NURSING NOTE DATE OF NOTE: JUN 24, 2024@09:50 ENTRY DATE: JUN 24, 2024@09:50:29 AUTHOR: EDUARDO WAHL COSIGNER: URGENCY: STATUS: COMPLETED Established Patient SHELDON MCDANIELS IS A 79 YEAR OLD MALE BEING SEEN IN CLINIC JUN 24, 2024. REASON FOR VISIT: Posey here today for Annual and c/o coughing and wheezing in his nare when he lays. Are you receiving care any where other than the [facility]? No HEALTH AND SURGICAL HISTORY: Does patient report using home oxygen? No CURRENT ACTIVE MEDICATIONS FOR REVIEW: Allergies/ADRs (Tool #5) FACILITY ALLERGY/ADR -------- [facility] CODEINE [facility] PRAVASTATIN [facility] SPIRIVA Med. Reconciliation (Tool #1) INCLUDED IN THIS LIST: Alphabetical list of active outpatient prescriptions dispensed from this VA (local) and dispensed from another [place] or DoD facility (remote) as well as inpatient orders (local pending and active), local clinic medications, locally documented non-VA medications, and local prescriptions that have or been discontinued in the past 90 days. Non-VA Meds Last Documented On: Feb 24, 2023 NOTE The display of VA prescriptions dispensed from another VA or DoD facility (remote) is limited to active outpatient prescription entries matched to National Drug File at the originating site and may not include some items such as investigational drugs, compounds, etc. NOT INCLUDED IN THIS LIST: Medications self-entered by the patient into personal health records (i.e. [facility]) are NOT included in this list. Non-VA medications documented outside this VA, remote inpatient orders (regardless of status) and remote clinic medications are NOT included in this list. The patient and provider must always discuss medications the patient is taking, regardless of where the medication was dispensed or obtained. OUTPT ALBUTEROL 90MCG (CFC-F) 200D ORAL INHL (Status = Discontinued) INHALE 2 PUFFS ORAL INHALATION FOUR TIMES A DAY FOR ASTHMA SHAKE WELL. RINSE MOUTHPIECE FREQUENTLY TO PREVENT CLOGGING. Rx# [id number] Last Released: 03/23/24 Qty/Days Supply: Rx Expiration Date: 06/08/24 Refills Remainin Indication: FOR ASTHMA OUTPT ALBUTEROL 90MCG (CFC-F) 200D ORAL INHL (Status = Active) INHALE 2 PUFFS ORAL INHALATION FOUR TIMES A DAY FOR ASTHMA SHAKE WELL. RINSE MOUTHPIECE FREQUENTLY TO PREVENT CLOGGING. Rx# [id number] Last Released: 06/11/24 Qty/Days Supply: Rx Expiration Date: 08/11/24 Refills Remainin Indication: FOR ASTHMA OUTPT CETIRIZINE HCL 10MG TAB (Status = Active) TAKE ONE TABLET BY MOUTH ONCE A DAY FOR ALLERGY SYMPTOMS Rx# [id number] Last Released: 03/22/24 Qty/Days Supply: Rx Expiration Date: 01/12/25 Refills Remainin Indication: FOR ALLERGY SYMPTOMS OUTPT CHOLESTYRAMINE 4GM/5GM (LIGHT) PWD PKT (Status = Active) MIX AND DRINK 1 PACKET BY MOUTH ONCE A DAY FOR HIGH CHOLESTEROL MIX WITH WATER DIRECTED. TAKE OTHER MEDICATIONS 1 HOUR BEFORE OR 6 HOURS AFTER ADMINISTRATION. Rx# [id number] Last Released: 03/26/24 Qty/Days Supply: Rx Expiration Date: 03/25/25 Refills Remainin Indication: FOR HIGH CHOLESTEROL OUTPT FINASTERIDE 5MG TAB (Status = Active) TAKE ONE TABLET BY MOUTH ONCE A DAY FOR BENIGN PROSTATIC HYPERPLASIA SWALLOW WHOLE, DO NOT CRUSH, SPLIT, OR CHEW. Rx# [id number] Last Released: 02/23/24 Qty/Days Supply: Rx Expiration Date: 02/20/25 Refills Remainin Indication: FOR BENIGN PROSTATIC HYPERPLASIA OUTPT FLUTICAS 250/SALMETEROL 50 INHL DISK 60 (Status = Active) INHALE 1 INHALATION ORAL INHALATION TWICE A DAY FOR COPD (OPEN DISKUS; CLICK ONLY ONCE; MAY INHALE TWICE TO COMPLETE DOSE; CLOSE WHEN FINISHED) RINSE MOUTH AND SPIT AFTER EACH USE. Rx# [id number] Last Released: 05/18/24 Qty/Days Supply: Rx Expiration Date: 02/02/25 Refills Remainin Indication: FOR COPD OUTPT FLUTICASONE PROP 50MCG 120D NASAL INHL (Status = Active) INSTILL 1 SPRAY IN NOSTRIL(S) ONCE A DAY FOR RHINITIS (MUST BE USED DIRECTED FOR MINIMUM OF 21 DAYS TO PROVIDE ADEQUATE BENEFITS) Rx# [id number] Last Released: 05/26/24 Qty/Days Supply: Rx Expiration Date: 02/10/25 Refills Remainin Indication: FOR RHINITIS OUTPT GABAPENTIN 100MG CAP (Status = Active) TAKE ONE CAPSULE BY MOUTH THREE TIMES A DAY FOR PAIN Rx# [id number] Last Released: 08/15/23 Qty/Days Supply: 270 Rx Expiration Date: 08/12/24 Refills Remainin OUTPT GUAIFENESIN 400MG TAB (Status = Active) TAKE ONE TABLET BY MOUTH FOUR TIMES A DAY NEEDED FOR MUCUS THINNING TAKE WITH 8 OUNCE GLASS OF WATER. Rx# [id number] Last Released: 02/23/24 Qty/Days Supply: Rx Expiration Date: 02/20/25 Refills Remainin Indication: FOR MUCUS THINNING OUTPT HYDROCHLOROTHIAZIDE 25MG TAB (Status = Active) TAKE ONE TABLET BY MOUTH ONCE A DAY FOR HIGH BLOOD PRESSURE Rx# [id number] Last Released: 03/04/24 Qty/Days Supply: Rx Expiration Date: 08/12/24 Refills Remainin Indication: FOR HIGH BLOOD PRESSURE OUTPT HYDROCORTISONE 2.5% OINT (Status = Active) APPLY SPARINGLY TO AFFECTED AREA(S) TWICE DAILY NEEDED FOR EXTERNAL USE ONLY. FOR SKIN CONDITION. APPLY SPARINGLY. NEEED FOR ITCHING Rx# [id number] Last Released: 10/04/23 Qty/Days Supply: 30 Rx Expiration Date: 09/30/24 Refills Remainin OUTPT HYDROCORTISONE ACETATE 25MG RTL SUPP (Status = Active) UNWRAP AND INSERT 1 SUPPOSITORY RECTALLY TWICE DAILY NEEDED FOR HEMORRHOIDS Rx# [id number] Last Released: 02/04/24 Qty/Days Supply: Rx Expiration Date: 02/02/25 Refills Remainin Indication: FOR HEMORRHOIDS OUTPT HYDROPHILIC (EQV EUCERIN) TOP CREAM (Status = ) APPLY SPARINGLY TO AFFECTED AREA(S) ONCE A DAY FOR DRY SKIN (EXTERNAL USE ONLY) Rx# [id number] Last Released: 04/24/23 Qty/Days Supply: 454/ Rx Expiration Date: 04/22/24 Refills Remainin Indication: FOR DRY SKIN OUTPT METHOCARBAMOL 750MG TAB (Status = Active) TAKE 1 TABLET BY MOUTH THREE TIMES A DAY NEEDED FOR MUSCLE SPASM Rx# [id number] Last Released: 09/25/23 Qty/Days Supply: 270/90 Rx Expiration Date: 09/24/24 Refills Remainin Indication: FOR MUSCLE SPASM OUTPT MICONAZOLE NITRATE 2% TOP PWDR (Status = Active) APPLY LIBERALLY TO AFFECTED AREA(S) THREE TIMES A DAY NEEDED FOR FUNGAL INFECTION FOR TOPICAL USE ONLY. Rx# [id number] Last Released: 10/04/23 Qty/Days Supply: 180/ Rx Expiration Date: 09/30/24 Refills Remainin Indication: FOR FUNGAL INFECTION OUTPT MONTELUKAST NA 10MG TAB (Status = Active) TAKE ONE TABLET BY MOUTH EVERY EVENING FOR ASTHMA Rx# [id number] Last Released: 01/14/24 Qty/Days Supply: 90 Rx Expiration Date: 01/12/25 Refills Remainin Indication: FOR ASTHMA OUTPT NYSTATIN 518021 UNT/GM CREAM (Status = Active) APPLY SPARINGLY TO AFFECTED AREA(S) THREE TIMES A DAY FOR FUNGAL SKIN INFECTION - TOPICAL USE ONLY. Rx# [id number] Last Released: 09/30/23 Qty/Days Supply: 60/ Rx Expiration Date: 09/24/24 Refills Remainin Indication: FOR FUNGAL SKIN INFECTION OUTPT PANTOPRAZOLE NA 40MG EC TAB (Status = Active) TAKE ONE TABLET BY MOUTH EVERY MORNING BEFORE A MEAL FOR GASTROESOPHAGEAL REFLUX DISEASE TAKE 30 MINUTES BEFORE MEAL(S) Rx# [id number] Last Released: 03/19/24 Qty/Days Supply: Rx Expiration Date: 01/09/25 Refills Remainin Indication: FOR GASTROESOPHAGEAL REFLUX DISEASE CLIN MEDICATION ORGANIZER 7DAY/4 SLOT (Status=Active) PILLBOX MISC AM Indication: FOR MEDICATION STORAGE/PLANNING CLIN MEDICATION ORGANIZER 7DAY/4 SLOT (Status=Active) PILLBOX MISC AM Indication: FOR MEDICATION STORAGE/PLANNING Non-VA SILDENAFIL CITRATE 100MG TAB TAKE ONE TABLET BY MOUTH 2XWEEK NEEDED Feb 24, 2023 Non-VA medication recommended by [place] provider. wants to get name brand outside [place] Indication: FOR ERECTILE DYSFUNCTION OUTPT TADALAFIL 10MG TAB (Status = Active) TAKE ONE TABLET BY MOUTH EVERY WEEK NEEDED FOR ERECTILE DYSFUNCTION (TAKE 30 MINUTES PRIOR TO SEXUAL ACTIVITY) - LIMIT 6 DOSES PER 30 DAYS Rx# [id number] Last Released: 12/12/23 Qty/Days Supply: 05/16 Rx Expiration Date: 12/10/24 Refills Remainin Indication: FOR ERECTILE DYSFUNCTION OUTPT VALACYCLOVIR HCL 500MG TAB (Status = ) TAKE ONE TABLET BY MOUTH ONCE A DAY FOR VIRAL INFECTION PREVENTION Rx# [id number] Last Released: 03/05/24 Qty/Days Supply: Rx Expiration Date: 04/07/24 Refills Remainin Indication: FOR VIRAL INFECTION PREVENTION SUPPLIES PHARMACY TERMS AND POSSIBLE PATIENT ACTIONS INPT = CO inpatient order IV = VA intravenous medication OUTPT = CO outpatient prescription PHARMACY POSSIBLE PATIENT TERMS EXPLANATION ACTIONS -------- - ACTIVE A prescription that can be If you have refills, filled at the local [place] pharmacy. you may request a refill of this prescription from your VA pharmacy. CLINIC A medication you received during If you have questions a visit to a [place] clinic or about this medication emergency department. contact your [place] healthcare team. DISCONTINUED A prescription your provider has Contact your VA stopped. It is no longer healthcare team if you available to be sent to you or need more of this picked up at the [place] pharmacy medication. window. A prescription which is too old Contact your VA to fill. This does not refer to healthcare team if you the expiration date of the need more of this medication in the container. medication. NON-VA A medication that came from If this medication someplace other than a VA information is pharmacy. This may be a incorrect or out of prescription from either the VA date, please tell your or non VA providers that was VA healthcare team. filled outside the VA. Or, it may be an [id number] (OTC), herbal, dietary supplements or sample medication. ON HOLD An active prescription that will Contact your VA not be filled until pharmacy pharmacy when you need resolves the issue. more of this medication. PARKED An active prescription that will Contact your VA not be filled until the patient pharmacy when you need requests it. this medication. PENDING This prescription order has been If you have been sent to the pharmacy for review instructed to start and is not ready yet. this medication now, contact your VA pharmacy. SUSPENDED An active prescription that is Contact your [place] not scheduled to be filled yet. pharmacy if you need You should receive it before this medication now. you run out. ==== Patient reports taking medications as ordered. IS PATIENT TAKING ANY OVER THE COUNTER MEDICATIONS, SUCH VITAMINS OR HERBAL SUPPLEMENTS, INCLUDING ANY MEDICATIONS PRESCRIBED BY ANOTHER PHYSICIAN? No ALLERGIES/ADVERSE REACTIONS: CODEINE, PRAVASTATIN, SPIRIVA Does patient have any new allergies to report since last visit? NO VITALS: TEMPERATURE: 98 F [36.7 C] (02/02/2024 16:01) BP: 132/76 (02/20/2024 08:17) RESP: 20 (02/20/2024 08:17) PULSE: 52 (02/20/2024 08:) HT: 72 in [182.9 cm] (02/20/2024 08:17) WT: 216 lb [97.98 kg] (02/20/2024 08:) BMI: 29.4 PAIN ASSESSMENT: (Most Recent Pain Score in Vitals Package: 0 (02/20/2024 08:17) ) The patient indicated that they and their close contacts have not traveled outside of the [place] in the past 21 days. The patient reports the following symptoms: No symptoms present The patient is not immunocompromised. The patient does not report having a history of Multi Drug Resistant Organism (MDRO) within the last five years. The patient does not report having been exposed to measles, chickenpox, or zoster in last 30 days. This patient's last pain assessment score was: 0 (02/20/2024 08:17). A detailed pain assessment showed the following: Pain characteristics (per patient's own words) Constant, Aching Location of current pain Back STRESS: Thank you for your service. Now let us serve you. At the [facility], we strive to provide you with exceptional health care that improves your health and well-being. Are you feeling sad, empty, or depressed? No Do you need to talk about things in your life that worry you or cause you stress? No Do you need to talk about personal problems, family problems, alcohol use, drug use, or mental or emotional illness? No SUICIDE SCREENING: The patient was asked, Over the past two weeks, how often have you been bothered by thoughts that you would be better off or of hurting yourself in some way? Not At All SPIRITUAL ASSESSMENT: Are there zoroastrianism practices or spiritual concerns you want the senior financial, your physician, and other health care team members to immediately know about? No Patient advised to call the clinic for any concerns, questions, or symptoms. Patient and/or caregiver verbalized understanding of plan of care. COVID-19 Immunization: Refused Moderna Monovalent COVID-19 vaccine Immunization: COVID-19 (MODERNA), MRNA, LNP-S, PF, 50 MCG/0.5 ML (AGES 12+ YEARS) Refusal Reason: PATIENT DECISION Patient refuses all immunization(s) in the COVID-19 group Date Documented: 06/24/24 09:52 Depression Screening: Perform PHQ-2 A PHQ-2 screen was performed. The score was 0 which is a negative screen for depression. Over the past two weeks, how often have you been bothered by the following problems? 1. Little interest or pleasure in doing things Not at all 2. Feeling down, depressed, or hopeless Not at all Pain Assessment: - PAIN ASSESSMENT: .. Patient is reporting some pain. PAIN SCORE TODAY: 3 Patient's self identified pain goal: 0 [facility] MAP: PERSONAL HEALTH PLAN INVENTORY & MAP 's Response: family /es/ EDUARDO WAHL LPN Signed: 06/24/2024 10:03 EDUARDO WAHL [facility]
--- OUTSIDE RECORDS SUMMARY | 2024-08-20 05:30 | XMS_ITS | Encounter Summary ---
Author Name [facility] Organization [facility] [place] [facility] [place] Address [address] [place] [address] Care Team Providers Care Drain Cleaner Name Role Phone BERNIE REID Primary Care [...] PART B May 17, 2003 PART B [id number] Latoya MCDANIELS ONALD PATIENT MEDICARE (WNR) MEDICARE (M) PART B May 17, 2003 PART B [id number] Latoya MCDANIELS ONALD PATIENT MEDICARE (WNR) MEDICARE (M) PART A Nov 17, 1997 PART A [id number] Latoya MCDANIELS ONALD PATIENT MEDICARE (WNR) MEDICARE (M) PART A Nov 17, 1997 PART A [id number] Latoya MCDANIELS ONERICKSON PATIENT Selected Encounter This section includes the information on record at [place] for the Encounter. Date/Time Encounter Type Encounter Description Reason Provider Source Aug 20, 2024 10:30 AM OFFICE O/P EST LOW 20 MIN PRIMARY CARE/MEDICINE ICD-10-CM J44.9 Chronic obstructive pulmonary disease, unspecified MAK REID [place] Encounter Template Text not used by [facility] Assessments - Encounter Diagnoses This section includes the primary and secondary diagnoses documented for the Encounter. Date/Time Primary/Secondary Diagnosis Diagnosis Name Provider Source Aug 20, 2024 11:53 PM PRIMARY Chronic obstructive pulmonary disease, unspecified JOE REID [facility] Aug 20, 2024 11:53 PM SECONDARY Bradycardia, unspecified JOE REID [facility] Plan of Treatment: Future Appointments (+ 6 months) and Future Tests (+/- 45 days) The Plan of Treatment section includes future care activities for the [facility] [place] [facility] This section includes future appointments and future orders which are active, pending or scheduled. Future Appointments This section includes appointments that were scheduled to occur 6 months from the date of the Encounter, up to a maximum of 20 appointments. The data comes from all [place] treatment facilities. Appointment Date/Time Appointment Type Appointme nt Facility Name Sep 02, 2024 11:00 AM AMBULATORY - MEDICINE [facility] Sep 17, 2024 10:00 AM AMBULATORY MEDICINE [facility] Oct 13, 2024 01:00 PM AMBULATORY - MEDICINE [facility] Feb 16, 2025 02:00 PM AMBULATORY - MEDICINE [facility] Lab Results: +/- 30 days of the encounter This section includes the Chemistry and Hematology Lab Results on record with [place] for the patient. Radiology Reports and Pathology Reports are provided separately, in subsequent sections. Lab Results This section contains the Chemistry/Hematology Results that were resulted 30 days before or 30 daysafter the date of the Encounter. Date/Time Source Result Type Result - Unit Interpretation Reference Range Specimen Type Comment Aug 20, 2024 10:01 AM [facility] BASIC METABOLIC PANEL PLASMA Specimen Type: PLASMA No comment entered. Ordering Provider: JUNIOR REID Report Released Date/Time: Aug 20, 2024 09:53 AM Reporting Lab: [place] [facility] [address] [facility] [place] [address] Performing Lab: [place] [facility] [address] [facility] [address] CREATININE 1.10 mg/dL 0.7-1.3 UREA NITROGEN 15 mg/dL 9-25 GLUCOSE 86 mg/dL 72-99 SODIUM 133 meq/L L 136-145 POTASSIUM 3.9 meq/L 3.5-5 CHLORIDE 97 meq/L L 98-107 CARBON DIOXIDE 27 meq/L 22-31 CALCIUM 9.2 mg/dL 8.4-10.4 EGFR (CKD-EPI 2020) 69 Aug 20, 2024 10:01 AM [facility] BRAIN NATRIURETIC PEPTIDE PLASMA Specimen Type : PLASMA No comment entered. Ordering Provider: BERNIE REID Report Released Date/Time: Aug 20, 2024 09:53 AM Reporting Lab: [place] [facility] [address] [place] [address] Performing Lab: [place] [facility] [address] [place] [address] BRAIN NATRIURETIC PEPTIDE 83 pg/mL 0-100 Aug 20, 2024 10:01 AM [facility] CBC BLOOD Specimen Type: BLOOD No comment entered. Ordering Provider: BERNIE REID Report Released Date/Time: Aug 20, 2024 09:53 AM Reporting Lab: [place] [facility] [address] [place] [address] Performing Lab: [place] [facility] [address] [place] [address] WBC 7.8 10*3/uL 3.6-11.2 RBC 4.92 10*6/uL 4.10-5.70 HGB 15.4 g/dL 13.1-16.8 HCT 44.3 38.2-48.4 MCV 90.0 fL 80.0-100.0 MCH 31.3 pg 27.0-34.0 MCHC 34.8 g/dL 33.0-36.0 PLT 200 10*3/uL 150-400 MPV 11.2 fL 7.5-11.2 RDW 13.0 11.8-15.1 LYMPHOCYTES, AUTO % 18.5 MONOCYTES, AUTO % 10.1 NEUTROPHILS, AUTO % 64.5 EOSINOPHILS, AUTO % 5.5 BASOPHILS, AUTO % 1.0 LYMPHOCYTES, ABSOLUTE 1.45 10*3/uL 0.77- 4.50 MONOCYTES, ABSOLUTE 0.79 10*3/uL 0.19-0. 8 NEUTROPHILS, ABSOLUTE 5.04 10*3/uL 2.10- 8.00 EOSINOPHILS, ABSOLUTE 0.43 10*3/uL 0.00- 0.60 BASOPHILS, ABSOLUTE 0.08 10*3/uL 0.00-0. 20 IMMATURE GRANS, AUTO % 0.4 IMMATURE GRANS, AUTO ABS 0.03 10*3/uL 0. 00-0.05 Vital Signs: All taken on the encounter date This section contains inpatient and outpatient Vital Signs collected on the date of the Encounter. Date/Time Temperature Pulse Blood Pressure Respiratory Rate SP02 Pain Height Weight Body Mass Index Source Aug 20, 2024 09:33 AM 75 121/78 20 95 4 72.0 217.4 30 [facility] Social History: Smoking Status (Most current) and Tobacco Use (All prior to encounter date) This section includes the most current, and the historical, smoking and tobacco- related health factors from the [place] facility where the Encounter took place. Current Smoking Status This section includes the most current smoking, or tobacco-related health factor, from the [place] facility where the Encounter took place. Date/Time Current Smoking Status Comment Facil ity Sep 30, 2023 01:30 PM VA-TOBACCO USER EVERY DAY [facility] Tobacco Use History This section includes a history of the smoking, or tobacco-related health factors, that were collected on or before the date of the Encounter. The data comes from the [place] facility where the Encounter took place. Date/Time Smoking Status/Tobacco Use Comment F acility Sep 30, 2023 01:30 PM VA-TOBACCO USE 30 YEARS OR MORE [facility] Sep 30, 2023 01:30 PM VA-TOBACCO USE ADVICE [facility] Sep 30, 2023 01:30 PM VA-TOBACCO USE CIRCULAR KNITTER NO [facility] Sep 30, 2023 01:30 PM VA-TOBACCO USE MED NO [facility] Sep 30, 2023 01:30 PM VA-TOBACCO USER EVERY DAY [facility] Oct 15, 2022 01:00 PM VA-TOBACCO FORMER USER [facility] Oct 15, 2022 01:00 PM VA-TOBACCO QUIT 15 YRS OR MORE [facility] Oct 04, 2021 10:30 AM VA-TOBACCO FORMER USER [facility] Oct 04, 2021 10:30 AM VA-TOBACCO QUIT 15 YRS OR MORE [facility] Oct 11, 2019 03:08 PM VA-TOBACCO DOESNT USE WI 30 MIN WAKEUP [facility] Oct 11, 2019 03:08 PM VA-TOBACCO USE 30 YEARS OR MORE [facility] Oct 11, 2019 03:08 PM VA-TOBACCO USE ADVICE [facility] [place] [facility] Oct 11, 2019 03:08 PM VA-TOBACCO USE CIRCULAR KNITTER NO [facility] Oct 11, 2019 03:08 PM VA-TOBACCO USE MED NO [facility] Oct 11, 2019 03:08 PM VA-TOBACCO USER EVERY DAY [facility] Jan 19, 2018 09:40 AM CURRENT TOBACCO USER [facility] [place] [facility] Jan 19, 2018 09:40 AM CURRENT TOBACCO US ER (NOT READY TO QUIT) [facility] Jan 19, 2018 09:40 AM SMOKELESS TOBACCO AMOUNT/LENGTH V15 1 pk Q week, 18 yrs [facility] [facility] Jan 19, 2018 09:40 AM TOBACCO CESSATION REFERRAL DECLINED [facility] Jan 19, 2018 09:40 AM TOBACCO MEDS OFFER ED BUT DECLINED [facility] [place] [facility] Jan 19, 2018 09:40 AM TOBACCO USER OFFERED MEDS [facility] March 21, 2016 01:58 PM TOBACCO MEDS OFFER ED BUT DECLINED [facility] March 21, 2016 01:58 PM TOBACCO OFFERED PT MEDS (PROVIDER) [facility] March 21, 2016 01:[address] [facility] Nov 08, 2015 08:24 AM TOBACCO MEDS OFFER ED BUT DECLINED [facility] [place] [facility] Nov 08, 2015 08:24 AM TOBACCO OFFERED PT MEDS (PROVIDER) [facility] Nov 08, 2015 08:[address] [facility] Dec 10, 2013 08:29 AM TOBACCO MEDS OFFER ED BUT DECLINED [facility] Dec 10, 2013 08:29 AM TOBACCO OFFERED PT MEDS (PROVIDER) [facility] Dec 10, 2013 08:[address] [facility] Dec 29, 2012 10:15 AM QUIT TOBACCO >7 YEARS AGO [facility] Aug 20, 2012 09:31 AM TOBACCO MEDS OFFER ED BUT DECLINED [facility] Aug 20, 2012 09:31 AM TOBACCO OFFERED PT MEDS (PROVIDER) [facility] Aug 20, 2012 09:[address] OP SMOKING CLINIC [facility] Mar 13, 2012 08:19 AM TOBACCO MEDS OFFER ED BUT DECLINED [facility] Mar 13, 2012 08:19 AM TOBACCO OFFERED PT MEDS (PROVIDER) [facility] Mar 13, 2012 08:[address] [facility] [facility] Jan 16, 2012 02:44 PM CURRENT TOBACCO USER [facility] Jan 16, 2012 02:44 PM TOBACCO MEDS OFFER ED BUT DECLINED [facility] Jan 16, 2012 02:44 PM TOBACCO OFFERED PT MEDS (PROVIDER) [facility] Jan 16, 2012 02:[address] [facility] [facility] Aug 28, 2011 08:52 AM TOBACCO MEDS OFFER ED BUT DECLINED [facility] Aug 28, 2011 08:52 AM TOBACCO OFFERED PT MEDS (PROVIDER) declined [facility] [facility] Aug 28, 2011 08:[address] [facility] declined [facility] [facility] Feb 05, 2011 09:46 AM CURRENT TOBACCO USER [facility] Dec 21, 2009 01:59 PM CURRENT TOBACCO USER [facility] Dec 21, 2009 01:[address] [facility] [facility] Aug 10, 2009 08:31 AM TOBACCO MEDS OFFER ED BUT DECLINED [facility] Aug 10, 2009 08:31 AM TOBACCO OFFERED PT MEDS (PROVIDER) [facility] Aug 10, 2009 08:[address] [facility] [facility] Jan 12, 2008 08:33 AM QUIT TOBACCO IN TH E LAST 12 MONTHS [facility] Sep 07, 2007 01:43 PM CURRENT TOBACCO USER [facility] Jun 19, 2006 11:25 AM CURRENT TOBACCO USER [facility] Mar 12, 2006 10:53 AM CURRENT TOBACCO USER [facility] Nov 21, 2005 11:12 AM CURRENT TOBACCO USER [facility] May 27, 2005 08:56 AM CURRENT TOBACCO USER [facility] Mar 15, 2004 02:03 PM CURRENT TOBACCO USER [facility] Feb 26, 2002 09:17 AM CURRENT NON-TOBACC O USER-HX OF USE Quit 3 years ago. [facility] Oct 05, 2001 02:50 PM CURRENT TOBACCO USER [facility] Sep 11, 2001 08:38 AM CURRENT TOBACCO USER [facility] Aug 03, 2001 02:03 PM CURRENT TOBACCO USER [facility] May 19, 2001 04:16 PM CURRENT TOBACCO USER [facility] Advance Directives: All historical and current Section Date Range: From patient's date of to the date document was created. This section includes ALL of a patient's completed or amended [place] Advance and Rescinded Directives. The entries below indicate that a directive exists for the patient, but an actual copy is not included with this document. The data comes from all [place] facilities. Date Advance Directives Provider Source Apr 30, 2019 ADVANCE DIRECTIVE NGUY[facility]OLAN [facility] Radiology Reports: +/- 30 days of the [...] the Encounter. The data comes from all [place] treatment facilities. Date/Time Radiology Report Provider Source Aug 20, 2024 10:03 AM CHEST X-RAY, 2 VIE WS: SHELDON MCDANIELS [id number] -[id number] M Ex Date: AUG 20, 2024@10:03 Req Phys: BERNIE REID Loc: PB-[facility]T PACT [employer] L[employer]UAGE PATHOLOGIST [facility] (Req Img Loc: PB-XRAY [place] Service: [place] [address] (Case [id number] COMPLETE) CHEST X-RAY, 2 VIEWS (RAD Detailed) CPT:62139 Reason for Study: increased cough Clinical History: clear sputum production, suspect congestive heart failure Report Status: Verified Date Reported: AUG 20, 2024 Date Verified: AUG 20, 2024 Argon Tester E-Sig: Report: PA and lateral views of the chest reveal degenerative skeletal change and mild scoliosis. There are atherosclerotic and granulomas calcifications. There is mild biapical pleural thickening. There is no infiltrate or effusion. Heart size is normal. Impression: No acute process Primary Interpreting Staff: SERVANDO MAZARIEGOS RADIOLOGIST (Argon Tester, no e-sig) /SERVANDO Holly [facility] Encounter Notes: All associated encounter notes This section contains the clinical notes associated to the Encounter. Date/Time Encounter Note(s) Provider Source Aug 20, 2024 09:52 AM PRIMARY CARE PROGRESS NOTE: LOCAL TITLE: PRIMARY CARE CLINIC PROGRESS NOTE PB STANDARD TITLE: PRIMARY CARE PROGRESS NOTE DATE OF NOTE: AUG 20, 2024@09:52 ENTRY DATE: AUG 20, 2024@09:52:04 AUTHOR: BERNIE REID COSIGNER: URGENCY: STATUS: COMPLETED PROVIDER ASSESSMENT DATE & TIME:Aug@09:52 CHIEF COMPLAINT: Increase in cough. HISTORY OF PRESENT ILLNESS: Loree is being seen today for an increase in cough. Loree has a clear, productive sputum. Loree is using his wixela but states that this has made him cough more. We will change his wixela today. Loree also has some trace edema in his lower legs. I have tried to explain to him what COPD is and the effects it has on the heart but he is reluctant to learning. Loree has not seen a wrapper and preserver. He is at high risk for a cardiac event. Veterans ekg shows sinus bradycardia today. We will place a cardiology consult. 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 TAKE OTHER MEDICATIONS 1 HOUR BEFORE OR 6 HOURS AFTER ADMINISTRATION. 3) FINASTERIDE 5MG TAB TAKE ONE TABLET BY MOUTH ONCE A ACTIVE DAY FOR BENIGN PROSTATIC HYPERPLASIA SWALLOW WHOLE, DO NOT CRUSH, SPLIT, OR CHEW. 4) FLUTICAS 250/SALMETEROL 50 INHL DISK 60 INHALE 1 ACTIVE INHALATION ORAL INHALATION TWICE A DAY FOR COPD (OPEN DISKUS; CLICK ONLY ONCE; MAY INHALE TWICE TO COMPLETE DOSE; CLOSE WHEN FINISHED) RINSE MOUTH AND SPIT AFTER EACH USE. 5) FLUTICASONE PROP 50MCG 120D NASAL INHL INSTILL 1 ACTIVE SPRAY IN NOSTRIL(S) ONCE A DAY FOR RHINITIS (MUST BE USED DIRECTED FOR MINIMUM OF 21 DAYS TO PROVIDE ADEQUATE BENEFITS) 6) GUAIFENESIN 400MG TAB TAKE ONE TABLET BY MOUTH FOUR ACTIVE TIMES A DAY NEEDED FOR MUCUS THINNING TAKE WITH 8 OUNCE GLASS OF WATER. 7) HYDROCORTISONE 2.5% OINT APPLY SPARINGLY TO AFFECTED ACTIVE AREA(S) TWICE DAILY NEEDED FOR EXTERNAL USE ONLY. FOR SKIN CONDITION. APPLY SPARINGLY. NEEED FOR ITCHING 8) HYDROCORTISONE ACETATE 25MG RTL SUPP UNWRAP AND ACTIVE INSERT 1 SUPPOSITORY RECTALLY TWICE DAILY NEEDED FOR HEMORRHOIDS 9) METHOCARBAMOL 750MG TAB TAKE 1 TABLET BY MOUTH THREE ACTIVE TIMES A DAY NEEDED FOR MUSCLE SPASM 10) MICONAZOLE NITRATE 2% TOP PWDR APPLY LIBERALLY TO ACTIVE AFFECTED AREA(S) THREE TIMES A DAY NEEDED FOR FUNGAL INFECTION FOR TOPICAL USE ONLY. 11) MONTELUKAST NA 10MG TAB TAKE ONE TABLET BY MOUTH ACTIVE EVERY EVENING FOR ASTHMA 12) NYSTATIN 445520 UNT/GM CREAM APPLY SPARINGLY TO ACTIVE AFFECTED AREA(S) THREE TIMES A DAY FOR FUNGAL SKIN INFECTION - TOPICAL USE ONLY. 13) PANTOPRAZOLE NA 40MG EC TAB TAKE ONE TABLET BY MOUTH ACTIVE EVERY MORNING BEFORE A MEAL FOR GASTROESOPHAGEAL REFLUX DISEASE TAKE 30 MINUTES BEFORE MEAL(S) 14) TADALAFIL 10MG TAB TAKE ONE TABLET BY MOUTH EVERY ACTIVE WEEK NEEDED FOR ERECTILE DYSFUNCTION (TAKE 30 MINUTES PRIOR TO SEXUAL ACTIVITY) - LIMIT 6 DOSES PER 30 DAYS 15) TAMSULOSIN HCL 0.4MG CAP TAKE ONE CAPSULE BY MOUTH ACTIVE EVERY EVENING FOR BENIGN PROSTATIC HYPERPLASIA APPROXIMATELY 30 MINUTES AFTER THE SAME MEAL EACH DAY 16) VALACYCLOVIR HCL 500MG TAB TAKE ONE TABLET BY MOUTH ACTIVE ONCE A DAY FOR VIRAL INFECTION PREVENTION Active Non-VA Medications Status = 1) Non-VA SILDENAFIL CITRATE 100MG TAB 100MG BY MOUTH ACTIVE TWO TIMES PER WEEK NEEDED 17 Total Medications REVIEW OF SYSTEMS: HEENT: No Headache. No blurry vision, vision loss, eye pain, red eyes, or foreign body. No runnynose, congestion, or nose bleed. No ringing in the ears, or vertigo. No sore throat or dental pain. positive hearing loss. RESPIRATORY: Positive cough and sputum production. GI: No abdominal pain, nausea, vomiting, diarrhea, constipation, melena, or hematochezia. : No dysuria, hematuria, urinary frequency, weak stream, or post-void dribbling. MUSCULOSKELETAL:chronic joint pain. SKIN: No rash, lesions, or infection PSYCH: No Depression or Anxiety. Not suicidal. PHYSICAL ASSESSMENT: VITAL SIGNS Pulse: 75 (08/20/2024 09:33) Blood Pressure: 121/78 (08/20/2024 09:33) Respiratory Rate: 20 (08/20/2024 09:33) Temperature: 97.8 F [36.6 C] (07/30/2024 11:50) Weight: 217.4 lb [98.61 kg] (08/20/2024 09:33) Height: 72.0 in [182.9 cm] (08/20/2024 09:33) Pain: 4 (08/20/2024 09:33) NECK: Supple, no lymhadenopathy, thyroid normal. CARDIAC: Bradycardic rate and rhythm without murmur. Trace edema bilateral lower extremities. RESPIRATORY: CTA upper lobes, lower lobes diminished bilaterally. GI: Abdomen soft,with ABS. MUSCULOSKELETAL:No muscle or joint tenderness. FROM. SKIN: [place] without rash or lesions. NEUROLOGICAL: The is alert and oriented without distress. IMPRESSION: COPD-chronic Bradycardia-current PLAN: Will discontinue wixela inhaler. Will start Mometasone. Increase water intake. Discussed COPD in depth. Chest xray today. Will refer to Cardiology. RTC as previously scheduled. Patient is advised this primary care clinic [...] the After Visit Summary was reviewed with ; opportunity provided to report concerns and ask [...] Time spent 30 minutes. /clinton/ BRAN [facility] [place] Signed: 08/20/2024 23:51 BERNIE REID [facility] Aug 20, 2024 09:35 AM PRIMARY CARE NURSING NOTE: LOCAL TITLE: PRIMARY CARE NURSING PROGRESS NOTE (TEXT) NURSING P STANDARD TITLE: PRIMARY CARE NURSING NOTE DATE OF NOTE: AUG 20, 2024@09:35 ENTRY DATE: AUG 20, 2024@09:35:28 AUTHOR: EUDARDO WAHL COSIGNER: URGENCY: STATUS: COMPLETED Established Patient SHELDON MCDANIELS IS A 79 YEAR OLD MALE BEING SEEN IN CLINIC AUG 20, 2024. REASON FOR VISIT: here today for c/o lung pain and coughing up phlem . He is also c/o Leg and Back Pain and denies any injury states it is from his coughing. Are you receiving care any where other than the [place]? No HEALTH AND SURGICAL HISTORY: Does patient report using home oxygen? No CURRENT ACTIVE MEDICATIONS FOR REVIEW: Allergies/ADRs (Tool #5) FACILITY ALLERGY/ADR -------- [facility] Med. Reconciliation (Tool #1) INCLUDED IN THIS LIST: Alphabetical list of active outpatient prescriptions dispensed from this [place] (local) and dispensed from another [place] or [place] facility (remote) as well as inpatient orders (local pending and active), local clinic medications, locally documented non-VA medications, and local prescriptions that have or been discontinued in the past 90 days. Non-VA Meds Last Documented On: Feb 24, 2023 NOTE The display of VA prescriptions dispensed from another [place] or [place] facility (remote) is limited to active outpatient prescription entries matched to National Drug File at the originating site and may not include some items such as investigational drugs, compounds, etc. NOT INCLUDED IN THIS LIST: Medications self-entered by the patient into personal health records (i.e. [employer]) are NOT included in this list. Non-VA medications documented outside this [place], remote inpatient orders (regardless of status) and remote clinic medications are NOT included in this list. The patient and provider must always discuss medications the patient is taking, regardless of where the medication was dispensed or obtained. OUTPT ALBUTEROL 90MCG (CFC-F) 200D ORAL INHL (Status = ) INHALE 2 PUFFS ORAL INHALATION FOUR TIMES A DAY FOR ASTHMA SHAKE WELL. RINSE MOUTHPIECE FREQUENTLY TO PREVENT CLOGGING. Rx# [id number] Last Released: 06/11/24 Qty/Days Supply: Rx Expiration Date: 08/11/24 Refills Remainin Indication: FOR ASTHMA OUTPT CETIRIZINE HCL 10MG TAB (Status = Active) TAKE ONE TABLET BY MOUTH ONCE A DAY FOR ALLERGY SYMPTOMS Rx# [id number] Last Released: 06/30/24 Qty/Days Supply: Rx Expiration Date: 01/12/25 Refills Remainin Indication: FOR ALLERGY SYMPTOMS OUTPT CHOLESTYRAMINE 4GM/5GM (LIGHT) PWD PKT (Status = Active) MIX AND DRINK 1 PACKET BY MOUTH ONCE A DAY FOR HIGH CHOLESTEROL MIX WITH WATER DIRECTED. TAKE OTHER MEDICATIONS 1 HOUR BEFORE OR 6 HOURS AFTER ADMINISTRATION. Rx# [id number] Last Released: 03/26/24 Qty/Days Supply: Rx Expiration Date: 03/25/25 Refills Remainin Indication: FOR HIGH CHOLESTEROL OUTPT FINASTERIDE 5MG TAB (Status = Active) TAKE ONE TABLET BY MOUTH ONCE A DAY FOR BENIGN PROSTATIC HYPERPLASIA SWALLOW WHOLE, DO NOT CRUSH, SPLIT, OR CHEW. Rx# [id number] Last Released: 07/01/24 Qty/Days Supply: Rx Expiration Date: 02/20/25 Refills Remainin Indication: FOR BENIGN PROSTATIC HYPERPLASIA OUTPT FLUTICAS 250/SALMETEROL 50 INHL DISK 60 (Status = Active) INHALE 1 INHALATION ORAL INHALATION TWICE A DAY FOR COPD (OPEN DISKUS; CLICK ONLY ONCE; MAY INHALE TWICE TO COMPLETE DOSE; CLOSE WHEN FINISHED) RINSE MOUTH AND SPIT AFTER EACH USE. Rx# [id number] Last Released: 05/18/24 Qty/Days Supply: Rx Expiration Date: 02/02/25 Refills Remainin Indication: FOR COPD OUTPT FLUTICASONE PROP 50MCG 120D NASAL INHL (Status = Discontinued) INSTILL 1 SPRAY IN NOSTRIL(S) ONCE A DAY FOR RHINITIS (MUST BE USED DIRECTED FOR MINIMUM OF 21 DAYS TO PROVIDE ADEQUATE BENEFITS) Rx# [id number] Last Released: 05/26/24 Qty/Days Supply: Rx Expiration Date: 02/10/25 Refills Remainin Indication: FOR RHINITIS OUTPT FLUTICASONE PROP 50MCG 120D NASAL INHL (Status = Active) INSTILL 1 SPRAY IN NOSTRIL(S) ONCE A DAY FOR RHINITIS (MUST BE USED DIRECTED FOR MINIMUM OF 21 DAYS TO PROVIDE ADEQUATE BENEFITS) Rx# [id number] Last Released: Qt Supply: Rx Expiration Date: 06/30/25 Refills Remainin Indication: FOR RHINITIS OUTPT GABAPENTIN 100MG CAP (Status = ) TAKE ONE CAPSULE BY MOUTH THREE TIMES A DAY FOR PAIN Rx# [id number] Last Released: 08/15/23 Qty/Days Supply: 270 Rx Expiration Date: 08/12/24 Refills Remainin OUTPT GUAIFENESIN 400MG TAB (Status = Active) TAKE ONE TABLET BY MOUTH FOUR TIMES A DAY NEEDED FOR MUCUS THINNING TAKE WITH 8 OUNCE GLASS OF WATER. Rx# [id number] Last Released: 02/23/24 Qty/Days Supply: Rx Expiration Date: 02/20/25 Refills Remainin Indication: FOR MUCUS THINNING OUTPT HYDROCHLOROTHIAZIDE 25MG TAB (Status = ) TAKE ONE TABLET BY MOUTH ONCE A DAY FOR HIGH BLOOD PRESSURE Rx# [id number] Last Released: 06/30/24 Qty/Days Supply: 90 Rx Expiration Date: 08/12/24 Refills Remainin Indication: FOR HIGH BLOOD PRESSURE OUTPT HYDROCORTISONE 2.5% OINT (Status = Active) APPLY SPARINGLY TO AFFECTED AREA(S) TWICE DAILY NEEDED FOR EXTERNAL USE ONLY. FOR SKIN CONDITION. APPLY SPARINGLY. NEEED FOR ITCHING Rx# [id number] Last Released: 10/04/23 Qty/Days Supply: 30 Rx Expiration Date: 09/30/24 Refills Remainin OUTPT HYDROCORTISONE ACETATE 25MG RTL SUPP (Status = Active) UNWRAP AND INSERT 1 SUPPOSITORY RECTALLY TWICE DAILY NEEDED FOR HEMORRHOIDS Rx# [id number] Last Released: 02/04/24 Qty/Days Supply: Rx Expiration Date: 02/02/25 Refills Remainin Indication: FOR HEMORRHOIDS OUTPT METHOCARBAMOL 750MG TAB (Status = Active) TAKE 1 TABLET BY MOUTH THREE TIMES A DAY NEEDED FOR MUSCLE SPASM Rx# [id number] Last Released: 09/25/23 Qty/Days Supply: 270/90 Rx Expiration Date: 09/24/24 Refills Remainin Indication: FOR MUSCLE SPASM OUTPT MICONAZOLE NITRATE 2% TOP PWDR (Status = Active) APPLY LIBERALLY TO AFFECTED AREA(S) THREE TIMES A DAY NEEDED FOR FUNGAL INFECTION FOR TOPICAL USE ONLY. Rx# [id number] Last Released: 10/04/23 Qty/Days Supply: 180/90 Rx Expiration Date: 09/30/24 Refills Remainin Indication: FOR FUNGAL INFECTION OUTPT MONTELUKAST NA 10MG TAB (Status = Active) TAKE ONE TABLET BY MOUTH EVERY EVENING FOR ASTHMA Rx# [id number] Last Released: 07/01/24 Qty/Days Supply: 90/90 Rx Expiration Date: 01/12/25 Refills Remainin Indication: FOR ASTHMA OUTPT NYSTATIN [id number] UNT/GM CREAM (Status = Active) APPLY SPARINGLY TO AFFECTED AREA(S) THREE TIMES A DAY FOR FUNGAL SKIN INFECTION - TOPICAL USE ONLY. 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 wants to get name brand outside [place] Indication: FOR ERECTILE DYSFUNCTION OUTPT TADALAFIL 10MG TAB (Status = Active) TAKE ONE TABLET BY MOUTH EVERY WEEK NEEDED FOR ERECTILE DYSFUNCTION (TAKE 30 MINUTES PRIOR TO SEXUAL ACTIVITY) - LIMIT 6 DOSES PER 30 DAYS Rx# [id number] Last Released: 12/12/23 Qty/Days Supply: 05/16 Rx Expiration Date: 12/10/24 Refills Remainin Indication: FOR ERECTILE DYSFUNCTION OUTPT TAMSULOSIN HCL 0.4MG CAP (Status = Active) TAKE ONE CAPSULE BY MOUTH EVERY EVENING FOR BENIGN PROSTATIC HYPERPLASIA APPROXIMATELY 30 MINUTES AFTER THE SAME MEAL EACH DAY Rx# [id number] Last Released: 07/02/24 Qty/Days Supply: Rx Expiration Date: 06/30/25 Refills Remainin Indication: FOR BENIGN PROSTATIC HYPERPLASIA OUTPT VALACYCLOVIR HCL 500MG TAB (Status = Active) TAKE ONE TABLET BY MOUTH ONCE A DAY FOR VIRAL INFECTION PREVENTION Rx# [id number] Last Released: 07/03/24 Qty/Days Supply: Rx Expiration Date: 06/30/25 Refills Remainin Indication: FOR VIRAL INFECTION PREVENTION SUPPLIES PHARMACY TERMS AND POSSIBLE PATIENT ACTIONS INPT = [place] inpatient order IV = [place] intravenous medication OUTPT = [place] outpatient prescription PHARMACY POSSIBLE PATIENT TERMS EXPLANATION ACTIONS -------- - ACTIVE A prescription that can be If you have refills, filled at the local [facility] pharmacy. you may request a refill of this prescription from your [facility] pharmacy. CLINIC A medication you received during If you have questions a visit to a [facility] clinic or about this medication emergency department. contact your [facility] healthcare team. DISCONTINUED A prescription your provider has [facility] stopped. It is no longer healthcare team if you available to be sent to you or need more of this picked up at the [place] pharmacy medication. window. A prescription which is [...] the [facility]. Or, it may be an [id number] (OTC), herbal, dietary supplements or sample medication. [...] An active prescription that is Contact your [place] not scheduled to be filled yet. pharmacy [...] report since last visit? NO VITALS: TEMPERATURE: 97.8 F [36.6 C] (07/30/2024 11:50) BP: 121/78 (08/20/2024:33) RESP: 20 (08/20/2024:) PULSE: 75 (08/20/2024) HT: 72.0 in [182.9 cm] (08/20/2024) WT: 217.4 lb [98.61 kg] (08/20/2024) BMI: 29.5 PAIN ASSESSMENT: (Most Recent Pain Score in Vitals Package: 4 (08/20/2024:) ) The patient indicated that they and [...] This patient's last pain assessment score was: 4 (08/20/2024:). A detailed pain assessment showed the following: Pain characteristics (per patient's own words) Constant, Aching Location of current pain Back, Lung and Leg STRESS: Thank you for your service. Now let us serve you. At the [facility], we strive to provide you with exceptional [...] Not At All SPIRITUAL ASSESSMENT: Are there alevism practices or spiritual concerns you want the accounting manager controller, your physician, and other health care team members to immediately know about? No Patient advised to call the clinic for any concerns, questions, or symptoms. Patient and/or caregiver verbalized understanding of plan of care. /clinton/ EDUARDO WAHL LPN Signed: 08/20/2024 09:40 EDUARDO WAHL [facility]
--- OUTSIDE RECORDS SUMMARY | 2024-09-17 05:00 | XMS_ITS | Encounter Summary ---
Author Name [facility] [place] [facility] [place] Address [address] [place] [address] Care Team Providers Care Regulatory Leader Name Role Phone BERNIE REID Primary Care [...] PART B May 17, 2003 PART B [id number] Latoya MCDANIELS ONALD PATIENT MEDICARE (WNR) MEDICARE (M) PART B May 17, 2003 PART B [id number] Latoya MCDANIELS ONALD PATIENT MEDICARE (WNR) MEDICARE (M) PART A Nov 17, 1997 PART A [id number] Latoya MCDANIELS ONALD PATIENT MEDICARE (WNR) MEDICARE (M) PART A Nov 17, 1997 PART A [id number] Latoya MCDANIELS ONERICKSON PATIENT Selected Encounter This section includes the information on record at [place] for the Encounter. Date/Time Encounter Type Encounter Description Reason Provider Source Sep 17, 2024 10:00 AM OFFICE O/P EST MOD 30 MIN PRIMARY CARE/MEDICINE ICD-10-CM M79.673 Pain in unspecified foot MAK REID [place] Encounter Template Text not used by [facility] Assessments - Encounter Diagnoses This section includes the primary and secondary diagnoses documented for the Encounter. Date/Time Primary/Secondary Diagnosis Diagnosis Name Provider Source Sep 17, 2024 08:00 PM PRIMARY Pain in unspecified foot JOE REID [facility] Sep 17, 2024 08:00 PM SECONDARY Anxiety disorder, unspecified JOE REID [facility] Sep 17, 2024 08:00 PM SECONDARY Edema, unspecified JOE REID [facility] Plan of Treatment: Future Appointments (+ 6 months) and Future Tests (+/- 45 days) The Plan of Treatment section includes future care activities for the patient from [facility] [place] [facility] This section includes future appointments and future orders which are active, pending or scheduled. Future Appointments This section includes appointments that were scheduled to occur 6 months from the date of the Encounter, up to a maximum of 20 appointments. The data comes from all [place] treatment facilities. Appointment Date/Time Appointment Type Appointme nt Facility Name Oct 13, 2024 01:00 PM AMBULATORY - MEDICINE [facility] Feb 16, 2025 02:00 PM AMBULATORY - MEDICINE [facility] Feb 22, 2025 11:00 AM AMBULATORY - MEDICINE [facility] Mar 08, 2025 01:00 PM AMBULATORY - MEDICINE [facility] March 17, 2025 11:10 AM AMBULATORY MEDICINE [facility] Active, Pending, and Scheduled Orders This section includes a listing of several types of active, pending, and scheduled orders, including clinic medications orders, diagnostic test orders, procedure orders and consult orders; where the start date of the order is 45 days before the date of the Encounter or 45 days after the date of theEncounter. The data comes from all [place] treatment [facility]. Test Date/Time Test Type Test Details Facility Name Nov 01, 2024 07:43 PM Consult Order COMMUNITY CARE-PULMONARY [id number] Cons F[employer] [facility] Lab Results: +/- 30 days of the encounter This section includes the Chemistry and Hematology Lab Results on record with [place] for the patient. Radiology Reports and Pathology Reports are provided separately, in subsequent sections. Lab Results This section contains the Chemistry/Hematology Results that were resulted 30 days before or 30 daysafter the date of the Encounter. Date/Time Source Result Type Result - Unit Interpretation Reference Range Specimen Type Comment Aug 20, 2024 10:01 AM [facility] BRAIN NATRIURETIC PEPTIDE PLASMA Specimen Type : PLASMA No comment entered. Ordering Provider: JUNIOR REID Report Released Date/Time: Aug 20, 2024 09:53 AM Reporting Lab: [place] [facility] [address] [place] [address] Performing Lab: [place] [facility] [address] [place] [address] BRAIN NATRIURETIC PEPTIDE 83 pg/mL 0-100 Aug 20, 2024 10:01 AM [facility] BASIC METABOLIC PANEL PLASMA Specimen Type: PL ASMA No comment entered. Ordering Provider: BERNIE REID Report Released Date/Time: Aug 20, 2024 09:53 AM Reporting Lab: [place] [facility] [address] [place] [address] Performing Lab: [place] [facility] [address] [place] [address] CREATININE 1.10 mg/dL 0.7-1.3 UREA NITROGEN 15 mg/dL 9-25 GLUCOSE 86 mg/dL 72-99 SODIUM 133 meq/L L 136-145 POTASSIUM 3.9 meq/L 3.5-5 CHLORIDE 97 meq/L L 98-107 CARBON DIOXIDE 27 meq/L 22-31 CALCIUM 9.2 mg/dL 8.4-10.4 EGFR (CKD-EPI 2020) 69 Aug 20, 2024 10:01 AM [facility] CBC BLOOD Specimen Type: BLOOD No comment entered. Ordering Provider: BERNIE REID Report Released Date/Time: Aug 20, 2024 09:53 AM Reporting Lab: [place] [facility] [address] [place] [address] Performing Lab: [place] [facility] [address] [place] [address] WBC 7.8 10*3/uL 3.6-11.2 RBC 4.92 10*6/uL [...] Pain Height Weight Body Mass Index Source Sep 17, 2024 10:11 AM 98 88 124/65 20 98 222.9 30 [facility] Social History: Smoking Status (Most current) and Tobacco Use (All prior to encounter date) This section includes the most current, and the historical, smoking and tobacco- related health factors from the [place] facility where the Encounter took place. Current Smoking Status This section includes the most current smoking, or tobacco-related health factor, from the [place] facility where the Encounter took place. Date/Time Current Smoking Status Comment Facil ity Sep 30, 2023 01:30 PM VA-TOBACCO USER EVERY DAY [facility] Tobacco Use History This section includes a history of the smoking, or tobacco-related health factors, that were collected on or before the date of the Encounter. The data comes from the [place] facility where the Encounter took place. Date/Time Smoking Status/Tobacco Use Comment F acility Sep 30, 2023 01:30 PM VA-TOBACCO USE 30 YEARS OR MORE [facility] Sep 30, 2023 01:30 PM VA-TOBACCO USE ADVICE [facility] Sep 30, 2023 01:30 PM VA-TOBACCO USE PRESSURE TESTER NO [facility] Sep 30, 2023 01:30 PM VA-TOBACCO USE MED NO [facility] Sep 30, 2023 01:30 PM VA-TOBACCO USER EVERY DAY [facility] Oct 15, 2022 01:00 PM VA-TOBACCO FORMER USER [facility] Oct 15, 2022 01:00 PM VA-TOBACCO QUIT 15 YRS OR MORE [facility] Oct 04, 2021 10:30 AM VA-TOBACCO FORMER USER [facility] Oct 04, 2021 10:30 AM VA-TOBACCO QUIT 15 YRS OR MORE [facility] Oct 11, 2019 03:08 PM VA-TOBACCO DOESNT USE WI 30 MIN WAKEUP [facility] Oct 11, 2019 03:08 PM VA-TOBACCO USE 30 YEARS OR MORE [facility] Oct 11, 2019 03:08 PM VA-TOBACCO USE ADVICE [facility] Oct 11, 2019 03:08 PM VA-TOBACCO USE PRESSURE TESTER NO [facility] Oct 11, 2019 03:08 PM VA-TOBACCO USE MED NO [place] [facility] Oct 11, 2019 03:08 PM VA-TOBACCO USER EVERY DAY [facility] Jan 19, 2018 09:40 AM CURRENT TOBACCO USER [facility] Jan 19, 2018 09:40 AM CURRENT TOBACCO US ER (NOT READY TO QUIT) [facility] Jan 19, 2018 09:40 AM SMOKELESS TOBACCO AMOUNT/LENGTH V15 1 pk Q week, 18 yrs [facility] Jan 19, 2018 09:40 AM TOBACCO CESSATION REFERRAL DECLINED [facility] Jan 19, 2018 09:40 AM TOBACCO MEDS OFFER ED BUT DECLINED [facility] Jan 19, 2018 09:40 AM TOBACCO USER OFFERED MEDS [facility] March 21, 2016 01:58 PM TOBACCO MEDS OFFER ED BUT DECLINED [facility] March 21, 2016 01:58 PM TOBACCO OFFERED PT MEDS (PROVIDER) [facility] March 21, 2016 01:[address] OP SMOKING CLINIC [facility] Nov 08, 2015 08:24 AM TOBACCO MEDS OFFER ED BUT DECLINED [facility] Nov 08, 2015 08:24 AM TOBACCO OFFERED PT MEDS (PROVIDER) [facility] Nov 08, 2015 08:[address] OP SMOKING CLINIC [facility] Dec 10, 2013 08:29 AM TOBACCO MEDS OFFER ED BUT DECLINED [facility] Dec 10, 2013 08:29 AM TOBACCO OFFERED PT MEDS (PROVIDER) [facility] Dec 10, 2013 08:[address] OP SMOKING CLINIC [facility] Dec 29, 2012 10:15 AM QUIT TOBACCO >7 YEARS AGO [facility] [facility] Aug 20, 2012 09:31 AM TOBACCO MEDS OFFER ED BUT DECLINED [facility] Aug 20, 2012 09:31 AM TOBACCO OFFERED PT MEDS (PROVIDER) [facility] Aug 20, 2012 09:[address] OP SMOKING CLINIC [facility] Mar 13, 2012 08:19 AM TOBACCO MEDS OFFER ED BUT DECLINED [facility] Mar 13, 2012 08:19 AM TOBACCO OFFERED PT MEDS (PROVIDER) [facility] Mar 13, 2012 08:[address] OP SMOKING CLINIC [facility] Jan 16, 2012 02:44 PM CURRENT TOBACCO USER [facility] Jan 16, 2012 02:44 PM TOBACCO MEDS OFFER ED BUT DECLINED [facility] Jan 16, 2012 02:44 PM TOBACCO OFFERED PT MEDS (PROVIDER) [facility] Jan 16, 2012 02:[address] OP SMOKING CLINIC [facility] Aug 28, 2011 08:52 AM TOBACCO MEDS OFFER ED BUT DECLINED [facility] Aug 28, 2011 08:52 AM TOBACCO OFFERED PT MEDS (PROVIDER) declined [facility] Aug 28, 2011 08:[address] OP SMOKING CLINIC declined [facility] Feb 05, 2011 09:46 AM CURRENT TOBACCO USER [facility] Dec 21, 2009 01:59 PM CURRENT TOBACCO USER [facility] Dec 21, 2009 01:[address] OP SMOKING CLINIC [facility] Aug 10, 2009 08:31 AM TOBACCO MEDS OFFER ED BUT DECLINED [facility] Aug 10, 2009 08:31 AM TOBACCO OFFERED PT MEDS (PROVIDER) [facility] Aug 10, 2009 08:[address] OP SMOKING CLINIC [facility] Jan 12, 2008 08:33 AM QUIT TOBACCO IN TH E LAST 12 MONTHS [facility] Sep 07, 2007 01:43 PM CURRENT TOBACCO USER [facility] [place] [facility] Jun 19, 2006 11:25 AM CURRENT TOBACCO USER [facility] [place] [facility] Mar 12, 2006 10:53 AM CURRENT TOBACCO USER [facility] [place] [facility] Nov 21, 2005 11:12 AM CURRENT TOBACCO USER [facility] [facility] May 27, 2005 08:56 AM CURRENT TOBACCO USER [facility] [facility] Mar 15, 2004 02:03 PM CURRENT TOBACCO USER [facility] [facility] Feb 26, 2002 09:17 AM CURRENT NON-TOBACC O USER-HX OF USE Quit 3 years ago. [facility] [facility] Oct 05, 2001 02:50 PM CURRENT TOBACCO USER [facility] [place] [facility] Sep 11, 2001 08:38 AM CURRENT TOBACCO USER [facility] [place] [facility] Aug 03, 2001 02:03 PM CURRENT TOBACCO USER [facility] [place] [facility] May 19, 2001 04:16 PM CURRENT TOBACCO USER [facility] [place] [facility] Advance Directives: All historical and current Section Date Range: From patient's date of to the date document was created. This section includes ALL of a patient's completed or amended [place] Advance and Rescinded Directives. The entries below indicate that a directive exists for the patient, but an actual copy is not included with this document. The data comes from all [place] facilities. Date Advance Directives Provider Source Apr 30, 2019 ADVANCE DIRECTIVE [facility] Radiology Reports: +/- 30 days [...] the Encounter. The data comes from all [place] treatment facilities. Date/Time Radiology Report Provider Source Aug 20, 2024 10:03 AM CHEST X-RAY, 2 VIE WS: SHELDON MCDANIELS [id number] M Exm Date: AUG 20, 2024@10:03 Req Phys: BERNIE REID Pat Loc: PB-COLT PACT EZIO AMADOR [facility] (Req Img Loc: PB-XRAY [place] Service: [place] [address] (Case [id number] COMPLETE) CHEST X-RAY, 2 VIEWS (RAD Detailed) CPT:72809 Reason for Study: increased cough Clinical History: clear sputum production, suspect congestive heart failure Report Status: Verified Date Reported: AUG 20, 2024 Date Verified: AUG 20, 2024 Correction Lieutenant E-Sig: Report: PA and lateral views of the chest reveal degenerative skeletal change and mild scoliosis. There are atherosclerotic and granulomas calcifications. There is mild biapical pleural thickening. There is no infiltrate or effusion. Heart size is normal. Impression: No acute process Primary Interpreting Staff: SERVANDO MAZARIEGOS, RADIOLOGIST (Correction Lieutenant, no e-sig) /SERV[facility]O [facility] Encounter Notes: All associated encounter notes This section contains the clinical notes associated to the Encounter. Date/Time Encounter Note(s) Provider Source Feb 08, 2025 02:09 PM NURSING PROGRESS NOTE: LOCAL TITLE: NURSING NOTE PB STANDARD TITLE: NURSING PROGRESS NOTE DATE OF NOTE: FEB 08, 2025@14:09 ENTRY DATE: FEB 08, 2025@14:09:12 AUTHOR: TAM JUAREZ COSIGNER: URGENCY: STATUS: COMPLETED stated that he worked outside yesterday and he noticed last night that he coughed all night and today he has coughed up 1/2 of a 20oz coke bottle of white thick phlegm. Angwin stated that he is taking all prescribed medication. stated that it does not seem to be helping. 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 Angwin stated that has a wixella inhaler at his house and it is helping but he was told not to use it anymore. I advised Angwin to take Mucinex and drink plenty of water and that I recommend for him to make an appt to be evaluated. Angwin agreed. I advised Angwin that I will alert a control clerk head to contact him to make an appt. /clinton/ Tam Juarez RN Mcgrady CBMAGAN, JP [facility] Signed: 02/08/2025 14:17 TAM JUAREZ [place] AKIRA ISBELL Dec 27, 2024 11:48 AM ADDENDUM: LOCAL TITLE: Addendum STANDARD TITLE: ADDENDUM DATE OF NOTE: DEC 27, 2024@11:48:34 ENTRY DATE: DEC 27, 2024@11:48:35 AUTHOR: BERNIE REID COSIGNER: URGENCY: STATUS: COMPLETED Prescriptions above called to [facility] on the immediate need benefit plan. Please fax form to [facility]. /clinton/ BRAN Thapa Mcgrady, [facility] Signed: 12/27/2024 11:49 Receipt Acknowledged By: 12/27/2024 12:58 /clinton/ ARTEMIO BUSTOS AMSA --- Original Document --- 12/27/24 NURSING NOTE PB: Angwin contacted the clinic stating that he has went to the ER at both [facility] and [facility] ER. stated that he left [facility] due to long wait. went to [facility] and was prescribed medication and is needing authorization for medication and will be by the clinic to get medication authorization. stated that he was diag with the flu and they were concerned about him getting pneumonia. stated that he is unable to read the and writing. Angwin advised that he can come and drop off discharge paperwork. I advised that I will call and try to get records. /clinton/ Tam [facility] JArtieP [facility] Signed: 12/27/2024 10:42 Receipt Acknowledged By: 12/27/2024 11:46 /clinton/ BRAN Thapa McgradyNAY Plunkett 12/27/2024 ADDENDUM STATUS: COMPLETED Records now available: Community Facility Point of Contact: Name: Darlin De Jesus Chief complaint: Cough Primary Diagnosis: [J10.1] Influenza A (Primary) [J20.9] Acute bronchitis, unspecified organism Disposition Discharged Date of discharge: Dec 27, 2024 at 0337 Discharge to home New Prescriptions for this Encounter: AZITHROMYCIN (ZITHROMAX) 500 MG TABLET - Take 1 Tablet (500 mg) by mouth daily for 2 days. BENZONATATE (TESSALON) 200 MG CAPSULE - Take 1 Capsule (200 mg) by mouth 3 times daily for 7 days. /clinton/ EDUARDO [facility] LPN Signed: 12/27/2024 11:00 Receipt Acknowledged By: 12/27/2024 11:48 /[facility] v[facility]la 12/27/2024 11:55 /clinton/ Tam Juarez RN [facility], [facility] 12/27/2024 ADDENDUM STATUS: COMPLETED requesting medication called to [facility] if Provider is in agreeance. /clinton/ Tam Juarez RN Mcgrad[facility], [facility] Signed: 12/27/2024 11:32 Receipt Acknowledged By: 12/27/2024 11:46 /deborah Reid [facility] 12/27/2024 ADDENDUM STATUS: COMPLETED Angwin alerted that medication has been called into [facility] ([facility]). /clinton/ Tam Juarez RN [facility], [facility] Signed: 12/27/2024 11:54 [facility] Dec 27, 2024 11:31 AM ADDENDUM: LOCAL TITLE: Addendum STANDARD TITLE: ADDENDUM DATE OF NOTE: DEC 27, 2024@11:31:39 ENTRY DATE: DEC 27, 2024@11:31:40 AUTHOR: TAM JUAREZ COSIGNER: URGENCY: STATUS: COMPLETED requesting medication called to [facility] if Provider is in agreeance. /clinton/ Tam Juarez RN [facility], [facility] Signed: 12/27/2024 11:32 Receipt Acknowledged By: 12/27/2024 11:46 /deborah Reid [facility] NAY Plunkett --- Original Document --- 12/27/24 NURSING NOTE PB: Loree contacted the clinic stating that he has went to the ER at both [facility] and [facility] ER. stated that he left [facility] due to long wait. Angwin went to [facility] and was prescribed medication and is needing authorization for medication and will be by the clinic to get medication authorization. Angwin stated that he was diag with the flu and they were concerned about him getting pneumonia. Angwin stated that he is unable to read the and writing. advised that he can come and drop off discharge paperwork. I advised that I will call and try to get records. /clinton/ Tam Juarez RN [facility], [facility] Signed: 12/27/2024 10:42 Receipt Acknowledged By: 12/27/2024 11:46 /es/ LUIS ANTONIO Th[facility]R [facility] 12/27/2024 ADDENDUM STATUS: COMPLETED Records now available: Community Facility Point of Contact: Name: Darlin De Jesus Chief complaint: Cough Primary Diagnosis: [J10.1] Influenza A (Primary) [J20.9] Acute bronchitis, unspecified organism Disposition Discharged Date of discharge: Dec 27, 2024 at 0337 Discharge to home New Prescriptions for this Encounter: AZITHROMYCIN (ZITHROMAX) 500 MG TABLET - Take 1 Tablet (500 mg) by mouth daily for 2 days. BENZONATATE (TESSALON) 200 MG CAPSULE - Take 1 Capsule (200 mg) by mouth 3 times daily for 7 days. /clinton/ EDUARDO [facility] LPN Signed: 12/27/2024 11:00 Receipt Acknowledged By: * AWAITING SIGNATURE * BERNIE REID * AWAITING SIGNATURE * TAM JUAREZ JEANNIE RENEE [facility] Dec 27, 2024 10:59 AM ADDENDUM: LOCAL TITLE: Addendum STANDARD TITLE: ADDENDUM DATE OF NOTE: DEC 27, 2024@10:59:47 ENTRY DATE: DEC 27, 2024@10:59:49 AUTHOR: EDUARDO WAHL EXP COSIGNER: URGENCY: STATUS: COMPLETED Records now available: [facility] Point of Contact: Name: Darlin De Jesus Chief complaint: Cough Primary Diagnosis: [J10.1] Influenza A (Primary) [J20.9] Acute bronchitis, unspecified organism Disposition Discharged Date of discharge: Dec 27, 2024 at 0337 Discharge to home New Prescriptions for this Encounter: AZITHROMYCIN (ZITHROMAX) 500 MG TABLET - Take 1 Tablet (500 mg) by mouth daily for 2 days. BENZONATATE (TESSALON) 200 MG CAPSULE - Take 1 Capsule (200 mg) by mouth 3 times daily for 7 days. /clinton/ EDUARDO [facility] LPN Signed: 12/27/2024 11:00 Receipt Acknowledged By: 12/27/2024 11:48 /es/ LUIS ANTONIO Thapa-OMAR Mc[facility], [facility] 12/27/2024 11:55 /es/ Tam Juarez RN Mcgrady NAY, SHARAD [facility] --- Original Document --- 12/27/24 NURSING NOTE PB: contacted the clinic stating that he has went to the ER at both [facility][1] and [facility] ER. Angwin stated that he left [facility] due to long wait. Angwin went to [facility] and was prescribed medication and is needing authorization for medication and will be by the clinic to get medication authorization. stated that he was diag with the flu and they were concerned about him getting pneumonia. stated that he is unable to read the and writing. Angwin advised that he can come and drop off discharge paperwork. I advised Angwin that I will call and try to get records. /clinton/ Tam Juarez RN Mc[facility], [facility] Signed: 12/27/2024 10:42 Receipt Acknowledged By: 12/27/2024 11:46 /deborah [facility] 12/27/2024 ADDENDUM STATUS: COMPLETED Angwin requesting medication called to [facility] if Provider is in agreeance. /clinton/ Tam Juarez RN [facility], [facility] Signed: 12/27/2024 11:32 Receipt Acknowledged By: 12/27/2024 11:46 /clinton/ Bernie [facility] 12/27/2024 ADDENDUM STATUS: COMPLETED Prescriptions above called to [facility] on the immediate need benefit plan. Please fax form to [facility]. /deborah Reid [facility] Signed: 12/27/2024 11:49 Receipt Acknowledged By: * AWAITING SIGNATURE * JULIANA KATZ * AWAITING SIGNATURE * ARTEMIO BUSTOS 12/27/2024 ADDENDUM STATUS: COMPLETED Angwin alerted that medication has been called into [facility] ([facility]). /clinton/ Tam Juarez RN Mcgrady NAY, [facility] Signed: 12/27/2024 11:54 EDUARDO WAHL [facility] Dec 27, 2024 10:37 AM NURSING PROGRESS NOTE: LOCAL TITLE: NURSING NOTE PB STANDARD TITLE: NURSING PROGRESS NOTE DATE OF NOTE: DEC 27, 2024@10:37 ENTRY DATE: DEC 27, 2024@10:37:36 AUTHOR: TAM JUAREZ RE EXP COSIGNER: URGENCY: STATUS: COMPLETED NURSING NOTE PB Has ADDENDA Angwin contacted the clinic stating that he has went to the ER at both [facility][1] and [facility] ER. Angwin stated that he left [facility] due to long wait. Angwin went to [facility] and was prescribed medication and is needing authorization for medication and will be by the clinic to get medication authorization. stated that he was diag with the flu and they were concerned about him getting pneumonia. Angwin stated that he is unable to read the and writing. Angwin advised that he can come and drop off discharge paperwork. I advised that I will call and try to get records. /clinton/ Tam Juarez RN [facility], [facility] Signed: 12/27/2024 10:42 Receipt Acknowledged By: 12/27/2024 11:46 /clinton/ Bernie Reid [facility] 12/27/2024 ADDENDUM STATUS: COMPLETED Records now available: [facility] Facility Point of Contact: Name: Darlin De Jesus Chief complaint: Cough Primary Diagnosis: [J10.1] Influenza A (Primary) [J20.9] Acute bronchitis, unspecified organism Disposition Discharged Date of discharge: Dec 27, 2024 at 0337 Discharge to home New Prescriptions for this Encounter: AZITHROMYCIN (ZITHROMAX) 500 MG TABLET - Take 1 Tablet (500 mg) by mouth daily for 2 days. BENZONATATE (TESSALON) 200 MG CAPSULE - Take 1 Capsule (200 mg) by mouth 3 times daily for 7 days. /clinton/ EDUARDO WAHL LPN Signed: 12/27/2024 11:00 Receipt Acknowledged By: 12/27/2024 11:48 /deborah Reid [facility] 12/27/2024 11:55 /clinton/ Tam Juarez RN [facility] 12/27/2024 ADDENDUM STATUS: COMPLETED Angwin requesting medication called to [facility] if Provider is in agreeance. /clinton/ Tam Juarez RN [facility], [facility] Signed: 12/27/2024 11:32 Receipt Acknowledged By: 12/27/2024 11:46 /deborah Reid [facility] 12/27/2024 ADDENDUM STATUS: COMPLETED Prescriptions above [facility] on the [facility] need benefit plan. Please fax form to [facility]. /deborah Reid [facility] Signed: 12/27/2024 11:49 Receipt Acknowledged By: * AWAITING SIGNATURE * JULIANA KATZ * AWAITING SIGNATURE * ARTEMIO BUSTOS 12/27/2024 ADDENDUM STATUS: COMPLETED Angwin alerted that medication has been called into [facility] ([facility] /clinton/ Tam Juarez RN [facility] [facility], [facility] Signed: 12/27/2024 11:54 TAM JUAREZ CLAY AKIRA [facility] Dec 23, 2024 01:37 PM TELEPHONE ENCOUNTER NOTE: LOCAL TITLE: TELEPHONE NOTE STANDARD TITLE: TELEPHONE ENCOUNTER NOTE DATE OF NOTE: DEC 23, 2024@13:37 ENTRY DATE: DEC 23, 2024@13:37:20 AUTHOR: TAM JUAREZ EXP COSIGNER: URGENCY: STATUS: COMPLETED Angwin contacted the clinic that he has had symptoms for a week. Angwin stated that he has had SKINNER, cough, sore throat, fever, and bodyaches. Angwin stated that last night he cough all night. Angwin stated that he has been using tylenol and robutussin and cough drops. advised to stay well hydrated. advised if the symptoms get worse or if he becomes short of breath to report to the ER. Angwin voiced understanding. /clinton/ Tam Juarez RN [facility], [facility] Signed: 12/23/2024 14:20 Receipt Acknowledged By: 12/27/2024 11:46 /es/ Bernie Reid [facility], [facility] TAM JUAREZ CLAY AKIRA [facility] Dec 07, 2024 10:16 AM PRIMARY CARE MEDICATION MGT NOTE: LOCAL TITLE: MEDICATION RENEWAL/REFILL PB STANDARD TITLE: PRIMARY CARE MEDICATION MGT NOTE DATE OF NOTE: DEC 07, 2024@10:16 ENTRY DATE: DEC 07, 2024@10:16:34 AUTHOR: TAM JUAREZ EXP COSIGNER: URGENCY: STATUS: COMPLETED SHELDON MCDANIELS has contacted the and is requesting that the following prescription(s) be renewed. The patient reports that he/she is currently LOW on his/her supply of medication. He/she is requesting a new supply be mailed by MEDICATION REQUESTED: Drug Name MICONAZOLE NITRATE 2% [facility] PWDR Issue Date 09/30/2023 SIG APPLY LIBERALLY TO AFFECTED AREA(S) THREE TIMES A DAY NEEDED FOR FUNGAL INFECTION FOR TOPICAL USE ONLY. Facility: [facility] Recall visit scheduled? Future visits: 03/17/25 11:10 am [facility] CARE-PULMONARY 657A4 ====== The following is informational only for [...] (BENZODIAZEPINE DERIVATIVE SEDATIVES/HYPNOTICS) /clinton/ Tam Juarez RN [facility], [facility] Signed: 12/07/2024 10:17 Receipt Acknowledged By: 12/07/2024 18:06 /clinton/ Bernie Reid ADMINISTRATIVE ASSISTANT FRONT DESK-[facility], [facility] TAM JUAREZ [facility] Dec 07, 2024 10:14 AM PRIMARY CARE MEDICATION MGT NOTE: LOCAL TITLE: MEDICATION RENEWAL/REFILL PB STANDARD TITLE: PRIMARY CARE MEDICATION MGT NOTE DATE OF NOTE: DEC 07, 2024@10:14 ENTRY DATE: DEC 07, 2024@10:14:45 AUTHOR: TAM JUAREZ COSIGNER: URGENCY: STATUS: COMPLETED SHELDON MCDANIELS has contacted the and is requesting that the following prescription(s) be renewed. The patient reports that he/she is currently LOW on his/her supply of medication. He/she is requesting a new supply be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
--- OUTSIDE RECORDS SUMMARY | 2025-02-22 06:00 | XMS_ITS | Encounter Summary ---
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 Date/Time Encounter Type Encounter Description Reason Provider Source Feb 22, 2025 11:00 AM OFFICE O/P EST MOD 30 MIN PRIMARY CARE/MEDICINE ICD-10-CM J44.9 Chronic obstructive pulmonary disease, unspecified MAK REID IHPeyton Encounter Template Text not used by [facility] Assessments - Encounter Diagnoses This section includes the primary and secondary diagnoses documented for the Encounter. Date/Time Primary/Secondary Diagnosis Diagnosis Name Provider Source Feb 22, 2025 01:24 PM PRIMARY Chronic obstructive pulmonary disease, unspecified JOE REID [facility] Feb 22, 2025 01:24 PM SECONDARY Anxiety disorder, unspecified JOE REID [facility] Plan of Treatment: Future Appointments (+ 6 months) and Future Tests (+/- 45 days) The Plan of Treatment section includes future care activities for the patient from [facility] [place] [facility]. This section includes future appointments and future orders which are active, pending or scheduled. Future Appointments This section includes appointments that were scheduled to occur 6 months from the date of the Encounter, up to a maximum of 20 appointments. The data comes from all [place] treatment facilities. Appointment Date/Time Appointment Type Appointme nt Facility Name Mar 08, 2025 01:00 PM AMBULATORY - MEDICINE [facility] March 17, 2025 11:10 AM AMBULATORY - MEDICINE [facility] Active, Pending, and Scheduled Orders This section includes a listing of several types of active, pending, and scheduled orders, including clinic medications orders, diagnostic test orders, procedure orders and consult orders; where the start date of the order is 45 days before the date of the Encounter or 45 days after the date of theEncounter. The data comes from all [place] treatment facilities. Test Date/Time Test Type Test Details Facility Name Mar 04, 2025 01:17 PM Consult Order [facility] MGMT 657A4 Cons Music Box Mechanic's Choice [facility] Lab Results: +/- 30 days of the encounter This section includes the Chemistry and Hematology Lab Results on record with [place] for the patient. Radiology Reports and Pathology Reports are provided separately, in subsequent sections. Lab Results This section contains the Chemistry/Hematology Results that were resulted 30 days before or 30 daysafter the date of the Encounter. Date/Time Source Result Type Result - Unit Interpretation Reference Range Specimen Type Comment Feb 16, 2025 03:41 PM [facility] COMPREHENSIVE METABOLIC PANEL PLASMA Specimen Type: PLASMA No comment entered. Ordering Provider: JUNIOR REID Report Released Date/Time: Feb 16, 2025 03:39 PM Reporting Lab: [facility] [address] [facility] [address] Performing Lab: [place] [facility] [address] [place] [address] CREATININE 1.17 mg/dL 0.7-1.3 UREA NITROGEN 16 mg/dL 9-25 GLUCOSE 89 mg/dL 72-99 SODIUM 139 meq/L 136-145 POTASSIUM 3.6 meq/L 3.5-5 CHLORIDE 102 meq/L 98-107 CARBON DIOXIDE 28 meq/L 22-31 CALCIUM 9.3 mg/dL 8.4-10.4 PROTEIN 6.8 g/dL 6-8.6 ALBUMIN 4.1 g/dL 3.4-5 TOTAL BILIRUBIN 0.4 mg/dL 0.2-1.2 ALKALINE PHOSPHATASE 62 U/L 40-150 AST/SGOT 32 U/L 5-34 ALT/SGPT 27 U/L 8-40 EGFR (CKD-EPI 2020) 64 Feb 16, 2025 03:41 PM [facility] CBC BLOOD Specimen Type: BLOOD No comment entered. Ordering Provider: BERNIE REID Report Released Date/Time: Feb 16, 2025 03:39 PM Reporting Lab: [facility] [place] [facility] [address] [place] [address] Performing Lab: [facility] [address] [place] [address] WBC 7.6 10*3/uL 3.6-11.2 RBC 4.45 10*6/uL 4.10-5.70 HGB 13.6 g/dL 13.1-16.8 HCT 40.6 38.2-48.4 MCV 91.2 fL 80.0-100.0 MCH 30.6 pg 27.0-34.0 MCHC 33.5 g/dL 33.0-36.0 PLT 207 10*3/uL 150-400 MPV 12.5 fL H 7.5-11.2 RDW 14.1 11.8-15.1 LYMPHOCYTES, AUTO % 34.1 MONOCYTES, AUTO % 10.1 NEUTROPHILS, AUTO % 45.5 EOSINOPHILS, AUTO % 8.5 BASOPHILS, AUTO % 1.5 LYMPHOCYTES, ABSOLUTE 2.58 10*3/uL 0.77- 4.50 MONOCYTES, ABSOLUTE 0.76 10*3/uL 0.19-0. 8 NEUTROPHILS, ABSOLUTE 3.45 10*3/uL 2.10- 8.00 EOSINOPHILS, ABSOLUTE 0.64 10*3/uL H 0.00- 0.60 BASOPHILS, ABSOLUTE 0.11 10*3/uL 0.00-0. 20 IMMATURE GRANS, AUTO % 0.3 IMMATURE GRANS, AUTO ABS 0.02 10*3/uL 0. 00-0.05 Vital Signs: All taken on the encounter date This section contains inpatient and outpatient Vital Signs collected on the date of the Encounter. Date/Time Temperature Pulse Blood Pressure Respiratory Rate SP02 Pain Height Weight Body Mass Index Source Feb 22, 2025 10:07 AM 61 96/55 16 96 0 72.0 215.0 29 [facility] Social History: Smoking Status (Most current) and Tobacco Use (All prior to encounter date) This section includes the most current, and the historical, smoking and tobacco- related health factors from the [place] facility where the Encounter took place. Current Smoking Status This section includes the most current smoking, or tobacco-related health factor, from the [place] facility where the Encounter took place. Date/Time Current Smoking Status Comment Facil ity Feb 22, 2025 11:00 AM VA-TOBACCO USE FORMER CIGARETTES [facility] Tobacco Use History This section includes a history of the smoking, or tobacco-related health factors, that were collected on or before the date of the Encounter. The data comes from the [place] facility where the Encounter took place. 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 [facility] Sep 30, 2023 01:30 PM VA-TOBACCO USE MED NO [facility] Sep 30, 2023 01:30 PM VA-TOBACCO USER EVERY DAY [facility] Oct 15, 2022 01:00 PM VA-TOBACCO FORMER USER [facility] Oct 15, 2022 01:00 PM VA-TOBACCO QUIT 15 YRS OR MORE [facility] Oct 04, 2021 10:30 AM VA-TOBACCO FORMER USER [facility] [place] [facility] Oct 04, 2021 10:30 AM VA-TOBACCO QUIT 15 YRS OR MORE [facility] [place] [facility] Oct 11, 2019 03:08 PM VA-TOBACCO DOESNT USE WI 30 MIN WAKEUP [facility] Oct 11, 2019 03:08 PM VA-TOBACCO USE 30 YEARS OR MORE [facility] [place] [facility] Oct 11, 2019 03:08 PM VA-TOBACCO USE ADVICE [facility] Oct 11, 2019 03:08 PM VA-TOBACCO USE 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 NO [facility] Oct 11, 2019 03:08 PM VA-TOBACCO USE MED NO [facility] Oct 11, 2019 03:08 PM VA-TOBACCO USER EVERY DAY [facility] [place] [facility] Jan 19, 2018 09:40 AM CURRENT TOBACCO USER [facility] Jan 19, 2018 09:40 AM CURRENT TOBACCO US ER (NOT READY TO QUIT) [facility] Jan 19, 2018 09:40 AM SMOKELESS TOBACCO AMOUNT/LENGTH V15 1 pk Q week, 18 yrs [facility] [place] Jan 19, 2018 09:40 AM TOBACCO CESSATION REFERRAL DECLINED [facility] Jan 19, 2018 09:40 AM TOBACCO MEDS OFFER ED BUT DECLINED [facility] [facility] Jan 19, 2018 09:40 AM TOBACCO USER OFFERED MEDS [facility] March 21, 2016 01:58 PM TOBACCO MEDS OFFER ED BUT DECLINED [facility] [facility] March 21, 2016 01:58 PM TOBACCO OFFERED PT MEDS (PROVIDER) [facility] March 21, 2016 01:[address] OP SMOKING CLINIC [facility] Nov 08, 2015 08:24 AM TOBACCO MEDS OFFER ED BUT DECLINED [facility] [facility] Nov 08, 2015 08:24 AM TOBACCO OFFERED PT MEDS (PROVIDER) [facility] Nov 08, 2015 08:[address] [facility] Dec 10, 2013 08:29 AM TOBACCO MEDS OFFER ED BUT DECLINED [facility] Dec 10, 2013 08:29 AM TOBACCO OFFERED PT MEDS (PROVIDER) [facility] Dec 10, 2013 08:[address] [facility] SMOKING CLINIC [facility] Dec 29, 2012 10:15 AM QUIT TOBACCO >7 YEARS AGO [facility] Aug 20, 2012 09:31 AM TOBACCO MEDS OFFER ED BUT DECLINED [facility] Aug 20, 2012 09:31 AM TOBACCO OFFERED PT MEDS (PROVIDER) [facility] [place] [facility] Aug 20, 2012 09:[address] OP SMOKING CLINIC [facility] Mar 13, 2012 08:19 AM TOBACCO MEDS OFFER ED BUT DECLINED [facility] Mar 13, 2012 08:19 AM TOBACCO OFFERED PT MEDS (PROVIDER) [facility] Mar 13, 2012 08:[address] OP SMOKING CLINIC [facility] Jan 16, 2012 02:44 PM CURRENT TOBACCO USER [facility] Jan 16, 2012 02:44 PM TOBACCO MEDS OFFER ED BUT DECLINED [facility] Jan 16, 2012 02:44 PM TOBACCO OFFERED PT MEDS (PROVIDER) [facility] Jan 16, 2012 02:[address] OP SMOKING CLINIC [facility] Aug 28, 2011 08:52 AM TOBACCO MEDS OFFER ED BUT DECLINED [facility] Aug 28, 2011 08:52 AM TOBACCO OFFERED PT MEDS (PROVIDER) declined [facility] Aug 28, 2011 08:[address] OP SMOKING CLINIC declined [facility] Feb 05, 2011 09:46 AM CURRENT TOBACCO USER [facility] Dec 21, 2009 01:59 PM CURRENT TOBACCO USER [facility] Dec 21, 2009 01:[address] OP SMOKING CLINIC [facility] Aug 10, 2009 08:31 AM TOBACCO MEDS OFFER ED BUT DECLINED [facility] Aug 10, 2009 08:31 AM TOBACCO OFFERED PT MEDS (PROVIDER) [facility] Aug 10, 2009 08:[address] OP SMOKING CLINIC [facility] Jan 12, 2008 08:33 AM QUIT TOBACCO IN TH E LAST 12 MONTHS [facility] [place] [facility] Sep 07, 2007 01:43 PM CURRENT TOBACCO USER [facility] Jun 19, 2006 11:25 AM CURRENT TOBACCO USER [facility] Mar 12, 2006 10:53 AM CURRENT TOBACCO USER [facility] Nov 21, 2005 11:12 AM CURRENT TOBACCO USER [facility] May 27, 2005 08:56 AM CURRENT TOBACCO USER [facility] Mar 15, 2004 02:03 PM CURRENT TOBACCO USER [facility] Feb 26, 2002 09:17 AM CURRENT NON-TOBACC O USER-HX OF USE Quit 3 years ago. [facility] Oct 05, 2001 02:50 PM CURRENT TOBACCO USER [facility] Sep 11, 2001 08:38 AM CURRENT TOBACCO USER [facility] Aug 03, 2001 02:03 PM CURRENT TOBACCO USER [facility] May 19, 2001 04:16 PM CURRENT TOBACCO USER [facility] Advance Directives: All historical and current Section Date Range: From patient's date of to the date document was created. This section includes ALL of a patient's completed or amended [place] Advance and Rescinded Directives. The entries below indicate that a directive exists for the patient, but an actual copy is not included with this document. The data comes from all [place] facilities. Date Advance Directives Provider Source Apr 30, 2019 ADVANCE DIRECTIVE NOLAN NGUYEN ON [facility] Radiology Reports: +/- 30 days of the [...] the Encounter. The data comes from all [place] treatment facilities. Date/Time Radiology Report Provider Source Feb 22, 2025 11:13 AM CHEST X-RAY, 2 VIE WS: SHELDON MCDANIELS [id number] -[id number] M Exm Date: FEB 22, 2025@11:13 Req Phys: BERNIE REID Loc: PB-COLT PACT [facility] (Req Img Loc: PB-XRAY [facility] Service: [place] [address] (Case [id number] COMPLETE) CHEST X-RAY, 2 VIEWS (RAD Detailed) CPT:53323 Reason for Study: increased copd symptoms Clinical History: Report Status: Verified Date Reported: FEB 22, 2025 Date Verified: FEB 22, 2025 Wood Cabinet Finisher E-Sig: Report: Chest 2 views. Lungs hyperinflated with emphysematous changes. Scarring and pleural thickening involving both apices granuloma right midlung field similar to previous studies dating back to 05/10/2015. No infiltrates or effusions. Heart normal size. Changes thoracic spine. Plaque thoracic aorta. Impression: 1. COPD with apical pleural thickening and scarring 2. Changes from old granulomatous disease 3. Findings similar to previous studies Primary Interpreting Staff: ZOILA MIXON, RADIOLOGIST (Wood Cabinet Finisher, no e-sig) /ZOILA Zimmerman [facility] Encounter Notes: All associated encounter notes This section contains the clinical notes associated to the Encounter. Date/Time Encounter Note(s) Provider Source Feb 22, 2025 01:25 PM ADDENDUM: LOCAL TITLE: Addendum STANDARD TITLE: ADDENDUM DATE OF NOTE: FEB 22, 2025@13:25:11 ENTRY DATE: FEB 22, 2025@13:25:12 AUTHOR: BERNIE REID EXP COSIGNER: URGENCY: STATUS: COMPLETED Chest Xray: Impression: 1. COPD with apical pleural thickening and scarring 2. Changes from old granulomatous disease 3. Findings similar to previous studies There is no infection on his chest xray. We will order his nebulizer and the medication for it will arrive in the mail. He should go to his pulmonology appt as scheduled. /clinton/ SHELDON ThapaUniversity of Maryland Rehabilitation & Orthopaedic InstituteNAY varela Signed: 02/22/2025 13:26 Receipt Acknowledged By: 02/23/2025 08:52 /clinton/ Tam Juarez RN Nancy NAY, [facility] --- Original Document --- 02/22/25 PRIMARY CARE CLINIC PROGRESS NOTE PB: PROVIDER ASSESSMENT DATE & TIME:Feb@10:57 CHIEF COMPLAINT: Discuss disability and breathing. HISTORY OF PRESENT ILLNESS: wants to discuss his service connection and how he is not service connected and has disability through SSI. We discussed the difference between service connection and disability through SSI. Loree states he can not breathe if he lays down at night and coughs up clear sputum. We discussed COPD. Loree wants a chest xray today. It does not show active infection. His labs were normal and also do not show infection and we discussed this. I will start him on nebulizers. He will need to be trained on the machine. Loree has follow up scheduled with pulmonology on March 17 and I stressed the importance of follow up. 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 RINSE MOUTHPIECE FREQUENTLY TO PREVENT CLOGGING. Indication: FOR COPD 2) CETIRIZINE HCL 10MG TAB TAKE ONE TABLET BY MOUTH ONCE A DAY ACTIVE (S) Indication: FOR ALLERGY SYMPTOMS 3) CHOLESTYRAMINE 4GM/5GM (LIGHT) PWD PKT MIX AND DRINK 1 ACTIVE (S) PACKET BY MOUTH ONCE A DAY MIX WITH WATER DIRECTED. TAKE OTHER MEDICATIONS 1 HOUR BEFORE OR 6 HOURS AFTER ADMINISTRATION. Indication: FOR HIGH CHOLESTEROL 4) FLUTICASONE PROP 50MCG 120D NASAL INHL INSTILL 1 SPRAY IN ACTIVE NOSTRIL(S) ONCE A DAY (MUST BE USED DIRECTED FOR MINIMUM OF 21 DAYS TO PROVIDE ADEQUATE BENEFITS) Indication: FOR RHINITIS 5) HYDROCHLOROTHIAZIDE 25MG TAB TAKE ONE TABLET BY MOUTH ONCE A ACTIVE DAY Indication: FOR HIGH BLOOD PRESSURE 6) METHOCARBAMOL 750MG TAB TAKE 1 TABLET BY MOUTH THREE TIMES A ACTIVE (S) DAY NEEDED Indication: FOR MUSCLE SPASM 7) MICONAZOLE NITRATE 2% TOP PWDR APPLY LIBERALLY TO AFFECTED ACTIVE AREA(S) THREE TIMES A DAY FOR TOPICAL USE ONLY. Indication: FOR FUNGAL INFECTION 8) MOMETASONE FUROATE 220MCG ORAL INHL 30 INHALE 1 PUFF OF ACTIVE (S) 220MCG/INHL ORAL INHALATION EVERY EVENING RINSE MOUTH OUT WITH WATER AND SPIT AFTER EACH DOSE. STORE INHALER IN MARKETING EFFECTIVENESS MANAGER AT ROOM TEMPERATURE UNTIL READY TO OPEN. DISCARD 45 DAYS AFTER OPENING. Indication: FOR ASTHMA 9) OLODATEROL/TIOTROP 2.5MCG/ACTUAT 60D INH INHALE 2 PUFFS ORAL ACTIVE (S) INHALATION ONCE A DAY ADMINISTER AT SAME TIME EACH DAY Indication: FOR COPD 10) OMEPRAZOLE 40MG EC CAP TAKE ONE CAPSULE BY MOUTH EVERY ACTIVE (S) MORNING BEFORE A MEAL TAKE 30 MINUTES PRIOR TO FOOD. Indication: FOR GASTROESOPHAGEAL REFLUX DISEASE 11) ROSUVASTATIN CA 10MG TAB TAKE ONE-HALF TABLET BY MOUTH EVERY ACTIVE EVENING Indication: FOR HIGH CHOLESTEROL 12) TAMSULOSIN HCL 0.4MG CAP TAKE ONE CAPSULE BY MOUTH EVERY ACTIVE (S) EVENING APPROXIMATELY 30 MINUTES AFTER THE SAME MEAL EACH DAY Indication: FOR BENIGN PROSTATIC HYPERPLASIA 13) VALACYCLOVIR HCL 500MG TAB TAKE ONE TABLET BY MOUTH ONCE A ACTIVE DAY Indication: FOR VIRAL INFECTION PREVENTION Pending Outpatient Medications Status 1) FINASTERIDE 5MG TAB TAKE ONE TABLET BY MOUTH ONCE A DAY PENDING SWALLOW WHOLE, DO NOT CRUSH, SPLIT, OR CHEW. Indication: FOR BENIGN PROSTATIC HYPERPLASIA 2) GUAIFENESIN 400MG TAB TAKE ONE TABLET BY MOUTH FOUR TIMES A PENDING DAY NEEDED TAKE WITH 8 OUNCE GLASS OF WATER. Indication: FOR MUCUS THINNING 3) HYDROCORTISONE ACETATE 25MG RTL SUPP UNWRAP AND INSERT 1 PENDING SUPPOSITORY RECTALLY TWICE DAILY NEEDED Indication: FOR HEMORRHOIDS Active Non-VA Medications Status 1) Non-VA SILDENAFIL CITRATE 100MG TAB 100MG BY MOUTH TWO TIMES ACTIVE PER WEEK NEEDED Indication: FOR ERECTILE DYSFUNCTION 17 Total Medications REVIEW OF SYSTEMS: HEENT: No Headache. No blurry vision, vision loss, eye pain, red eyes, or foreign body. No runnynose, congestion, or nose bleed. No hearing loss, ringing in the ears, or vertigo. No sore throat or dental pain. RESPIRATORY: chronic shortness of breath. CARDIOVASCULAR: No chest pain, palpitations, tachycardia, PND, or orthopnea. GI: No abdominal pain, nausea, vomiting, diarrhea, constipation, melena, or hematochezia. : No dysuria, hematuria, urinary frequency, weak stream, or post-void dribbling. MUSCULOSKELETAL:chronic joint pain. SKIN: No rash, lesions, or infection PSYCH: No Depression or Anxiety. Not suicidal. PHYSICAL ASSESSMENT: VITAL SIGNS Pulse: 61 (02/22/2025 10:07) Blood Pressure: 96/55 (02/22/2025 10:07) Respiratory Rate: 16 (02/22/2025 10:07) Temperature: 98.1 F [36.7 C] (02/16/2025 14:00) Weight: 215.0 lb [97.52 kg] (02/22/2025 10:07) Height: 72.0 in [182.9 cm] (02/22/2025 10:07) Pain: 0 (02/22/2025 10:07) HEENT:PERRL, EOMI, Fundi benign, TM's dull, Pharynx not red and without exudate, tonsils normal size. NECK: Supple, no lymhadenopathy, thyroid normal. CARDIAC: Regular rate and rhythm without murmur. No edema. RESPIRATORY: CTA upper lobes, lower lobes absent bilaterally. GI: Abdomen soft,with ABS. MUSCULOSKELETAL:Chronic joint pain with no acute change. SKIN: [place] without rash or lesions. NEUROLOGICAL: The is alert and oriented without distress. Affect appropriate. IMPRESSION: COPD-chronic Anxiety-chronic PLAN: Will order nebulizer and duoneb. Continue current medications. Start back on mucinex. Discussed copd. Discussed service connection. Number to [facility] given. RTC as previously scheduled. Chest xray today. Patient is advised this primary care clinic [...] 30 minutes. /clinton/ [facility] Signed: 02/22/2025 13:24 BERNIE REID Feb 22, 2025 10:57 AM PRIMARY CARE PROGRESS NOTE: LOCAL TITLE: PRIMARY CARE CLINIC PROGRESS NOTE PB STANDARD TITLE: PRIMARY CARE PROGRESS NOTE DATE OF NOTE: FEB 22, 2025@10:57 ENTRY DATE: FEB 22, 2025@10:57:40 AUTHOR: BERNIE REID EXP COSIGNER: URGENCY: STATUS: COMPLETED PRIMARY CARE CLINIC PROGRESS NOTE PB Has ADDENDA PROVIDER ASSESSMENT DATE & TIME:Feb@10:57 CHIEF COMPLAINT: Discuss disability and breathing. HISTORY OF PRESENT ILLNESS: Potter wants to discuss his service connection and how he is not service connected and has disability through SSI. We discussed the difference between service connection and disability through SSI. states he can not breathe if he lays down at night and coughs up clear sputum. We discussed COPD. Potter wants a chest xray today. It does not show active infection. His labs were normal and also do not show infection and we discussed this. I will start him on nebulizers. He will need to be trained on the machine. Loree has follow up scheduled with pulmonology on March 17 and I stressed the importance of follow up. 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 RINSE MOUTHPIECE FREQUENTLY TO PREVENT CLOGGING. Indication: FOR COPD 2) CETIRIZINE HCL 10MG TAB TAKE ONE TABLET BY MOUTH ONCE A DAY ACTIVE (S) Indication: FOR ALLERGY SYMPTOMS 3) CHOLESTYRAMINE 4GM/5GM (LIGHT) PWD PKT MIX AND DRINK 1 ACTIVE (S) PACKET BY MOUTH ONCE A DAY MIX WITH WATER DIRECTED. TAKE OTHER MEDICATIONS 1 HOUR BEFORE OR 6 HOURS AFTER ADMINISTRATION. Indication: FOR HIGH CHOLESTEROL 4) FLUTICASONE PROP 50MCG 120D NASAL INHL INSTILL 1 SPRAY IN ACTIVE NOSTRIL(S) ONCE A DAY (MUST BE USED DIRECTED FOR MINIMUM OF 21 DAYS TO PROVIDE ADEQUATE BENEFITS) Indication: FOR RHINITIS 5) HYDROCHLOROTHIAZIDE 25MG TAB TAKE ONE TABLET BY MOUTH ONCE A ACTIVE DAY Indication: FOR HIGH BLOOD PRESSURE 6) METHOCARBAMOL 750MG TAB TAKE 1 TABLET BY MOUTH THREE TIMES A ACTIVE (S) DAY NEEDED Indication: FOR MUSCLE SPASM 7) MICONAZOLE NITRATE 2% TOP PWDR APPLY LIBERALLY TO AFFECTED ACTIVE AREA(S) THREE TIMES A DAY FOR TOPICAL USE ONLY. Indication: FOR FUNGAL INFECTION 8) MOMETASONE FUROATE 220MCG ORAL INHL 30 INHALE 1 PUFF OF ACTIVE (S) 220MCG/INHL ORAL INHALATION EVERY EVENING RINSE MOUTH OUT WITH WATER AND SPIT AFTER EACH DOSE. STORE INHALER IN MARKETING EFFECTIVENESS MANAGER AT ROOM TEMPERATURE UNTIL READY TO OPEN. DISCARD 45 DAYS AFTER OPENING. Indication: FOR ASTHMA 9) OLODATEROL/TIOTROP 2.5MCG/ACTUAT 60D INH INHALE 2 PUFFS ORAL ACTIVE (S) INHALATION ONCE A DAY ADMINISTER AT SAME TIME EACH DAY Indication: FOR COPD 10) OMEPRAZOLE 40MG EC CAP TAKE ONE CAPSULE BY MOUTH EVERY ACTIVE (S) MORNING BEFORE A MEAL TAKE 30 MINUTES PRIOR TO FOOD. Indication: FOR GASTROESOPHAGEAL REFLUX DISEASE 11) ROSUVASTATIN CA 10MG TAB TAKE ONE-HALF TABLET BY MOUTH EVERY ACTIVE EVENING Indication: FOR HIGH CHOLESTEROL 12) TAMSULOSIN HCL 0.4MG CAP TAKE ONE CAPSULE BY MOUTH EVERY ACTIVE (S) EVENING APPROXIMATELY 30 MINUTES AFTER THE SAME MEAL EACH DAY Indication: FOR BENIGN PROSTATIC HYPERPLASIA 13) VALACYCLOVIR HCL 500MG TAB TAKE ONE TABLET BY MOUTH ONCE A ACTIVE DAY Indication: FOR VIRAL INFECTION PREVENTION Pending Outpatient Medications Status 1) FINASTERIDE 5MG TAB TAKE ONE TABLET BY MOUTH ONCE A DAY PENDING SWALLOW WHOLE, DO NOT CRUSH, SPLIT, OR CHEW. Indication: FOR BENIGN PROSTATIC HYPERPLASIA 2) GUAIFENESIN 400MG TAB TAKE ONE TABLET BY MOUTH FOUR TIMES A PENDING DAY NEEDED TAKE WITH 8 OUNCE GLASS OF WATER. Indication: FOR MUCUS THINNING 3) HYDROCORTISONE ACETATE 25MG RTL SUPP UNWRAP AND INSERT 1 PENDING SUPPOSITORY RECTALLY TWICE DAILY NEEDED Indication: FOR HEMORRHOIDS Active Non-VA Medications Status 1) Non-VA SILDENAFIL CITRATE 100MG TAB 100MG BY MOUTH TWO TIMES ACTIVE PER WEEK NEEDED Indication: FOR ERECTILE DYSFUNCTION 17 Total Medications REVIEW OF SYSTEMS: HEENT: No Headache. No blurry vision, vision loss, eye pain, red eyes, or foreign body. No runnynose, congestion, or nose bleed. No hearing loss, ringing in the ears, or vertigo. No sore throat or dental pain. RESPIRATORY: chronic shortness of breath. CARDIOVASCULAR: No chest pain, palpitations, tachycardia, PND, or orthopnea. GI: No abdominal pain, nausea, vomiting, diarrhea, constipation, melena, or hematochezia. : No dysuria, hematuria, urinary frequency, weak stream, or post-void dribbling. MUSCULOSKELETAL:chronic joint pain. SKIN: No rash, lesions, or infection PSYCH: No Depression or Anxiety. Not suicidal. PHYSICAL ASSESSMENT: VITAL SIGNS Pulse: 61 (02/22/2025 10:07) Blood Pressure: 96/55 (02/22/2025 10:07) Respiratory Rate: 16 (02/22/2025 10:07) Temperature: 98.1 F [36.7 C] (02/16/2025 14:00) Weight: 215.0 lb [97.52 kg] (02/22/2025 10:07) Height: 72.0 in [182.9 cm] (02/22/2025 10:07) Pain: 0 (02/22/2025 10:07) HEENT:PERRL, EOMI, Fundi benign, TM's dull, Pharynx not red and without exudate, tonsils normal size. NECK: Supple, no lymhadenopathy, thyroid normal. CARDIAC: Regular rate and rhythm without murmur. No edema. RESPIRATORY: CTA upper lobes, lower lobes absent bilaterally. GI: Abdomen soft,with ABS. MUSCULOSKELETAL:Chronic joint pain with no acute change. SKIN: [place] without rash or lesions. NEUROLOGICAL: The [place] is alert and oriented without distress. Affect appropriate. IMPRESSION: COPD-chronic Anxiety-chronic PLAN: Will order nebulizer and duoneb. Continue current medications. Start back on mucinex. Discussed copd. Discussed service connection. Number to [facility] given. RTC as previously scheduled. Chest xray today. Patient is advised this primary care clinic [...] 30 minutes. /clinton/ BRAN [facility] Signed: 02/22/2025 13:24 02/22/2025 ADDENDUM STATUS: COMPLETED Chest Xray: Impression: 1. COPD with apical pleural thickening and scarring 2. Changes from old granulomatous disease 3. Findings similar to previous studies There is no infection on his chest xray. We will order his nebulizer and the medication for it will arrive in the mail. He should go to his pulmonology appt as scheduled. /clinton/ [facility] Signed: 02/22/2025 13:26 Receipt Acknowledged By: * AWAITING SIGNATURE * TAM JUAREZ CATHERINE R [facility] Feb 22, 2025 10:17 AM PRIMARY CARE NURSING NOTE: LOCAL TITLE: PRIMARY CARE NURSING PROGRESS NOTE (TEXT) NURSING P STANDARD TITLE: PRIMARY CARE NURSING NOTE DATE OF NOTE: FEB 22, 2025@10:17 ENTRY DATE: FEB 22, 2025@10:18:23 AUTHOR: EDUARDO WAHL EXP COSIGNER: URGENCY: STATUS: COMPLETED Established Patient SHELDON MCDANIELS IS A 79 YEAR OLD MALE BEING SEEN IN CLINIC FEB 22, 2025. REASON FOR VISIT: here today aggitated with an ongoing cough. He is here with his son. He states that has not seen the provider. His son is with him today. He is also frustrated about his service connection and not understanding his ratings. Advised that he see a VS officer about these and he states that he has talked with her in the past and is not happy with her. Are you receiving care any [facility] other than [facility]? No HEALTH AND SURGICAL HISTORY: Does patient report using home oxygen? No CURRENT ACTIVE MEDICATIONS FOR REVIEW: Allergies/ADRs (Tool #5) FACILITY ALLERGY/ADR -------- [facility] CODE[facility] CODEINE [facility] PRAVASTATIN [facility] SPIRIVA Med. Reconciliation (Tool #1) INCLUDED IN THIS LIST: Alphabetical list of active outpatient prescriptions dispensed from this [place] (local) and dispensed from another VA or [facility]D facility (remote) as well as [...] the patient into personal health records (i.e. [employer]) are NOT included in this list. Non-VA medications documented outside this [place], remote inpatient orders (regardless of status) and remote clinic medications are NOT included in this list. The patient and provider must always discuss medications the patient is taking, regardless of where the medication was dispensed or obtained. OUTPT ALBUTEROL 90MCG (CFC-F) 200D ORAL INHL (Status = Active) INHALE 2 PUFFS BY ORAL INHALATION FOUR TIMES A DAY NEEDED FOR COPD SHAKE WELL. RINSE MOUTHPIECE FREQUENTLY TO PREVENT CLOGGING. Rx# [id number] Last Released: 12/15/24 Qty/Days Supply: Rx Expiration Date: 12/08/25 Refills Remainin Indication: FOR COPD OUTPT CETIRIZINE HCL 10MG TAB (Status = Active/Suspended) TAKE ONE TABLET BY MOUTH ONCE A DAY FOR ALLERGY SYMPTOMS Rx# [id number] Last Released: 10/15/24 Qty/Days Supply: Rx Expiration Date: 10/13/25 Refills Remainin Indication: FOR ALLERGY SYMPTOMS OUTPT CHOLESTYRAMINE 4GM/5GM (LIGHT) PWD PKT (Status = Active/Suspended) MIX AND DRINK 1 PACKET BY MOUTH ONCE A DAY FOR HIGH CHOLESTEROL MIX WITH WATER DIRECTED. TAKE OTHER MEDICATIONS 1 HOUR BEFORE OR 6 HOURS AFTER ADMINISTRATION. Rx# [id number] Last Released: 03/26/24 Qty/Days Supply: Rx Expiration Date: 03/25/25 Refills Remainin Indication: FOR HIGH CHOLESTEROL OUTPT FINASTERIDE 5MG TAB (Status = ) TAKE ONE TABLET BY MOUTH ONCE A DAY FOR BENIGN PROSTATIC HYPERPLASIA SWALLOW WHOLE, DO NOT CRUSH, SPLIT, OR CHEW. Rx# [id number] Last Released: 10/18/24 Qty/Days Supply: Rx Expiration Date: 02/20/25 Refills Remainin Indication: FOR BENIGN PROSTATIC HYPERPLASIA OUTPT FLUTICASONE PROP 50MCG 120D NASAL INHL (Status = Active) INSTILL 1 SPRAY IN NOSTRIL(S) ONCE A DAY FOR RHINITIS (MUST BE USED DIRECTED FOR MINIMUM OF 21 DAYS TO PROVIDE ADEQUATE BENEFITS) Rx# [id number] Last Released: 11/16/24 Qty/Days Supply: Rx Expiration Date: 06/30/25 Refills Remainin Indication: FOR RHINITIS OUTPT GUAIFENESIN 400MG TAB (Status = ) TAKE ONE TABLET BY MOUTH FOUR TIMES A DAY NEEDED FOR MUCUS THINNING TAKE WITH 8 OUNCE GLASS OF WATER. Rx# [id number] Last Released: 02/23/24 Qty/Days Supply: Rx Expiration Date: 02/20/25 Refills Remainin Indication: FOR MUCUS THINNING OUTPT HYDROCHLOROTHIAZIDE 25MG TAB (Status = Active) TAKE ONE TABLET BY MOUTH ONCE A DAY FOR HIGH BLOOD PRESSURE Rx# [id number] Last Released: 02/15/25 Qty/Days Supply: Rx Expiration Date: 10/13/25 Refills Remainin Indication: FOR HIGH BLOOD PRESSURE OUTPT HYDROCORTISONE ACETATE 25MG RTL SUPP (Status = ) UNWRAP AND INSERT 1 SUPPOSITORY RECTALLY TWICE DAILY NEEDED FOR HEMORRHOIDS Rx# [id number] Last Released: 02/04/24 Qty/Days Supply: Rx Expiration Date: 02/02/25 Refills Remainin Indication: FOR HEMORRHOIDS OUTPT METHOCARBAMOL 750MG TAB (Status = Active/Suspended) TAKE 1 TABLET BY MOUTH THREE TIMES A DAY NEEDED FOR MUSCLE SPASM Rx# [id number] Last Released: 11/16/24 Qty/Days Supply: 270 Rx Expiration Date: 11/14/25 Refills Remainin Indication: FOR MUSCLE SPASM OUTPT MICONAZOLE NITRATE 2% TOP PWDR (Status = Active) APPLY LIBERALLY TO AFFECTED AREA(S) THREE TIMES A DAY FOR FUNGAL INFECTION FOR TOPICAL USE ONLY. Rx# [id number] Last Released: 12/09/24 Qty/Days Supply: 180 Rx Expiration Date: 12/08/25 Refills Remainin Indication: FOR FUNGAL INFECTION OUTPT MOMETASONE FUROATE 220MCG ORAL INHL 30 (Status = Active/Suspended) INHALE 1 PUFF OF 220MCG/INHL ORAL INHALATION EVERY EVENING FOR ASTHMA RINSE MOUTH OUT WITH WATER AND SPIT AFTER EACH DOSE. STORE INHALER IN MARKETING EFFECTIVENESS MANAGER AT ROOM TEMPERATURE UNTIL READY TO OPEN. DISCARD 45 DAYS AFTER OPENING. Rx# [id number] Last Released: 12/13/24 Qty/Days Supply: Rx Expiration Date: 08/21/25 Refills Remainin Indication: FOR ASTHMA OUTPT MONTELUKAST NA 10MG TAB (Status = ) TAKE ONE TABLET BY MOUTH EVERY EVENING FOR ASTHMA Rx# [id number] Last Released: 10/15/24 Qty/Days Supply: Rx Expiration Date: 01/12/25 Refills Remainin Indication: FOR ASTHMA OUTPT OLODATEROL/TIOTROP 2.5MCG/ACTUAT 60D INH (Status = Active/Suspended) INHALE 2 PUFFS ORAL INHALATION ONCE A DAY FOR COPD ADMINISTER AT SAME TIME EACH DAY Rx# [id number] Last Released: 11/16/24 Qty/Days Supply: Rx Expiration Date: 08/21/25 Refills Remainin Indication: FOR COPD OUTPT OMEPRAZOLE 40MG EC CAP (Status = Discontinued) TAKE ONE CAPSULE BY MOUTH EVERY MORNING BEFORE A MEAL FOR GASTROESOPHAGEAL REFLUX DISEASE TAKE 30 MINUTES PRIOR TO FOOD. Rx# [id number] Last Released: 10/15/24 Qty/Days Supply: Rx Expiration Date: 10/13/25 Refills Remainin Indication: FOR GASTROESOPHAGEAL REFLUX DISEASE OUTPT OMEPRAZOLE 40MG EC CAP (Status = Active/Suspended) TAKE ONE CAPSULE BY MOUTH EVERY MORNING BEFORE A MEAL FOR GASTROESOPHAGEAL REFLUX DISEASE TAKE 30 MINUTES PRIOR TO FOOD. Rx# [id number] Last Released: 12/21/24 Qty/Days Supply: Rx Expiration Date: 12/08/25 Refills Remainin Indication: FOR GASTROESOPHAGEAL REFLUX DISEASE OUTPT PANTOPRAZOLE NA 40MG EC TAB (Status = ) TAKE ONE TABLET BY MOUTH EVERY MORNING BEFORE A MEAL FOR GASTROESOPHAGEAL REFLUX DISEASE TAKE 30 MINUTES BEFORE MEAL(S) Rx# [id number] Last Released: 07/01/24 Qty/Days Supply: Rx Expiration Date: 01/09/25 Refills Remainin Indication: FOR GASTROESOPHAGEAL REFLUX DISEASE OUTPT ROSUVASTATIN CA 10MG TAB (Status = Active) TAKE ONE-HALF TABLET BY MOUTH EVERY EVENING FOR HIGH CHOLESTEROL Rx# [id number] Last Released: 12/20/24 Qty/Days Supply: Rx Expiration Date: 10/13/25 Refills Remainin Indication: FOR HIGH CHOLESTEROL Non-VA SILDENAFIL CITRATE 100MG TAB TAKE ONE TABLET BY MOUTH 2XWEEK NEEDED Feb 24, 2023 Non-VA medication recommended by [place] provider. wants to get name brand outside [place] Indication: FOR ERECTILE DYSFUNCTION OUTPT TADALAFIL 10MG TAB (Status = ) TAKE ONE TABLET BY MOUTH EVERY WEEK NEEDED FOR ERECTILE DYSFUNCTION (TAKE 30 MINUTES PRIOR TO SEXUAL ACTIVITY) - LIMIT 6 DOSES PER 30 DAYS Rx# [id number] Last Released: 12/12/23 Qty/Days Supply: 05/16 Rx Expiration Date: 12/10/24 Refills Remainin Indication: FOR ERECTILE DYSFUNCTION OUTPT TAMSULOSIN HCL 0.4MG CAP (Status = Active/Suspended) TAKE ONE CAPSULE BY MOUTH EVERY EVENING FOR BENIGN PROSTATIC HYPERPLASIA APPROXIMATELY 30 MINUTES AFTER THE SAME MEAL EACH DAY Rx# [id number] Last Released: 12/09/24 Qty/Days Supply: Rx Expiration Date: 06/30/25 Refills Remainin Indication: FOR BENIGN PROSTATIC HYPERPLASIA OUTPT VALACYCLOVIR HCL 500MG TAB (Status = Active) TAKE ONE TABLET BY MOUTH ONCE A DAY FOR VIRAL INFECTION PREVENTION Rx# [id number] Last Released: 02/16/25 Qty/Days Supply: 90/90 Rx Expiration Date: 06/30/25 Refills Remainin Indication: FOR VIRAL INFECTION PREVENTION SUPPLIES PHARMACY TERMS AND POSSIBLE PATIENT ACTIONS INPT = [place] inpatient order IV = [place] intravenous medication OUTPT = [place] outpatient prescription PHARMACY POSSIBLE PATIENT TERMS EXPLANATION ACTIONS -------- - ACTIVE A prescription that can be If you have refills, filled at the local [place] pharmacy. you may request a refill of this prescription from your [place] pharmacy. CLINIC A medication you received during If you have questions a visit to a [place] clinic or about this medication emergency department. contact your [place] healthcare team. DISCONTINUED A prescription your provider has Contact your [place] stopped. It is no longer healthcare team if you available to be sent to you or need more of this picked up at the [place] pharmacy medication. window. A prescription which is too old Contact your [place] to fill. This does not refer to [...] the VA. Or, it may be an [id number] (OTC), herbal, dietary supplements or sample medication. [...] An active prescription that is Contact your [facility] not scheduled to be filled yet. pharmacy if you need You should receive it before this medication now. you run out. ==== Medication list reviewed with Patient Patient/Caregiver reports taking meds other than as directed/ordered: He is unsure about his medications and states he does not take his inhalers as directed. IS PATIENT TAKING ANY OVER THE COUNTER MEDICATIONS, SUCH VITAMINS OR HERBAL SUPPLEMENTS, INCLUDING ANY MEDICATIONS PRESCRIBED BY ANOTHER PHYSICIAN? No Does patient have any new allergies to report since last visit? NO VITALS: TEMPERATURE: 98.1 F [36.7 C] (02/16/2025 14:00) BP: 96/55 (02/22/2025 10:07) RESP: 16 (02/22/2025 10:07) PULSE: 61 (02/22/2025 10:07) HT: 72.0 in [182.9 cm] (02/22/2025 10:07) WT: 215.0 lb [97.52 kg] (02/22/2025 10:07) BMI: 29.2 PAIN ASSESSMENT: (Most Recent Pain Score in Vitals Package: 0 (02/22/2025 10:07) ) The patient indicated that they and [...] Now let us serve you. At the [facility], we strive to provide you [...] Not At All SPIRITUAL ASSESSMENT: Are there voodoo practices or spiritual concerns you want the magazine grinder loader, your physician, and other health care team members to immediately know about? No Patient advised to call the clinic for any concerns, questions, or symptoms. Patient and/or caregiver verbalized understanding of plan of care. Advanced Directive Screen/Pier Master: ADVANCE DIRECTIVE SCREENING: I asked if the patient has an advance directive, and determined that: Patient does not have an Advance Directive. Patient was given form to update and return when completed. ADVANCE DIRECTIVE NOTIFICATION I provided the patient with written notification about advance directives. Level of understanding: Pain Assessment: - PAIN ASSESSMENT: .. Patient reports no pain at this visit. Pain Score = 0. Patient's self identified pain goal: 0 Tobacco Use Screening - AT,DE,L,M,N,P,PH,PS,RT,S,U: The patient is a former cigarette smoker. The patient has never used other types of tobacco. Alcohol Use Screen (AUDIT-C) - V: Alcohol Screen: SCREEN FOR ALCOHOL (AUDIT-C) An alcohol screening test (AUDIT-C) was negative (score=0). 1. How often did you have a drink containing alcohol in the past year? Consider a drink to be a 12 ounce can or bottle of regular beer, 8 ounces of malt liquor, a 5 ounce glass of table wine, or a 1.5 ounce shot of liquor (like scotch, gin, or vodka). Never 2. How many drinks containing alcohol did you have on a typical day when you were drinking in the past year? Response not required due to responses to other questions. 3. How often did you have six or more drinks on one occasion in the past year? Response not required due to responses to other questions. RHS Screen - VS: RHS Screen Session Format: Face to Face Environmental Check Screening was not completed at this time due to: Another adult present Frail/Elderly Screen: ADL Screen - [place] Index of [place] in Activities of Daily Living Bathing: (3 Points) Receives no assistance (gets in and out of tub by self, if tub is usual means of bathing) Dressing: (3 Points) Gets clothes and gets completely dressed without assistance. Toileting: (3 Points) Goes to toilet room , cleans self, and arranges clothes without assistance (may use object for support such as cane, walker, or wheelchair, and may manage own night bedpan or commode, emptying same next morning) Transferring: (3 Points) Moves in and out of bed and in and out of chair without assistance (may be using object for support, such as cane or walker) Continence: (3 Points) Controls urination and bowel movement completely by self Feeding: (3 Points) Feeds self without assistance Total Score: 18 Points 18 = High (patient independent) 6 = Low (patient very dependent) IADL Screen - [place] Instrumental Activities of Daily Living Scale Ability to use telephone: (1 point) Operates Telephone on own initiative; looks up and dials numbers. Shopping: (1 point) Takes care of all shopping needs independently. Food preparation: (1 point) Plans, prepares, and serves adequate meals independently. Housekeeping: (1 point) Maintains house alone with occasional assistance (heavy work). Laundry: (1 point) Does personal laundry completely. Mode of transportation: (1 point) Travels independently on public transportation or drives own car. Responsibility for own medications: (1 point) Is responsible for taking medications in correct dosages at correct times. Ability to handle finances: (1 point) Manages financial matters independently (budgets, writes checks, pays rent and bills, goes to bank); collects and keeps track of income. Total score: 8 points 8 = High function, independent 0 = Low function, dependent Falls Screen: No falls within the past 12 months. Incontinence Screen: No incontinence. FALL RISK OP PB: THOMAS FALL RISK ASSESSMENT Have you experienced any falls within the last 12 months: 0 = No Secondary Dx: 5 = Yes Secondary Dx Ambulatory Aid: 0 = No Gait/Transferrin = Normal/Bedrest/Immobile Mental status: 0 = Oriented to own ability Medications: 5 = High risk meds TOTAL SCORE: 10 Score <30 - patient IS NOT at risk for falls. No action at this time. Reassess annually or if needed. Fall Documentation No - Patient did not experience a fall within the last year Initial Lung Cancer Screen (Provider): No clinical exclusions, patient is a current candidate for the lung cancer screening program. Patient agrees to lung cancer screening. Lung cancer screening information provided and low dose CT will be ordered. Patient currently uses cigarettes and does not want assistance with smoking cessation at this time. Alcohol Use Screen (AUDIT-C) - V: Alcohol Screen: SCREEN FOR ALCOHOL (AUDIT-C) An alcohol screening test (AUDIT-C) was negative (score=0). 1. How often did you have a drink containing alcohol in the past year? Consider a drink to be a 12 ounce can or bottle of regular beer, 8 ounces of malt liquor, a 5 ounce glass of table wine, or a 1.5 ounce shot of liquor (like scotch, gin, or vodka). Never 2. How many drinks containing alcohol did you have on a typical day when you were drinking in the past year? Response not required due to responses to other questions. 3. How often did you have six or more drinks on one occasion in the past year? Response not required due to responses to other questions. Tobacco Use Screening - AT,DE,L,M,N,P,PH,PS,RT,S,U: The patient is a former cigarette smoker. The patient has never used other types of tobacco. /clinton/ EDUARDO WAHL LPN Signed: 02/22/2025 10:45 EDUARDO WAHL [facility]
--- OUTSIDE RECORDS SUMMARY | 2025-03-17 09:00 | XMS_ITS | Encounter Summary ---
Author Name [facility] [place] [facility] [place] Address [address] [place] [address] Care Team Providers Care [employer] Certified Network Associate Name Role Phone BERNIE REID Primary Care [...] PART B May 17, 2003 PART B [id number] Latoya MCDANIELS ONALD PATIENT MEDICARE (WNR) MEDICARE (M) PART B May 17, 2003 PART B [id number] Latoya MCDANIELS ONALD PATIENT MEDICARE (WNR) MEDICARE (M) PART A Nov 17, 1997 PART A [id number] Latoya MCDANIELS ONALD PATIENT MEDICARE (WNR) MEDICARE (M) PART A Nov 17, 1997 PART A [id number] Latoya MCDANIELS ONERICKSON PATIENT Selected Encounter This section includes the information on record at CT for the Encounter. Date/Time Encounter Type Encounter Description Reason Pro vider Source March 17, 2025 02:00 PM Outpatient Encounter PRIMARY CARE/MEDICINE IHE Encounter Template Text not used by [facility] Plan of Treatment: Future Appointments (+ 6 months) and Future Tests (+/- 45 days) The Plan of Treatment section includes future care activities for the [facility] This section includes future appointments and future orders which are active, pending or scheduled. Future Appointments This section includes appointments that were scheduled to occur 6 months from the date of the Encounter, up to a maximum of 20 appointments. The data comes from all CT treatment facilities. Appointment Date/Time Appointment Type Appointme nt Facility Name March 29, 2025 08:30 AM AMBULATORY - MEDICINE [facility] April 04, 2025 08:00 AM AMBULATORY - MEDICINE [facility] April 07, 2025 01:30 PM AMBULATORY - MEDICINE [facility] Apr 19, 2025 11:45 AM AMBULATORY - MEDICINE [facility] Apr 19, 2025 02:00 PM AMBULATORY MEDICINE [facility] Active, Pending, and Scheduled Orders This section includes a listing of several types of active, pending, and scheduled orders, including clinic medications orders, diagnostic test orders, procedure orders and consult orders; where the start date of the order is 45 days before the date of the Encounter or 45 days after the date of theEncounter. The data comes from all [place] treatment facilities. Test Date/Time Test Type Test Details Facility Name April 01, 2025 11:53 AM Consult Order COMMUNITY CARE-PODIATRY [id number] Cons Department Clinician's Choice [facility] Apr 20, 2025 05:20 PM Consult Order COMMUNITY CARE-DERMATOLOGY [id number] Cons Department Clinician's Choice [facility] Lab Results: +/- 30 days of the encounter This section includes the Chemistry and Hematology Lab Results on record with CT for the patient. Radiology Reports and Pathology Reports are provided separately, in subsequent sections. Lab Results This section contains the Chemistry/Hematology Results that were resulted 30 days before or 30 daysafter the date of the Encounter. Date/Time Source Result Type Result - Unit Interpretation Reference Range Specimen Type Comment Feb 16, 2025 03:41 PM [facility] COMPREHENSIVE METABOLIC PANEL PLASMA Specimen Type: PLASMA No comment entered. Ordering Provider: JUNIOR REID Report Released Date/Time: Feb 16, 2025 03:39 PM Reporting Lab: [place] [facility] [address] [place] [address] Performing Lab: [place] [facility] [address] [place] [facility] [id number] CREATININE 1.17 mg/dL 0.7-1.3 UREA NITROGEN 16 [...] 2020) 64 Feb 16, 2025 03:41 PM [facility] CBC BLOOD Specimen Type: BLOOD No comment entered. Ordering Provider: BERNIE REID Report Released Date/Time: Feb 16, 2025 03:39 PM Reporting Lab: [facility] [address] [id number] Performing Lab: [facility] [address] [id number] WBC 7.6 10*3/uL 3.6-11.2 RBC 4.45 10*6/uL [...] GRANS, AUTO ABS 0.02 10*3/uL 0. 00-0.05 Social History: Smoking Status (Most current) and Tobacco Use (All prior to encounter date) This section includes the most current, and the historical, smoking and tobacco- related health factors from the [place] facility where the Encounter took place. Current Smoking Status This section includes the most current smoking, or tobacco-related health factor, from the [place] facility where the Encounter took place. Date/Time Current Smoking Status Comment Facil ity Feb 22, 2025 11:00 AM VA-TOBACCO USE FORMER CIGARETTES [place] [facility] Tobacco Use History This section includes a history of the smoking, or tobacco-related health factors, that were collected on or before the date of the Encounter. The data comes from the [place] facility where the Encounter took place. 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 [place] [facility] Sep 30, 2023 01:30 PM VA-TOBACCO USE MED NO [place] [facility] Sep 30, 2023 01:30 PM VA-TOBACCO USER EVERY DAY [place] [facility] Oct 15, 2022 01:00 PM VA-TOBACCO FORMER USER [place] [facility] Oct 15, 2022 01:00 PM VA-TOBACCO QUIT 15 YRS OR MORE [place] [facility] Oct 04, 2021 10:30 AM VA-TOBACCO FORMER USER [place] [facility] Oct 04, 2021 10:30 AM VA-TOBACCO QUIT 15 YRS OR MORE [place] [facility] Oct 11, 2019 03:08 PM VA-TOBACCO DOESNT USE WI 30 MIN WAKEUP [place] [facility] Oct 11, 2019 03:08 PM VA-TOBACCO USE 30 YEARS OR MORE [facility] Oct 11, 2019 03:08 PM VA-TOBACCO USE ADVICE [facility] Oct 11, 2019 03:08 PM 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 [facility] Oct 11, 2019 03:08 PM VA-TOBACCO USE MED NO [facility] Oct 11, 2019 03:08 PM VA-TOBACCO USER EVERY DAY [facility] Jan 19, 2018 09:40 AM CURRENT TOBACCO USER [facility] Jan 19, 2018 09:40 AM CURRENT TOBACCO US ER (NOT READY TO QUIT) [facility] Jan 19, 2018 09:40 AM SMOKELESS TOBACCO AMOUNT/LENGTH V15 1 pk Q week, 18 yrs [facility] Jan 19, 2018 09:40 AM TOBACCO CESSATION REFERRAL DECLINED [facility] Jan 19, 2018 09:40 AM TOBACCO MEDS OFFER ED BUT DECLINED [facility] Jan 19, 2018 09:40 AM TOBACCO USER OFFERED MEDS [facility] March 21, 2016 01:58 PM TOBACCO MEDS OFFER ED BUT DECLINED [facility] March 21, 2016 01:58 PM TOBACCO OFFERED PT MEDS (PROVIDER) [facility] March 21, 2016 01:[address] [facility] Nov 08, 2015 08:24 AM TOBACCO MEDS OFFER ED BUT DECLINED [facility] Nov 08, 2015 08:24 AM TOBACCO OFFERED PT MEDS (PROVIDER) [facility] Nov 08, 2015 08:[address] [facility] Dec 10, 2013 08:29 AM TOBACCO MEDS OFFER ED BUT DECLINED [facility] Dec 10, 2013 08:29 AM TOBACCO OFFERED PT MEDS (PROVIDER) [facility] Dec 10, 2013 08:[address] [facility] Dec 29, 2012 10:15 AM QUIT TOBACCO >7 YEARS AGO [facility] Aug 20, 2012 09:31 AM TOBACCO MEDS OFFER ED BUT DECLINED [facility] Aug 20, 2012 09:31 AM TOBACCO OFFERED PT MEDS (PROVIDER) [facility] Aug 20, 2012 09:[address] [facility] Mar 13, 2012 08:19 AM TOBACCO MEDS OFFER ED BUT DECLINED [facility] Mar 13, 2012 08:19 AM TOBACCO OFFERED PT MEDS (PROVIDER) [facility] Mar 13, 2012 08:[address] [facility] Jan 16, 2012 02:44 PM CURRENT TOBACCO USER [facility] Jan 16, 2012 02:44 PM TOBACCO MEDS OFFER ED BUT DECLINED [facility] Jan 16, 2012 02:44 PM TOBACCO OFFERED PT MEDS (PROVIDER) [facility] Jan 16, 2012 02:[address] [facility] Aug 28, 2011 08:52 AM TOBACCO MEDS OFFER ED BUT DECLINED [facility] Aug 28, 2011 08:52 AM TOBACCO OFFERED PT MEDS (PROVIDER) declined [facility] Aug 28, 2011 08:[address] [facility] SMOKING CLINIC declined [facility] Feb 05, 2011 09:46 AM CURRENT TOBACCO USER [place] [facility] Dec 21, 2009 01:59 PM CURRENT TOBACCO USER [place] [facility] Dec 21, 2009 01:[address] [facility] [place] [facility] Aug 10, 2009 08:31 AM TOBACCO MEDS OFFER ED BUT DECLINED [facility] Aug 10, 2009 08:31 AM TOBACCO OFFERED PT MEDS (PROVIDER) [place] [facility] Aug 10, 2009 08:[address] [facility] [place] [facility] Jan 12, 2008 08:33 AM QUIT TOBACCO IN TH E LAST 12 MONTHS [facility] [place] [facility] Sep 07, 2007 01:43 PM CURRENT TOBACCO USER [facility] Jun 19, 2006 11:25 AM CURRENT TOBACCO USER [facility] Mar 12, 2006 10:53 AM CURRENT TOBACCO USER [facility] Nov 21, 2005 11:12 AM CURRENT TOBACCO USER [facility] May 27, 2005 08:56 AM CURRENT TOBACCO USER [facility] Mar 15, 2004 02:03 PM CURRENT TOBACCO USER [facility] Feb 26, 2002 09:17 AM CURRENT NON-TOBACC O USER-HX OF USE Quit 3 years ago. [facility] Oct 05, 2001 02:50 PM CURRENT TOBACCO USER [facility] Sep 11, 2001 08:38 AM CURRENT TOBACCO USER [facility] Aug 03, 2001 02:03 PM CURRENT TOBACCO USER [place] [facility] May 19, 2001 04:16 PM CURRENT TOBACCO USER [place] [facility] Advance Directives: All historical and current Section Date Range: From patient's date of to the date document was created. This section includes ALL of a patient's completed or amended CT Advance and Rescinded Directives. The entries below indicate that a directive exists for the patient, but an actual copy is not included with this document. The data comes from all CT facilities. Date Advance Directives Provider Source Apr [...] the Encounter. The data comes from all CT treatment facilities. Date/Time Radiology Report Provider Source Feb 22, 2025 11:13 AM CHEST X-RAY, 2 VIE WS: SHELDON MCDANIELS [id number] -[id number] M Ex Date: FEB 22, 2025@11:13 Req Phys: BERNIE REID Loc: [facility] [place] [facility] (Req Img Loc: [facility] [place] Service: [place] [address] (Case [id number] COMPLETE) CHEST X-RAY, 2 VIEWS (RAD Detailed) CPT:67129 Reason for Study: increased copd symptoms Clinical History: Report Status: Verified Date Reported: FEB 22, 2025 Date Verified: FEB 22, 2025 Cnc Field Service Engineer E-Sig: Report: Chest 2 views. Lungs hyperinflated [...] studies Primary Interpreting Staff: ZOILA MIXON, RADIOLOGIST (Cnc Field Service Engineer, no e-sig) /[facility] Zimmerman [facility]
--- OUTSIDE RECORDS SUMMARY | 2025-05-12 08:21 | XMS_ITS | Encounter Summary ---
Author Name [facility] [place] [facility] [place] Address [address] [place] [address] Care Team Providers Care Circus Artist Name Role Phone BERNIE REID Primary Care [...] PART B May 17, 2003 PART B [id number] Latoya MCDANIELS ONALD PATIENT MEDICARE (WNR) MEDICARE (M) PART B May 17, 2003 PART B [id number] Latoya MCDANIELS ONALD PATIENT MEDICARE (WNR) MEDICARE (M) PART A Nov 17, 1997 PART A [id number] Latoya MCDANIELS ONALD PATIENT MEDICARE (WNR) MEDICARE (M) PART A Nov 17, 1997 PART A [id number] Latoya MCDANIELS ONERICKSON PATIENT Selected Encounter This section includes the information on record at [place] for the Encounter. Date/Time Encounter Type Encounter Description Reason Pro vider Source May 12, 2025 01:21 PM Outpatient Encounter TELEPHONE PRIMARY CARE IHE Encounter Template Text not used by VA Plan of Treatment: Future Appointments (+ 6 months) and Future Tests (+/- 45 days) The Plan of Treatment section includes future care activities for the patient from [facility] [place] [facility]. This section includes future appointments and future orders which are active, pending or scheduled. Future Appointments This section includes appointments that were scheduled to occur 6 months from the date of the Encounter, up to a maximum of 20 appointments. The data comes from all [place] treatment facilities. Appointment Date/Time Appointment Type Appointme nt Facility Name Jun 21, 2025 02:10 PM AMBULATORY - MEDICINE [facility] Active, Pending, and Scheduled Orders This section includes a listing of several types of active, pending, and scheduled orders, including clinic medications orders, diagnostic test orders, procedure orders and consult orders; where the start date of the order is 45 days before the date of the Encounter or 45 days after the date of theEncounter. The data comes from all [facility]. 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 Social History: Smoking Status (Most current) and Tobacco Use (All prior to encounter date) This section includes the most current, and the historical, smoking and tobacco- related health factors from the [place] facility where the Encounter took place. Current Smoking Status This section includes the most current smoking, or tobacco-related health factor, from the [place] facility where the Encounter took place. Date/Time Current Smoking Status Comment Tenzin ity Oct 22, 2008 07:[address] [facility] Tobacco Use History This section includes a history of the smoking, or tobacco-related health factors, that were collected on or before the date of the Encounter. The data comes from the [place] facility where the Encounter took place. Date/Time Smoking Status/Tobacco Use Comment F acjean-paul Oct 22, 2008 07:51 AM TOBACCO OFFERED [facility] Advance Directives: All historical and current Section Date Range: From patient's date of to the date document was created. This section includes ALL of a patient's completed or amended VA Advance and Rescinded Directives. The entries below indicate that a directive exists for the patient, but an actual copy is not included with this document. The data comes from all [place] facilities. Date Advance Directives Provider Source Apr 30, 2019 ADVANCE DIRECTIVE N[facility]AN [facility]GUYEN [facility] Encounter Notes: All associated encounter notes This section contains the clinical notes associated to the Encounter. Date/Time Encounter Note(s) Provider Source May 12, 2025 01:21 PM TELEPHONE ENCOUNTE R NOTE: LOCAL TITLE: TELEPHONE NOTE STANDARD TITLE: TELEPHONE ENCOUNTER NOTE DATE OF NOTE: MAY 12, 2025@13:21 ENTRY DATE: MAY 12, 2025@13:21:51 AUTHOR: EDUARDO WAHL EXP COSIGNER: URGENCY: STATUS: COMPLETED called clinic today upset that we sent him a letter that we have tried to reach him by phone. He states I told you people that I would not have a phone and to not call and what did you do, you called and then sent me a letter . Apologized and advised that he might list an alternate number for us to reach him, he reports he has numbers in his chart and they states they must not have called them, cause I got this letter . He reports he is not happy with how we have his information and that he has records with incorrect spelling. He did report he called to [facility] and made his own appt for June 21, 2025 at 1415. [facility] appointment time and date. /clinton/ EDUARDO WAHL LPN Signed: 05/12/2025 13:22 EDUARDO WAHL [facility]
--- OUTSIDE RECORDS SUMMARY | 2025-05-13 08:49 | XMS_ITS | Encounter Summary ---
Author Name [facility] [place] [facility] [place] Address [address] [place] [address] Care Team Providers Care Cat Hooker Name Role Phone BERNIE REID Primary Care [...] PART B May 17, 2003 PART B [id number] Latoya MCDANIELS ONERICKSON PATIENT MEDICARE (WNR) MEDICARE (M) PART B May 17, 2003 PART B [id number] Latoya MCDANIELS ONERICKSON PATIENT MEDICARE (WNR) MEDICARE (M) PART A Nov 17, 1997 PART A [id number] Latoya MCDANIELS ONALD PATIENT MEDICARE (WNR) MEDICARE (M) PART A Nov 17, 1997 PART A [id number] Latoya MCDANIELS ONERICKSON PATIENT Selected Encounter This section includes the information on record at [place] for the Encounter. Date/Time Encounter Type Encounter Description Reason Pro vider Source May 13, 2025 01:49 PM Outpatient Encounter COMMUNITY CARE CONSULT IHE Encounter Template Text not used by VA Plan of Treatment: Future Appointments (+ 6 months) and Future Tests (+/- 45 days) The Plan of Treatment section includes future care activities for the patient from all [place] [facility]. This section includes future appointments and future orders which are active, pending or scheduled. Future Appointments This section includes appointments that were scheduled to occur 6 months from the date of the Encounter, up to a maximum of 20 appointments. The data comes from all [place] treatment facilities. Appointment Date/Time Appointment Type Appointme nt Facility Name Jun 21, 2025 02:10 PM AMBULATORY - MEDICINE [facility] Active, Pending, and Scheduled Orders This section includes a listing of several types of active, pending, and scheduled orders, including clinic medications orders, diagnostic test orders, procedure orders and consult orders; where the start date of the order is 45 days before the date of the Encounter or 45 days after the date of theEncounter. The data comes from all [facility]. Test Date/Time Test Type Test Details Facility Name April 01, 2025 11:53 AM Consult Order COMMUNITY CARE-PODIATRY [id number] Cons Therapy [facility] Apr 20, 2025 05:20 PM Consult Order COMMUNITY CARE-DERMATOLOGY [id number] Cons Therapy Technician's Choice [facility] Social History: Smoking Status (Most current) and Tobacco Use (All prior to encounter date) This section includes the most current, and the historical, smoking and tobacco- related health factors from the [place] facility where the Encounter took place. Current Smoking Status This section includes the most current smoking, or tobacco-related health factor, from the [place] facility where the Encounter took place. Date/Time Current Smoking Status Comment Tenzin ity Oct 22, 2008 07:[address] [facility] Tobacco Use History This section includes a history of the smoking, or tobacco-related health factors, that were collected on or before the date of the Encounter. The data comes from the [place] facility where the Encounter took place. Date/Time Smoking Status/Tobacco Use Comment F acjean-paul Oct 22, 2008 07:51 AM TOBACCO OFFERED [facility] SMOKING [facility] Advance Directives: All historical and current Section Date Range: From patient's date of to the date document was created. This section includes ALL of a patient's completed or amended VA Advance and Rescinded Directives. The entries below indicate that a directive exists for the patient, but an actual copy is not included with this document. The data comes from all [place] facilities. Date Advance Directives Provider Source Apr 30, 2019 ADVANCE DIRECTIVE [facility] Encounter Notes: All associated encounter notes This section contains the clinical notes associated to the Encounter. Date/Time Encounter Note(s) Provider Source May 13, 2025 01:49 PM LETTERS: LOCAL TITLE: COMMUNITY CARE-REFERRAL PB (AUTO-PRINT) STANDARD TITLE: LETTERS DATE OF NOTE: MAY 13, 2025@13:49:56 ENTRY DATE: MAY 13, 2025@13:49:56 AUTHOR: GEOVANNY KINNEY COSIGNER: URGENCY: STATUS: COMPLETED Sheldon Mcdaniels [address] [place], [place] [address] Dear SHELDON MCDANIELS, Your VA provider has referred you to a provider within the community for care. Your medical care for dermatology has been authorized with the Community Care Provider listed below. DO NOT REPORT TO THE [facility] Provider info: An appointment has been scheduled for you on: Jun 21, 2025 02:15 PM [facility] Address: [address] [place] [address] Address: [place] [address] Auth #: [id number] Referral Issue Date: 2025-04-22 Expiration Date: 2025-12-18 If you are unable to keep this appointment or the appointment is no longer needed, please contact the community provider above for notification/rescheduling and then call the [facility] Carmona [place] Community Care Office at [phone] Ext [phone]. If you need additional care/services not mentioned above, please contact your primary care provider for a new referral. Co-Payments: If you are required to pay a VA co-payment, you will be billed by the VA for each authorized visit that you attend. However, you are NOT REQUIRED to make co-payments to a Community Provider. Prescriptions: Your community provider may write a prescription related to the authorized care. If there is an immediate need for your prescriptions from your community care visit, you may be able to get up to a 14-day fill of your prescription at your own expense for the cost of the medication, and may seek reimbursement from the VA. If you require more than a 14-day supply or if the prescribed medication is not immediately needed, your community provider will send a prescription to a VA pharmacy so that the VA can provide you with your routine medication. In-network locations can be found at https://www.va.gov/find-loca tions/ Medical Devices: Your community provider may recommend that medical devices, adapted equipment, or other items be provided for the treatment or rehabilitation of your medical condition. Veterans are generally required to obtain these items through the Prosthetics and Sensory Aids Service (PSAS) in your referring facility. Emergency/Inpatient Services: You, your community provider, or your family must provide notification within 72hr or ER visit and/or admission by [phone]. Thank you for the opportunity to serve you and for your service to our great nation! Geovanny Carmona [facility] in the Community [address] [facility] [place] [address] GEOVANNY KINNEY [facility]
--- OUTSIDE RECORDS SUMMARY | 2025-05-17 17:06 | XMS_ITS | Continuity of Care Document ---
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 It does not include entries that were removed or entered in error. Problem Status Onset Date Problem Type Date of Resolution Comments Source Allergic rhinitis Active Condition [facility] Anxiety (SNOMED [place] 72787839) Active Condition [facility] Bilateral shoulder osteoarthritis Active Condition [facility] Bipolar disorder Active Condition [facility] BPH - Benign prostatic hypertrophy (SNOMED CT 276546459) Active Condition [facility] Carcinoma, Basal Cell Active Condition [facility] Chronic Low Back Pain Active Condition [facility] Chronic obstructive lung disease Active Condition [facility] CLBP - Chronic low back pain (SNOMED CT 271294101) Active Condition [facility] 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 [facility] Coronary arteriosclerosis Active Condition [facility] Erectile dysfunction (SNOMED CT 771686565) Active Condition [facility] GERD - Gastro-esophageal reflux disease Active Condition [facility] Hearing Loss ([email or web address] [id number]) Active Condition [facility] Herpes Genitalis Active Condition [facility] HTN - Hypertension ([facility] [[email or web address] [id number]) Active Condition [facility] Hypercholesterolemia Active Condition [facility] MALIG JLUIS SKIN NOS Active Condition [facility] Proctitis Active Condition April 09 Entered By: TRISTA OBREGON Comment: normal colonoscopyu 03/2022; due in 2026 h/o polyps [facility] Recurrent genital herpes simplex Active Condition [facility] TOBACCO USE DISORDER Active Condition [facility] Tobacco Use Disorder, Episodic Active Condition [facility] Umbilical hernia Active Condition [facility] ACUTE BRONCHITIS Inactive Condition 02/16/2017 [place] [facility] Alcohol Dependence Inactive Condition 02/16/2017 [place] [facility] ALLERGIC RHINITIS NOS Inactive Condition 02/16/2017 [place] [facility] Cataracts Inactive Condition 10/15/2022 [place] [facility] Cellulitis and abscess of umbilicus (SNOMED CT 831648258) Inactive Condition 02/16/2017 [facility] Chronic Back Pain (ICD-9-CM 724.5) Inactive Condition 02/16/2017 [place] [facility] Chronic sinusitis (ICD-9-CM 473.9) Inactive Condition 02/16/2017 [place] [facility] COUGH Inactive Condition 02/16/2017 [place] [facility] Diarrhea * (ICD-9-CM 787.91) Inactive Condition 02/16/2017 [place] Elevated Liver Function Tests (ICD-9-CM 794.8) Inactive Condition 02/16/2017 [place] [facility] EMPHYSEMA NEC Inactive Condition 02/16/2017 [place] [facility] ESOPHAGEAL REFLUX Inactive Condition 02/16/2017 [place] [facility] Facial Dermatoses (ICD-9-CM 709.9) Inactive Condition 02/16/2017 [place] [facility] Fissure in Ano * (ICD-9-CM 565.0) Inactive Condition 02/16/2017 [place] [facility] Folliculitis * (ICD-9-CM 704.8) Inactive Condition 02/16/2017 [place] [facility] GENITAL HERPES NEC Inactive Condition 02/16/2017 [place] [facility] H ZOSTER COMPLICATED NOS Inactive Condition 02/16/2017 [place] [facility] Hearing Loss, Partial * (ICD-9-CM 389.9) Inactive Condition 02/22/2025 [place] [facility] HEMORRHOIDS NOS Inactive Condition 02/16/2017 [place] [facility] HERPES SIMPLEX NOS Inactive Condition 02/16/2017 [place] [facility] Laboratory Examination Ordered as part of a Routine General Medical Examination Inactive Condition 02/16/2017 [place] [facility] Laceration of finger (SNOMED CT 281023234) Inactive Condition 02/16/2017 [place] [facility] Lesion of lip (SNOMED CT 408874803) Inactive Condition 02/16/2017 [facility] OSTEOARTHROSIS-MULT SITE Inactive Condition 02/16/2017 [place] [facility] Other Seborrheic Keratosis (ICD-9-CM 702.19) Inactive Condition 02/16/2017 [place] [facility] Personal History of Colonic Polyps (ICD-9-CM V12.72) Inactive Condition 11/28/2020 [place] [facility] Pharyngitis (SNOMED CT 519447428) Inactive Condition 02/16/2017 [facility] Pruritus * (ICD-9-CM 698.9) Inactive Condition 02/16/2017 [place] [facility] Rectal Bleeding (ICD-9-CM 569.3) Inactive Condition 02/16/2017 [place] [facility] RESP SYS/CHEST SYMP NEC Inactive Condition 02/16/2017 [place] [facility] Routine General Medical Examination at a Health Care Facility * (ICD-9-CM V70.0) Inactive Condition 02/16/2017 [place] [facility] Sexual Dysfunction NOS (ICD-9-CM 302.9/302.70) Inactive Condition 02/16/2017 [place] [facility] Skin Neoplasms (ICD-9-CM 173.9) Inactive Condition 02/16/2017 [place] [facility] Tinea Pedis * Inactive Condition 02/16/2017 [facility] Tobacco Use Disorder, Continuous (ICD-9-CM 305.1) Inactive Condition 11/28/2020 [place] [facility] URI (ICD-9-CM 465.9) Inactive Condition 02/16/2017 [place] [facility] VACCINATION FOR TD-DT - Tetanus-diphtheria [td] [dt] (ICD-9-CM V06.5) Inactive Condition 11/28/2020 [facility] Diagnosis: ICD-10-CM L98.9 Disorder of the skin and subcutaneous tissue, unspecified Active Diagnosis [facility] Diagnosis: ICD-10-CM L03.90 Cellulitis, unspecified Active Diagnosis [facility] Diagnosis: ICD-10-CM L85.3 Xerosis cutis Active Diagnosis [facility] Diagnosis: ICD-10-CM J44.9 Chronic obstructive pulmonary disease, unspecified Active Diagnosis [facility] Diagnosis: ICD-10-CM Z71.89 Other specified counseling Active Diagnosis [facility] Diagnosis: ICD-10-CM M79.673 Pain in unspecified foot Active Diagnosis [facility] Diagnosis: ICD-10-CM J30.9 Allergic rhinitis, unspecified Active Diagnosis [facility] Diagnosis: ICD-10-CM Z23 Encounter for immunization Active Diagnosis [facility] Diagnosis: ICD-10-CM J06.9 Acute upper respiratory infection, unspecified Active Diagnosis [facility] Diagnosis: ICD-10-CM Z00.01 Encounter for general adult medical exam w abnormal findings Active Diagnosis [facility] Diagnosis: ICD-10-CM J44.1 Chronic obstructive pulmonary disease w (acute) exacerbation Active Diagnosis [facility] Diagnosis: ICD-10-CM R05.9 Cough, unspecified Active Diagnosis [facility] Diagnosis: ICD-10-CM J20.9 Acute bronchitis, unspecified Active Diagnosis [facility] Diagnosis: ICD-10-CM R05.1 Acute cough Active Diagnosis [facility] Medications Combined list of outpatient medications from 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Medications provided include 1) outpatient medications from the last 15 months, and 2) patient-reported medications. Medication Details Route Status Patient Instructions Prescription Expires Prescription Number Last Dispense Date Ordering Provider Order Date Order Qty Source ALBUTEROL SO4 3MG/IPRATRO PIUM BR 0.5MG/3ML INHL,3ML INHALE 1 VIAL (3ML) BY NEBULIZA TION FOUR TIMES A DAY DIRECTED NEEDED FOR COPD NEBULI ZATION ACTIVE 02/23/2026 [id number] 5 Mariela REID R 2024 360 [facility] ALBUTEROL SO4 90MCG/ACTUA T (CFC-F) INHL,ORAL,8 .5GM INHALE 2 PUFFS BY ORAL INHALATI ON FOUR TIMES A DAY NEEDED FOR COPD SHAKE WELL. RINSE MOUTHPIE CE FREQUENT LY TO PREVENT CLOGGING . RESPIR ATORY (INHAL ATION) ACTIVE 12/08/2025 [id number] 5 Marieal REID R 2024 3 [facility] ALBUTEROL SO4 90MCG/ACTUA T (CFC-F) INHL,ORAL,8 .5GM INHALE 2 PUFFS ORAL INHALATI ON FOUR TIMES A DAY FOR ASTHMA SHAKE WELL. RINSE MOUTHPIE CE FREQUENT LY TO PREVENT CLOGGING . RESPIR ATORY (INHAL ATION) DISCONT INUED 06/08/2024 [id number] 4 Mariela REID 2023 3 [facility] ALBUTEROL SO4 90MCG/ACTUA T (CFC-F) INHL,ORAL,8 .5GM INHALE 2 PUFFS ORAL INHALATI ON FOUR TIMES A DAY FOR ASTHMA SHAKE WELL. RINSE MOUTHPIE CE FREQUENT LY TO PREVENT CLOGGING . RESPIR ATORY (INHAL ATION) DISCONT INUED 03/11/2025 [id number] 4 Mariela REID 2023 1 [facility] ALBUTEROL SO4 90MCG/ACTUA T (CFC-F) INHL,ORAL,8 .5GM INHALE 2 PUFFS ORAL INHALATI ON FOUR TIMES A DAY FOR ASTHMA SHAKE WELL. RINSE MOUTHPIE CE FREQUENT LY TO PREVENT CLOGGING . RESPIR ATORY (INHAL ATION) 08/11/2024 [id number] 4 Mariela REID 2023 3 [facility] BETAMETHASO NE DIPROPIONAT E 0.05%/CLOTR IMAZOLE 1% CREAM,TOP APPLY 1 APPLICAT ION TO AFFECTED AREA(S) TWICE A DAY FOR 4 WEEKS (EXTERNA L USE ONLY) TOPICA L 11/12/2024 [id number] 4 YUE BELTRAN 2023 45 [facility] CETIRIZINE HCL 10MG TAB TAKE ONE TABLET BY MOUTH ONCE A DAY FOR ALLERGY SYMPTOMS ORAL ACTIVE 10/13/2025 [id number] 5 JAMMIE ROJAS 2023 90 [facility] CETIRIZINE HCL 10MG TAB TAKE ONE TABLET BY MOUTH ONCE A DAY FOR ALLERGY SYMPTOMS ORAL DISCONT INUED 01/12/2025 [id number] 4 JAMMIE ROJAS ISTEL G 2023 90 [facility] CHOLESTYRAM INE 4GM/5GM (LIGHT) PWDR,PKT MIX AND DRINK 1 PACKET BY MOUTH ONCE A DAY FOR HIGH CHOLESTE ROL MIX WITH WATER DIRECTED . TAKE OTHER MEDICATI ONS 1 HOUR BEFORE OR 6 HOURS AFTER ADMINIST RATION. ORAL 03/25/2025 [id number] 5 Mariela REID R 2023 84 [facility] FINASTERIDE 5MG TAB TAKE ONE TABLET BY MOUTH ONCE A DAY FOR BENIGN PROSTATI C HYPERPLA LEONA SWALLOW WHOLE, DO NOT CRUSH, SPLIT, OR CHEW. ORAL ACTIVE 02/23/2026 [id number] 5 Mariela REID R 2024 90 [facility] FINASTERIDE 5MG TAB TAKE ONE TABLET BY MOUTH ONCE A DAY FOR BENIGN PROSTATI C HYPERPLA LEONA SWALLOW WHOLE, DO NOT CRUSH, SPLIT, OR CHEW. ORAL DISCONT INUED 02/20/2025 [id number] 4 Mariela REID R 2023 90 [facility] FLUTICASONE 250MCG/SALM ETEROL 50MCG INHL,ORAL,D ISKUS,60 INHALE 1 INHALATI ON BY ORAL INHALATI ON TWICE A DAY FOR COPD (OPEN DISKUS; CLICK ONLY ONCE; MAY INHALE TWICE TO COMPLETE DOSE; CLOSE WHEN FINISHED ) RINSE MOUTH AND SPIT AFTER EACH USE. RESPIR ATORY (INHAL ATION) ACTIVE 03/01/2026 [id number] 5 Mariela REID R 2024 3 [facility] FLUTICASONE 250MCG/SALM ETEROL 50MCG INHL,ORAL,D ISKUS,60 INHALE 1 INHALATI ON ORAL INHALATI ON TWICE A DAY FOR COPD (OPEN DISKUS; CLICK ONLY ONCE; MAY INHALE TWICE TO COMPLETE DOSE; CLOSE WHEN FINISHED ) RINSE MOUTH AND SPIT AFTER EACH USE. RESPIR ATORY (INHAL ATION) DISCONT INUED BY PROVIDE R 02/02/2025 [id number] 4 JAMMIE ROJAS ISTEL G 2023 2 [facility] FLUTICASONE PROPIONATE 50MCG/SPRAY SOLN,NASAL, 16GM INSTILL 1 SPRAY IN NOSTRIL( S) ONCE A DAY FOR RHINITIS (MUST BE USED DIRECTED FOR MINIMUM OF 21 DAYS TO PROVIDE ADEQUATE BENEFITS ) NASAL ACTIVE 06/30/2025 [id number] 5 Mariela REID R 2023 3 [facility] FLUTICASONE PROPIONATE 50MCG/SPRAY SOLN,NASAL, 16GM INSTILL 1 SPRAY IN NOSTRIL( S) ONCE A DAY FOR RHINITIS (MUST BE USED DIRECTED FOR MINIMUM OF 21 DAYS TO PROVIDE ADEQUATE BENEFITS ) NASAL DISCONT INUED 02/10/2025 [id number] 4 Mariela REID 2023 3 [facility] GUAIFENESIN 400MG TAB TAKE ONE TABLET BY MOUTH FOUR TIMES A DAY NEEDED FOR MUCUS THINNING TAKE WITH 8 OUNCE GLASS OF WATER. ORAL ACTIVE 02/23/2026 [id number] 5 Mariela REID R [address] [place] [address] [facility] GUAIFENESIN 400MG TAB TAKE ONE TABLET BY MOUTH FOUR TIMES A DAY NEEDED FOR MUCUS THINNING TAKE WITH 8 OUNCE GLASS OF WATER. ORAL DISCONT INUED 02/20/2025 [id number] 4 Mariela REID [address] [place] [address] [facility] HYDROCHLORO THIAZIDE 25MG TAB TAKE ONE TABLET BY MOUTH ONCE A DAY FOR HIGH BLOOD PRESSURE ORAL ACTIVE 10/13/2025 [id number] 5 Mariela REID [address] [place] [address] [facility] HYDROCHLORO THIAZIDE 25MG TAB TAKE ONE TABLET BY MOUTH ONCE A DAY FOR HIGH BLOOD PRESSURE ORAL 08/12/2024 [id number] 4 Mariela REID [address] [place] [address] [facility] HYDROCORTIS ONE ACETATE 25MG SUPP,RTL UNWRAP AND INSERT 1 SUPPOSIT ORY RECTALLY TWICE DAILY NEEDED FOR HEMORRHO IDS RECTAL ACTIVE 02/23/2026 [id number] 5 Mariela REID 2024 24 [facility] HYDROPHILIC (EQV EUCERIN) CREAM,TOP APPLY LIGHTLY TO AFFECTED AREA(S) ONCE A DAY FOR SKIN CARE (EXTERNA L USE ONLY) TOPICA L ACTIVE 03/31/2026 [id number] 5 Mariela REID R 2024 454 [facility] METHOCARBAM OL 750MG TAB TAKE 1 TABLET BY MOUTH THREE TIMES A DAY NEEDED FOR MUSCLE SPASM ORAL ACTIVE 11/14/2025 [id number] 5 Mariela REID R 2023 270 [facility] MICONAZOLE NITRATE 2% PWDR,TOP APPLY LIBERALL Y TO AFFECTED AREA(S) THREE TIMES A DAY FOR FUNGAL INFECTIO N FOR TOPICAL USE ONLY. TOPICA L ACTIVE 12/08/2025 [id number] 5 Mariela REID R 2024 180 [facility] MOMETASONE FUROATE 220MCG/INHL INHL,ORAL,3 0 INHALE 1 PUFF OF 220MCG/I NHL ORAL INHALATI ON EVERY EVENING FOR ASTHMA RINSE MOUTH OUT WITH WATER AND SPIT AFTER EACH DOSE. STORE INHALER IN DIRECTOR CLINICAL RESEARCH AT ROOM TEMPERAT URE UNTIL READY TO OPEN. DISCARD 45 DAYS AFTER OPENING. RESPIR ATORY (INHAL ATION) DISCONT INUED BY PROVIDE R 08/21/2025 [id number] 5 Mariela REID R 2023 3 [facility] MONTELUKAST NA 10MG TAB TAKE ONE TABLET BY MOUTH EVERY EVENING FOR ASTHMA ORAL 01/12/2025 [id number] 4 JAMMIE ROJAS ISTEL G 2023 90 [facility] OLODATEROL 2.5MCG/TIOT ROPIUM 2.5MCG/ACTU AT INHL,ORAL,6 0D,4GM INHALE 2 PUFFS ORAL INHALATI ON ONCE A DAY FOR COPD ADMINIST ER AT SAME TIME EACH DAY RESPIR ATORY (INHAL ATION) DISCONT INUED 08/21/2025 [id number] 5 Mariela REID R 2023 3 [facility] OMEPRAZOLE 40MG CAP,EC TAKE ONE CAPSULE BY MOUTH EVERY MORNING BEFORE A MEAL FOR GASTROES OPHAGEAL REFLUX DISEASE TAKE 30 MINUTES PRIOR TO FOOD. ORAL ACTIVE 12/08/2025 [id number] 5 Mariela REID R [address] [place] [address] [facility] OMEPRAZOLE 40MG CAP,EC TAKE ONE CAPSULE BY MOUTH EVERY MORNING BEFORE A MEAL FOR GASTROES OPHAGEAL REFLUX DISEASE TAKE 30 MINUTES PRIOR TO FOOD. ORAL DISCONT INUED 10/13/2025 [id number] 4 Mariela REID R [address] [place] [address] [facility] PANTOPRAZOL E NA 40MG TAB,EC TAKE ONE TABLET BY MOUTH EVERY MORNING BEFORE A MEAL FOR GASTROES OPHAGEAL REFLUX DISEASE TAKE 30 MINUTES BEFORE MEAL(S) ORAL 01/09/2025 [id number] 4 Mariela REID [address] [place] [address] [facility] ROSUVASTATI N CA 10MG TAB TAKE ONE-HALF TABLET BY MOUTH EVERY EVENING FOR HIGH CHOLESTE ROL ORAL ACTIVE 10/13/2025 [id number] 5 Mariela REID [address] [place] [address] [facility] SILDENAFIL CITRATE 100MG TAB TAKE ONE TABLET BY MOUTH 2XWEEK PRN ORAL ACTIVE Mariela REID 2022 [facility] TAMSULOSIN HCL 0.4MG CAP TAKE ONE CAPSULE BY MOUTH EVERY EVENING FOR BENIGN PROSTATI C HYPERPLA LEONA APPROXIM ATELY 30 MINUTES AFTER THE SAME MEAL EACH DAY ORAL ACTIVE 06/30/2025 [id number] 5 Mariela REID [address] [place] [address] [facility] TIOTROPIUM 2.5MCG/ACTU AT INHL,ORAL,6 0D,4GM INHALE 2 INHALATI ONS BY ORAL INHALATI ON ONCE A DAY FOR COPD (ADMINIS TER AT SAME TIME EACH DAY) *STOP STIOLTO RESPIR ATORY (INHAL ATION) ACTIVE 03/18/2026 [id number] ABHILASH OSULLIVAN I 2024 3 [place] [facility] VALACYCLOVI R HCL 500MG TAB TAKE ONE TABLET BY MOUTH ONCE A DAY FOR VIRAL INFECTIO N PREVENTI ON ORAL ACTIVE 06/30/2025 [id number] 5 Mariela REID ATHERINE R [address] [place] [address] [facility] VALACYCLOVI R HCL 500MG TAB TAKE ONE TABLET BY MOUTH ONCE A DAY FOR VIRAL INFECTIO N PREVENTI ON ORAL 04/07/2024 [id number] 4 Mariela REID ATHERINE R [address] [place] [address] [facility] Allergies, Adverse Reactions, Alerts Combined list of allergies from Department of [facility] and [facility] Affairs facilities. It does not include entries that were removed or entered in error. Substance Category Reaction Severity Reaction type Status Date Reported Comments Source CODEINE Propensity to adverse reactions to drug (finding) NAUSEA,VO MITING active 3 [facility] 15 CODEINE Propensity to adverse reactions to drug (finding) active 3 [facility] PRAVASTATIN Propensity to adverse reactions to drug (finding) Muscle pain active 2 [facility] SPIRIVA Propensity to adverse reactions to drug (finding) Nausea and vomiting active 5 [facility] Immunizations Combined list of available immunizations from the Department of [facility] and [facility] Affairs facilities. Immunization Series Date Given Administered By Site Reaction Lot Number CVX Code Drug Tube Filler Status Comments Source PNEUMOCOCCAL POLYSACCHARID E PPV23 2023 NOEL JUAREZ RIGHT DELTO ID [id number] 33 complet ed [facility] INFLUENZA VACCINE, QUADRIVALENT, ADJUVANTED 3 2022 205 complet ed HISTORICA L INFORMATI ON - FROM OTHER [facility] INFLUENZA, INJECTABLE, QUADRIVALENT, PRESERVATIVE FREE 2021 [facility] LEFT DELTO ID [id number] 150 complet ed [facility] ZOSTER RECOMBINANT 2 2021 187 complet ed [facility] INFLUENZA, INJECTABLE, QUADRIVALENT, PRESERVATIVE FREE 2020 150 complet ed [facility] COVID-19 (MODERNA), MRNA, LNP-S, PF, 100 MCG/0.5ML DOSE OR 50 MCG/0.25ML DOSE 1 2020 207 complet ed HISTORICA L INFORMATI ON - FROM OTHER REGISTRY, [facility] ZOSTER RECOMBINANT 1 2020 187 complet ed [facility] INFLUENZA, INJECTABLE, QUADRIVALENT, PRESERVATIVE FREE 2019 150 complet ed [facility] INFLUENZA, INJECTABLE, QUADRIVALENT, PRESERVATIVE FREE 2018 150 complet ed [facility] TD(ADULT) UNSPECIFIED FORMULATION 2018 139 complet ed after a fall at [employer] causing an abrasion [facility] INFLUENZA, SEASONAL, INJECTABLE, PRESERVATIVE FREE 2017 140 complet ed Right Deltoid [facility] INFLUENZA, UNSPECIFIED FORMULATION 2015 88 complet ed [facility] PNEUMOCOCCAL CONJUGATE PCV 13 2015 133 complet ed wyeth [id number] exp 08/03 [facility] INFLUENZA, HIGH DOSE SEASONAL 1 2014 135 complet ed HISTORICA L INFORMATI ON - FROM OTHER REGISTRY, [facility] INFLUENZA, UNSPECIFIED FORMULATION 2014 88 complet ed [facility] ZOSTER LIVE 1 2014 121 complet ed HISTORICA L INFORMATI ON - FROM OTHER REGISTRY, [facility] INFLUENZA, SEASONAL, INJECTABLE, PRESERVATIVE FREE 2013 140 complet ed [facility] INFLUENZA, UNSPECIFIED FORMULATION 2012 88 complet ed [place] [facility] TDAP 2012 115 complet ed Right Deltoid [place] [facility] INFLUENZA, UNSPECIFIED FORMULATION 2011 88 complet ed [facility] INFLUENZA, UNSPECIFIED FORMULATION 2010 88 complet ed [facility] PNEUMOCOCCAL, UNSPECIFIED FORMULATION 2010 109 complet ed [facility] INFLUENZA, UNSPECIFIED FORMULATION 2009 88 complet ed [facility] INFLUENZA, UNSPECIFIED FORMULATION 2008 88 complet ed [facility] INFLUENZA (HISTORICAL) 2007 88 complet ed [facility] INFLUENZA, UNSPECIFIED FORMULATION 2006 88 complet ed [facility] INFLUENZA, UNSPECIFIED FORMULATION 2005 88 complet ed [facility] PNEUMOCOCCAL, UNSPECIFIED FORMULATION 2005 109 complet ed [employer], [employer], Lot #:[id number] [facility] INFLUENZA, UNSPECIFIED FORMULATION 2003 88 complet ed [facility] INFLUENZA, UNSPECIFIED FORMULATION 2002 88 complet ed [facility] TD(ADULT) UNSPECIFIED FORMULATION 2002 139 complet ed [facility]IS[facility] N INFLUENZA, UNSPECIFIED FORMULATION 2001 88 complet ed [facility] PNEUMOCOCCAL, UNSPECIFIED FORMULATION 2001 109 complet ed [facility] INFLUENZA, UNSPECIFIED FORMULATION 2000 88 complet ed [facility] INFLUENZA (HISTORICAL) 1999 88 complet ed [facility] N INFLUENZA, UNSPECIFIED FORMULATION 1998 KYLEE OSBORNE 88 complet ed [facility] INFLUENZA (HISTORICAL) 1997 TJ FOSTER 88 complet ed [facility] TD(ADULT) UNSPECIFIED FORMULATION 1 1996 139 complet ed HISTORICA L INFORMATI ON - FROM OTHER REGISTRY, [facility] Results Combined list of recent chemistry, hematology and other laboratory results from Department of Defense and Veterans Affairs, ranging from 15 months to all on record, depending upon the facility. Order Name Results Value Reference Range Date Interpretation Specimen Comments Source COMPREHENSI VE METABOLIC PANEL CREATININE [MASS/VOLUME] IN SERUM OR PLASMA 1.17 mg/dL 0.7 - 1.3 02/16 Specimen Type: PLASMA No comment entered. Ordering Provider: Mariela REID Report Released Date/Time : Feb 16, 2025 03:39 PM Reporting Lab: [facility] [address] [place] [address] Luizin tri Lab: [facility] [facility] [address] [place] [address] [facility] COMPREHENSI VE METABOLIC PANEL UREA NITROGEN [MASS/VOLUME] IN SERUM OR PLASMA 16 mg/dL 9 - 02/16 Specimen Type: PLASMA No comment entered. Ordering Provider: Mariela REID R Report Released Date/Time : Feb 16, 2025 03:39 PM Reporting Lab: [place] [facility] [address] [place] [address] Performin g Lab: [place] [facility] [address] [place] [address] [place] [facility] COMPREHENSI VE METABOLIC PANEL GLUCOSE [MASS/VOLUME] IN SERUM OR PLASMA 89 mg/dL 72 - 99 02/16 Specimen Type: PLASMA No comment entered. Ordering Provider: Mariela REID R Report Released Date/Time : Feb 16, 2025 03:39 PM Reporting Lab: [place] [facility] [address] [place] [address] Performin g Lab: [place] [facility] [address] [place] [address] [place] [facility] COMPREHENSI VE METABOLIC PANEL SODIUM [MOLES/VOLUME ] IN SERUM OR PLASMA 139 meq/L 136 - 145 02/16 Specimen Type: PLASMA No comment entered. Ordering Provider: Mariela REID R Report Released Date/Time : Feb 16, 2025 03:39 PM Reporting Lab: [place] [facility] [address] [place] [address] Performin g Lab: [place] [facility] [address] [place] [address] [facility] COMPREHENSI VE METABOLIC PANEL POTASSIUM [MOLES/VOLUME ] IN SERUM OR PLASMA 3.6 meq/L 3.5 - 5 02/16 Specimen Type: PLASMA No comment entered. Ordering Provider: Mariela REID R Report Released Date/Time : Feb 16, 2025 03:39 PM Reporting Lab: [place] [facility] [address] [place] [address] Performin g Lab: [place] [facility] [address] [place] [address] [facility] COMPREHENSI VE METABOLIC PANEL CHLORIDE [MOLES/VOLUME ] IN SERUM OR PLASMA 102 meq/L 98 - 107 02/16 Specimen Type: PLASMA No comment entered. Ordering Provider: Mariela REID R Report Released Date/Time : Feb 16, 2025 03:39 PM Reporting Lab: [place] [facility] [address] [place] [address] 8 [facility]: [place] [facility] [address] [place] [address] 8 [facility] COMPREHENSI VE METABOLIC PANEL CARBON DIOXIDE, TOTAL [MOLES/VOLUME ] IN SERUM OR PLASMA 28 meq/L 22 - 31 02/16 Specimen Type: PLASMA No comment entered. Ordering Provider: Mariela REID R Report Released Date/Time : Feb 16, 2025 03:39 PM Reporting Lab: [place] [facility] [address] [place] [address] 8 [facility]: [place] [facility] [address] [place] [address] 8 [facility] COMPREHENSI VE METABOLIC PANEL CALCIUM [MASS/VOLUME] IN SERUM OR PLASMA 9.3 mg/dL 8.4 - 10.4 02/16 Specimen Type: PLASMA No comment entered. Ordering Provider: Mariela REID R Report Released Date/Time : Feb 16, 2025 03:39 PM Reporting Lab: [place] [facility] [address] [place] [address] 8 [facility]formin [facility]: [place] [facility] [address] [place] [address] 8 [facility] COMPREHENSI VE METABOLIC PANEL PROTEIN [MASS/VOLUME] IN SERUM OR PLASMA 6.8 g/dL 6 - 8.6 02/16 Specimen Type: PLASMA No comment entered. Ordering Provider: Mariela REID R Report Released Date/Time : Feb 16, 2025 03:39 PM Reporting Lab: [place] [facility] [address] [place] [address] 8 [facility]formin [facility]: [place] [facility] [address] [place] [address] 8 [facility] COMPREHENSI VE METABOLIC PANEL ALBUMIN [MASS/VOLUME] IN SERUM OR PLASMA 4.1 g/dL 3.4 - 5 02/16 Specimen Type: PLASMA No comment entered. Ordering Provider: Mariela REID R Report Released Date/Time : Feb 16, 2025 03:39 PM Reporting Lab: [place] [facility] [address] [place] [address] 8 [facility]: [place] [facility] [address] [place] [address] 8 [facility] COMPREHENSI VE METABOLIC PANEL BILIRUBIN.TOT AL [MASS/VOLUME] IN SERUM OR PLASMA 0.4 mg/dL 0.2 - 1.2 02/16 Specimen Type: PLASMA No comment entered. Ordering Provider: Mariela REID Report Released Date/Time : Feb 16, 2025 03:39 PM Reporting Lab: [place] [facility] [address] [place] [address] 8 Performin g Lab: [place] [facility] [address] [place] [address] 8 [facility] COMPREHENSI VE METABOLIC PANEL ALKALINE PHOSPHATASE [ENZYMATIC ACTIVITY/VOLU ME] IN SERUM OR PLASMA 62 U/L 40 - 150 02/16 Specimen Type: PLASMA No comment entered. Ordering Provider: Mariela REID R Report Released Date/Time : Feb 16, 2025 03:39 PM Reporting Lab: [place] [facility] [address] [place] [address] 8 [facility]formin g Lab: [place] [facility] [address] [place] [address] 8 [facility] COMPREHENSI VE METABOLIC PANEL ASPARTATE AMINOTRANSFER ASE [ENZYMATIC ACTIVITY/VOLU ME] IN SERUM OR PLASMA 32 U/L 5 - 34 02/16 Specimen Type: PLASMA No comment entered. Ordering Provider: Mariela REID Report Released Date/Time : Feb 16, 2025 03:39 PM Reporting Lab: [place] [facility] [address] [place] [address] 8 [facility]formin g Lab: [place] [facility] [address] [place] [address] 8 [facility] COMPREHENSI VE METABOLIC PANEL ALANINE AMINOTRANSFER ASE [ENZYMATIC ACTIVITY/VOLU ME] IN SERUM OR PLASMA 27 U/L 8 - 40 02/16 Specimen Type: PLASMA No comment entered. Ordering Provider: Mariela REID Report Released Date/Time : Feb 16, 2025 03:39 PM Reporting Lab: [place] [facility] [address] [place] [address] 8 [facility]formin g Lab: [place] [facility] [address] [place] [address] 8 [facility] COMPREHENSI VE METABOLIC PANEL GLOMERULAR FILTRATION RATE/1.73 SQ M.PREDICTED [VOLUME RATE/AREA] IN SERUM, PLASMA OR BLOOD BY CREATININE-BA SED FORMULA (CKD-EPI 2020) 64 02/16 Specimen Type: PLASMA No comment entered. Ordering Provider: Mariela REID Report Released Date/Time : Feb 16, 2025 03:39 PM Reporting Lab: [place] [facility] [address] [place] [address] 8 Performin g Lab: [place] [facility] [address] [place] [address] 8 [facility] CBC LEUKOCYTES [#/VOLUME] IN BLOOD BY AUTOMATED COUNT 7.6 10*3/u L 3.6 - 11.2 02/16 Specimen Type: BLOOD No comment entered. Ordering Provider: Mariela REID Report Released Date/Time : Feb 16, 2025 03:39 PM Reporting Lab: [place] [facility] [address] [place] [address] 8 Performin g Lab: [place] [facility] [address] [place] [address] 8 [facility] CBC ERYTHROCYTES [#/VOLUME] IN BLOOD BY AUTOMATED COUNT 4.45 10*6/u L 4.10 - 5.70 02/16 Specimen Type: BLOOD No comment entered. Ordering Provider: Mariela REID Report Released Date/Time : Feb 16, 2025 03:39 PM Reporting Lab: [place] [facility] [address] [place] [address] 8 Performin g Lab: [place] [facility] [address] [place] [address] 8 [facility] CBC HEMOGLOBIN [MASS/VOLUME] IN BLOOD 13.6 g/dL 13.1 - 16.8 02/16 Specimen Type: BLOOD No comment entered. Ordering Provider: Mariela REID R Report Released Date/Time : Feb 16, 2025 03:39 PM Reporting Lab: [place] [facility] [address] [place] [address] 8 Performin g Lab: [place] [facility] [address] [place] [address] 8 [facility] CBC HEMATOCRIT [VOLUME FRACTION] OF BLOOD 40.6 38.2 - 48.4 02/16 Specimen Type: BLOOD No comment entered. Ordering Provider: Mariela REID Report Released Date/Time : Feb 16, 2025 03:39 PM Reporting Lab: [place] [facility] [address] [place] [address] 8 Performin g Lab: [place] [facility] [address] [place] [phone] 8 [facility] CBC MCV [ENTITIC VOLUME] BY AUTOMATED COUNT 91.2 fL 80.0 - 100.0 02/16 Specimen Type: BLOOD No comment entered. Ordering Provider: Mariela REID R Report Released Date/Time : Feb 16, 2025 03:39 PM Reporting Lab: [place] [facility] [address] [place] [address] 8 Performin g Lab: [place] [facility] [address] [place] [address] 8 [facility] CBC MCH [ENTITIC MASS] BY AUTOMATED COUNT 30.6 pg 27.0 - 34.0 02/16 Specimen Type: BLOOD No comment entered. Ordering Provider: Mariela REID R Report Released Date/Time : Feb 16, 2025 03:39 PM Reporting Lab: [place] [facility] [address] [place] [address] 8 Performin g Lab: [place] [facility] [address] [place] [address] 8 [facility] CBC MCHC [MASS/VOLUME] BY AUTOMATED COUNT 33.5 g/dL 33.0 - 36.0 02/16 Specimen Type: BLOOD No comment entered. Ordering Provider: Mariela REID R Report Released Date/Time : Feb 16, 2025 03:39 PM Reporting Lab: [place] [facility] [address] [place] [address] 8 Performin g Lab: [place] [facility] [address] [place] [address] 8 [facility] CBC PLATELETS [#/VOLUME] IN BLOOD BY AUTOMATED COUNT 207 10*3/u L 150 - 400 02/16 Specimen Type: BLOOD No comment entered. Ordering Provider: Mariela REID Report Released Date/Time : Feb 16, 2025 03:39 PM Reporting Lab: [place] [facility] [address] [place] [address] 8 Performin g Lab: [place] [facility] [address] [place] [address] 8 [facility] CBC PLATELET MEAN VOLUME [ENTITIC VOLUME] IN BLOOD BY AUTOMATED COUNT 12.5 fL 7.5 - 11.2 02/16 H Specimen Type: BLOOD No comment entered. Ordering Provider: Mariela REID Report Released Date/Time : Feb 16, 2025 03:39 PM Reporting Lab: [place] [facility] [address] [place] [address] 8 Performin g Lab: [place] [facility] [address] [place] [address] 8 [facility] CBC ERYTHROCYTE DISTRIBUTION WIDTH [RATIO] BY AUTOMATED COUNT 14.1 11.8 - 15.1 02/16 Specimen Type: BLOOD No comment entered. Ordering Provider: Mariela REID Report Released Date/Time : Feb 16, 2025 03:39 PM Reporting Lab: [place] [facility] [address] [place] [address] 8 Performin g Lab: [place] [facility] [address] [place] [address] 8 [facility] CBC LYMPHOCYTES/1 00 LEUKOCYTES IN BLOOD BY AUTOMATED COUNT 34.1 02/16 Specimen Type: BLOOD No comment entered. Ordering Provider: Mariela REID Report Released Date/Time : Feb 16, 2025 03:39 PM Reporting Lab: [place] [facility] [address] [place] [address] 8 Performin g Lab: [place] [facility] [address] [place] [address] 8 [facility] CBC MONOCYTES/100 LEUKOCYTES IN BLOOD BY AUTOMATED COUNT 10.1 02/16 Specimen Type: BLOOD No comment entered. Ordering Provider: Mariela REID Report Released Date/Time : Feb 16, 2025 03:39 PM Reporting Lab: [place] [facility] [address] [place] [address] 8 Performin g Lab: [place] [facility] [address] [place] [address] 8 [facility] CBC NEUTROPHILS/1 00 LEUKOCYTES IN BLOOD BY AUTOMATED COUNT 45.5 02/16 Specimen Type: BLOOD No comment entered. Ordering Provider: Mariela REID Report Released Date/Time : Feb 16, 2025 03:39 PM Reporting Lab: [place] [facility] [address] [place] [address] 8 [facility]formin g Lab: [place] [facility] [address] [place] [address] 8 [facility] CBC EOSINOPHILS/1 00 LEUKOCYTES IN BLOOD BY AUTOMATED COUNT 8.5 02/16 Specimen Type: BLOOD No comment entered. Ordering Provider: Mariela REID R Report Released Date/Time : Feb 16, 2025 03:39 PM Reporting Lab: [place] [facility] [address] [place] [address] 8 Performin g Lab: [place] [facility] [address] [place] [address] 8 [facility] CBC BASOPHILS/100 LEUKOCYTES IN BLOOD BY AUTOMATED COUNT 1.5 02/16 Specimen Type: BLOOD No comment entered. Ordering Provider: Mariela REID R Report Released Date/Time : Feb 16, 2025 03:39 PM Reporting Lab: [place] [facility] [address] [place] [address] 8 Performin g Lab: [place] [facility] [address] [place] [address] 8 [facility] CBC LYMPHOCYTES [#/VOLUME] IN BLOOD BY AUTOMATED COUNT 2.58 10*3/u L 0.77 - 4.50 02/16 Specimen Type: BLOOD No comment entered. Ordering Provider: Mariela REID R Report Released Date/Time : Feb 16, 2025 03:39 PM Reporting Lab: [place] [facility] [address] [place] [address] 8 Performin g Lab: [place] [facility] [address] [place] [address] 8 [facility] CBC MONOCYTES [#/VOLUME] IN BLOOD BY AUTOMATED COUNT 0.76 10*3/u L 0.19 - 0.8 02/16 Specimen Type: BLOOD No comment entered. Ordering Provider: Mariela REID Report Released Date/Time : Feb 16, 2025 03:39 PM Reporting Lab: [place] [facility] [address] [place] [address] 8 Performin g Lab: [place] [facility] [address] [place] [address] 8 [facility] CBC NEUTROPHILS [#/VOLUME] IN BLOOD BY AUTOMATED COUNT 3.45 10*3/u L 2.10 - 8.00 02/16 Specimen Type: BLOOD No comment entered. Ordering Provider: Mariela REID R Report Released Date/Time : Feb 16, 2025 03:39 PM Reporting Lab: [place] [facility] [address] [place] [address] 8 Performin g Lab: [place] [facility] [address] [place] [address] 8 [facility] CBC EOSINOPHILS [#/VOLUME] IN BLOOD BY AUTOMATED COUNT 0.64 10*3/u L 0.00 - 0.60 02/16 H Specimen Type: BLOOD No comment entered. Ordering Provider: Mariela REID Report Released Date/Time : Feb 16, 2025 03:39 PM Reporting Lab: [place] [facility] [address] [place] [address] 8 [facility]formin g Lab: [place] [facility] [address] [place] [address] 8 [facility] CBC BASOPHILS [#/VOLUME] IN BLOOD BY AUTOMATED COUNT 0.11 10*3/u L 0.00 - 0.20 02/16 Specimen Type: BLOOD No comment entered. Ordering Provider: Mariela REID R Report Released Date/Time : Feb 16, 2025 03:39 PM Reporting Lab: [place] [facility] [address] [place] [address] 8 [facility]formin g Lab: [place] [facility] [address] [place] [address] 8 [facility] CBC IMMATURE GRANULOCYTES/ 100 LEUKOCYTES IN BLOOD BY AUTOMATED COUNT 0.3 02/16 Specimen Type: BLOOD No comment entered. Ordering Provider: Mariela REID Report Released Date/Time : Feb 16, 2025 03:39 PM Reporting Lab: [place] [facility] [address] [place] [address] 8 [facility] Lab: [place] [facility] [address] [place] [phone] 8 [facility] CBC IMMATURE GRANULOCYTES [#/VOLUME] IN BLOOD BY AUTOMATED COUNT 0.02 10*3/u L 0.00 - 0.05 02/16 Specimen Type: BLOOD No comment entered. Ordering Provider: Mariela REID Report Released Date/Time : Feb 16, 2025 03:39 PM Reporting Lab: [place] [facility] [address] [place] [address] 8 [facility]formin g Lab: [place] [facility] [address] [place] [phone] 8 [facility] BRAIN NATRIURETIC PEPTIDE NATRIURETIC PEPTIDE B [MASS/VOLUME] IN SERUM OR PLASMA 83 pg/mL 0 - 100 08/20 Specimen Type: PLASMA No comment entered. Ordering Provider: Mariela REID Report Released Date/Time : Aug 20, 2024 09:53 AM Reporting Lab: [place] [facility] [address] [place] [address] 8 [facility]formin g Lab: [place] [facility] [address] [place] [address] 8 [facility] BASIC METABOLIC PANEL CREATININE [MASS/VOLUME] IN SERUM OR PLASMA 1.10 mg/dL 0.7 - 1.3 08/20 Specimen Type: PLASMA No comment entered. Ordering Provider: Mariela REID Report Released Date/Time : Aug 20, 2024 09:53 AM Reporting Lab: [place] [facility] [address] [place] [address] 8 Performin g Lab: [place] [facility] [address] [place] [address] 8 [facility] BASIC METABOLIC PANEL UREA NITROGEN [MASS/VOLUME] IN SERUM OR PLASMA 15 mg/dL 9 - 25 08/20 Specimen Type: PLASMA No comment entered. Ordering Provider: Mariela REID Report Released Date/Time : Aug 20, 2024 09:53 AM Reporting Lab: [place] [facility] [address] [place] [address] 8 Performin g Lab: [place] [facility] [address] [place] [address] 8 [facility] BASIC METABOLIC PANEL GLUCOSE [MASS/VOLUME] IN SERUM OR PLASMA 86 mg/dL 72 - 99 08/20 Specimen Type: PLASMA No comment entered. Ordering Provider: Mariela REID Report Released Date/Time : Aug 20, 2024 09:53 AM Reporting Lab: [place] [facility] [address] [place] [address] 8 Performin g Lab: [place] [facility] [address] [place] [address] 8 [facility] BASIC METABOLIC PANEL SODIUM [MOLES/VOLUME ] IN SERUM OR PLASMA 133 meq/L 136 - 145 08/20 L Specimen Type: PLASMA No comment entered. Ordering Provider: Mariela REID R Report Released Date/Time : Aug 20, 2024 09:53 AM Reporting Lab: [place] [facility] [address] [place] [address] 8 Performin g Lab: [place] [facility] [address] [place] [address] 8 [facility] BASIC METABOLIC PANEL POTASSIUM [MOLES/VOLUME ] IN SERUM OR PLASMA 3.9 meq/L 3.5 - 5 08/20 Specimen Type: PLASMA No comment entered. Ordering Provider: Mariela REID R Report Released Date/Time : Aug 20, 2024 09:53 AM Reporting Lab: [place] [facility] [address] [place] [address] 8 Performin g Lab: [place] [facility] [address] [place] [address] 8 [facility] BASIC METABOLIC PANEL CHLORIDE [MOLES/VOLUME ] IN SERUM OR PLASMA 97 meq/L 98 - 107 08/20 L Specimen Type: PLASMA No comment entered. Ordering Provider: Mariela REID R Report Released Date/Time : Aug 20, 2024 09:53 AM Reporting Lab: [place] [facility] [address] [place] [address] 8 Performin g Lab: [place] [facility] [address] [place] [address] 8 [facility] BASIC METABOLIC PANEL CARBON DIOXIDE, TOTAL [MOLES/VOLUME ] IN SERUM OR PLASMA 27 meq/L 22 - 31 08/20 Specimen Type: PLASMA No comment entered. Ordering Provider: Mariela REID R Report Released Date/Time : Aug 20, 2024 09:53 AM Reporting Lab: [place] [facility] [address] [place] [address] 8 Performin g Lab: [place] [facility] [address] [place] [address] 8 [facility] BASIC METABOLIC PANEL CALCIUM [MASS/VOLUME] IN SERUM OR PLASMA 9.2 mg/dL 8.4 - 10.4 08/20 Specimen Type: PLASMA No comment entered. Ordering Provider: Mariela REID R Report Released Date/Time : Aug 20, 2024 09:53 AM Reporting Lab: [place] [facility] [address] [place] [address] 8 [facility]formin g Lab: [place] [facility] [address] [place] [address] 8 [facility] BASIC METABOLIC PANEL GLOMERULAR FILTRATION RATE/1.73 SQ M.PREDICTED [VOLUME RATE/AREA] IN SERUM, PLASMA OR BLOOD BY CREATININE-BA SED FORMULA (CKD-EPI 2020) 69 08/20 Specimen Type: PLASMA No comment entered. Ordering Provider: Mariela REID Report Released Date/Time : Aug 20, 2024 09:53 AM Reporting Lab: [place] [facility] [address] [place] [address] 8 [facility]formin [facility] Lab: [place] [facility] [address] [place] [address] 8 [facility] CBC LEUKOCYTES [#/VOLUME] IN BLOOD BY AUTOMATED COUNT 7.8 10*3/u L 3.6 - 11.2 08/20 Specimen Type: BLOOD No comment entered. Ordering Provider: Mariela REID Report Released Date/Time : Aug 20, 2024 09:53 AM Reporting Lab: [place] [facility] [address] [place] [address] 8 [facility]formin g [facility]: [place] [facility] [address] [place] [address] 8 [facility] CBC ERYTHROCYTES [#/VOLUME] IN BLOOD BY AUTOMATED COUNT 4.92 10*6/u L 4.10 - 5.70 08/20 Specimen Type: BLOOD No comment entered. Ordering Provider: Mariela REID R Report Released Date/Time : Aug 20, 2024 09:53 AM Reporting Lab: [place] [facility] [address] [place] [address] 8 [facility]: [place] [facility] [address] [place] [address] 8 [facility] CBC HEMOGLOBIN [MASS/VOLUME] IN BLOOD 15.4 g/dL 13.1 - 16.8 08/20 Specimen Type: BLOOD No comment entered. Ordering Provider: Mariela REID R Report Released Date/Time : Aug 20, 2024 09:53 AM Reporting Lab: [place] [facility] [address] [place] [address] 8 [facility]: [place] [facility] [address] [place] [address] 8 [facility] CBC HEMATOCRIT [VOLUME FRACTION] OF BLOOD 44.3 38.2 - 48.4 08/20 Specimen Type: BLOOD No comment entered. Ordering Provider: Mariela REID Report Released Date/Time : Aug 20, 2024 09:53 AM Reporting Lab: [place] [facility] [address] [place] [address] Performin g Lab: [place] [facility] [address] [place] [address] [facility] CBC MCV [ENTITIC VOLUME] BY AUTOMATED COUNT 90.0 fL 80.0 - 100.0 08/20 Specimen Type: BLOOD No comment entered. Ordering Provider: Mariela REID Report Released Date/Time : Aug 20, 2024 09:53 AM Reporting Lab: [place] [facility] [address] [place] [address] Performin g Lab: [place] [facility] [address] [place] [address] [facility] CBC MCH [ENTITIC MASS] BY AUTOMATED COUNT 31.3 pg 27.0 - 34.0 08/20 Specimen Type: BLOOD No comment entered. Ordering Provider: Mariela REID R Report Released Date/Time : Aug 20, 2024 09:53 AM Reporting Lab: [place] [facility] [address] [place] [address] Performin g Lab: [place] [facility] [address] [place] [address] [facility] CBC MCHC [MASS/VOLUME] BY AUTOMATED COUNT 34.8 g/dL 33.0 - 36.0 08/20 Specimen Type: BLOOD No comment entered. Ordering Provider: Mariela REID Report Released Date/Time : Aug 20, 2024 09:53 AM Reporting Lab: [place] [facility] [address] [place] [address] Performin g Lab: [place] [facility] [address] [place] [address] [facility] CBC PLATELETS [#/VOLUME] IN BLOOD BY AUTOMATED COUNT 200 10*3/u L 150 - 400 08/20 Specimen Type: BLOOD No comment entered. Ordering Provider: Mariela REID R Report Released Date/Time : Aug 20, 2024 09:53 AM Reporting Lab: [place] [facility] [address] [place] [address] Performin g Lab: [place] [facility] [address] [place] [address] [facility] CBC PLATELET MEAN VOLUME [ENTITIC VOLUME] IN BLOOD BY AUTOMATED COUNT 11.2 fL 7.5 - 11.2 08/20 Specimen Type: BLOOD No comment entered. Ordering Provider: Mariela REID R Report Released Date/Time : Aug 20, 2024 09:53 AM Reporting Lab: [place] [facility] [address] [place] [address] Performin g Lab: [place] [facility] [address] [place] [address] [facility] CBC ERYTHROCYTE DISTRIBUTION WIDTH [RATIO] BY AUTOMATED COUNT 13.0 11.8 - 15.1 08/20 Specimen Type: BLOOD No comment entered. Ordering Provider: Mariela REID R Report Released Date/Time : Aug 20, 2024 09:53 AM Reporting Lab: [place] [facility] [address] [place] [address] Performin g Lab: [place] [facility] [address] [place] [address] [facility] CBC LYMPHOCYTES/1 00 LEUKOCYTES IN BLOOD BY AUTOMATED COUNT 18.5 08/20 Specimen Type: BLOOD No comment entered. Ordering Provider: Mariela REID R Report Released Date/Time : Aug 20, 2024 09:53 AM Reporting Lab: [place] [facility] [address] [place] [address] Performin g Lab: [place] [facility] [address] [place] [address] [facility] CBC MONOCYTES/100 LEUKOCYTES IN BLOOD BY AUTOMATED COUNT 10.1 08/20 Specimen Type: BLOOD No comment entered. Ordering Provider: Mariela REID R Report Released Date/Time : Aug 20, 2024 09:53 AM Reporting Lab: [place] [facility] [address] [place] [address] 8 Performin g Lab: [place] [facility] [address] [place] [address] 8 [facility] CBC NEUTROPHILS/1 00 LEUKOCYTES IN BLOOD BY AUTOMATED COUNT 64.5 08/20 Specimen Type: BLOOD No comment entered. Ordering Provider: Mariela REID R Report Released Date/Time : Aug 20, 2024 09:53 AM Reporting Lab: [place] [facility] [address] [place] [address] Performin g Lab: [place] [facility] [address] [place] [address] [facility] CBC EOSINOPHILS/1 00 LEUKOCYTES IN BLOOD BY AUTOMATED COUNT 5.5 08/20 Specimen Type: BLOOD No comment entered. Ordering Provider: Mariela REID Report Released Date/Time : Aug 20, 2024 09:53 AM Reporting Lab: [place] [facility] [address] [place] [address] 8 Performin g Lab: [place] [facility] [address] [place] [address] [facility] CBC BASOPHILS/100 LEUKOCYTES IN BLOOD BY AUTOMATED COUNT 1.0 08/20 Specimen Type: BLOOD No comment entered. Ordering Provider: Mariela REID Report Released Date/Time : Aug 20, 2024 09:53 AM Reporting Lab: [place] [facility] [address] [place] [address] Performin g Lab: [place] [facility] [address] [place] [address] [facility] CBC LYMPHOCYTES [#/VOLUME] IN BLOOD BY AUTOMATED COUNT 1.45 10*3/u L 0.77 - 4.50 08/20 Specimen Type: BLOOD No comment entered. Ordering Provider: Mariela REID Report Released Date/Time : Aug 20, 2024 09:53 AM Reporting Lab: [place] [facility] [address] [place] [address] 8 Performin g Lab: [place] [facility] [address] [place] [address] 8 [facility] CBC MONOCYTES [#/VOLUME] IN BLOOD BY AUTOMATED COUNT 0.79 10*3/u L 0.19 - 0.8 08/20 Specimen Type: BLOOD No comment entered. Ordering Provider: Mariela REID Report Released Date/Time : Aug 20, 2024 09:53 AM Reporting Lab: [place] [facility] [address] [place] [address] Performin g Lab: [place] [facility] [address] [place] [address] 8 [facility] CBC NEUTROPHILS [#/VOLUME] IN BLOOD BY AUTOMATED COUNT 5.04 10*3/u L 2.10 - 8.00 08/20 Specimen Type: BLOOD No comment entered. Ordering Provider: Mariela REID Report Released Date/Time : Aug 20, 2024 09:53 AM Reporting Lab: [place] [facility] [address] [place] [address] Performin g Lab: [place] [facility] [address] [place] [address] 8 [facility] CBC EOSINOPHILS [#/VOLUME] IN BLOOD BY AUTOMATED COUNT 0.43 10*3/u L 0.00 - 0.60 08/20 Specimen Type: BLOOD No comment entered. Ordering Provider: Mariela REID R Report Released Date/Time : Aug 20, 2024 09:53 AM Reporting Lab: [place] [facility] [address] [place] [address] 8 Performin g Lab: [place] [facility] [address] [place] [address] 8 [facility] CBC BASOPHILS [#/VOLUME] IN BLOOD BY AUTOMATED COUNT 0.08 10*3/u L 0.00 - 0.20 08/20 Specimen Type: BLOOD No comment entered. Ordering Provider: Mariela REID Report Released Date/Time : Aug 20, 2024 09:53 AM Reporting Lab: [place] [facility] [address] [place] [address] Performin g Lab: [place] [facility] [address] [place] [address] [place] [facility] CBC IMMATURE GRANULOCYTES/ 100 LEUKOCYTES IN BLOOD BY AUTOMATED COUNT 0.4 08/20 Specimen Type: BLOOD No comment entered. Ordering Provider: Mariela REID Report Released Date/Time : Aug 20, 2024 09:53 AM Reporting Lab: [place] [facility] [address] [place] [address] Performin g Lab: [place] [facility] [address] [place] [address] 8 [facility] CBC IMMATURE GRANULOCYTES [#/VOLUME] IN BLOOD BY AUTOMATED COUNT 0.03 10*3/u L 0.00 - 0.05 08/20 Specimen Type: BLOOD No comment entered. Ordering Provider: Mariela REID Report Released Date/Time : Aug 20, 2024 09:53 AM Reporting Lab: [place] [facility] [address] [place] [address] Performin g Lab: [place] [facility] [address] [place] [address] [facility] TESTOSTERON E, TOTAL (PB-MA) TESTOSTERONE [MASS/VOLUME] IN SERUM OR PLASMA 335 ng/dL 221.0 - 871.0 06/24 Specimen Type: SERUM No comment entered. Ordering Provider: Mariela REID Report Released Date/Time : Jun 24, 2024 10:46 AM Reporting Lab: [place] [facility] [address] [place] [address] Performin g Lab: [place] [facility] [address] [place] [address] 8 [facility] VITAMIN D, 25-HYDROXY 25-HYDROXYVIT PATHAK D3 [MASS/VOLUME] IN SERUM OR PLASMA 45.1 ng/mL 30 - 96 06/24 Specimen Type: SERUM No comment entered. Ordering Provider: Mariela REID Report Released Date/Time : Jun 24, 2024 09:17 AM Reporting Lab: [place] [facility] [address] [place] [address] Performin g Lab: [place] [facility] [address] [place] [address] 8 [facility] HGA1C HEMOGLOBIN A1C/HEMOGLOBI N.TOTAL IN BLOOD 5.7 4.0 - 6.0 06/24 Specimen Type: BLOOD No comment entered. Ordering Provider: Mariela REID R Report Released Date/Time : Jun 24, 2024 09:17 AM Reporting Lab: [place] [facility] [address] [place] [address] Performin g Lab: [place] [facility] [address] [place] [address] 8 [facility] CHOLESTEROL PANEL (PB) CHOLESTEROL [MASS/VOLUME] IN SERUM OR PLASMA 245 mg/dL 0 - 200 06/24 H Specimen Type: PLASMA No comment entered. Ordering Provider: Mariela REID Report Released Date/Time : Jun 24, 2024 09:17 AM Reporting Lab: [place] [facility] [address] [place] [address] Performin g Lab: [place] [facility] [address] [place] [address] 8 [facility] CHOLESTEROL PANEL (PB) TRIGLYCERIDE [MASS/VOLUME] IN SERUM OR PLASMA 126 mg/dL 0 - 150 06/24 Specimen Type: PLASMA No comment entered. Ordering Provider: Mariela REID Report Released Date/Time : Jun 24, 2024 09:17 AM Reporting Lab: [place] [facility] [address] [place] [address] Performin g Lab: [place] [facility] [address] [place] [address] [facility] CHOLESTEROL PANEL (PB) CHOLESTEROL IN LDL [MASS/VOLUME] IN SERUM OR PLASMA BY CALCULATION 154.1 mg/dL 06/24 Specimen Type: PLASMA No comment entered. Ordering Provider: Mariela REID R Report Released Date/Time : Jun 24, 2024 09:17 AM Reporting Lab: [place] [facility] [address] [place] [address] Performin g Lab: [place] [facility] [address] [place] [address] 8 [facility] CHOLESTEROL PANEL (PB) CHOLESTEROL IN HDL [MASS/VOLUME] IN SERUM OR PLASMA 65.7 mg/dL 40 06/24 H Specimen Type: PLASMA No comment entered. Ordering Provider: Mariela REID Report Released Date/Time : Jun 24, 2024 09:17 AM Reporting Lab: [place] [facility] [address] [place] [address] Performin g Lab: [place] [facility] [address] [place] [address] [facility] CHOLESTEROL PANEL (PB) CHOLESTEROL IN HDL/CHOLESTER OL.TOTAL [MASS RATIO] IN SERUM OR PLASMA 26.8 25 06/24 Specimen Type: PLASMA No comment entered. Ordering Provider: Mariela REID Report Released Date/Time : Jun 24, 2024 09:17 AM Reporting Lab: [place] [facility] [address] [place] [address] Performin g Lab: [place] [facility] [address] [place] [address] [facility] TSH (MA-PB) THYROTROPIN [UNITS/VOLUME ] IN SERUM OR PLASMA 2.455 u[IU]/ mL 0.47 - 5 06/24 Specimen Type: SERUM No comment entered. Ordering Provider: Mariela REID Report Released Date/Time : Jun 24, 2024 09:17 AM Reporting Lab: [place] [facility] [address] [place] [address] Performin g Lab: [place] [facility] [address] [place] [address] [facility] Vital Signs Combined list of inpatient and outpatient Vital Signs from Department of Defense and Veterans Affairs, ranging from 12 months to all on record, depending upon the facility. Vital Sign Value Date Comments Source SYSTOLIC BLOOD PRESSURE 129 04/19/2025 12:05:00 [facility] DIASTOLIC BLOOD PRESSURE 73 04/19/2025 12:05[facility]00 [facility] P[facility] OXIMETRY 95 04/19/2025 12:05:00 [facility] WEIGHT 213.2 04/19/2025 12:05:00 [facility] BMI 29 kg/m2 04/19/2025 12:05:00 [place] [facility] TEMPERATURE 98 04/19/2025 12:05:00 [facility] [place] [place] [facility] PULSE 61 04/19/2025 12:05:00 [facility] [place] [place] [facility] RESPIRATION 18 04/19/2025 12:05:00 [facility] [place] [place] [facility] SYSTOLIC BLOOD PRESSURE 107 03/29/2025 09:09:00 [facility] [place] [place] [facility] DIASTOLIC BLOOD PRESSURE 71 03/29/2025 09:09:00 [facility] [place] [place] [facility] PULSE OXIMETRY 94 03/29/2025 09:09:00 [place] [facility] PULSE 64 03/29/2025 09:09:00 [facility] [place] [place] [facility] SYSTOLIC BLOOD PRESSURE 96 02/22/2025 10:07:00 [facility] [place] [place] [facility] DIASTOLIC BLOOD PRESSURE 55 02/22/2025 10:07:00 [facility] [place] [place] [facility] PULSE OXIMETRY 96 02/22/2025 10:07:00 [facility] [place] [facility] WEIGHT 215.0 02/22/2025 10:07:00 [facility] [place] [facility] BMI 29 kg/m2 02/22/2025 10:07:00 [facility] [place] [facility] PAIN 0 02/22/2025 10:07:00 [facility] [place] [facility] HEIGHT 72.0 02/22/2025 10:07:00 [facility] [place] [facility] PULSE 61 02/22/2025 10:07:00 [facility] [place] [facility] RESPIRATION 16 02/22/2025 10:07:00 [facility] [place] [facility] SYSTOLIC BLOOD PRESSURE 108 02/16/2025 14:00:00 [facility] [place] [facility] DIASTOLIC BLOOD PRESSURE 69 02/16/2025 14:00:00 [facility] [place] [facility] PULSE OXIMETRY 96 02/16/2025 14:00:00 [facility] [place] [facility] TEMPERATURE 98.1 02/16/2025 14:00:00 [facility] [place] [facility] PULSE 88 02/16/2025 14:00:00 [facility] [place] [place] [facility] RESPIRATION 18 02/16/2025 14:00:00 [facility] [place] [place] [facility] SYSTOLIC BLOOD PRESSURE 124 09/17/2024 10:11:19 [place] [facility] DIASTOLIC BLOOD PRESSURE 65 09/17/2024 10:11:19 [facility] [place] [facility] PULSE OXIMETRY 98 09/17/2024 10:11:19 [facility] WEIGHT 222.9 09/17/2024 10:11:19 [facility] BMI 30 kg/m2 09/17/2024 10:11:19 [facility] TEMPERATURE 98 09/17/2024 10:11:19 [facility] PULSE 88 09/17/2024 10:11:19 [facility] RESPIRATION 20 09/17/2024 10:11:19 [facility] Encounters Combined list of: 1) Encounters from Department of [facility] facilities going backup to the last 18 months, not all [place] inpatient encounters are included; 2) Encounters from the Department of [facility] facilities going backup to 280 months. Location Location Details Encounter Type Encounter Number Reason For Visit Attending Provider ADM Date DC Date Status Disposition Source [facility] Outpatient Encounter [id number] 11/17 [facility] Outpatient Encounter [id number] 11/22 [facility] Outpatient Encounter [id number] VIRIDIANA ORELLANA 11/24 [facility] Outpatient Encounter [id number] 11/26 [facility] OFF/OP EST MARCH X REQ PHY/QHP [id number] Diagnos is: ICD-10- CM L98.9 Disorde r of the skin and subcuta neous tissue, unspeci fied Artie JUAREZ 11/26 [facility] Outpatient Encounter [id number] 11/[address] [facility] Outpatient Encounter [id number] 12/03 [facility] Outpatient Encounter [id number] 12/12 [facility] Outpatient Encounter [id number] VIRIDIANA ORELLANA RIL L 12/15 [facility] OFF/OP EST MARCH X REQ PHY/QHP [id number] Diagnos is: ICD-10- CM R05.1 Acute cough DERIAN YEBOAH D 12/31 [facility] Outpatient Encounter [id number] VIRIDIANA ORELLANA RIL L 12/31 [facility] [place] [facility] Outpatient Encounter [id number] TIFFANY PRESLEY 01/05 [place] [facility] Outpatient Encounter [id number] VIRIDIANA ORELLANA RIL L 01/06 [facility] Outpatient Encounter [id number] 01/[address] [facility] OFFICE O/P EST MOD 30 MIN [id number] Diagnos is: ICD-10- CM J20.9 Acute bronchi tis, unspeci fiKEZIA Barraza G 01/12 [facility] [place] [facility] QNHP OL DIG ASSMT&MGMT 5-10 [id number] Diagnos is: ICD-10- CM J44.9 Chronic obstruc tive pulmona ry disease , unspeci fivaishali RODRIGESSONJA V 01/14 [place] [facility] OFF/OP EST MAY X REQ PHY/QHP [id number] Diagnos is: ICD-10- CM L98.9 Disorde r of the skin and subcuta neous tissue, unspeci fied Artie JUAREZ ALIA STEPH 01/20 [facility] Outpatient Encounter [id number] 01/23 [facility] OFF/OP EST MAY X REQ PHY/QHP [id number] Diagnos is: ICD-10- CM R05.9 Cough, unspeci fied CUSTRED,TO RRI J 02/01 [facility] OFFICE O/P EST MOD 30 MIN [id number] Diagnos is: ICD-10- CM J44.9 Chronic obstruc tive pulmona ry disease , unspeci fied BOB,KEZIA STEL G 02/01 [facility] Outpatient Encounter [id number] VIRIDIANA ORELLANA RIL L 02/[address] 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 N [facility] Outpatient Encounter [id number] 02/[address] [facility] Outpatient Encounter [id number] 02/12 [facility] Outpatient Encounter [id number] Diagnos is: ICD-10- CM Z00.01 Encount er for general adult medical exam w MARIAM Onofre R 02/19 [facility] Outpatient Encounter [id number] 04/06 [facility] Outpatient Encounter [id number] 04/08 [facility] Outpatient Encounter [id number] CHATA SPARKS 04/14 [facility] OFFICE O/P EST LOW 20 MIN [id number] Diagnos is: ICD-10- CM J06.9 Acute upper respira tory infecti on, unspeci fied MARIAM REID R 06/24 [facility] Outpatient Encounter [id number] 07/05 [facility] Outpatient Encounter [id number] 07/05 [facility] OFF/OP EST MAY X REQ PHY/QHP [id number] Diagnos is: ICD-10- CM Z23 Encount er for immuniz atArtie HarryIE STEPH 07/05 [facility] Outpatient Encounter [id number] 07/14 [facility] Outpatient Encounter [id number] 07/30 [facility] OFF/OP EST MAY X REQ PHY/QHP [id number] Diagnos is: ICD-10- CM 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 OFFICE O/P EST LOW 20 MIN [id number] Diagnos is: ICD-10- CM J44.9 Chronic obstruc tive pulmona ry disease , unspeci fied MARIAM REID R 08/20 [facility] Outpatient Encounter [id number] 09/02 [facility] Outpatient Encounter [id number] 09/06 [facility] Outpatient Encounter [id number] 09/17 [facility] OFFICE O/P EST MOD 30 MIN [id number] Diagnos is: ICD-10- CM M79.673 Pain in unspeci fied foot MARIAM REID R 09/17 [facility] HC PRO PHONE CALL 21-30 MIN [id number] Diagnos is: ICD-10- CM 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 ARMANDO Kiran 09/23 [facility] Outpatient Encounter [id number] 09/28 [facility] Outpatient Encounter [id number] 10/04 [facility] Outpatient Encounter [id number] 10/08 [facility] Outpatient Encounter [id number] 10/08 [facility] [place] [facility] Outpatient Encounter [id number] 10/12 [place] [facility] [place] [facility] Outpatient Encounter [id number] 10/12 [place] [facility] Outpatient Encounter [id number] 10/29 [facility] [place] [facility] Outpatient Encounter [id number] 11/12 [place] [facility] Outpatient Encounter [id number] 11/25 [facility] Outpatient Encounter [id number] 11/29 [facility] Outpatient Encounter [id number] 12/01 [facility] Outpatient Encounter [id number] 12/07 [facility] Outpatient Encounter [id number] VIRIDIANA ORELLANA L 12/27 [facility] Outpatient Encounter [id number] KEZIA AVELAR N 12/27 [facility] Outpatient Encounter [id number] 02/08 [facility] Outpatient Encounter [id number] 02/16 [facility] Outpatient Encounter [id number] MARIAM REID 02/16 [facility] OFF/OP EST MARCH X REQ PHY/QHP [id number] Diagnos is: ICD-10- CM J44.9 Chronic obstruc tive pulmona ry disease , unspeci fied Artie JUAREZ 02/16 [facility] Outpatient Encounter [id number] 02/22 [facility] OFFICE O/P EST MOD 30 MIN [id number] Diagnos is: ICD-10- CM J44.9 Chronic obstruc tive pulmona ry disease , unspeci fied MARIAM REID R 02/22 [facility] Outpatient Encounter [id number] 02/24 [facility] [place] [facility] Outpatient Encounter [id number] 02/28 [facility] En[facility] [id number] 03/03 [facility] Outpatient Encounter [id number] 03/08 [facility] Outpatient Encounter [id number] DAX THOMAS S 03/08 [facility] Outpatient Encounter [id number] 03/08 [facility] Outpatient Encounter [id number] 03/17 [facility] Outpatient Encounter [id number] 03/17 [facility] Encounter [id number] JAMESON ROD N 03/21 [facility] OFF/OP EST MAY X REQ PHY/QHP [id number] Diagnos is: ICD-10- CM L85.3 Xerosis cutis Artie JUAREZ 03/29 [facility] Outpatient Encounter [id number] 04/[address] [facility] OFF/OP EST MAY X REQ PHY/QHP [id number] Diagnos is: ICD-10- CM L03.90 Celluli tis, unspeci fied CUSTRED,TO RRI J 04/04 [facility] Outpatient Encounter [id number] KERMIT JARQUIN 04/04 [facility] Outpatient Encounter [id number] VIRIDIANA ORELLANA 04/[address] [facility] Outpatient Encounter [id number] 04/08 [facility] Outpatient Encounter [id number] 04/[address] [facility] OFF/OP EST MAY X REQ PHY/QHP [id number] Diagnos is: ICD-10- CM L98.9 Disorde r of the skin and subcuta neous tissue, unspeci fied Artie JUAREZ 04/19 [facility] Outpatient Encounter [id number] 04/21 [facility] Outpatient Encounter [id number] [id number] 04/[address] [facility] Outpatient Encounter [id number] [id number] 04/21 [facility] Outpatient Encounter [id number] 04/21 [facility] Outpatient Encounter [id number] LUZ WORKMAN 04/22 [facility] Outpatient Encounter [id number] [id number] 05/02 [facility] Outpatient Encounter [id number] [id number] 05/02 [facility] Outpatient Encounter [id number] [id number] 05/09 [facility] Outpatient Encounter [id number] [id number] 05/09 [place] [facility] [facility] Outpatient Encounter [id number] [id number] 05/09 [place] [facility] Outpatient Encounter [id number] [id number] 05/12 [facility] Outpatient Encounter [id number] [id number] 05/13 [place] [facility] Social History Combined list of available smoking, tobacco, and other social history from 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 NO 10/11/2019 [facility] History of tobacco use TOBACCO USER OFFERED MEDS 01/19/2018 [facility] History of tobacco use TOBACCO OFFERED PT MEDS (PROVIDER) 03/21/2016 [facility] History of tobacco use TOBACCO OFFERED PT MEDS (PROVIDER) 11/08/2015 [facility] History of tobacco use TOBACCO OFFERED PT MEDS (PROVIDER) 12/10/2013 [facility] History of tobacco use QUIT TOBACCO >7 YEARS AGO 12/29/2012 [facility] History of tobacco use TOBACCO OFFERED PT MEDS (PROVIDER) 08/20/2012 [facility] History of tobacco use TOBACCO OFFERED PT MEDS (PROVIDER) 03/13/2012 [facility] History of tobacco use TOBACCO OFFERED PT MEDS (PROVIDER) 01/16/2012 [facility] History of tobacco use TOBACCO OFFERED PT MEDS (PROVIDER) 08/28/2011 declined [facility] History of tobacco use CURRENT TOBACCO USER 02/05/2011 [facility] History of tobacco use TOBACCO OFFERED STOP SMOKING CLINIC 12/21/2009 [facility] History of tobacco use TOBACCO OFFERED PT MEDS (PROVIDER) 08/10/2009 [facility] History of tobacco use TOBACCO OFFERED STOP SMOKING CLINIC 10/22/2008 [facility] History of tobacco use QUIT TOBACCO IN THE LAST 12 MONTHS 01/12/2008 [facility] History of tobacco use CURRENT TOBACCO USER 09/07/2007 [facility] History of tobacco use CURRENT TOBACCO USER 06/19/2006 [facility] History of tobacco use CURRENT TOBACCO USER 03/12/2006 [facility] History of tobacco use CURRENT TOBACCO USER 11/21/2005 [facility] History of tobacco use CURRENT TOBACCO USER 05/27/2005 [facility] History of tobacco use CURRENT TOBACCO USER 03/15/2004 [facility] History of tobacco use CURRENT NON-TOBACCO USER-HX OF USE 02/26/2002 Quit 3 years ago. [facility] History of tobacco use CURRENT TOBACCO USER 10/05/2001 [facility] History of tobacco use CURRENT TOBACCO USER 09/11/2001 [facility] History of tobacco use CURRENT TOBACCO USER 08/03/2001 [facility] History of tobacco use CURRENT TOBACCO USER 05/19/2001 [facility] Plan of Care List of future care activities from [facility] facilities. Additional future care activities may be listed in the Assessment and Plan section. Date/Time Care Activity Care Activity Detail Facili ty 06/21/2025 AMBULATORY - MEDICINE AMBULATORY - [facility] Advance Directives List of completed, amended, or rescinded Advance Directives on record at [facility] facilities. An actual copy of the Directive is not included. Date Advance Directive Provider Source 04/30/2019 ADVANCE DIRECTIVE NOLAN NGUYEN [facility]
[2025-05-17 22:07] VITALS: BP 108/72; PULSE 70; RESP 22; TEMP 36.7; O2SAT 93; BMI 31.4
--- OUTSIDE RECORDS SUMMARY | 2025-05-17 22:07 | XMS_ITS | Clinical Summary ---
Author Organization [facility] [facility] Address [address] Attn: Epic Prelude ADT [place] [address] Care Team Providers Care Lead Systems Engineer Name Role Phone Unavailable Primary Care Provider Unavailabl e Allergies Active Allergy Reactions Criticality Noted Date Comments Codeine Other (See Comments) Medium 04/02/2017 Urination problems ( Percocet is okay ) Penicillins Rash Low 04/02/2017 When I take amoxicillin I do okay; I rather take amoxicillin than penicillin Pravastatin Other (See Comments) Low 02/05/2023 Myalgias Tiotropium [place] Other (See Comments) Low 023 Made me spacey Medications fish oil-omega-3 fatty acids 340-1,000 mg Capsule Take 2 Capsules by mouth 2 times daily. 04/02/2017 Active valACYclovir (VALTREX) 500 mg tablet Take 500 mg by mouth daily. 04/02/2017 Active tamsulosin (FLOMAX) 0.4 mg capsule Take 0.4 mg by mouth daily. 04/02/2017 Active finasteride (PROPECIA) 1 mg Tablet Take 1 mg by mouth daily. 04/02/2017 Active aspirin (ECOTRIN EC) 81 mg Tablet, Delayed Release (E.C.) Take 81 mg by mouth daily. 04/02/2017 Active omeprazole (PriLOSEC) 20 mg Capsule, Delayed Release(E.C.) Take 20 mg by mouth daily. 04/02/2017 Active gabapentin (NEURONTIN) 100 mg capsule Take 100 mg by mouth 3 times daily. Active hydroCHLOROthia zide 25 mg tablet Take 25 mg by mouth daily. Active potassium chloride (KLOR-CON) 20 mEq Extended Release tablet Take 20 mEq by mouth daily. Active rosuvastatin (CRESTOR) 10 mg tablet Take 10 mg by mouth daily. Active sildenafiL (VIAGRA) 100 mg tablet Take 100 mg by mouth 1 time daily as needed for Erectile Dysfunction. Active Active Problems Problem Noted Date Diagnosed Date Umbilical hernia without obstruction and without gangrene 04/02/2017 Social History Tobacco Use Types Packs/Day Years Used Date Smoking Tobacco: Former Smokeless Tobacco: Current Alcohol Use Standard Drinks/Week Comments Yes 0 (1 standard drink = 0.6 oz pur e alcohol) Feeling Safe Answer Date Recorded Are you in a relationship wi th someone who hurts you emotionally and/or physically? No 12/27/2024 Sex and Gender Information Value Date Recorded Sex Assigned at Not on file Legal Sex Male 8:46 AM [employer] Gender Identity Not on file Sexual Orientation Not on file Last Filed Vital Signs Vital Sign Reading Time Taken Comments Blood Pressure 111/62 12/27/2024 3:30 AM [employer] Pulse 49 12/27/2024 3:30 AM [employer] Temperature 36.4 C (97.6 F) 12/27/2024 2:02 AM [employer] Respiratory Rate 16 12/27/2024 3:00 AM [employer] Oxygen Saturation 97% 12/27/2024 3:30 AM [employer] Inhaled Oxygen Concentration - - Weight 98.2 kg (216 lb 9.6 oz) 12/27/2024 2:02 A M [employer] Height 182.9 cm (6') 12/27/2024 2:02 AM [employer] Body Mass Index 29.38 12/27/2024 2:02 AM [employer] Plan of Treatment Health Maintenance Due Date Last Done Comments RSV VACCINE (60+ or ) (1 - 1-dose 75+ series) 2022 COVID-19 Vaccine (2 - 2023-2 5 season) 2024 01/17/2021 INFLUENZA VACCINE (#1) 2025 , 10/15/2022, 10/01/2021, Additional history exists DTAP/TDAP/TD VACCINES (3 - T d or Tdap) 03/17/2029 03/17/2019, 01/26/2013, 02/05/2003, Additional history exists ZOSTER VACCINE Completed 01/02/2022, 11/17, 08/11/2015 PNEUMOCOCCAL VACCINE 50+ YEARS Completed 0 07/05/2024, 08/06/2016, 08/09/2011, Additional history exists Insurance [facility] [employer]
--- OUTSIDE RECORDS SUMMARY | 2025-05-17 22:07 | XMS_ITS | Clinical Summary ---
Author Organization [facility] [address] [facility] Address [address] [place] [address] Care Team Providers Care Sales Office Manager Name Role Phone Unavailable Primary Care Provider Unavailabl e Allergies Active Allergy Reactions Criticality Noted Date Comments Codeine Other (See Comments) 04/02/2017 Urination problems Penicillins Rash Low 04/02/2017 Medications valACYclovir (VALTREX) 500 mg tablet Take 500 mg by mouth daily. Active tamsulosin (FLOMAX) 0.4 mg capsule Take 0.4 mg by mouth daily. Active finasteride (PROPECIA) 1 mg Tablet Take 1 mg by mouth daily. Active omeprazole (PriLOSEC) 20 mg Capsule, Delayed Release(E.C.) Take 20 mg by mouth daily. Active aspirin (ECOTRIN EC) 81 mg Tablet, Delayed Release (E.C.) Take 81 mg by mouth daily. Active fish oil-omega-3 fatty acids 340-1,000 mg Capsule Take 2 Capsules by mouth 2 times daily. Active Active Problems Problem Noted Date Diagnosed Date Umbilical hernia without obstruction and without gangrene 04/02/2017 Social History Tobacco Use Types Packs/Day Years Used Date Smoking Tobacco: Former Cigarettes Smokeless Tobacco: Current Chew Alcohol Use Standard Drinks/Week Comments Yes 0 (1 standard drink = 0.6 oz pur e alcohol) Sex and Gender Information Value Date Recorded Sex Assigned at Not on file Legal Sex Male 9:01 AM CDT Gender Identity Not on file Sexual Orientation Not on file Last Filed Vital Signs Vital Sign Reading Time Taken Comments Blood Pressure 120/68 04/02/2017 1:44 PM CDT Pulse 83 04/02/2017 1:44 PM CDT Temperature 36.7 C (98.1 F) 04/02/2017 1:44 PM CDT Respiratory Rate - - Oxygen Saturation 100% 04/02/2017 1:44 PM CDT Inhaled Oxygen Concentration - - Weight 96.2 kg (212 lb) 04/02/2017 1:44 PM CDT Height 182.9 cm (6') 04/02/2017 1:44 PM CDT Body Mass Index 28.75 04/02/2017 1:44 PM CDT Plan of Treatment Health Maintenance Due Date Last Done Comments DTAP/TDAP/TD VACCINES (1 - Tdap) 1966 PNEUMOCOCCAL VACCINE 50+ YEARS (1 of 1 - PCV) 03/27/19 97 ZOSTER VACCINE (1 of 2) 1997 RSV VACCINE (60+ or ) (1 - 1-dose 75+ series) 2022 INFLUENZA VACCINE (#1) 2024
--- OUTSIDE RECORDS SUMMARY | 2025-05-17 22:07 | XMS_ITS | Patient Health Record ---
Author Organization [facility] Address [address] [place] [address] Care Team Providers Care Heel Sander Rubber Name Role Phone [facility] Rena NELSON Primary Care Provid er Unavailable Krystian Abdullahi Unavailable [phone] Allergies Allergen (clinical drug ingredient) Drug/Non Drug Allergy documented on EMR Reaction Allergy Type Onset Date Status tiotropium Spiriva HandiHaler Unknown Drug Allergy Active codeine Codeine Unknown Drug Allergy Active pravastatin Pravastatin Unknown Drug Allergy Act asad Results Component Value Reference Range Notes XR Outside CD Reviewed date:01/25/2025 01:55:18 PM Interpretation: Performing Lab: Notes/Report: [id number] XR Outside CD Reviewed date:01/25/2025 01:55:18 PM Interpretation: Performing Lab: Notes/Report: [id number] Reason For Referral Reason COPD: [facility]- Scheduled Depends on [facility] transportation Disc received Scheduled 03/17/2025 @ 11:10 AM Diagnosis 1 Chronic obstructive pulmonary disease, unspecified COPD type (J44.9) Referring Provider First Name Lana Christian Referring Provider Last Name [facility] Referred Organization [facility] Referred Provider Krystian Abdullahi Referred Address [address], [place],[address], Referred Provider Specialty Pulmonary Di seases General Notes Loera Thomason 11/18 10:38:08 AM >Scheduled 06/21/2025 @ 1:10 PM, Leora Thomason 11/18/2024 10:39:05 AM >Scheduled 06/21/2025 @ 1:10 PM, Leora Thomason 11/18/2024 10:55:41 AM >Scheduled 03/17/2025 @ 11:10 AM Referral Priority Routine Medications Medication SIG (Take, Route, Frequency, Duration) Notes Start Date End Date Status Methocarbamol 750 MG 1 tablet Orally tid Active Gabapentin 100 MG 1 capsule Orally TID Not-Taking Montelukast Sodium 10 MG 1 tablet Orally Once a day Active Omeprazole 40 MG 1 capsule 1/2 to 1 hour before morning meal Orally Once a day Active Rosuvastatin Calcium 10 MG 1 tablet Oral ly Once a day Active Tamsulosin HCl 0.4 MG 1 capsule Orally Once a day Active Albuterol Sulfate (2.5 MG/3ML) 0.083% 3 mL as needed Inhalation every 6 hrs Active valACYclovir HCl 500 MG 1 tablet Orally Once a day Active Albuterol Sulfate HFA 108 (9 0 Base) MCG/ACT 1 puff as needed Inhalation every 4 hrs Active guaiFENesin 400 MG 1 tablet as needed Orally every 4 hrs Active Finasteride 5 MG 1 tablet Orally Once a day Active Spiriva Respimat 2.5 MCG/ACT 2 puffs Inh alation Once a day for 90 days 03/17/2025 Active Fluticasone Propionate 50 MCG/ACT 1 spray in each nostril Nasally Twice a day Active Loratadine 10 MG 1 tablet Orally Once a day Not-Taking Fluticasone-Salmeterol 250-5 0 MCG/ACT 1 puff Inhalation Twice a day Active Saw [place] 450 MG as directed Orally bid Not-Taking hydroCHLOROthiazide 25 MG 1 tablet in morning Orally Once a day Active Fish Oil 1000 MG 2 capsule Orally BID Not-Taking Social History Tobacco Use: Social History Observation Description Date Details (start date - stop date) Former Smoker NA - NA Alcohol Screen (Audit-C) Question Answer Notes Did you have a drink contain ing alcohol in the past year? Yes How often did you have a dri nk containing alcohol in the past year? 2 to 4 times a month (2 points) Points 2 Interpretation Negative Tobacco Control (Standard) Question Answer Notes Tobacco use: Former smoker How long has it been since you last smoked? Grea ter than 10 years Problems Problem Type SNOMED Code ICD Code Onset Dates Problem Status W/U Status Risk Notes Problem 45501127 Chronic obstructive pulmonary disease, unspecified COPD type (J44.9) Active confirmed Problem 02630186 Sacroiliitis (M46.1) Active confirmed Problem 095214433 Lumbar facet arthropathy (M47.816) Active confirmed Vital Signs Heart Rate 100 /min 05/02/2025 Temperature 97.2 degrees Fahrenheit 05/02/2025 Respiratory Rate 20 /min 05/02/2025 Height-cm 172.72 cm 05/02/2025 Oximetry 99 % 05/02/2025 Blood pressure diastolic 44 mm Hg 05/02/2025 Weight-kg 93.3 kg 05/02/2025 Height 68 in 05/02/2025 Blood pressure systolic 122 mm Hg 05/02/2025 Weight 205.69 lbs 05/02/2025 BMI 31.27 kg/m2 05/02/2025 Procedures Procedure Date Ordered Date Performed Result Body Sit e PFT with FRC: (NO TGV) 03/17/2025 N/A PFT with FRC: (NO TGV) 05/02/2025 05/02/2025 N/A Encounters Encounter Location Date Provider Diagnosis [facility] [address] [place] [address] 01/21/2025 Krystian Abdullahi [facility] [address] [place] [address] 05/02/2025 Krystian Abdullahi Shortness of breath R06.02 and Former smoker Z87.891 [facility] [address] [place] [address] 03/17/2025 Krystian Abdullahi Shortness of breath R06.02 and Former smoker Z87.891 [facility] [address] [place] [address] 05/02/2025 Krystian Gerrysaroj Shortness of breath R06.02 Assessments Encounter Date Diagnosis (ICD Code) Assessment Notes Treatment Notes Treatment Clinical Notes Section Notes 03/17/2025 Shortness of breath (ICD-10 - R06.02) Continue Albuterol HFA and Neb as needed. Patient has been taking Asmanex, Wixela, and Stiolto. He states if he doesn't take all of these together he will not be able to breath. I did discuss the importance of adjusting his medications because of potential adverse reactions. Stop Asmanex and Stiolto. Continue Wixela Start Spiriva Respimat. Obtain PFT. Patient was walked in clinic with a lowest saturation of 96%. He does not qualify for daytime oxgyen. 03/17/2025 Former smoker (ICD-10 - Z87.891) Patient smoked 2 [id number] for 39 years. He has been abstinent since age 54. 05/02/2025 Shortness of breath (ICD-10 - R06.02) 05/02/2025 Shortness of breath (ICD-10 - R06.02) There is no obstruction on PFT but he does have emphysema. His condition is largely due to smoking cigarettes. Continue Albuterol HFA and Neb as needed. Patient previously took Asmanex, Wixela and Stiolto altogether Continue Wixela and Spiriva Respimat 05/02/2025 Former smoker (ICD-10 - Z87.891) Patient smoked 2 [id number] for 39 years. He has been abstinent since age 54. 03/17/2025 Other Herlinda Aguero am scribing for, and in the presence of Dr. Krystian Abdullahi. Laci, Dr. Krystian Abdullahi, personally performed the services described in this documentation, as scribed by Herlinda Reddy in my presence, and it is both accurate and complete. 05/02/2025 Other Herlinda Aguero am scribing for, and in the presence of Dr. Krystian Abdullahi. Laci, Dr. Krystian Abdullahi, personally performed the services described in this documentation, as scribed by Herlinda Reddy in my presence, and it is both accurate and complete. Plan Of Treatment Pending Test Test Name Order Date PFT with C: (NO TGV) 03/17/2025 Next Appt Details Provider Name:Krystian Abdullahi, 11/02/2025 02:40:00 PM, [address] [place] [address] [address], [place], [address], Insurance Providers Payer Name Payer Address Payer Phone Subscriber Number Group Number Insured Name Patient Relationship to Insured Coverage Start Date Coverage End Date [employer] [address] [place] [phone] [id number] SHELDON MCDANIELS Self - patient is the insured Medical (General) History Medical History History ICD Code Measles Mumps Chicken Pox Pneumonia Arthritis Cancer Hernia Back Trouble HBP ASthma Hernia Surgical History Surgery Date(Month/Year) hernia repair 1979 Gall Bladder Removal Hospitalization History Reason Date(Month/Year) see sx
--- NOTE | 2025-05-17 22:08 | ECG_ITS ---
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 Measurements Intervals [place] Rate: 71 P: -10 HI: 167 QRS: 92 QRSD: 134 T: 28 QT: 413 QTc: 451 Interpretive Statements SINUS RHYTHM WITH SINUS ARRHYTHMIA RIGHT BUNDLE BRANCH BLOCK [120+ ms QRS DURATION, UPRIGHT V1, 40+ ms S IN I/aVL/V4/V5/V6] Compared to ECG 09/02/2024 10:41:29 Right bundle-branch block now present Sinus bradycardia no longer present T-wave abnormality no longer present Electronically Signed On 05-19-2025 08:58:23 CDT by Mikal Ruiz M.D. [id number]
--- NOTE | 2025-05-17 22:26 | XRR_ITS ---
PROCEDURE INFORMATION: Exam: XR Chest Exam date and time: 05/17/2025 10:31 PM Age: 80 years old Clinical indication: Dyspnea; Additional info: Short of breath TECHNIQUE: Imaging protocol: Radiologic exam of the chest. Views: 1 view. COMPARISON: CR XR chest 1V portable [id number] 12/26/2024 3:19 PM FINDINGS: Lungs: Unremarkable. No consolidation. Pleural spaces: Unremarkable. No pleural effusion. No pneumothorax. Heart/Mediastinum: Unremarkable. No cardiomegaly. Bones/joints: Unremarkable. XR/XR chest 1V portable [id number] IMPRESSION: No acute findings.
--- NOTE | 2025-05-17 22:29 | ED_ITS ---
HPI - SOB/Dyspnea 2 General: Chief Complaint: Shortness of Breath/Dyspnea Stated Complaint: Wheezing\SOB Time Seen by Provider: 05/17/25 22:16 History of Present Illness: HPI Narrative: Patient is 80-year-old gentleman with COPD, HTN, presents ED with worsening shortness of breath that has been going on the last 2 weeks, associated with chest pressure, and inability to lie flat. He states his wheezing has worsened over the last 24 hours. He is having clear sputum production and nonproductive cough. He did see his doctor on 05/02 for the symptoms Associated symptoms: Reports chest pain; Deny abdominal pain, extremity pain, fever(s), nausea, palpitations or vomiting Related Data Home Medications ?Medication ?Instructions ?Recorded ?Confirmed finasteride 5 mg tablet 5 mg PO COUNTS INCLUDE 234 BEDS AT THE [facility] 06/24/20 5 hydrochlorothiazide 25 mg tablet 25 mg PO DAILY 02/16/25 tamsulosin 0.4 mg capsule 0.4 mg PO QA 06/24/2002/16 valacyclovir 500 mg tablet 500 mg PO COUNTS INCLUDE 234 BEDS AT THE [facility] 06/24/2001/11 albuterol sulfate 90 mcg/actuation 2 puff inhalation Q 4H PRN 07/16/22 02/16/25 aerosol inhaler (ProAir HFA) Shortness Of Breath omega-3 fatty acids 1,000 mg 2,000 mg PO QAM 07/16/22 02/16/25 capsule cetirizine 10 mg tablet 10 mg PO DAILY 04/06/2401/11 montelukast 10 mg tablet 10 mg PO DAILY 04/06/2401/11 tadalafil 10 mg tablet 10 mg PO DAILY PRN Erectile 04/08/24 02/16/25 Dysfunction mometasone 220 mcg/actuation(120 1 inh inhalation STEVEN Y 09/02/24 02/16/25 doses)breath activated powder inhaler tiotropium 2.5 mcg-olodaterol 2.5 2 puff inhalation DA PHILLIP 09/02/24 02/16/25 mcg/actuation mist for inhalation (Stiolto Respimat) fluticasone propionate 50 1 spray intranasal DAILY 02/16/25 mcg/actuation nasal spray,suspension (Allergy Relief (fluticasone)) omeprazole 40 mg capsule,delayed 40 mg PO DAILY 02/16/25 release rosuvastatin 10 mg tablet 5 mg PO DAILY 10/13/2402/16 Previous Rx's ?Medication ?Instructions ?Recorded tizanidine 4 mg tablet 4 mg PO Q6H PRN muscle spast icity 05/09/23 #20 tabs orthopedic shoes #1 ea 02/22/25 triamcinolone acetonide 0.5 % 1 applic topical BID #15 grams 04/02/25 topical cream Allergies Allergy/AdvReac Type Severity Reaction Status Date / Time codeine Allergy Unknown Unknown Verified 02/16/25 13:23 pravastatin Allergy Unknown Unknown Verified 02/16/25 13:23 tiotropium (From Spiriva Allergy Unknown Unknown Verified 02/16/25 13:23 with HandiHaler) Review of Systems 2 General: Reports: 10 or more systems reviewed and unremarkable except in HPI and below Const: Denies: fever(s) or chills Eyes: Denies: change in vision or blurry vision ENMT: Denies: throat pain or mouth pain Card: Reports: chest pain and dyspnea on exertion; Denies: palpitations Resp: Reports: dyspnea, non-productive cough and wheezing GI: Denies: abdominal pain, nausea or vomiting : Denies: flank pain or difficulty urinating Musc: Denies: neck pain, back pain or extremity pain Skin/Breast: Denies: rash or pruritus Neuro: Denies: headache(s) or numbness in extremities Psych: Reports: irritability; Denies: anxiety or depression PFSH ED 2 PFSH: Medical History Hypertension Surgical History H/O umbilical hernia repair History of cholecystectomy Social History Smoking and tobacco/nicotine status: former use of tobacco/nicotine Alcohol intake: current Alcohol intake frequency: holidays/special occasions only Substance/Drug Use: never Physical Exam 2 Const: COMMON NORMALS: patient oriented x3 HENMT: COMMON NORMALS: normocephalic, atraumatic, hearing grossly normal bilaterally, external ears normal, EAC's normal, TM's normal bilaterally, Normal external nose present, Normal nasal mucous membranes and turbinates present, moist oral mucous membranes, oropharynx normal, dentition normal and gingiva normal HEAD & SCALP: normocephalic and atraumatic NOSE: Normal external nose present and Normal nasal mucous membranes and turbinates present E XTERNAL EAR: Yes external ears normal EXTERNAL AUDITORY CANAL: EAC's normal TYMPANIC MEMBRANE: TM's normal bilaterally Neck/C-Spine: COMMON NORMALS: full ROM and no lymphadenopathy Lymph: LYMPHATIC: no lymphadenopathy noted Chest: COMMONS NORMALS: normal inspection of the chest and normal palpation of entire chest wall Resp: COMMON NORMALS: No retractions EFFORT & INSPECTION: No able to speak in complete sentences, Yes respiratory distress and Yes uses accessory muscles AUSCULTATION: wheezes Cardio: COMMON NORMALS: regular rate and regular rhythm RATE: regular rate RHYTHM: regular rhythm GI: COMMON NORMALS: Normal to inspection, nondistended, normoactive bowel sounds present, Soft to palpation and non-tender PALPATION: Yes Soft to palpation : COMMON NORMALS: Yes no CVA tenderness BLADDER/KIDNEY EXAM: Yes no CVA tenderness Back/Pelvis: COMMON NORMALS: no CVA tenderness Extremity: COMMON NORMALS: normal to inspection, full ROM and capillary refill normal Neuro: RADHA COMA SCALE: document GCS findings COMMON NORMALS: patient oriented x3, CN's II-XII intact bilaterally and moves all extremities Psych: COMMON NORMALS: mental status grossly normal and Normal thought process present ACTIVITY/MOTOR BEHAVIOR: Yes appropriate eye contact MOOD & AFFECT: Yes fearful and Yes expansive affect THOUGHT PROCESS: Normal thought process present Skin: COMMON NORMALS: no rashes or lesions noted and no wounds GENERAL SKIN EXAM: no rashes or lesions noted Course 2 Reevaluation(s): Reevaluation #1: Patient was evaluated status post treatment, improved not audible wheezing, however on auscultation he does have continued inspiratory and expiratory wheezes. He no longer has increased work of breathing. Consultations: Consultation #1: D/w hospitalist, will see pt for poss obsv Vital Signs: Vital signs: Vital Signs Temperature 98.1 F 05/17/25 22:07 Pulse Rate 58 L 05/17/25 23:44 Respiratory Rate 18 05/17/25 23:44 Blood Pressure 126/68 05/17/25 22:53 Pulse Oximetry 91 05/17/25 23:44 Oxygen Delivery Me thod Room Air 05/17/25 23:44 MDM - SOB/Dyspnea Medical Decision Making Patient is a 80-year-old male with history of non-O2 dependent COPD that initially was ill in the middle of April, and saw his primary care provider on 05/02, however has had worsening shortness of breath, and chest pain over the last 24 hours. He is a poor historian. He is supposed to be on albuterol nebulizer 4 times daily, however is noncompliant to therapy as per his reevaluation. He continues to have inspiratory, expiratory wheezes, however his audible wheezes, work of breathing have improved, and he now can speak full sentences. His initial troponin is 20. His EKG does not show any ST segment elevation. Plan is to call the hospitalist for admission for COPD exacerbation. His oxygen saturation has been running between 91-93%. X-ray does not show any acute infiltrates. I discussed with hospitalist, she would like to see the patient with my concerns of observation admission. Medical Records I reviewed the patient's medical records. Lab Data I reviewed the patient's lab results. 05/17/25 22:32 05/17/25 22:32 Labs/Radiology: Radiology Impressions Chest X-Ray 05/17/25 22:26 IMPRESSION: No acute findings. Laboratory Results WBC 7.79 10^3/uL (3.29-11.43) 05/17/25 22:32 RBC 4.81 10^6/uL (3.85-5.65) 05/17/25 22:32 Hgb 14.50 g/dL (11.27-16.99) 05/17/25 22:32 Hct 44.3 % (37-53) 05/17/25 22:32 MCV 92.1 fl (82-101) 05/17/25 22:32 MCH 30.1 pg (27-33) 05/17/25 22: MCHC 32.7 g/dL (30-55) 05/17/25 22:32 RDW 13.4 % (12.1-15.1) 05/17/25 22:32 Plt Count 217 10^3/cmm (157-399) 05/17/25 22:32 MPV 10.5 fL (7.4-10.4) H 05/17/25 22:32 Neut % (Auto) 47.6 % 05/17/25 22:32 Lymph % (Auto) 34.7 % 05/17/25 22:32 Finney % (Auto) 8.7 % 05/17/25 22:32 Eos % (Auto) 7.2 % 05/17/25 22:32 Baso % (Auto) 1.5 % 05/17/25 22:32 Neut # (Auto) 3.71 10^3/uL (1.8-7.7) 05/17/25 22:32 Lymph # (Auto) 2.7 10^3/uL (0.8-4.8) 05/17/25 22:32 Finney # (Auto) 0.7 10^3/uL (0.2-0.9) 05/17/25 22: Eos # (Auto) 0.6 10^3/uL (0.0-0.8) 05/17/25 22: Baso # (Auto) 0.1 10^3/uL (0.0-0.1) 05/17/25 22:32 Nucleated RBC % (auto) 0 % 05/17/25: Nucleated RBCs # 0.0 /100WBC 05/17/25 22:32 Sodium 138 mmol/L (136-145) 05/17/25 22:32 Potassium 4.1 mmol/L (3.5-5.1) 05/17/25 22:32 Chloride 97 mmol/L (98-107) L 05/17/25 22:32 Carbon Dioxide 28 mmol/L (22-29) 05/17/25 22:32 Anion Gap 17.1 (5-19) 05/17/25 22:32 BUN 17 mg/dL (8-23) 05/17/25 22:32 Creatinine 1.1 mg/dL (0.7-1.2) 05/17/25 22:32 GFR Calculation Not Reportable 05/17/25 22:32 Glucose 103 mg/dL (65-115) 05/17/25 22:32 Calculated Osmolality 288 mOsm/kg (285-295) 05/17/25 22:32 Calcium 9.8 mg/dL (8.5-10.5) 05/17/25 22:32 Total Bilirubin 0.4 mg/dL (0.15-1.2) 05/17/25 22:32 AST 99 U/L (0-40) H 05/17/25 22:32 ALT 79 U/L (0-41) H 05/17/25 22:32 Alkaline Phosphatase 120 U/L (40-130) 05/17/25 22:32 Troponin T Baseline 20 ng/L (0-15) H 05/17/25 22:32 NT-Pro-B Natriuret Pep 161 pg/mL (0-450) 05/17/25 22:32 Total Protein 6.9 g/dL (6.6-8.7) 05/17/25 22:32 Albumin 4.3 g/dL (3.5-5.2) 05/17/25 22:32 Globulin 2.6 g/dL (1.3-4.6) 05/17/25 22:32 Procalcitonin 0.08 ng/mL (0-0.5) 05/17/25 22:32 Influenza A (PCR) Negative (Negative) 05/17/25 22:35 Influenza Type B (PCR) Negative (Negative) 05/17/25 22:35 RSV (PCR) Negative (Negative) 05/17/25 22:35 SARS-CoV-2 (PCR) Negative (Negative) 05/17/25 22:35 All radiology interpretation(s) finalized by discharge ED provider radiology interpretation(s): no acute Discharge Plan Discharge Patient Disposition: Placed in Observation Clinical Impression: COPD with acute exacerbation, Abnormal transaminases Coding Level of Care Code ED Furnace Clerk for Lourdes Lerma
[2025-05-17 22:35] LABS: Hematocrit 44.3 % (37-53); Hemoglobin 14.50 g/dL (11.27-16.99); Mean Corpuscular HGB Conc 32.7 g/dL (30-55); Mean Corpuscular Hemoglobin 30.1 pg (27-33); Mean Corpuscular Volume 92.1 fl (82-101); Nucleated Red Blood Cells % 0 %; Platelet Count 217 10^3/cmm (157-399); Red Blood Count 4.81 10^6/uL (3.85-5.65); White Blood Count 7.79 10^3/uL (3.29-11.43)
[2025-05-17] MEDS: methylPREDNISolone sod succ 125 mg/2 mL INJ 80 MG IVP (22:48)
[2025-05-17 22:53] VITALS: BP 126/68; PULSE 66; RESP 20; O2SAT 92
[2025-05-17 22:55] LABS: Troponin(5th) Baseline 20 ng/L (0-15)
[2025-05-17 23:17] LABS: NT Pro B Type Natriuretic Pept 161 pg/mL (0-450); Procalcitonin 0.08 ng/mL (0-0.5)
[2025-05-17 23:24] LABS: Respiratory Syncytial Virus Ce NEGATIVE (Negative); SARS-CoV-2 PCR NEGATIVE (Negative)
[2025-05-17 23:28] LABS: Alanine Aminotransferase 79 U/L (0-41); Albumin Level 4.3 g/dL (3.5-5.2); Alkaline Phosphatase 120 U/L (40-130); Anion Gap 17.1 (5-19); Aspartate Amino Transferase 99 U/L (0-40); Blood Urea Nitrogen 17 mg/dL (8-23); Calcium 9.8 mg/dL (8.5-10.5); Carbon Dioxide 28 mmol/L (22-29); Chloride 97 mmol/L (98-107); Creatinine Clr Calc Pharmacy 63.4608; Globulin 2.6 g/dL (1.3-4.6); Glucose 103 mg/dL (65-115); Osmolality Calculated 288 mOsm/kg (285-295); Potassium 4.1 mmol/L (3.5-5.1); Sodium 138 mmol/L (136-145); Total Protein 6.9 g/dL (6.6-8.7)
[2025-05-17 23:44] VITALS: PULSE 58; RESP 18; O2SAT 91
[2025-05-18] VITALS (15 sets, daily range): BP systolic 106–141; BP diastolic 59–82; PULSE 53–86; RESP 16–22; TEMP 36.4–36.8; O2SAT 92–99; BMI 31.4
--- NOTE | 2025-05-18 | FL_ITS ---
FL barium swallow modifd [id number] REASON FOR EXAM: Oral dysphagia FLUOROSCOPY TIME: 2min [id number] # OF SPOT FILMS: None TECHNIQUE: The examination was supervised by the speech therapy department. Patient was examined in the sitting upright lateral projection. The swallowing of barium of varying consistencies was monitored fluoroscopically and video recorded. FINDINGS: There was no aspiration or penetration of contrast into the laryngeal vestibule. Normal transit of the barium tablet through the esophagus and into the stomach. IMPRESSION: A detailed report of the swallowing will be rendered by the speech therapy department. No aspiration. Normal transit of the barium tablet. MTDD
[2025-05-18 01:00] LABS: Troponin 5 2HR 15.84 ng/L (0-15)
[2025-05-18 01:03] LABS: Troponin 5 2HR Delta -4.16 ABS# (0-10)
[2025-05-18 01:40] LABS: Hepatitis A Antibody IgM Non-Reactive (Nonreactive); Hepatitis B Surface Antigen Non-Reactive (Nonreactive)
--- NOTE | 2025-05-18 02:33 | PM.HP ---
Providers/Chief Complaint Admitting Physician: Huong Rahman MD--patient seen after 12 midnight Primary Care Provider: LUIS ANTONIO Thapa Chief Complaint: Wheezing\SOB History of Present Illness William Calloway is a 80 year old male with medical history significant for COPD, chronic and acute allergic rhinitis, post nasal drip with reflexive and intractable cough who had presented to the emergency room because of shortness of breath and intractable cough inducing pleuritic chest pains, abdominal soreness from cough, patient had been seen by acoustic warfare analyst on 05/02/2025 and was told to return on in October to see if PFT can be done. The patient had used the inhalers provided and medication for allergies but none has seemed to work. Patient also had related that he had been scoped for laryngoscopy 3 different times by the ENT and had been told that he has some hernia in his throat that could be repaired surgically. Patient does not want to do that. Patient now presents to be treated and make him feel better through the use of eliminates this cough. By the emergency room attending, patient was having shortness of breath with wheezes and was given Solu-Medrol nebulizing treatment of albuterol for patient cannot take Atrovent. I have seen and evaluated the patient patient tells me that he feels a little better but not quite completely. Patient had no fever no pneumonia no white count and no obvious wheezing at my evaluation. Patient verbalized that a lot of time he will be running nose and some of it to go to the back of his throat and that causes him to cough patient at this time is being admitted to an observation to optimize care for a COPD exacerbation triggered by postnasal drip and care of underlining upper airway disease from allergic rhinitis for an outpatient continued follow-up this is a 23-hour observation stay. Review of Systems Narrative: Standard review upon 10 organ review we are only significant for pulmonary system with COPD exacerbation and allergic rhinitis. Medications/Allergies Home Medications ?Medication ?Instructions ?Recorded ?Confirmed ?Last Taken ?Type finasteride 5 mg tablet 5 mg PO DAILY 06/24/20 05/18/25 04/06/24 History hydrochlorothiazide 25 mg tablet 25 mg PO DAILY 06/24/20 05/18/25 04/06/24 History tamsulosin 0.4 mg capsule 0.4 mg PO QPM 06/24/20 05/18/2524 History valacyclovir 500 mg tablet 500 mg PO QAM 06/24/20 05/18/25 04/06/24 History albuterol sulfate 90 mcg/actuation 2 puff inhalation Q4H PRN 07/16/22 05/18/25 04/06/24 History aerosol inhaler (ProAir HFA) Shortness Of Breath cetirizine 10 mg tablet 10 mg PO DAILY 04/06/24 05/18/25 04/06/24 History montelukast 10 mg tablet 10 mg PO QPM 04/06/24 05/18/25 04/06/24 History tiotropium 2.5 mcg-olodaterol 2.5 1 puff inhalation BID 09/02/24 05/18/25 Unknown History mcg/actuation mist for inhalation (Stiolto Respimat) fluticasone propionate 50 2 spray intranasal DAILY 10/13/24 05/18/25 Unknown History mcg/actuation nasal spray,suspension (Allergy Relief (fluticasone)) omeprazole 40 mg capsule,delayed 40 mg PO DAILY 10/13/24 05/18/25 Unknown History release rosuvastatin 10 mg tablet 10 mg PO QPM 10/13/24 05/18/25 Unknown History orthopedic shoes #1 ea 02/22/25 Unknown Rx triamcinolone acetonide 0.5 % 1 applic topical BID #15 grams 04/02/25 05/18/25 Unknown Rx topical cream guaifenesin 400 mg tablet 400 mg PO QID PRN Cough 05/18/25 05/18/25 Unknown History methocarbamol 750 mg tablet 750 mg PO TID PRN Muscle Spasm 05/18/25 05/18/25 Unknown History pantoprazole 40 mg tablet,delayed 40 mg PO DAILY 05/18/25 05/18/25 Unknown History release tiotropium bromide 2.5 2 puff inhalation DAILY 05/18/25 05/18/25 Unknown History mcg/actuation mist for inhalation (Spiriva Respimat) Allergies Allergy/AdvReac Type Severity Reaction Status Date / Time codeine Allergy Unknown Unknown Verified 02/16/25 13:23 pravastatin Allergy Unknown Unknown Verified 02/16/25 13:23 tiotropium (From Spiriva Allergy Unknown Unknown Verified 02/16/25 13:23 with HandiHaler) PFSH Acute PFSH: Medical History Hypertension Surgical History H/O umbilical hernia repair History of cholecystectomy Social History Smoking and tobacco/nicotine status: former use of tobacco/nicotine Alcohol intake: current Alcohol intake frequency: holidays/special occasions only Substance/Drug Use: never Vitals/I&O/Wt Last Vital Signs Temp 98.1 F 05/17/25 22:07 Pulse 57 L 05/18/25 02:00 Resp 16 05/18/25 02:00 BP 128/70 05/18/25 02:00 Pulse Ox 93 05/18/25 02:00 O2 Del Method Room Air 05/18/25 01:41 Weight last 48 hrs Weight 96.615 kg Physical Exam Narrative: Generally patient is on room air pulse oxing at 97% at my evaluation. HEENT normocephalic atraumatic Neck neck is supple Cardiovascular heart rate is regular in the 50s to 60s. The patient had no murmurs Lungs are clear with no adventitious breath sounds at this time Abdomen is soft nontender nondistended. Obese abdomen, has good bowel sounds unremarkable Extremities are intact no edema has good pulses Neurology has no focality Data 05/17/25 22:32 05/17/25 22:32 A&P Assessment and plan (1) COPD with acute exacerbation: - Admit to general medical floor with telemetry - Initiate antibiotics for associated bronchitis - Continue azithromycin and ceftriaxone -No supplemental oxygen needed for patient is pulse oxing from 94% to 98% on room air -Patient had no conversational dyspnea talks in full sentences at my evaluation - Patient had obviously improved from the description of ED attending of patient wheezing and having shortness of breath - Continue nebulizing treatment with Xopenex, patient is allergic to Atrovent but does not know what Atrovent dose to him - Continue Solu-Medrol, antibiotics, nebulizing treatment, antiallergic rhinitis - Discharge this patient when medically stable to follow-up with the PCP and acoustic warfare analyst and possibly ENT. (2) Allergic rhinitis: Continue patient medication for allergic rhinitis and these have been restarted here (3) Postnasal drip: May add Zyrtec for postnasal drip this might help this is the culprit of recurrent COPD exacerbation for this triggers cough and this also can lead to infection of the upper airways from microbes at the back of the throat. (4) GERD (gastroesophageal reflux disease): Continue PPI for patient regard (5) SOB (shortness of breath): Patient shortness of breath is due to bronchial spasm from postnasal drip and this obviously responded to the care that patient received initially in the emergency room as patient had improved when I was called to evaluate patient for an observation stay admission. Plan GI and DVT prophylaxis in place PDMP PDMP Reviewed: Not Reviewed Attestations Medical Necessity Statement*: Patient is with COPD exacerbation allergic rhinitis and postnasal drip with cough needing observation and optimization prior to discharge for 23 hrs. stay in the hospital Coding Level of Care Code 11233 Diagnoses COPD with acute exacerbation J44.1 Allergic rhinitis J30.9 Postnasal drip R09.82 Gastroesophageal reflux disease, unspecified whether esophagitis present K21.9 Esophagitis presence: esophagitis presence not specified SOB (shortness of breath) R06.02 Time Spent (min) 60
[2025-05-18] MEDS: heparin 5,000 unit/mL INJ 1 mL 5000 UNIT SUBCUT ×2 (02:47→13:35)
[2025-05-18] MEDS: cefTRIAXone 1,000 mg SDV 1000 MG IVP (02:47)
[2025-05-18 05:32] LABS: Hematocrit 42.8 % (37-53); Hemoglobin 14.30 g/dL (11.27-16.99); Mean Corpuscular HGB Conc 33.4 g/dL (30-55); Mean Corpuscular Hemoglobin 30.6 pg (27-33); Mean Corpuscular Volume 91.5 fl (82-101); Nucleated Red Blood Cells % 0 %; Platelet Count 201 10^3/cmm (157-399); Red Blood Count 4.68 10^6/uL (3.85-5.65); White Blood Count 4.68 10^3/uL (3.29-11.43)
[2025-05-18 05:54] LABS: Alanine Aminotransferase 80 U/L (0-41); Albumin Level 3.9 g/dL (3.5-5.2); Alkaline Phosphatase 110 U/L (40-130); Anion Gap 18.3 (5-19); Aspartate Amino Transferase 80 U/L (0-40); Blood Urea Nitrogen 19 mg/dL (8-23); Calcium 9.7 mg/dL (8.5-10.5); Carbon Dioxide 24 mmol/L (22-29); Chloride 99 mmol/L (98-107); Creatinine Clr Calc Pharmacy 62.6795; Globulin 2.9 g/dL (1.3-4.6); Glucose 196 mg/dL (65-115); Magnesium 2.1 mg/dL (1.7-2.3); Osmolality Calculated 294 mOsm/kg (285-295); Potassium 3.3 mmol/L (3.5-5.1); Sodium 138 mmol/L (136-145); Total Protein 6.8 g/dL (6.6-8.7)
[2025-05-18] MEDS: fluticasone nasal spray 16gm Btl 1 SPRAY INTRANASAL (08:11)
[2025-05-18] MEDS: potassium phosphate (mMol PO4) 30 MMOL in sodium chloride 0.9% (100 ml) 100 ML 25 MMOL IV (09:40)
[2025-05-18] MEDS: methylPREDNISolone sod succ 40 mg/mL INJ IVP ×2 (10:32→22:34)
--- NOTE | 2025-05-18 12:34 | ECG_ITS ---
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
--- NOTE | 2025-05-18 12:37 | P.PN_ITS ---
Subjective 2 Subjective: He has a lot of concerning symptoms at this time. He reports orthopnea which she attributes to dyspnea, choking, and acid reflux. He also reports left-sided chest/lung pain when he lays on his left side that radiates to the left side of his neck. He had wheezing when he came to the ED. He saturating well on room air at this time and does not use oxygen at baseline. He reports productive cough with a lot of sputum. He has been seen by ENT before and was recommended to get a swallow evaluation. Vitals/I&O/Wt Last Vital Signs Temp 98.3 F 05/18/25 11:53 Pulse 66 05/18/25 11:53 Resp 18 05/18/25 11:53 BP 130/64 05/18/25 11:53 Pulse Ox 93 05/18/25 11:53 O2 Del Method Room Air 05/18/25 11:53 O2 Flow Rate 0 05/18/25 08:00 05/17/25 05/18/25 05/18/25 22:59 06:59 14:59 Intake Total 240 / 240 238 / 238 Output Total 700 / 700 Balance 240 / 240 -462 / -462 Weight last 48 hrs Weight 94.12 kg Weight 96.615 kg Weight 96.615 kg Physical Exam 2 Narrative: GEN: Alert, no acute distress, cooperative HEENT: PERRLA, EOMI, normocephalic and atraumatic Neck: Supple Respiratory: No respiratory distress, clear to auscultation bilaterally Cardio: S1, S2, regular rate and rhythm, no murmurs rubs or gallops Abdomen: Soft and nontender, normal active bowel sounds Extremity: No edema, full ROM Skin: No lesions Data 05/18/25 05:10 05/18/25 05:10 A&P Assessment and plan (1) COPD with acute exacerbation: Wheezing with productive cough on admission ? Chest x-ray no acute changes ? He may have bronchitis ? Will continue azithromycin but no need for ceftriaxone ? Saturating well on room air, will need walk study prior to discharge ? Continue DuoNeb and Solu-Medrol (2) Allergic rhinitis: Continue patient medication for allergic rhinitis and these have been restarted here (3) Postnasal drip: He is on Flonase, and starting sertraline Patient has seen ENT as an outpatient (4) Chest pain: Has atypical chest pain and reports orthopnea He was seen by cardiology in November for exertional dyspnea but did not have chest pain at that time Troponin was mildly elevated on admission Will order Lexiscan for tomorrow Telemetry monitoring Aspirin 81 mg daily (5) Dysphagia: Patient reports choking at times and swallow eval was recommended by ENT EGD was done on 04/08/2024 and showed small hiatal hernia and sessile polyp in the gastric fundus and body and duodenal bulb which were removed, also had mild prepylori gastritis Will order modified barium swallow (6) GERD (gastroesophageal reflux disease): He also has a hiatal hernia Continue Protonix (7) SOB (shortness of breath): Patient shortness of breath is due to bronchial spasm from postnasal drip and this obviously responded to the care that patient received initially in the emergency room as patient had improved when I was called to evaluate patient for an observation stay admission. (8) Benign essential HTN: Continue hydrochlorothiazide Monitor blood pressure (9) Dyslipidemia: Continue rosuvastatin Plan GI and DVT prophylaxis in place PDMP PDMP Reviewed: Not Reviewed Attestations 2 Medical Necessity Statement*: Patient needs continued hospitalization for IV steroids, neb treatments, and Lexiscan tomorrow Coding Level of Care Code 46829 Diagnoses COPD with acute exacerbation J44.1 Allergic rhinitis J30.9 Postnasal drip R09.82 Chest pain, unspecified type R07.9 Chest pain type: unspecified Dysphagia R13.10 Gastroesophageal reflux disease, unspecified whether esophagitis present K21.9 Esophagitis presence: esophagitis presence not specified SOB (shortness of breath) R06.02 Benign essential HTN I10 Dyslipidemia E78.5
[2025-05-19] VITALS (10 sets, daily range): BP systolic 122–140; BP diastolic 57–72; PULSE 60–90; RESP 15–19; TEMP 36.4–36.7; O2SAT 92–98
[2025-05-19 06:25] LABS: Albumin Level 3.9 g/dL (3.5-5.2); Anion Gap 22.9 (5-19); Blood Urea Nitrogen 20 mg/dL (8-23); Calcium 9.7 mg/dL (8.5-10.5); Carbon Dioxide 20 mmol/L (22-29); Chloride 99 mmol/L (98-107); Creatinine Clr Calc Pharmacy 69.4944; Glucose 156 mg/dL (65-115); Magnesium 2.0 mg/dL (1.7-2.3); Potassium 3.9 mmol/L (3.5-5.1); Sodium 138 mmol/L (136-145)
--- NOTE | 2025-05-19 07:02 | PC.NURSE ---
Pt to stress test at this time
[2025-05-19] MEDS: fluticasone nasal spray 16gm Btl 1 SPRAY INTRANASAL (08:39)
[2025-05-19] MEDS: methylPREDNISolone sod succ 40 mg/mL INJ IVP (11:50)
--- NOTE | 2025-05-19 12:34 | NMCV_ITS ---
NM arnol perf SPECT r/s* [id number] William Calloway Age: 80 Gender: M : 1945 Exam Date: 05/19/2025 06:52 Ordering Phys: Pari Arzate MD Technologist: MONICA Valdez Exam Location: [facility] Indications: CP STRESS TEST [facility] IMAGE PROTOCOL Rest/Stress 1 Lexiscan Day Radiopharmaceutical Dose (mCi) Administration Site Administered by Rest: Tc-99m 10.9 IV MONICA Valdez Sestamibi Stress:Tc-99m 32.9 IV MONICA Valdez Sestamibi Rest: 19-May-2025 60 Discovery 630 Stress: 19-May-2025 30 Discovery 630 0.4mg Lexiscan. Images obtained in supine and prone position. SPECT RESULTS Technical Quality: Good Raw Data Analysis: Normal Image Corrections: No attenuation or motion correction applied Summed Stress Score: 5 Summed Rest Score: 4 Summed Difference Score: 1 PERFUSION FINDINGS There is small sized area of reduced radiotracer uptake seen in inferior and inferolateral simon. This resolves on prone imaging. This is consistent with attenuation artifact. No evidence of ischemia. FUNCTIONAL RESULTS (calculated via Gated SPECT) Stress Image LV EF (%): 86 Stress EDV (mL):64 TID: 0.62 Stress ESV (mL):9 FUNCTIONAL FINDINGS: There is normal left ventricular systolic function. IMPRESSIONS 1. Attenuation artifact seen in the inferior and inferolateral simon. No evidence of ischemia. 2. LV systolic function is normal Mikal Ruiz MD (Electronically Signed) Final Date: 19 May 2025 13:43 S
--- NOTE | 2025-05-19 14:35 | PM.DCS ---
Discharge Providers Date of Admission: 05/18/25 01: Date of Discharge: May 19, 2025 Attending Provider at Admission: Huong Rahman MD Attending Provider at Discharge: Pari Arzate MD Primary Care Provider: LUIS ANTONIO Thapa Diagnoses at Discharge Discharge Diagnosis (1) COPD with acute exacerbation: Status: Acute (2) Allergic rhinitis: Status: Acute Qualifiers: Allergic rhinitis trigger: unspecified Allergic rhinitis seasonality: unspecified Qualified Code(s): J30.9 - Allergic rhinitis, unspecified (3) Postnasal drip: Status: Acute (4) Chest pain: Status: Acute Qualifiers: Chest pain type: unspecified Qualified Code(s): R07.9 - Chest pain, unspecified (5) Dysphagia: Status: Acute Qualifiers: Dysphagia type: esophageal phase Qualified Code(s): R13.19 - Other dysphagia (6) GERD (gastroesophageal reflux disease): Status: Acute Qualifiers: Esophagitis presence: esophagitis presence not specified Qualified Code(s): K21.9 - Gastro-esophageal reflux disease without esophagitis (7) SOB (shortness of breath): Status: Acute (8) Benign essential HTN: Status: Acute (9) Dyslipidemia: Status: Acute Reason for Visit Reason for Visit: Wheezing\SOB Brief History: This is a 72-year-old male with COPD, allergic rhinitis, postnasal drip, BPH, GERD, hypertension, and hyperlipidemia who presented with shortness of breath, wheezing and intractable cough. He also reported pleuritic chest pain and dysphagia. Hospital Course Hospital Course He was started on IV steroids and neb treatments. He has been saturating well on room air. He was discharged home on oral steroids. He reported left-sided chest pain which radiated up to his left jaw. He had a nuclear cardiac stress test which did not show any ischemia. He also reported dysphagia. He had a modified barium swallow which showed penetration with thin liquids but no aspiration. He did well with soft textures. He displayed difficulty propelling a kezia cracker through the upper esophageal sphincter due to decreased opening and inadequate length of opening of the UES. Significantly reduced laryngeal excursion noted. Is able to clear the residue with double swallows and/or alternating liquids with solids. Downgraded to level 6 soft and bite-size diet. Patient to follow-up with [facility] as an outpatient. Physical Exam Narrative: GEN: Alert, no acute distress, cooperative HEENT: PERRLA, EOMI, normocephalic and atraumatic Neck: Supple Respiratory: No respiratory distress, clear to auscultation bilaterally Cardio: S1, S2, regular rate and rhythm, no murmurs rubs or gallops Abdomen: Soft and nontender, normal active bowel sounds Extremity: No edema, full ROM Skin: No lesions Discharge Data Studies Completed and Pending Completed Studies During Hospitalization Category Date Time Status MBS [FL barium swallow modifd 25689] Routine Exams 05/18/25 12:34 Completed Sestamibi Stress Test Request Routine Exams 05/18/25 12:34 Draft XR chest 1V portable [id number] Stat Exams 05/17/25 22:26 Completed NM arnol perf SPECT r/s* [id number] Routine Nuc Med 05/19/25 12:34 Completed Radiology Impressions Chest X-Ray 05/17/25 22:26 IMPRESSION: No acute findings. Laboratory Results WBC 4.68 10^3/uL (3.29-11.43) 05/18/25 05:10 RBC 4.68 10^6/uL (3.85-5.65) 05/18/25 05:10 Hgb 14.30 g/dL (11.27-16.99) 05/18/25 05:10 Hct 42.8 % (37-53) 05/18/25 05:10 MCV 91.5 fl (82-101) 05/18/25 05:10 MCH 30.6 pg (27-33) 05/18/25 05:10 MCHC 33.4 g/dL (30-55) 05/18/25 05:10 RDW 13.4 % (12.1-15.1) 05/18/25 05:10 Plt Count 201 10^3/cmm (157-399) 05/18/25 05:10 MPV 10.7 fL (7.4-10.4) H 05/18/25 05:10 Neut % (Auto) 78.7 % 05/18/25 05:10 Lymph % (Auto) 18.8 % 05/18/25 05:10 Carroll % (Auto) 1.1 % 05/18/25 05:10 Eos % (Auto) 0.4 % 05/18/25 05:10 Baso % (Auto) 0.4 % 05/18/25 05:10 Neut # (Auto) 3.68 10^3/uL (1.8-7.7) 05/18/25 05:10 Lymph # (Auto) 0.9 10^3/uL (0.8-4.8) 05/18/25 05:10 Carroll # (Auto) 0.1 10^3/uL (0.2-0.9) L 05/18/25 05:10 Eos # (Auto) 0.0 10^3/uL (0.0-0.8) 05/18/25 05:10 Baso # (Auto) 0.0 10^3/uL (0.0-0.1) 05/18/25 05:10 Nucleated RBC % (auto) 0 % 05/18/25 05:10 Nucleated RBCs # 0.0 /100WBC 05/18/25 05:10 Sodium 138 mmol/L (136-145) 05/19/25 05:36 Potassium 3.9 mmol/L (3.5-5.1) 05/19/25 05:36 Chloride 99 mmol/L (98-107) 05/19/25 05:36 Carbon Dioxide 20 mmol/L (22-29) L 05/19/25 05:36 Anion Gap 22.9 (5-19) H 05/19/25 05:36 BUN 20 mg/dL (8-23) 05/19/25 05:36 Creatinine 1.0 mg/dL (0.7-1.2) 05/19/25 05:36 GFR Calculation Not Reportable 05/19/25 05:36 Glucose 156 mg/dL (65-115) H 05/19/25 05:36 Calculated Osmolality 294 mOsm/kg (285-295) 05/18/25 05:10 Calcium 9.7 mg/dL (8.5-10.5) 05/19/25 05:36 Phosphorus 4.4 mg/dL (2.5-4.5) 05/19/25 05:36 Magnesium 2.0 mg/dL (1.7-2.3) 05/19/25 05:36 Total Bilirubin 0.3 mg/dL (0.15-1.2) 05/18/25 05:10 AST 80 U/L (0-40) H 05/18/25 05:10 ALT 80 U/L (0-41) H 05/18/25 05:10 Alkaline Phosphatase 110 U/L (40-130) 05/18/25 05:10 Troponin T Baseline 20 ng/L (0-15) H 05/17/25 22:32 Troponin T 120 Minute 15.84 ng/L (0-15) H 05/18/25 00:35 Delta Troponin T -4.16 ABS# (0-10) L 05/18/25 00:35 NT-Pro-B Natriuret Pep 161 pg/mL (0-450) 05/17/25 22:32 Total Protein 6.8 g/dL (6.6-8.7) 05/18/25 05:10 Albumin 3.9 g/dL (3.5-5.2) 05/19/25 05:36 Globulin 2.9 g/dL (1.3-4.6) 05/18/25 05:10 Procalcitonin 0.08 ng/mL (0-0.5) 05/17/25 22:32 Hepatitis A IgM Ab Non-reactive (Nonreactive) 05/17/25 22:32 Hep Bs Antigen Non-reactive (Nonreactive) 05/17/25 22:32 Hep B Core IgM Ab Non-reactive (Nonreactive) 05/17/25 22:32 Hepatitis C Antibody Non-reactive (Nonreactive) 05/17/25 22:32 Influenza A (PCR) Negative (Negative) 05/17/25 22:35 Influenza Type B (PCR) Negative (Negative) 05/17/25 22:35 RSV (PCR) Negative (Negative) 05/17/25 22:35 SARS-CoV-2 (PCR) Negative (Negative) 05/17/25 22:35 Vitals Last Vital Signs Temp 97.5 F L 05/19/25 11:57 Pulse 78 05/19/25 13:42 Resp 18 05/19/25 13:42 BP 123/65 05/19/25 11:57 Pulse Ox 98 05/19/25 13:42 O2 Del Method Room Air 05/19/25 13:42 O2 Flow Rate 0 05/19/25 06:54 Discharge Plan Discharge Patient Disposition: Home Condition: Stable Prescriptions: New albuterol sulfate [Ventolin HFA] 90 mcg/actuation HFA aerosol inhaler 2 inh inhalation Q4H PRN (Reason: shortness of breath or wheezing) Qty: 8.5 0RF azithromycin 250 mg Tablet 500 mg PO DAILY Qty: 3 0RF prednisone 20 mg Tablet 60 mg PO DAILY Qty: 5 0RF Continued (DME) orthopedic shoes See Rx Instructions .Route .MEDSUPPLY Qty: 1 0RF Rx Instructions: As directed by [employer] [facility] tamsulosin 0.4 mg Capsule 0.4 mg PO QPM Rx Instructions: take after same meal each day. finasteride 5 mg Tablet 5 mg PO DAILY valacyclovir 500 mg Tablet 500 mg PO QAM triamcinolone acetonide 0.5 % cream 1 applic topical BID Qty: 15 0RF Rx Instructions: for athlete's foot methocarbamol 750 mg Tablet 750 mg PO TID PRN (Reason: Muscle Spasm) guaifenesin 400 mg Tablet 400 mg PO QID PRN (Reason: Cough) omeprazole 40 mg capsule,delayed release(DR/EC) 40 mg PO DAILY Qty: 30 0RF rosuvastatin 10 mg tablet 10 mg PO QPM Qty: 30 0RF Stiolto Respimat 2.5-2.5 mcg/actuation mist 1 puff inhalation BID Qty: 1 0RF fluticasone propionate [Allergy Relief (fluticasone)] 50 mcg/actuation spray,suspension 2 spray intranasal DAILY Qty: 1 0RF Rx Instructions: administer into each nostril hydrochlorothiazide 25 mg Tablet 25 mg PO DAILY Qty: 30 0RF montelukast 10 mg Tablet 10 mg PO QPM Qty: 30 0RF cetirizine 10 mg Tablet 10 mg PO DAILY Qty: 30 0RF Discontinued albuterol sulfate [ProAir HFA] 90 mcg/actuation Hfa Aerosol Inhaler 2 puff INHALATION Q4H PRN (Reason: Shortness Of Breath) pantoprazole 40 mg Tablet,Delayed Release (Dr/Ec) 40 mg PO DAILY Spiriva Respimat 2.5 mcg/actuation Mist 2 puff INHALATION DAILY Discharge Orders: Discharge Order (Routine); Ordered 05/19/25 Ordered By: Pari Arzate Other Ambulatory Orders: Speech Language Pathology Eval and Treat Outpatient (Order) Timeframe: 2 Weeks Facility: [facility] - Location: PT, OT, [facility] Ordered By: Pari Arzate Referrals: [facility] Outpatient Therapy [Outside, Speech Therapy] Referral Note: We have notified the OP clinic of the need for a follow-up appointment to be scheduled in 2 weeks for Speech. If you have not heard from them within the next 2 business days, please call them directly. Rena Boucher SOCIAL MEDIA SPECIALIST [Primary Care Provider, Nurse Practitioner] - 05/26/25 9:00 am Discharge Diet: Soft Mechanical Discharge Activity: Resume usual activity Patient Instructions: Prednisone (By mouth), Azithromycin (By mouth), Soft Diet (GEN), COPD Stoplight, Opioid Safety, Patient Portal & Tung Instructions Discharge Attestations Time Spent in Discharge Care*: greater than 30 min Quality Metrics Clinical Quality Measures [ No reported AMI, CVA or VTE this stay] Coding Level of Care Code Acute Code for Chg Fwd Diagnoses COPD with acute exacerbation J44.1 Allergic rhinitis, unspecified seasonality, unspecified trigger J30.9 Allergic rhinitis trigger: unspecified Allergic rhinitis seasonality: unspecified Postnasal drip R09.82 Chest pain, unspecified type R07.9 Chest pain type: unspecified Esophageal dysphagia R13.19 Dysphagia type: esophageal phase Gastroesophageal reflux disease, unspecified whether esophagitis present K21.9 Esophagitis presence: esophagitis presence not specified SOB (shortness of breath) R06.02 Benign essential HTN I10 Dyslipidemia E78.5
--- NOTE | 2025-05-19 14:59 | PC.NURSE ---
Discharge instructions provided to pt. NO questions or concerns voiced at this time. Pt to private vehicle via wheelchair with all belongings.
== END 2025-05-19 15:03 | disposition home or self-care (01) ==
LOC: ER 05-18 00:24 → MEDSURG 05-18 01:36
PROVIDERS: Admitting Provider Internal Medicine; Emergency Provider Physician Assistant; PCP Nurse Practitioner; Visit Provider Student in an Organized Health Care Education/Training Program
DX: J44.1 Chronic obstructive pulmonary disease with (acute) exacerbation (principal); R13.19 Other dysphagia; J30.9 Allergic rhinitis, unspecified; R09.82 Postnasal drip; R07.9 Chest pain, unspecified; K21.9 Gastro-esophageal reflux disease without esophagitis; I10 Essential (primary) hypertension; E78.5 Hyperlipidemia, unspecified; Z87.891 Personal history of nicotine dependence
CPT/HCPCS: 36415; 71045; 74230; 78452; 80053; 80069; 80074; 83735; 83880; 84100; 84145; 84484; 85025; 87637; 92611; 93005; 93017; 94640; 96365; 96372; 96375; 99285; A9500; G0378; J0696; J1644; J2785; J2919; J7611; J7614; J7626; J9999; Q0144

== ENCOUNTER → 2025-06-02 14:26 | Outpatient (BNVA) | payer OTHER, SELFPAY | PROVIDERS: PCP Nurse Practitioner; Visit Provider Internal Medicine Cardiovascular Disease | DX: R07.9 Chest pain, unspecified (principal); R00.1 Bradycardia, unspecified; I10 Essential (primary) hypertension; E78.5 Hyperlipidemia, unspecified; J44.9 Chronic obstructive pulmonary disease, unspecified; K21.9 Gastro-esophageal reflux disease without esophagitis; Z87.891 Personal history of nicotine dependence; R06.02 Shortness of breath | CPT/HCPCS: 80048; 83880; 99214 ==

== ENCOUNTER → 2025-06-13 10:05 | Outpatient (BNVA) | payer OTHER, SELFPAY | PROVIDERS: PCP Nurse Practitioner; Visit Provider Dermatology | DX: M71.341 Other bursal cyst, right hand (principal); L98.8 Other specified disorders of the skin and subcutaneous tissue; L85.3 Xerosis cutis; Z85.828 Personal history of other malignant neoplasm of skin; D48.5 Neoplasm of uncertain behavior of skin; L57.0 Actinic keratosis | CPT/HCPCS: 10060; 11102; 11900; 17000; 99204 ==

== ENCOUNTER → 2025-07-21 10:23 | Outpatient (BNVA) | payer OTHER, SELFPAY | PROVIDERS: PCP Nurse Practitioner; Visit Provider Dermatology | DX: C44.519 Basal cell carcinoma of skin of other part of trunk (principal); M71.341 Other bursal cyst, right hand | CPT/HCPCS: 10060; 11900; 99214 ==

== ENCOUNTER 2025-08-16 16:42 | Outpatient (CLI) | payer OTHER, SELFPAY ==
--- NOTE | 2025-08-16 16:50 | CT_ITS ---
WS: [id number] LOW DOSE CT LUNG SCREENING 08/16/2025. HISTORY: Significant smoking history. Technique multiple low-dose axial images with sagittal and coronal reconstructions. COMPARISON EXAMINATION 02/13/2024 FINDINGS: The current examination is essentially unchanged compared to the previous study. 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 No acute pulmonary parenchymal or pleural abnormality. No significant lung nodule or lung mass. No pleural abnormality. Old reactive nodes within the mediastinum. The esophagus appears normal. Stable left adrenal adenoma. Moderate degenerative spondylosis with no focal bone lesion. 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 No significant lung nodule or lung mass.
== END 2025-08-16 16:43 | disposition home or self-care (01) ==
LOC: RAD 16:45
PROVIDERS: PCP Family Medicine Geriatric Medicine; Visit Provider Family Medicine Geriatric Medicine
DX: Z87.891 Personal history of nicotine dependence (principal)
CPT/HCPCS: 71271

== ENCOUNTER → 2025-09-21 11:34 | Outpatient (BNVA) | payer OTHER, SELFPAY | PROVIDERS: PCP Family Medicine Geriatric Medicine; Visit Provider Podiatrist Foot & Ankle Surgery | DX: I73.9 Peripheral vascular disease, unspecified (principal); L60.3 Nail dystrophy; R60.9 Edema, unspecified; L84 Corns and callosities; M77.41 Metatarsalgia, right foot; M77.42 Metatarsalgia, left foot | CPT/HCPCS: 11721; 99213 ==

== ENCOUNTER → 2025-10-26 11:43 | Outpatient (BNVA) | payer OTHER, SELFPAY | PROVIDERS: PCP Family Medicine Geriatric Medicine; Visit Provider Dermatology | DX: M71.341 Other bursal cyst, right hand (principal); L85.3 Xerosis cutis; Z08 Encounter for follow-up examination after completed treatment for malignant neoplasm; D48.5 Neoplasm of uncertain behavior of skin | CPT/HCPCS: 11102; 11900; 99214 ==